=== PATIENT | female | born 1940 | race Caucasian/White ===

== ENCOUNTER 2017-01-25 14:01 | Inpatient (IN) | payer MEDICARE ==
[2017-01-25] MEDS ORDERED: methylPREDNISolone Sod Succ/PF 125 MG/2 ML VIAL ONE (14:22)
[2017-01-25] MEDS ORDERED: Water For Inject, Bacteriostat 30 ML ONE (14:22)
[2017-01-25 14:37] LABS: Hematocrit 30.7 % (36.0-47.0); Mean Platelet Volume 8.9 fL (7.4-10.4); Red Blood Cell (RBC) Count 4.56 mill/uL (4.20-5.40); White Blood Cell (WBC) Count 20.3 thou/uL (4.8-10.8)
[2017-01-25 14:50] LABS: ALT (SGPT) 32 U/L (8-55); AST (SGOT) 33 U/L (5-34); Alkaline Phosphatase 112 U/L (40-150); Anion Gap 18 mmol/L (10-20); BUN (Urea Nitrogen) 14 mg/dL (9.8-20.1); Bilirubin, Total 0.3 mg/dL (0.2-1.2); CK (CPK) 55 U/L (29-168); Calc. Creatinine Clearance 0 mL/min (70-130); Carbon Dioxide 23 mmol/L (23-31); Chloride 94 mmol/L (98-107); Estimated GFR-MDRD Greater than 90; Globulin 3.3 g/dL (2.4-3.5); Protein, Total 7.5 g/dL (6.0-8.3)
[2017-01-25 14:53] LABS: Modified Allen's Test NOT DONE; Oxyhemoglobin 89.4 % (94.0-97.0); Sodium 132 mmol/L (135-148)
[2017-01-25 14:54] LABS: Mode BIPAP 10 28; Vent NO
[2017-01-25 14:54] LABS: Anisocytosis SLIGHT = 6-15 cells (100X) (0-5/hpf); Band 3 % (5-11); Hypochromia SLIGHT = 6-15 cells (100X) (0-5/hpf); Microcytosis MODERATE=15-30 cells (100X) (0-5/hpf); Neutrophil 83 % (42-75); Ovalocytes SLIGHT = 2-5 cells (100X) (0-1/hpf); Polychromasia SLIGHT = 2-3 cells (100X) (0-2/hpf); Reactive Lymphocytes 1 % (0-10); Schistocytes SLIGHT = 2-5 cells (100X) (0-1/hpf); Tear Drops SLIGHT = 2-5 cells (100X) (0-1/hpf); Troponin I Less than 0.010 ng/mL (< 0.028)
[2017-01-25] MEDS ORDERED: cefTRIAXone\\ROCEPHIN 1 GM VIAL ONE (15:07)
[2017-01-25 15:35] LABS: Magnesium 1.8 mg/dL (1.6-2.6); Phosphorus 3.5 mg/dL (2.3-4.7)
[2017-01-25] MEDS ORDERED: cefTRIAXone\\ROCEPHIN 1 GM in Sodium Chloride 0.9% 100 ML IVPB ONE (16:45)
[2017-01-25] MEDS ORDERED: Azithromycin 500 MG in Sodium Chloride 0.9% 250 ML 250 ML IVPB ONE (16:45)
--- NOTE | 2017-01-25 16:45 | HP ---
DATE OF ADMISSION: 01/25/2017 PRIMARY CARE PHYSICIAN: Dr. Sajan Reyes. PRIMARY NATURAL RESOURCE MANAGER: Dr. Benson. PRIMARY BUSINESS OPERATIONS CONSULTANT: Dr. Dominguez. CODE STATUS: FULL CODE. SURROGATE DECISION-MAKER: Patient makes her own decisions with the help of her family. CHIEF COMPLAINT: Shortness of breath. HISTORY OF PRESENT ILLNESS: Patient is a 76-year-old female with COPD, presented to the emergency r o with above complaints. Over the last one week, patient developed gradual worsening shortness of breath along with chest tig htness and wheezing. She had flu-like symptoms over the last one week. Multiple family members had similar symptoms. She also felt feverish; however, did not record her temperature. The shortness of breath was worse on minimal exertion. No leg swelling, orthopnea, syncope, chest pain reported. She tried using nebulizer treatment without much success. She was evaluated by her primary care ph ysician 2 days ago and was advised hospitalization. However, she preferred to go home on oral antib iotics and steroids. Her chest x-ray as outpatient was negative for pneumonia per patient report. Today, her symptoms got worse for which the family brought her to the emergency room. In the emergency room, her initial vital signs showed temperature 96.8, respiration of 26, pulse rat e of 121, blood pressure of 172/92 with O2 saturation of 100% on noninvasive positive pressure venti lation. She was saturating 80% on room air. Her initial EKG showed tachycardia with questionable a trial fibrillation with heart rate in 120s. A chest x-ray showed left lower lobe infiltrate. She r eceived 1 gram of ceftriaxone, azithromycin, Solu-Medrol, and 12.5 mg Cardizem push with nebulizer t reatment. Patient is currently home on prednisone as well as Omnicef. PAST MEDICAL HISTORY: 1. COPD/asthma. 2. Anxiety. 3. Peripheral vascular disease. 4. Hypertension. 5. Osteoporosis. PAST SURGICAL HISTORY: 1. Appendectomy. 2. Hysterectomy. ALLERGIES: Patient denies any drug allergies. HOME MEDICATIONS: To be verified with the family. She does not remember the exact dosages of her m edications. She is currently on aspirin, Breo Ellipta, nebulizer treatment, Xanax, omeprazole, ProA ir, Cardizem ER 240 mg daily, and isosorbide mononitrate twice a day. FAMILY HISTORY: Father at 75 years, diagnosed with heart disease. Mother with congestive heart failure. SOCIAL HISTORY: Patient is a former smoker, quit in 2016. She is and has 3 children. She lives at home with her spouse. She denies any alcohol or drug use. REVIEW OF SYSTEMS: The following complete review of systems was negative, unless otherwise mentione d in the HPI or below: CONSTITUTIONAL: Weight loss or gain, ability to conduct usual activities. SKIN: Rash, itching. EYES: Double vision, pain. ENT/MOUTH: Nose bleeding, neck stiffness, pain, tenderness. CARDIOVASCULAR: Palpitations, dyspnea on exertion, orthopnea. RESPIRATORY: Shortness of breath, wheezing, cough, hemoptysis, fever or night sweats. GASTROINTESTINAL: Poor appetite, abdominal pain, heartburn, nausea, vomiting, constipation, or diar regan. GENITOURINARY: Urgency, frequency, dysuria, nocturia. MUSCULOSKELETAL: Pain, swelling. NEUROLOGIC/PSYCHIATRIC: Anxiety, depression. ALLERGY/IMMUNOLOGIC: Skin rash, bleeding tendency. PHYSICAL EXAMINATION: VITAL SIGNS: As discussed above. GENERAL: A 76-year-old female in moderate respiratory distress on noninvasive positive pressure vi tilation. HEENT: Head atraumatic, normocephalic, sclerae are anicteric. Moist mucous membrane, no oral lesio n. NECK: Supple, no JVD appreciated. There is use of accessory muscles of respiration. LUNGS: Showed expiratory wheezing with scattered rhonchi and questionable rales at left base. HEART: S1, S2 present. Irregular, tachycardic. ABDOMEN: Soft, nontender, bowel sounds present, no rebound or guarding. EXTREMITIES: No edema or calf tenderness. NEUROLOGIC: Grossly nonfocal, moves all four extremities. PSYCHIATRY: Alert, awake, oriented x3. SKIN: Warm and dry. LYMPH NODES: No palpable lymph nodes in the neck. PERIPHERAL VASCULAR: Radial pulses palpable bilaterally. MUSCULOSKELETAL: No joint swelling or tenderness. LABORATORY FINDINGS: 1. CBC showed WBC 20.3 with hemoglobin 8.9, hematocrit 30.7, platelet of 568. Weight 83% neutrophi ls. 2. Chemistries showed sodium 132, potassium 3, chloride 94, bicarbonate 23, BUN 14, creatinine 0.61 . 3. Magnesium, phosphorus in normal range. 4. Iron was 16 with TIBC 435. Ferritin pending at this time. 5. Cardiac enzymes were normal. 6. BNP 138. 7. LFTs in normal range. 8. EKG by my review showed findings as discussed above. 9. Chest x-ray by my review as discussed above. IMPRESSION: 1. Acute hypoxic and hypercapnic respiratory failure. ABGs in the emergency room showed pH of 7.4 with pCO2 of 45.4, pO2 of 66.6. 2. Chronic obstructive pulmonary disease exacerbation. 3. Atrial tachyarrhythmia. Questionable atrial fibrillation versus multifocal atrial tachycardia. 4. Iron deficiency anemia. Patient had iron studies in May of this year that was consistent wi iron deficiency. 5. Sepsis with acute organ dysfunction secondary to community-acquired pneumonia. 6. Hypokalemia. 7. Chronic hyponatremia. 8. Former smoker. 9. Anxiety. 10. Gastroesophageal reflux disease. 11. History of chronic obstructive pulmonary disease/asthma. 12. Seasonal allergies. 13. Hypertension. 14. Peripheral vascular disease. PLAN: The patient will be monitored in the intermediate care unit. We will continue respiratory th erapy with noninvasive positive pressure ventilation. We will consult Critical Care. Empiric antib iotics for pneumonia. We will continue steroids, oxygen, and nebulizer treatment and inhaled steroi ds. For questionable atrial fibrillation, we will continue Cardizem drip. We will consult Cardiolo gy in a.m. We will hold anticoagulation due to iron deficiency anemia. Atrial fibrillation appears to be less likely. We will get serial cardiac enzymes. For anemia, we will her iron infusion. Elmer palma had stool for occult blood as outpatient that was negative per patient report. She will benefit f rom outpatient GI workup. She denies any melena or hematochezia. We will also replace potassium. Plan of care was discussed with the patient. She stated understanding.
--- NOTE | 2017-01-25 17:29 | RAD ---
RADIOGRAPH CHEST 1 VIEW: Date: 01-25-17 Time: 2:26 p.m. HISTORY: 76-year-old female with acute dyspnea. COMPARISON: 07-17-16 FINDINGS: Severe bilateral hyperinflation consistent with COPD. Narrowing of the cardiomediastinal silhouette due to the hyperinflation. Small, ill-defined area of increased density at the left lateral lung bas e, apparently new since the previous study. Uncertain whether this is artifact or a small infiltrate . No consolidation in the rest of the lungs. No pulmonary edema. Lateral costophrenic angles are not effaced. No pneumothorax. IMPRESSION: 1. Emphysema, somewhat severe. 2. Small density at the left lateral lung base. Uncertain whether or not this represents a small acu te infiltrate. 3. Recommend follow up. AUDREY POS: RHETT
[2017-01-25] MEDS ORDERED: NS 0.9% w/ 40 MEQ KCL 1,000 ML IV SCH (17:31)
[2017-01-25] MEDS ORDERED: Ondansetron HCl/PF 4 MG/2 ML Vial IVP PRN ×2 (17:31)
[2017-01-25] MEDS ORDERED: Eucerin (Mineral Oil/Petrolatum,White) 30 gm Jar TOP PRN (17:31)
[2017-01-25] MEDS ORDERED: Senokot 8.6 MG TAB PO PRN (17:31)
[2017-01-25] MEDS ORDERED: Polyethylene Glycol 3350 17 GM Packet PO PRN (17:31)
[2017-01-25] MEDS ORDERED: Ondansetron ODT 4 MG TAB PO PRN (17:31)
[2017-01-25] MEDS ORDERED: Diabetic Tussin 200 MG/10 ML UDCUP PO PRN (17:31)
[2017-01-25] MEDS ORDERED: Cepastat Lozenges 1 LOZ PO PRN (17:31)
[2017-01-25] MEDS ORDERED: Mag-Al 1200 mg/1200 mg/30 ML UDCUP PO PRN (17:31)
[2017-01-25] MEDS ORDERED: Nitroglycerin 0.4 MG TAB (25 Tab Bottle) PO PRN (17:31)
[2017-01-25] MEDS ORDERED: Calcium Carbonate 500 MG ChewTAB PO PRN (17:31)
[2017-01-25] MEDS ORDERED: Ondansetron ODT 4 MG TAB SL PRN (17:31)
[2017-01-25] MEDS ORDERED: Acetaminophen 325 MG TAB PO PRN ×2 (17:31)
[2017-01-25] MEDS ORDERED: Nitroglycerin 2% Ointment 1 INCH/1 GM Packet TOP PRN (17:31)
[2017-01-25] MEDS ORDERED: Diltiazem HCl 125 MG, IV Admixture Fee 1 EACH in Sodium Chloride 0.9% 100 ML IVPB SCH (17:45)
[2017-01-25 18:17] LABS: Troponin I Less than 0.010 ng/mL (< 0.028)
[2017-01-25] MEDS: Mometasone/Formoterol 120 PUFF INHALER INH SCH (19:25)
[2017-01-25] MEDS: Docusate 100 MG CAP PO SCH (20:46)
[2017-01-25] MEDS: guaiFENesin ER 600 MG TAB PO SCH (20:46)
[2017-01-25] MEDS ORDERED: methylPREDNISolone Sod Succ/PF 125 MG/2 ML VIAL IVP SCH (21:00)
[2017-01-26 05:32] LABS: ALT (SGPT) 29 U/L (8-55); AST (SGOT) 20 U/L (5-34); Alkaline Phosphatase 93 U/L (40-150); Anion Gap 19 mmol/L (10-20); BUN (Urea Nitrogen) 9 mg/dL (9.8-20.1); Bilirubin, Total 0.3 mg/dL (0.2-1.2); Calc. Creatinine Clearance 60 mL/min (70-130); Calcium 8.7 mg/dL (7.8-10.44); Carbon Dioxide 20 mmol/L (23-31); Chloride 99 mmol/L (98-107); Estimated GFR-MDRD Greater than 90; Protein, Total 6.8 g/dL (6.0-8.3)
[2017-01-26 05:33] LABS: #Lymphocytes 0.5 thou/uL (1.20-3.40); #Monocytes 0.1 thou/uL (0.11-0.59); #Neutrophils 11.2 thou/uL (1.40-6.50); %Basophils 0.2 % (0.0-1.0); %Eosinophils 0.4 % (0.0-10.0); %Lymphocytes 4.3 % (21.0-51.0); %Monocytes 0.5 % (0.0-10.0); Mean Platelet Volume 9.7 fL (7.4-10.4); Red Blood Cell (RBC) Count 4.07 mill/uL (4.20-5.40); White Blood Cell (WBC) Count 11.8 thou/uL (4.8-10.8)
[2017-01-26] MEDS: Mometasone/Formoterol 120 PUFF INHALER INH SCH (08:05)
[2017-01-26] MEDS ORDERED: Iron Sucrose Complex 300 MG in Sodium Chloride 0.9% 250 ML 250 ML IVPB SCH (09:00)
[2017-01-26] MEDS ORDERED: Saccharomyces boulardii 250 MG CAP PO SCH (09:00)
[2017-01-26] MEDS: guaiFENesin ER 600 MG TAB PO SCH ×2 (09:03→20:45)
[2017-01-26] MEDS: Docusate 100 MG CAP PO SCH ×2 (09:03→20:46)
[2017-01-26] MEDS: Potassium Chloride 10 MEQ TAB PO SCH (09:04)
[2017-01-26] MEDS ORDERED: Albuterol Sulfate 2.5 mg/3 ml Neb NEB PRN (10:46)
[2017-01-26] MEDS ORDERED: Enoxaparin Sodium 30 MG/0.3 ML SYRINGE SC SCH (11:00)
[2017-01-26] MEDS ORDERED: Benzonatate 100 MG CAP PO PRN (12:00)
[2017-01-26] MEDS: Sodium Chloride 0.9% 1,000 ML IV SCH (13:04)
--- NOTE | 2017-01-26 13:13 | PDOC.PN ---
- Subjective Encounter Start Date: 01/26/17 Encounter Start Time: 12:00 Patient seen and examined. SOB +. on BIPAP. No overnight events - Objective MAR Reviewed: Yes Vital Signs & Weight: Vital Signs (12 hours) Temp Pulse Resp BP BP Pulse Ox 01/26/17 13:09 102 H 24 H 91 L 01/26/17 13:06 119 H 24 H 92 L 01/26/17 12:28 100 159/90 H 01/26/17 11:30 97.7 F 80 14 139/70 94 L 01/26/17 08:07 120 H 20 96 01/26/17 08:05 120 H 20 96 01/26/17 08:04 120 H 22 H 96 01/26/17 08:00 98.0 F 120 H 20 96 01/26/17 07:26 98.0 F 114 H 27 H 142/81 H 95 01/26/17 04:00 97.8 F 82 24 H 113/60 99 01/26/17 02:33 86 17 98 Weight Admit Weight 97 lb 8 oz Weight 95 lb 12.8 oz I&O: 01/25/17 01/26/17 01/27/17 06:59 06:59 06:59 Intake Total 1310 Output Total 950 Balance 360 Result Diagrams: 01/26/17 04:51 01/26/17 04:51 EKG Reviewed by me: Yes (Tele SR) Phys Exam - Physical Examination Pt in resp distress when off BIPAP Respiratory: no rhonchi, wheezing present Scat rales at bases, Symmetrical Cardiovascular: RRR, no rub, gallop no heaves Gastrointestinal: soft, non-tender, no distention, positive bowel sounds Musculoskeletal: no edema, pulses present Neurological: non-focal, normal sensation, moves all 4 limbs Psychiatric: normal affect, A&O x 3 Skin: no rash Dx/Plan - Plan IMPRESSION: 1. Acute hypoxic and hypercapnic respiratory failure due to #2. on NIPPV 2. Chronic obstructive pulmonary disease exacerbation. 3. Atrial tachyarrhythmia. on Cardizem drip 4. Iron deficiency anemia. 5. Sepsis with acute organ dysfunction secondary to community-acquired pneumonia. 6. Hypokalemia. replaced 7. Chronic hyponatremia. 8. Former smoker. 9. Anxiety. 10. Gastroesophageal reflux disease. 11. History of chronic obstructive pulmonary disease/asthma. 12. Seasonal allergies. 13. Hypertension. 14. Peripheral vascular disease. PLAN: * Lovenox started for DVT prophylaxis * Cardio/Pulm following * DC IV Cardizem drip * Start PO Cardizem CD 120 BID * Resume Imdur (home med) * Cont resp therapy with NIPPV * Cont other meds as below * Change IVF to NS @ 30 * AM labs Review of Systems - Review of Systems Constitutional: negative: Fever, Chills, Sweats, Weakness, Malaise, Other Respiratory: Shortness of Breath, SOB with Excertion. negative: Cough, Dry, Hemoptysis, Pleuritic Pain, Sputum, Wheezing Cardiovascular: negative: Chest Pain, Palpitations, Orthopnea, Paroxysmal Noc. Dyspnea, Edema, Light Headedness, Other Gastrointestinal: negative: Nausea, Vomiting, Abdominal Pain, Diarrhea, Constipation, Melena, Hematochezia, Other Genitourinary: negative: Dysuria, Frequency, Incontinence, Hematuria, Retention , Other - Medications/Allergies Allergies/Adverse Reactions: Allergies Allergy/AdvReac Type Severity Reaction Status Date / Time No Known Allergies Allergy Verified 01/25/17 17:40 Medications: Current Medications Acetaminophen (Tylenol) 650 mg PO Q4H PRN PRN Reason: Headache/Fever or Pain Al Hydroxide/Mg Hydroxide (Maalox) 30 ml PO Q6H PRN PRN Reason: Heartburn or Indigestion Albuterol Sulfate (Ventolin) 2.5 mg NEB Q2H PRN PRN Reason: SOB &/or Wheezing Albuterol/Ipratropium (Duoneb) 3 ml NEB [id number]-HP [facility] Last Admin: 01/26/17 13:06 Dose: 3 ml Alprazolam (Xanax) 0.25 mg PO BIDPRN PRN PRN Reason: Anxiety Benzonatate (Tessalon) 100 mg PO TID PRN PRN Reason: Cough Calcium Carbonate (Tums) 1,000 mg PO Q4H PRN PRN Reason: Heartburn or Indigestion Diltiazem HCl (Cardizem Cd) 120 mg PO BID [facility] Diltiazem HCl (Cardizem Cd) 120 mg PO NOW [facility] Stop: 01/26/17 14:00 Last Admin: 01/26/17 12:28 Dose: 120 mg Docusate Sodium (Colace) 100 mg PO BID [facility] Last Admin: 01/26/17 09:03 Dose: 100 mg Enoxaparin Sodium (Lovenox) 30 mg SC 0900 [facility] Guaifenesin (Robitussin Sf) 200 mg PO Q4H PRN PRN Reason: Cough Guaifenesin (Mucinex) 1,200 mg PO Q12HR [facility] Hydralazine HCl (Apresoline) 10 mg SLOW IVP Q4H PRN PRN Reason: SBP Greater Than 180 Azithromycin 500 mg/ Sodium (Chloride) 250 mls @ 250 mls/hr IVPB 1700 [facility] Ceftriaxone Sodium 1 gm/Miscellaneous Medication 1 each/ Sodium Chloride 100 mls @ 200 mls/hr IVPB 1800 [facility] Sodium Chloride (Normal Saline 0.9%) 1,000 mls @ 30 mls/hr IV .Q24H [facility] Last Admin: 01/26/17 13:04 Dose: 1,000 mls Isosorbide Mononitrate (Ismo) 10 mg PO DAILY [facility] Mineral Oil/White Petrolatum (Eucerin Cream) 0 gm TOP BIDPRN PRN PRN Reason: Dry Skin Nitroglycerin (Nitrostat) 0.4 mg PO Q5MIN PRN PRN Reason: Chest Pain Nitroglycerin (Nitro-Bid 2% Ointment) 0.5 inch TOP Q8H PRN PRN Reason: SBP Greater Than 180 Ondansetron HCl (Zofran) 4 mg IVP Q6H PRN PRN Reason: Nausea/Vomiting Pantoprazole Sodium (Protonix) 40 mg PO DAILY [facility] Last Admin: 01/26/17 09:04 Dose: 40 mg Polyethylene Glycol (Miralax) 17 gm PO DAILYPRN PRN PRN Reason: Constipation Potassium Chloride (Klor-Con 10) 10 meq PO QAM-WM [facility] Last Admin: 01/26/17 09:04 Dose: 10 meq Prednisone (Prednisone) 40 mg PO BID [facility] Saccharomyces Boulardii (Florastor) 250 mg PO DAILY [facility] Last Admin: 01/26/17 09:03 Dose: 250 mg Saccharomyces Boulardii (Florastor) 250 mg PO DAILY [facility] Senna (Senokot) 2 tab PO HSPRN PRN PRN Reason: Constipation Sodium Chloride (Flush - Normal Saline) 10 ml IVF PRN PRN PRN Reason: Saline Flush Last Admin: 01/26/17 08:52 Dose: 10 ml Throat Lozenges (Cepastat Lozenges) 1 no PO Q2H PRN PRN Reason: Sore Throat
--- NOTE | 2017-01-26 16:24 | CON ---
DATE OF CONSULTATION: 01/26/2017 SERVICE: Pulmonary Medicine. REASON FOR CONSULTATION: COPD exacerbation. HISTORY OF PRESENT ILLNESS: The patient is a 76-year-old white female with past medical history significant for COPD. She follows with Dr. Benson in the outpatient setting. He will assume care in the morning. Briefly, the patient had some sick contacts. There was a respiratory illness that was going around the house. It was started off with a sore throat, congestion. Most people did not go down into her chest, but for her I did. She was having some low-grade fevers and thinks actually that went up to 102. She had a slow progressive increase in her dyspnea over the weekend. On Thursday, she went to her primary care physician, Dr. Reyes, who ended up doing a chest x-ray and initiated therapy for COPD exacerbation. Her breathing problem progressed through the weekend and last night, she presented to the emergency department with increasing dyspnea. She currently denies any fevers, chills, nausea or vomiting. She feels like she has tried to cough out, but cannot liberate the sputum. Every time she gets a nebulized medication, she actually feels slightly worse for a short period of time associated with increasing pulse rate. PAST MEDICAL HISTORY: 1. COPD. 2. Atrial fibrillation, paroxysmal. 3. Peripheral vascular disease. 4. Hypertension. 5. Osteoporosis. 6. Anxiety disorder. PAST SURGICAL HISTORY: 1. Appendectomy. 2. Hysterectomy. ALLERGIES: No known drug allergies. MEDICATIONS: List of her inpatient medications were reviewed and updated. Her lung medicines include Breo, scheduled, and ProAir on a p.r.n. basis. FAMILY HISTORY: Noncontributory. SOCIAL HISTORY: The patient quit smoking in 2016, but prior to that had a greater than [id number] history. She has 3 children. She lives at home with her spouse and denies any alcohol or illicit drug use. She has no exposure to chemicals, dust asbestos or tuberculosis. REVIEW OF SYSTEMS: General, head, ears, eyes, nose, throat, cardiovascular, respiratory, GI, , musculoskeletal, neurologic and skin is negative except as mentioned in the HPI. PHYSICAL EXAMINATION: VITAL SIGNS: Afebrile, pulse 120, blood pressure 142/81, respirations 20, and saturation 96% on 23% FiO2. GENERAL: The patient is awake and alert, in no apparent distress. HEENT: Normocephalic and atraumatic. Sclerae are white, conjunctivae pink. Oral and nasal mucosa is moist without lesions. LUNGS: Very reduced air entry. There is a prolonged expiratory phase, but she is not moving enough air for me to appreciate any wheezing. There are some small rhonchi that changed with cough. She also has bibasilar dependent crackles which are lateral on the right. HEART: Tachycardic. Irregular. ABDOMEN: Soft, nontender, nondistended, bowel sounds positive. MUSCULOSKELETAL: No cyanosis or clubbing. There is no pitting in the bilateral lower extremities. If anything, she demonstrates mild tenting throughout. GENITOURINARY: No Lyon catheter. NEUROLOGIC: Grossly nonfocal. LABORATORY DATA: WBC 11.8, hemoglobin 8.3, and platelets 435,000. Neutrophils are 95%, but the band count was low on presentation. PH 7.40, pCO2 of 45.4, pO2 of 66 on FiO2 of 28% with BiPAP. Liver function studies are unremarkable. Basic metabolic profile showing significant for sodium of 134. Anion gap is mildly elevated. Ferritin 13.7, iron is reduced. Total iron binding capacity is at the upper limits of normal; however. Phosphorus and magnesium fall within the normal limits. Cardiac enzymes are negative x1. BNP is minimally elevated to 138. Blood cultures x2 are negative to date. Urine culture is negative as well. IMAGING: Chest x-ray demonstrates possible left lower lobe infiltrate which would be quite small. Bilaterally, the lungs are hyperexpanded with flattening of the diaphragm. Interstitial markings are prominent, but likely cash posting representative of advanced emphysematous changes. ASSESSMENT: 1. Acute hypoxic and hypercapnic respiratory failure. 2. Chronic obstructive pulmonary disease with acute exacerbation. 3. Community-acquired pneumonia, possible. 4. Atrial fibrillation with rapid ventricular response. PLAN: We will deescalate her steroids to p.o. medication. Nebulized medications we backed off to q.6 h. This is because they make her feel worse, not better. I will continue working on rate control medication. Her maintenance fluids will be continued for the time being. Respiratory virus panel to be collected. P.r.n. albuterol will be provided if necessary. Agree with antibiotics directed at community-acquired organisms. We will continue our BiPAP and give her breaks 3 times daily and increase as tolerated. Diet will be provided if she tolerates her lunch break today. For the time being, we will keep her in bed as increased mobility causes her to have fairly significant increase in respiratory distress. Pulmonary Critical Care will continue to follow. Dr. Benson will assume care in the morning. MEGHANA
[2017-01-26] MEDS ORDERED: Azithromycin 500 MG in Sodium Chloride 0.9% 250 ML 250 ML IVPB SCH (17:00)
[2017-01-26] MEDS: CEFTRIAXONE ROCEPHIN IVPB SCH (17:30)
[2017-01-26] MEDS: ADMIXTURE FEE IVPB SCH (17:30)
[2017-01-26] MEDS: SODIUM CHLORIDE IVPB SCH (17:30)
[2017-01-26] MEDS: predniSONE 20 MG TAB PO SCH (20:46)
[2017-01-27 04:52] LABS: Anion Gap 15 mmol/L (10-20); BUN (Urea Nitrogen) 16 mg/dL (9.8-20.1); BUN/Creatinine Ratio 30.19; Calc. Creatinine Clearance 62 mL/min (70-130); Calcium 8.7 mg/dL (7.8-10.44); Carbon Dioxide 23 mmol/L (23-31); Chloride 101 mmol/L (98-107); Estimated GFR-MDRD Greater than 90; Phosphorus 2.9 mg/dL (2.3-4.7)
[2017-01-27] MEDS: predniSONE 20 MG TAB PO SCH (07:52)
[2017-01-27] MEDS: Potassium Chloride 10 MEQ TAB PO SCH ×2 (07:53→16:38)
[2017-01-27] MEDS: guaiFENesin ER 600 MG TAB PO SCH ×2 (07:54→20:08)
[2017-01-27] MEDS: Docusate 100 MG CAP PO SCH ×2 (07:54→20:09)
[2017-01-27] MEDS: Isosorbide Mononitrate 20 MG TAB PO SCH (07:54)
[2017-01-27] MEDS: ALPRAZolam 0.25 MG TAB PO PRN ×2 (07:55→20:08)
[2017-01-27] MEDS: Enoxaparin Sodium 30 MG/0.3 ML SYRINGE SC SCH (07:55)
[2017-01-27] MEDS: Saccharomyces boulardii 250 MG CAP PO SCH (07:55)
--- NOTE | 2017-01-27 10:14 | PDOC.CTH ---
Cardiology Progress Note - Subjective Patient reports that SOB is much improved and she is feeling much better today. She currently denies any CP, pressure, palpitations or lightheadedness. - Objective Vital Signs Temp Pulse Resp BP Pulse Ox 01/27/17 08:00 97.7 F 108 H 20 170/86 H 92 L 01/27/17 07:53 108 H 01/27/17 07:28 116 H 20 90 L 01/27/17 07:27 117 H 20 90 L 01/27/17 04:00 98.9 F 110 H 19 141/75 H 95 01/27/17 02:10 96 15 93 L 01/27/17 00:12 98 17 92 L 01/27/17 00:00 98.4 F 115 H 24 H 144/87 H 90 L Admit Weight 97 lb 8 oz Weight 95 lb 12.8 oz 01/26/17 01/27/17 01/28/17 06:59 06:59 06:59 Intake Total 1310 1807 Output Total 950 1200 Balance 360 607 - Physical Examination General/Neuro: alert & oriented x3, NAD Neck: no JVD present Lungs: unlabored respirations, other: (rales to bilateral bases) Heart: RRR Abdomen: NT/ND, soft, other: (active BS) Extremities: other: (no edema to BLE) - Telemetry Telemetry Rhythm: sinus rhythm - Labs Result Diagrams: 01/26/17 04:51 01/27/17 04:10 Troponin/CKMB CK-MB (CK-2) 3.1 ng/mL (0-6.6) 01/25/17 14:20 Troponin I Less than 0.010 ng/mL (< 0.028) 01/25/17 17:43 - Assessment/Plan 1. SOB 2. COPD Exacerbation 3. Sepsis secondary to CAP 4. Tachyarrhythmia likely due to the above Ms. Connors is stable. She is feeling much better as SOB improves and has been weaned from bipap. Cardizem drip has been dc'd and she is currently maintaining NSR with oral cardizem. We will change to long acting CCB starting in the am and will monitor response. Expect HR to improve as COPD stabilizes.
[2017-01-27] MEDS: Sodium Chloride 0.9% 1,000 ML IV SCH (11:11)
--- NOTE | 2017-01-27 15:12 | PDOC.PN ---
- Subjective Encounter Start Date: 01/27/17 Encounter Start Time: 10:30 Patient seen and examined. No new complaints. No overnight events. Off BIPAP. SOB improving. - Objective MAR Reviewed: Yes Vital Signs & Weight: Vital Signs (12 hours) Temp Pulse Resp BP Pulse Ox 01/27/17 13:47 104 H 20 94 L 01/27/17 12:00 97.7 F 105 H 16 143/89 H 97 01/27/17 08:00 97.7 F 108 H 20 170/86 H 92 L 01/27/17 07:53 108 H 01/27/17 07:28 116 H 20 90 L 01/27/17 07:27 117 H 20 90 L 01/27/17 04:00 98.9 F 110 H 19 141/75 H 95 Weight Admit Weight 97 lb 8 oz Weight 95 lb 12.8 oz I&O: 01/26/17 01/27/17 01/28/17 06:59 06:59 06:59 Intake Total 1310 1807 Output Total 950 1200 Balance 360 607 Result Diagrams: 01/26/17 04:51 01/27/17 04:10 EKG Reviewed by me: Yes (Tele SR) Phys Exam - Physical Examination Pt in minimal resp distress Respiratory: no rales B/L rhonchi with scat wheezing Cardiovascular: RRR, no rub Gastrointestinal: soft, non-tender, positive bowel sounds Musculoskeletal: no edema Neurological: non-focal, moves all 4 limbs Psychiatric: A&O x 3 Dx/Plan - Plan IMPRESSION: 1. Acute hypoxic and hypercapnic respiratory failure due to #2. off NIPPV 2. Chronic obstructive pulmonary disease exacerbation. improving 3. Atrial tachyarrhythmia. on Cardizem PO 4. Hypokalemia 5. Sepsis with acute organ dysfunction secondary to community-acquired pneumonia. on PO Atbx 6. Iron deficiency anemia. 7. Chronic hyponatremia. 8. Former smoker. 9. Anxiety. 10. Gastroesophageal reflux disease. 11. History of chronic obstructive pulmonary disease/asthma. 12. Seasonal allergies. 13. Hypertension. 14. Peripheral vascular disease. 15. PLAN: * Cardio/Pulm following * Cont resp therapy * Cont other meds as below * DC IVF * On PO Azithromycin * AM labs * Replace Potassium Review of Systems - Review of Systems Constitutional: negative: Fever, Chills, Sweats, Weakness, Malaise, Other Respiratory: Cough, Dry, Shortness of Breath, SOB with Excertion. negative: Hemoptysis, Pleuritic Pain, Sputum, Wheezing Cardiovascular: negative: Chest Pain, Palpitations, Orthopnea, Paroxysmal Noc. Dyspnea, Edema, Light Headedness, Other Gastrointestinal: negative: Nausea, Vomiting, Abdominal Pain, Diarrhea, Constipation, Melena, Hematochezia, Other - Medications/Allergies Allergies/Adverse Reactions: Allergies Allergy/AdvReac Type Severity Reaction Status Date / Time No Known Allergies Allergy Verified 01/25/17 17:40 Medications: Current Medications Acetaminophen (Tylenol) 650 mg PO Q4H PRN PRN Reason: Headache/Fever or Pain Al Hydroxide/Mg Hydroxide (Maalox) 30 ml PO Q6H PRN PRN Reason: Heartburn or Indigestion Albuterol Sulfate (Ventolin) 2.5 mg NEB Q2H PRN PRN Reason: SOB &/or Wheezing Albuterol/Ipratropium (Duoneb) 3 ml NEB [id number] SCH Alprazolam (Xanax) 0.25 mg PO BIDPRN PRN PRN Reason: Anxiety Last Admin: 01/27/17 07:55 Dose: 0.25 mg Azithromycin (Zithromax) 250 mg PO DAILY [facility] Stop: 01/31/17 09:01 Benzonatate (Tessalon) 100 mg PO TID PRN PRN Reason: Cough Calcium Carbonate (Tums) 1,000 mg PO Q4H PRN PRN Reason: Heartburn or Indigestion Diltiazem HCl (Cardizem Cd) 120 mg PO BID [facility] Stop: 01/27/17 23:59 Last Admin: 01/27/17 07:53 Dose: 120 mg Diltiazem HCl (Cardizem Cd) 240 mg PO DAILY [facility] Docusate Sodium (Colace) 100 mg PO BID [facility] Last Admin: 01/27/17 07:54 Dose: Not Given Enoxaparin Sodium (Lovenox) 30 mg SC 0900 [facility] Last Admin: 01/27/17 07:55 Dose: 30 mg Guaifenesin (Robitussin Sf) 200 mg PO Q4H PRN PRN Reason: Cough Guaifenesin (Mucinex) 1,200 mg PO Q12HR [facility] Last Admin: 01/27/17 07:54 Dose: 1,200 mg Hydralazine HCl (Apresoline) 10 mg SLOW IVP Q4H PRN PRN Reason: SBP Greater Than 180 Ceftriaxone Sodium 1 gm/Miscellaneous Medication 1 each/ Sodium Chloride 100 mls @ 200 mls/hr IVPB 1800 [facility] Last Admin: 01/26/17 17:30 Dose: 100 mls Sodium Chloride (Normal Saline 0.9%) 1,000 mls @ 30 mls/hr IV .Q24H [facility] Last Admin: 01/27/17 11:11 Dose: 1,000 mls Isosorbide Mononitrate (Ismo) 10 mg PO DAILY [facility] Last Admin: 01/27/17 07:54 Dose: 10 mg Methylprednisolone Sodium Succinate (Solu-Medrol) 20 mg IVP Q6HR [facility] Mineral Oil/White Petrolatum (Eucerin Cream) 0 gm TOP BIDPRN PRN PRN Reason: Dry Skin Nitroglycerin (Nitrostat) 0.4 mg PO Q5MIN PRN PRN Reason: Chest Pain Nitroglycerin (Nitro-Bid 2% Ointment) 0.5 inch TOP Q8H PRN PRN Reason: SBP Greater Than 180 Ondansetron HCl (Zofran) 4 mg IVP Q6H PRN PRN Reason: Nausea/Vomiting Pantoprazole Sodium (Protonix) 40 mg PO DAILY [facility] Last Admin: 01/27/17 07:54 Dose: 40 mg Polyethylene Glycol (Miralax) 17 gm PO DAILYPRN PRN PRN Reason: Constipation Potassium Chloride (Klor-Con 10) 10 meq PO BID[facility] Saccharomyces Boulardii (Florastor) 250 mg PO DAILY [facility] Last Admin: 01/27/17 07:55 Dose: 250 mg Senna (Senokot) 2 tab PO HSPRN PRN PRN Reason: Constipation Sodium Chloride (Flush - Normal Saline) 10 ml IVF PRN PRN PRN Reason: Saline Flush Last Admin: 01/26/17 08:52 Dose: 10 ml Throat Lozenges (Cepastat Lozenges) 1 no PO Q2H PRN PRN Reason: Sore Throat
[2017-01-27] MEDS ORDERED: Azithromycin 250 MG TAB PO SCH (16:15)
[2017-01-27] MEDS: SODIUM CHLORIDE IVPB SCH (16:42)
[2017-01-27] MEDS: ADMIXTURE FEE IVPB SCH (16:42)
[2017-01-27] MEDS: CEFTRIAXONE ROCEPHIN IVPB SCH (16:42)
[2017-01-27] MEDS: Famotidine 20 MG TAB PO SCH (20:08)
--- NOTE | 2017-01-27 21:38 | PRG ---
DATE OF SERVICE: 01/27/2017 SUBJECTIVE: Ms. Connors is in no distress. She has BiPAP on this morning. We have recommended that we try her off BiPAP. She only has very faint wheezes. She is in no distress. She is not using ac cessory muscles. OBJECTIVE: VITAL SIGNS: She is afebrile, heart rate 104, respiratory rate 20, oximetry is 94 on 4 liters, bloo d pressure 143/89. LUNGS: Clear. HEART: Regular rhythm. ABDOMEN: Soft. IMPRESSION: Chronic obstructive pulmonary disease exacerbation, clinically improved and her hemoglo bin is 8.3 today. Her MCV 66. It is unclear whether or not she has ever had a colonoscopy. This w ill need to be monitored closely. I do not feel like her radiograph is indicative of a community-acquired pneumonia. I suspect this i s simply a COPD exacerbation.
[2017-01-28 04:26] LABS: Anion Gap 12 mmol/L (10-20); BUN (Urea Nitrogen) 17 mg/dL (9.8-20.1); BUN/Creatinine Ratio 30.91; Calc. Creatinine Clearance 60 mL/min (70-130); Calcium 8.9 mg/dL (7.8-10.44); Carbon Dioxide 27 mmol/L (23-31); Chloride 101 mmol/L (98-107); Estimated GFR-MDRD Greater than 90; Magnesium 2.1 mg/dL (1.6-2.6)
[2017-01-28 05:14] LABS: #Lymphocytes 0.5 thou/uL (1.20-3.40); #Monocytes 0.2 thou/uL (0.11-0.59); #Neutrophils 8.7 thou/uL (1.40-6.50); %Eosinophils 0.2 % (0.0-10.0); %Lymphocytes 5.7 % (21.0-51.0); Anisocytosis SLIGHT = 6-15 cells (100X) (0-5/hpf); Bite Cells SLIGHT = 2-5 cells (100X) (0-1/hpf); Hypochromia SLIGHT = 6-15 cells (100X) (0-5/hpf); Mean Platelet Volume 8.8 fL (7.4-10.4); Microcytosis SLIGHT = 6-15 cells (100X) (0-5/hpf); Neutrophil 91 % (42-75); Red Blood Cell (RBC) Count 4.29 mill/uL (4.20-5.40); Tear Drops SLIGHT = 2-5 cells (100X) (0-1/hpf); White Blood Cell (WBC) Count 9.4 thou/uL (4.8-10.8)
[2017-01-28] MEDS: Potassium Chloride 10 MEQ TAB PO SCH ×2 (08:29→17:17)
[2017-01-28] MEDS: guaiFENesin ER 600 MG TAB PO SCH ×2 (08:29→22:10)
[2017-01-28] MEDS: Saccharomyces boulardii 250 MG CAP PO SCH (08:31)
[2017-01-28] MEDS: Azithromycin 250 MG TAB PO SCH (08:31)
[2017-01-28] MEDS: Famotidine 20 MG TAB PO SCH ×2 (08:31→22:10)
[2017-01-28] MEDS: Enoxaparin Sodium 30 MG/0.3 ML SYRINGE SC SCH (08:32)
[2017-01-28] MEDS: Docusate 100 MG CAP PO SCH ×2 (08:33→22:08)
[2017-01-28] MEDS: Isosorbide Mononitrate 20 MG TAB PO SCH (10:11)
[2017-01-28] MEDS: ALPRAZolam 0.25 MG TAB PO PRN ×2 (10:14→22:10)
--- NOTE | 2017-01-28 11:39 | PDOC.CTH ---
Cardiology Progress Note - Subjective Pt off of bipap. On NS currently. HR improved. No CP - Objective Vital Signs Temp Pulse Resp BP Pulse Ox 01/28/17 11:07 97.9 F 112 H 26 H 117/71 87 L 01/28/17 10:05 123 H 24 H 89 L 01/28/17 08:32 135 H 01/28/17 08:00 97.9 F 135 H 10 L 96 01/28/17 07:03 97.9 F 105 H 26 H 156/89 H 94 L 01/28/17 06:01 92 16 95 01/28/17 06:00 101 H 16 94 L 01/28/17 04:00 97.3 F L 97 22 H 126/68 95 01/28/17 02:33 94 17 94 L 01/28/17 00:00 71 22 H 122/63 94 L Admit Weight 97 lb 8 oz Weight 97 lb 3.2 oz 01/27/17 01/28/17 01/29/17 06:59 06:59 06:59 Intake Total 1807 1380 Output Total 1200 1500 Balance 607 -120 - Physical Examination General/Neuro: alert & oriented x3, NAD Neck: carotid US brisk, no JVD present Lungs: unlabored respirations, other: (mild rhonchi) Heart: PMI normal, RRR Abdomen: no HSM, NT/ND Extremities: + edema B - Telemetry Telemetry Rhythm: SR with PACs - Labs Result Diagrams: 01/28/17 03:43 01/28/17 03:43 Troponin/CKMB CK-MB (CK-2) 3.1 ng/mL (0-6.6) 01/25/17 14:20 Troponin I Less than 0.010 ng/mL (< 0.028) 01/25/17 17:43 Labs: O/W CBC wnl, O/W BMP wnl - Assessment/Plan 1. SOB 2. COPD Exacerbation 3. Sepsis secondary to CAP 4. Tachyarrhythmia likely due to the above Improving. change BID CCB to QAM CCB. Continue pulmonary support. Re check CBC in AM
--- NOTE | 2017-01-28 15:54 | PRG ---
DATE OF SERVICE: 01/28/2017 SUBJECTIVE: Ms. Connors for BiPAP for a short period last night, so she is feeling better. OBJECTIVE: VITAL SIGNS: She is afebrile, heart rate is 98, respiratory rate is 20, and oximetry is 90 on 3 lit ers. LUNGS: Remarkable for more audible wheezes today. Respiratory phase in lung. HEART: Regular rhythm. ABDOMEN: Soft. LABORATORY DATA: White count 9.4, hemoglobin 8.6, platelets 526,000. Electrolytes are normal. Cre atinine is 0.55. IMPRESSION: Chronic obstructive pulmonary disease exacerbation with respiratory failure requiring n oninvasive ventilation, clinically improving. PLAN: Continue nebulizer treatments, steroids, cough suppression, Mucolytics, etc. We will try to e ncourage her to sit up more on side of the bed and even in the chair today.
[2017-01-28] MEDS: SODIUM CHLORIDE IVPB SCH (17:17)
[2017-01-28] MEDS: CEFTRIAXONE ROCEPHIN IVPB SCH (17:17)
[2017-01-28] MEDS: ADMIXTURE FEE IVPB SCH (17:17)
--- NOTE | 2017-01-28 17:37 | PDOC.PN ---
- Subjective Encounter Start Date: 01/28/17 Encounter Start Time: 14:00 Patient seen and examined. No new complaints. No overnight events. SOB improving. On intermittent NIPPV. - Objective MAR Reviewed: Yes Vital Signs & Weight: Vital Signs (12 hours) Temp Pulse Resp BP Pulse Ox 01/28/17 15:16 97.9 F 104 H 22 H 124/67 87 L 01/28/17 14:35 98 90 L 01/28/17 12:00 88 L 01/28/17 11:07 97.9 F 112 H 26 H 117/71 87 L 01/28/17 10:05 123 H 24 H 89 L 01/28/17 08:32 135 H 01/28/17 08:00 97.9 F 135 H 10 L 96 01/28/17 07:03 97.9 F 105 H 26 H 156/89 H 94 L 01/28/17 06:01 92 16 95 01/28/17 06:00 101 H 16 94 L Weight Admit Weight 97 lb 8 oz Weight 97 lb 3.2 oz I&O: 01/27/17 01/28/17 01/29/17 06:59 06:59 06:59 Intake Total 1807 1380 Output Total 1200 1500 Balance 607 -120 Result Diagrams: 01/28/17 03:43 01/28/17 03:43 EKG Reviewed by me: Yes (Tele SR) Phys Exam - Physical Examination Pt in mild-mod resp distress Respiratory: no rales, wheezing present (scat) rhonchi + Cardiovascular: RRR, no rub Gastrointestinal: soft, non-tender, positive bowel sounds Musculoskeletal: no edema, pulses present Neurological: non-focal, moves all 4 limbs Dx/Plan - Plan IMPRESSION: 1. Acute hypoxic and hypercapnic respiratory failure due to #2. on intermittent NIPPV. Pulmonary following 2. Chronic obstructive pulmonary disease exacerbation. improving 3. Atrial tachyarrhythmia. on Cardizem PO - rate improved 4. Hypokalemia - corrected 5. Sepsis with acute organ dysfunction secondary to community-acquired pneumonia. on PO Atbx 6. Iron deficiency anemia. 7. Chronic hyponatremia. 8. Former smoker. 9. Anxiety. 10. Gastroesophageal reflux disease. 11. History of chronic obstructive pulmonary disease/asthma. 12. Seasonal allergies. 13. Hypertension. 14. Peripheral vascular disease. PLAN: * Cardio/Pulm following * Cont resp therapy * Cont other meds as below * On PO Azithromycin/IV Ceftriaxone * Cont Potassium replacement. Review of Systems - Review of Systems Constitutional: negative: Fever, Chills, Sweats, Weakness, Malaise, Other Respiratory: Cough, Dry, Shortness of Breath, SOB with Excertion, Wheezing. negative: Hemoptysis, Pleuritic Pain, Sputum Cardiovascular: negative: Chest Pain, Palpitations, Orthopnea, Paroxysmal Noc. Dyspnea, Edema, Light Headedness, Other Gastrointestinal: negative: Nausea, Vomiting, Abdominal Pain, Diarrhea, Constipation, Melena, Hematochezia, Other - Medications/Allergies Allergies/Adverse Reactions: Allergies Allergy/AdvReac Type Severity Reaction Status Date / Time No Known Allergies Allergy Verified 01/25/17 17:40 Medications: Current Medications Acetaminophen (Tylenol) 650 mg PO Q4H PRN PRN Reason: Headache/Fever or Pain Al Hydroxide/Mg Hydroxide (Maalox) 30 ml PO Q6H PRN PRN Reason: Heartburn or Indigestion Albuterol Sulfate (Ventolin) 2.5 mg NEB Q2H PRN PRN Reason: SOB &/or Wheezing Albuterol/Ipratropium (Duoneb) 3 ml NEB [id number] SCH Last Admin: 01/28/17 14:35 Dose: 3 ml Alprazolam (Xanax) 0.25 mg PO BIDPRN PRN PRN Reason: Anxiety Last Admin: 01/28/17 10:14 Dose: 0.25 mg Azithromycin (Zithromax) 250 mg PO DAILY [facility] Stop: 01/31/17 09:01 Last Admin: 01/28/17 08:31 Dose: 250 mg Benzonatate (Tessalon) 100 mg PO TID PRN PRN Reason: Cough Calcium Carbonate (Tums) 1,000 mg PO Q4H PRN PRN Reason: Heartburn or Indigestion Diltiazem HCl (Cardizem Cd) 240 mg PO DAILY [facility] Last Admin: 01/28/17 08:32 Dose: 240 mg Docusate Sodium (Colace) 100 mg PO BID [facility] Last Admin: 01/28/17 08:33 Dose: Not Given Enoxaparin Sodium (Lovenox) 30 mg SC 0900 [facility] Last Admin: 01/28/17 08:32 Dose: 30 mg Famotidine (Pepcid) 20 mg PO BID [facility] Last Admin: 01/28/17 08:31 Dose: 20 mg Guaifenesin (Robitussin Sf) 200 mg PO Q4H PRN PRN Reason: Cough Guaifenesin (Mucinex) 1,200 mg PO Q12HR [facility] Last Admin: 01/28/17 08:29 Dose: 1,200 mg Hydralazine HCl (Apresoline) 10 mg SLOW IVP Q4H PRN PRN Reason: SBP Greater Than 180 Ceftriaxone Sodium 1 gm/Miscellaneous Medication 1 each/ Sodium Chloride 100 mls @ 200 mls/hr IVPB 1800 [facility] Last Admin: 01/28/17 17:17 Dose: 100 mls Isosorbide Mononitrate (Ismo) 10 mg PO DAILY [facility] Last Admin: 01/28/17 10:11 Dose: 10 mg Methylprednisolone Sodium Succinate (Solu-Medrol) 20 mg IVP Q6HR [facility] Last Admin: 01/28/17 17:16 Dose: 20 mg Mineral Oil/White Petrolatum (Eucerin Cream) 0 gm TOP BIDPRN PRN PRN Reason: Dry Skin Nitroglycerin (Nitrostat) 0.4 mg PO Q5MIN PRN PRN Reason: Chest Pain Nitroglycerin (Nitro-Bid 2% Ointment) 0.5 inch TOP Q8H PRN PRN Reason: SBP Greater Than 180 Ondansetron HCl (Zofran) 4 mg IVP Q6H PRN PRN Reason: Nausea/Vomiting Polyethylene Glycol (Miralax) 17 gm PO DAILYPRN PRN PRN Reason: Constipation Potassium Chloride (Klor-Con 10) 10 meq PO BID-[facility] Last Admin: 01/28/17 17:17 Dose: 10 meq Saccharomyces Boulardii (Florastor) 250 mg PO DAILY [facility] Last Admin: 01/28/17 08:31 Dose: 250 mg Senna (Senokot) 2 tab PO HSPRN PRN PRN Reason: Constipation Sodium Chloride (Flush - Normal Saline) 10 ml IVF PRN PRN PRN Reason: Saline Flush Last Admin: 01/28/17 17:17 Dose: 10 ml Throat Lozenges (Cepastat Lozenges) 1 no PO Q2H PRN PRN Reason: Sore Throat
[2017-01-29] MEDS: Famotidine 20 MG TAB PO SCH ×2 (07:46→22:23)
[2017-01-29] MEDS: Saccharomyces boulardii 250 MG CAP PO SCH (07:46)
[2017-01-29] MEDS: Potassium Chloride 10 MEQ TAB PO SCH ×2 (07:47→17:21)
[2017-01-29] MEDS: guaiFENesin ER 600 MG TAB PO SCH ×2 (07:47→22:22)
[2017-01-29] MEDS: Azithromycin 250 MG TAB PO SCH (07:48)
[2017-01-29] MEDS: Docusate 100 MG CAP PO SCH ×2 (07:48→22:25)
[2017-01-29] MEDS: Isosorbide Mononitrate 20 MG TAB PO SCH (07:48)
[2017-01-29] MEDS: Enoxaparin Sodium 30 MG/0.3 ML SYRINGE SC SCH (07:48)
--- NOTE | 2017-01-29 13:33 | PDOC.PN ---
- Subjective Encounter Start Date: 01/29/17 Encounter Start Time: 08:00 Pt seen for acute on chronic respiratory failure. Reports dyspnea is better. No chest pain, fevers or chills. - Objective MAR Reviewed: Yes Vital Signs & Weight: Vital Signs (12 hours) Temp Pulse Resp BP BP Pulse Ox 01/29/17 11:45 114 H 20 01/29/17 11:04 97.5 F L 97 16 138/77 96 01/29/17 08:00 97.7 F 120 H 24 H 86 L 01/29/17 07:46 120 H 173/102 H 01/29/17 07:24 112 H 22 H 93 L 01/29/17 07:12 97.7 F 123 H 18 159/112 H 88 L 01/29/17 04:00 97.8 F 97 20 158/72 H 90 L Weight Admit Weight 97 lb 8 oz Weight 92 lb 4.8 oz I&O: 01/28/17 01/29/17 01/30/17 06:59 06:59 06:59 Intake Total 1380 900 375 Output Total 1500 550 750 Balance -120 350 -375 Result Diagrams: 01/28/17 03:43 01/28/17 03:43 EKG Reviewed by me: Yes (S. tachycardia) Phys Exam - Physical Examination Constitutional: NAD HEENT: moist MMs, oral pharynx no lesions Neck: supple Diminished air entry katheryn S1, S2, tachy, reg Gastrointestinal: soft, positive bowel sounds Musculoskeletal: pulses present Neurological: moves all 4 limbs Psychiatric: normal affect Dx/Plan (1) Acute and chronic respiratory failure Code(s): J96.20 - ACUTE AND CHR RESP FAILURE, UNSP W HYPOXIA OR HYPERCAPNIA Status: Acute Qualifiers: Respiratory failure complication: hypoxia and hypercapnia Qualified Code(s) : J96.21 - Acute and chronic respiratory failure with hypoxia; J96.22 - Acute and chronic respiratory failure with hypercapnia (2) COPD exacerbation Code(s): J44.1 - CHRONIC OBSTRUCTIVE PULMONARY DISEASE W (ACUTE) EXACERBATION Status: Acute (3) CAP (community acquired pneumonia) Code(s): J18.9 - PNEUMONIA, UNSPECIFIED ORGANISM Status: Acute (4) Iron deficiency anemia Code(s): D50.9 - IRON DEFICIENCY ANEMIA, UNSPECIFIED Status: Acute (5) GERD (gastroesophageal reflux disease) Code(s): K21.9 - GASTRO-ESOPHAGEAL REFLUX DISEASE WITHOUT ESOPHAGITIS Status: Acute - Plan continue antibiotics, out of bed/ambulate, DVT proph w/lovenox * . Clinically improving. Continue oxygen, steroids, bronchodilators and antibiotics. Likely transfer to floor in 1-2 days. Review of Systems - Review of Systems Constitutional: negative: Fever, Chills, Sweats, Weakness, Malaise Respiratory: Cough, SOB with Excertion. negative: Dry, Shortness of Breath, Hemoptysis, Pleuritic Pain, Sputum, Wheezing Cardiovascular: negative: Chest Pain, Palpitations, Orthopnea, Paroxysmal Noc. Dyspnea, Edema, Light Headedness Gastrointestinal: negative: Nausea, Vomiting, Abdominal Pain, Diarrhea, Constipation, Melena, Hematochezia - Medications/Allergies Allergies/Adverse Reactions: Allergies Allergy/AdvReac Type Severity Reaction Status Date / Time No Known Allergies Allergy Verified 01/25/17 17:40 Medications: Current Medications Acetaminophen (Tylenol) 650 mg PO Q4H PRN PRN Reason: Headache/Fever or Pain Al Hydroxide/Mg Hydroxide (Maalox) 30 ml PO Q6H PRN PRN Reason: Heartburn or Indigestion Albuterol Sulfate (Ventolin) 2.5 mg NEB Q2H PRN PRN Reason: SOB &/or Wheezing Albuterol/Ipratropium (Duoneb) 3 ml NEB [id number] SCH Last Admin: 01/29/17 11:45 Dose: 3 ml Alprazolam (Xanax) 0.25 mg PO BIDPRN PRN PRN Reason: Anxiety Last Admin: 01/28/17 22:10 Dose: 0.25 mg Azithromycin (Zithromax) 250 mg PO DAILY [facility] Stop: 01/31/17 09:01 Last Admin: 01/29/17 07:48 Dose: 250 mg Benzonatate (Tessalon) 100 mg PO TID PRN PRN Reason: Cough Calcium Carbonate (Tums) 1,000 mg PO Q4H PRN PRN Reason: Heartburn or Indigestion Diltiazem HCl (Cardizem Cd) 240 mg PO DAILY [facility] Last Admin: 01/29/17 07:46 Dose: 240 mg Docusate Sodium (Colace) 100 mg PO BID [facility] Last Admin: 01/29/17 07:48 Dose: 100 mg Enoxaparin Sodium (Lovenox) 30 mg SC 0900 [facility] Last Admin: 01/29/17 07:48 Dose: 30 mg Famotidine (Pepcid) 20 mg PO BID [facility] Last Admin: 01/29/17 07:46 Dose: 20 mg Guaifenesin (Robitussin Sf) 200 mg PO Q4H PRN PRN Reason: Cough Guaifenesin (Mucinex) 1,200 mg PO Q12HR [facility] Last Admin: 01/29/17 07:47 Dose: 1,200 mg Hydralazine HCl (Apresoline) 10 mg SLOW IVP Q4H PRN PRN Reason: SBP Greater Than 180 Ceftriaxone Sodium 1 gm/Miscellaneous Medication 1 each/ Sodium Chloride 100 mls @ 200 mls/hr IVPB 1800 [facility] Last Admin: 01/28/17 17:17 Dose: 100 mls Isosorbide Mononitrate (Ismo) 10 mg PO DAILY [facility] Last Admin: 01/29/17 07:48 Dose: 10 mg Methylprednisolone Sodium Succinate (Solu-Medrol) 20 mg IVP Q6HR [facility] Last Admin: 01/29/17 11:43 Dose: 20 mg Mineral Oil/White Petrolatum (Eucerin Cream) 0 gm TOP BIDPRN PRN PRN Reason: Dry Skin Nitroglycerin (Nitrostat) 0.4 mg PO Q5MIN PRN PRN Reason: Chest Pain Nitroglycerin (Nitro-Bid 2% Ointment) 0.5 inch TOP Q8H PRN PRN Reason: SBP Greater Than 180 Ondansetron HCl (Zofran) 4 mg IVP Q6H PRN PRN Reason: Nausea/Vomiting Polyethylene Glycol (Miralax) 17 gm PO DAILYPRN PRN PRN Reason: Constipation Potassium Chloride (Klor-Con 10) 10 meq PO BID-[facility] Last Admin: 01/29/17 07:47 Dose: 10 meq Saccharomyces Boulardii (Florastor) 250 mg PO DAILY [facility] Last Admin: 01/29/17 07:46 Dose: 250 mg Senna (Senokot) 2 tab PO HSPRN PRN PRN Reason: Constipation Sodium Chloride (Flush - Normal Saline) 10 ml IVF PRN PRN PRN Reason: Saline Flush Last Admin: 01/29/17 11:44 Dose: 10 ml Throat Lozenges (Cepastat Lozenges) 1 no PO Q2H PRN PRN Reason: Sore Throat
[2017-01-29] MEDS: ADMIXTURE FEE IVPB SCH (17:20)
[2017-01-29] MEDS: CEFTRIAXONE ROCEPHIN IVPB SCH (17:20)
[2017-01-29] MEDS: SODIUM CHLORIDE IVPB SCH (17:20)
--- NOTE | 2017-01-29 17:30 | PDOC.CTH ---
Cardiology Progress Note - Subjective Much better clinically today. No current complaints. Seen eating - Objective Vital Signs Temp Pulse Resp BP BP Pulse Ox 01/29/17 15:41 98 F 86 18 110/63 91 L 01/29/17 15:34 101 H 20 95 01/29/17 11:45 114 H 20 01/29/17 11:04 97.5 F L 97 16 138/77 96 01/29/17 08:00 97.7 F 120 H 24 H 86 L 01/29/17 07:46 120 H 173/102 H 01/29/17 07:24 112 H 22 H 93 L 01/29/17 07:12 97.7 F 123 H 18 159/112 H 88 L Admit Weight 97 lb 8 oz Weight 92 lb 4.8 oz 01/28/17 01/29/17 01/30/17 06:59 06:59 06:59 Intake Total 1380 900 375 Output Total 1500 550 750 Balance -120 350 -375 - Physical Examination General/Neuro: alert & oriented x3, NAD Neck: carotid US brisk Lungs: other: (MIld rhonichi) Heart: RRR, other: (tachycardia) - Labs Result Diagrams: 01/28/17 03:43 01/28/17 03:43 Troponin/CKMB CK-MB (CK-2) 3.1 ng/mL (0-6.6) 01/25/17 14:20 Troponin I Less than 0.010 ng/mL (< 0.028) 01/25/17 17:43 - Assessment/Plan 1. SOB 2. COPD Exacerbation 3. Sepsis secondary to CAP 4. Tachyarrhythmia likely due to the above Improving. HR still mildly elevated. Consider increasing CCB if needed or adding digoxin
--- NOTE | 2017-01-29 19:40 | PRG ---
DATE OF SERVICE: 01/29/2017 SUBJECTIVE: Ms. Connors did well overnight. OBJECTIVE: VITAL SIGNS: She is afebrile, heart rate fluctuates between 80s and 110s, respiratory rates in teen s, oximetry is 91 on 3 liters, blood pressure 110/63. She did not require noninvasive support overn ight. LUNGS: Remarkable for improved wheezes and a shorter expiratory time. HEART: Regular rhythm. ABDOMEN: Soft. NEUROLOGIC: She is talking in complete sentences. LABORATORY DATA: No new lab today. IMPRESSION: Chronic obstructive pulmonary disease exacerbation with respiratory failure. PLAN: Transfer to telemetry unit and continue other medications.
[2017-01-29] MEDS: ALPRAZolam 0.25 MG TAB PO PRN (22:23)
[2017-01-30] MEDS: Docusate 100 MG CAP PO SCH ×2 (08:20→21:57)
[2017-01-30] MEDS: Saccharomyces boulardii 250 MG CAP PO SCH (08:20)
[2017-01-30] MEDS: ALPRAZolam 0.25 MG TAB PO PRN ×2 (08:20→22:03)
[2017-01-30] MEDS: guaiFENesin ER 600 MG TAB PO SCH ×2 (08:20→21:57)
[2017-01-30] MEDS: Potassium Chloride 10 MEQ TAB PO SCH ×2 (08:21→16:42)
[2017-01-30] MEDS: Famotidine 20 MG TAB PO SCH ×2 (08:21→21:57)
[2017-01-30] MEDS: Azithromycin 250 MG TAB PO SCH (08:21)
[2017-01-30] MEDS: Enoxaparin Sodium 30 MG/0.3 ML SYRINGE SC SCH (08:21)
[2017-01-30] MEDS: Isosorbide Mononitrate 20 MG TAB PO SCH (08:21)
--- NOTE | 2017-01-30 09:27 | PDOC.CTH ---
<Lexie Plascencia - Last Filed: 01/30/17 09:28> Cardiology Progress Note - Subjective Patient has been transferred to [facility] and reports feeling much better. States she slept well overnight and her SOB continues to improve. She does report however increased awareness of heart beat with minimal exertion such as transferring to the bedside commode. She continues to deny any chest pain, pressure, dizziness or lightheadedness. - Objective Vital Signs Temp Pulse Resp BP Pulse Ox 01/30/17 08:34 117 H 20 01/30/17 08:20 119 H 01/30/17 08:17 97.8 F 119 H 14 137/99 H 01/30/17 04:00 98.3 F 105 H 18 158/85 H 94 L 01/30/17 00:45 88 L Admit Weight 97 lb 8 oz Weight 92 lb 4.8 oz 01/29/17 01/30/17 01/31/17 06:59 06:59 06:59 Intake Total 900 1315 Output Total 550 1200 Balance 350 115 - Physical Examination General/Neuro: alert & oriented x3, NAD Neck: no JVD present Lungs: other: (diminished throughout with wheezing, rhonchi) Heart: RRR, other: (tachy) Abdomen: NT/ND, soft, other: (active BS) - Telemetry Telemetry Rhythm: sinus with PACs - Labs Result Diagrams: 01/28/17 03:43 01/28/17 03:43 Troponin/CKMB CK-MB (CK-2) 3.1 ng/mL (0-6.6) 01/25/17 14:20 Troponin I Less than 0.010 ng/mL (< 0.028) 01/25/17 17:43 - Assessment/Plan 1. SOB 2. COPD Exacerbation 3. Sepsis secondary to CAP 4. Tachyarrhythmia likely due to the above Ms. Connors continues to improve. Her HR remains slightly elevated and is easily increased with minimal exertion. We will give 60mg of Cardizem now then start 300mg po daily in the AM and monitor response. Patient should be stable for discharge home soon with continued medication titration as an outpatient. <Anil Dominguez - Last Filed: 01/30/17 12:54> Cardiology Progress Note - Objective Vital Signs Temp Pulse Resp BP Pulse Ox 01/30/17 12:15 97.8 F 99 16 145/65 H 92 L 01/30/17 11:28 118 H 20 01/30/17 08:34 117 H 20 01/30/17 08:21 97.8 F 118 H 20 93 L 01/30/17 08:20 119 H 01/30/17 08:17 97.8 F 119 H 14 137/99 H 01/30/17 04:00 98.3 F 105 H 18 158/85 H 94 L Admit Weight 97 lb 8 oz Weight 92 lb 4.8 oz 01/29/17 01/30/17 01/31/17 06:59 06:59 06:59 Intake Total 900 1315 Output Total 550 1200 Balance 350 115 - Labs Result Diagrams: 01/28/17 03:43 01/28/17 03:43 Troponin/CKMB CK-MB (CK-2) 3.1 ng/mL (0-6.6) 01/25/17 14:20 Troponin I Less than 0.010 ng/mL (< 0.028) 01/25/17 17:43 - Assessment/Plan Pt seen and examined. lungs-Mild rhonchi Heart -RRR with ESB Agree with increase in CCB for now. Pt may need home O2./ CV status o/w stable
[2017-01-30] MEDS ORDERED: Diltiazem HCl SR 60 mg Capsule PO SCH (10:00)
--- NOTE | 2017-01-30 13:47 | PDOC.PN ---
- Subjective Encounter Start Date: 01/30/17 Encounter Start Time: 09:00 Pt seen for followup re: acute on chronic respiratory failure. feels better. Dyspnea better. No CP, fevers or chills. - Objective MAR Reviewed: Yes Vital Signs & Weight: Vital Signs (12 hours) Temp Pulse Resp BP Pulse Ox 01/30/17 12:15 97.8 F 99 16 145/65 H 92 L 01/30/17 11:28 118 H 20 01/30/17 08:34 117 H 20 01/30/17 08:21 97.8 F 118 H 20 93 L 01/30/17 08:20 119 H 01/30/17 08:17 97.8 F 119 H 14 137/99 H 01/30/17 04:00 98.3 F 105 H 18 158/85 H 94 L Weight Admit Weight 97 lb 8 oz Weight 92 lb 4.8 oz I&O: 01/29/17 01/30/17 01/31/17 06:59 06:59 06:59 Intake Total 900 1315 Output Total 550 1200 Balance 350 115 Result Diagrams: 01/28/17 03:43 01/28/17 03:43 EKG Reviewed by me: Yes (Tele: NSR with PACs) Phys Exam - Physical Examination Constitutional: NAD HEENT: moist MMs, oral pharynx no lesions Neck: supple Respiratory: no wheezing, no rales, no rhonchi, clear to auscultation bilateral Cardiovascular: RRR, no rub Gastrointestinal: soft, positive bowel sounds Musculoskeletal: pulses present Neurological: moves all 4 limbs Psychiatric: normal affect Dx/Plan (1) Acute and chronic respiratory failure Code(s): J96.20 - ACUTE AND CHR RESP FAILURE, UNSP W HYPOXIA OR HYPERCAPNIA Status: Acute Qualifiers: Respiratory failure complication: hypoxia and hypercapnia Qualified Code(s) : J96.21 - Acute and chronic respiratory failure with hypoxia; J96.22 - Acute and chronic respiratory failure with hypercapnia (2) COPD exacerbation Code(s): J44.1 - CHRONIC OBSTRUCTIVE PULMONARY DISEASE W (ACUTE) EXACERBATION Status: Acute (3) CAP (community acquired pneumonia) Code(s): J18.9 - PNEUMONIA, UNSPECIFIED ORGANISM Status: Acute (4) Iron deficiency anemia Code(s): D50.9 - IRON DEFICIENCY ANEMIA, UNSPECIFIED Status: Chronic (5) GERD (gastroesophageal reflux disease) Code(s): K21.9 - GASTRO-ESOPHAGEAL REFLUX DISEASE WITHOUT ESOPHAGITIS Status: Chronic - Plan continue antibiotics, DVT proph w/lovenox * . Continue oxygen, steroids, bronchodilators and antibiotics. Pt improving clinically. Likely home 2-3 days. Review of Systems - Review of Systems Constitutional: negative: Fever, Chills, Sweats, Weakness, Malaise Respiratory: SOB with Excertion. negative: Cough, Dry, Shortness of Breath, Hemoptysis, Pleuritic Pain, Sputum, Wheezing Cardiovascular: negative: Chest Pain, Palpitations, Orthopnea, Paroxysmal Noc. Dyspnea, Edema, Light Headedness - Medications/Allergies Allergies/Adverse Reactions: Allergies Allergy/AdvReac Type Severity Reaction Status Date / Time No Known Allergies Allergy Verified 01/25/17 17:40 Medications: Current Medications Acetaminophen (Tylenol) 650 mg PO Q4H PRN PRN Reason: Headache/Fever or Pain Al Hydroxide/Mg Hydroxide (Maalox) 30 ml PO Q6H PRN PRN Reason: Heartburn or Indigestion Albuterol Sulfate (Ventolin) 2.5 mg NEB Q2H PRN PRN Reason: SOB &/or Wheezing Albuterol/Ipratropium (Duoneb) 3 ml NEB [id number] SCH Last Admin: 01/30/17 11:28 Dose: 3 ml Alprazolam (Xanax) 0.25 mg PO BIDPRN PRN PRN Reason: Anxiety Last Admin: 01/30/17 08:20 Dose: 0.25 mg Azithromycin (Zithromax) 250 mg PO DAILY [facility] Stop: 01/31/17 09:01 Last Admin: 01/30/17 08:21 Dose: 250 mg Benzonatate (Tessalon) 100 mg PO TID PRN PRN Reason: Cough Calcium Carbonate (Tums) 1,000 mg PO Q4H PRN PRN Reason: Heartburn or Indigestion Diltiazem HCl (Cardizem Cd) 300 mg PO DAILY [facility] Docusate Sodium (Colace) 100 mg PO BID [facility] Last Admin: 01/30/17 08:20 Dose: 100 mg Enoxaparin Sodium (Lovenox) 30 mg SC 0900 [facility] Last Admin: 01/30/17 08:21 Dose: 30 mg Famotidine (Pepcid) 20 mg PO BID [facility] Last Admin: 01/30/17 08:21 Dose: 20 mg Guaifenesin (Robitussin Sf) 200 mg PO Q4H PRN PRN Reason: Cough Guaifenesin (Mucinex) 1,200 mg PO Q12HR [facility] Last Admin: 01/30/17 08:20 Dose: 1,200 mg Hydralazine HCl (Apresoline) 10 mg SLOW IVP Q4H PRN PRN Reason: SBP Greater Than 180 Ceftriaxone Sodium 1 gm/Miscellaneous Medication 1 each/ Sodium Chloride 100 mls @ 200 mls/hr IVPB 1800 [facility] Last Admin: 01/29/17 17:20 Dose: 100 mls Isosorbide Mononitrate (Ismo) 10 mg PO DAILY [facility] Last Admin: 01/30/17 08:21 Dose: 10 mg Methylprednisolone Sodium Succinate (Solu-Medrol) 40 mg IVP DAILY [facility] Mineral Oil/White Petrolatum (Eucerin Cream) 0 gm TOP BIDPRN PRN PRN Reason: Dry Skin Nitroglycerin (Nitrostat) 0.4 mg PO Q5MIN PRN PRN Reason: Chest Pain Nitroglycerin (Nitro-Bid 2% Ointment) 0.5 inch TOP Q8H PRN PRN Reason: SBP Greater Than 180 Ondansetron HCl (Zofran) 4 mg IVP Q6H PRN PRN Reason: Nausea/Vomiting Polyethylene Glycol (Miralax) 17 gm PO DAILYPRN PRN PRN Reason: Constipation Potassium Chloride (Klor-Con 10) 10 meq PO BID-[facility] Last Admin: 01/30/17 08:21 Dose: 10 meq Saccharomyces Boulardii (Florastor) 250 mg PO DAILY [facility] Last Admin: 01/30/17 08:20 Dose: 250 mg Senna (Senokot) 2 tab PO HSPRN PRN PRN Reason: Constipation Sodium Chloride (Flush - Normal Saline) 10 ml IVF PRN PRN PRN Reason: Saline Flush Last Admin: 01/29/17 11:44 Dose: 10 ml Throat Lozenges (Cepastat Lozenges) 1 no PO Q2H PRN PRN Reason: Sore Throat
--- NOTE | 2017-01-30 14:02 | PRG ---
DATE OF SERVICE: 01/30/2017 SUBJECTIVE: Ms. Connors is doing well. She has no complaints. OBJECTIVE: VITAL SIGNS: Heart rate 117, respiratory rate is 20, blood pressure 137/99. She is on 4 liters a m inute, oximetry is 94. GENERAL: She is weak. LUNGS: Clearing up nicely. HEART: Regular rhythm. ABDOMEN: Soft. IMPRESSION: 1. Chronic obstructive pulmonary disease exacerbation. 2. Atrial fibrillation transient. 3. History of noninvasive ventilation this admission. 4. Peripheral vascular disease. 5. History of hypertension. 6. Anxiety, sleeping well with alprazolam. PLAN: Continue current care, add in physical therapy, decrease her steroids. Hopefully, she will b e a candidate to go home on Thursday or Thursday.
[2017-01-30] MEDS: CEFTRIAXONE ROCEPHIN IVPB SCH (16:52)
[2017-01-30] MEDS: SODIUM CHLORIDE IVPB SCH (16:52)
[2017-01-30] MEDS: ADMIXTURE FEE IVPB SCH (16:52)
[2017-01-31] MEDS: guaiFENesin ER 600 MG TAB PO SCH ×2 (09:28→21:52)
[2017-01-31] MEDS: Docusate 100 MG CAP PO SCH ×2 (09:28→21:53)
[2017-01-31] MEDS: Diltiazem HCl CD 300 mg Capsule PO SCH (09:28)
[2017-01-31] MEDS: Azithromycin 250 MG TAB PO SCH (09:28)
[2017-01-31] MEDS: Potassium Chloride 10 MEQ TAB PO SCH ×2 (09:28→16:49)
[2017-01-31] MEDS: Enoxaparin Sodium 30 MG/0.3 ML SYRINGE SC SCH (09:29)
[2017-01-31] MEDS: Saccharomyces boulardii 250 MG CAP PO SCH (09:29)
[2017-01-31] MEDS: Famotidine 20 MG TAB PO SCH ×2 (09:29→21:52)
[2017-01-31] MEDS: Isosorbide Mononitrate 20 MG TAB PO SCH (09:29)
--- NOTE | 2017-01-31 12:13 | PDOC.PN ---
- Subjective Encounter Start Date: 01/31/17 Encounter Start Time: 11:30 Patient seen and examined. SOB gradually improving. No overnight events - Objective MAR Reviewed: Yes Vital Signs & Weight: Vital Signs (12 hours) Temp Pulse Resp BP Pulse Ox 01/31/17 11:03 121 H 16 01/31/17 08:00 97.7 F 121 H 16 181/83 H 92 L 01/31/17 07:10 95 01/31/17 07:07 121 H 16 01/31/17 04:00 97.9 F 101 H 16 160/77 H 99 01/31/17 01:00 90 L Weight Admit Weight 97 lb 8 oz Weight 92 lb 4.8 oz I&O: 01/30/17 01/31/17 02/01/17 06:59 06:59 06:59 Intake Total 1315 1096 Output Total 1200 1050 Balance 115 46 Result Diagrams: 01/28/17 03:43 01/28/17 03:43 EKG Reviewed by me: Yes (Tele ST) Phys Exam - Physical Examination Pt in mild resp distress at rest Respiratory: no rales Scat rhonchi Cardiovascular: RRR, no rub Gastrointestinal: soft, non-tender, positive bowel sounds Musculoskeletal: no edema Neurological: non-focal, moves all 4 limbs Psychiatric: A&O x 3 Dx/Plan - Plan IMPRESSION: 1. Acute hypoxic and hypercapnic respiratory failure due to #2. off NIPPV. Pulmonary following 2. Chronic obstructive pulmonary disease exacerbation. improving 3. Atrial tachyarrhythmia. on Cardizem PO - rate improving 4. Hypokalemia - corrected 5. Sepsis with acute organ dysfunction secondary to community-acquired pneumonia. on IV Ceftriaxone. Completed Azithromycin. 6. Iron deficiency anemia. 7. Chronic hyponatremia. 8. Former smoker. 9. Anxiety. 10. Gastroesophageal reflux disease. 11. History of chronic obstructive pulmonary disease/asthma. 12. Seasonal allergies. 13. Hypertension. 14. Peripheral vascular disease. PLAN: * Cardio/Pulm following * AM labs * Cont resp therapy * Cont other meds as below * On IV Ceftriaxone * Cont current meds as below Review of Systems - Review of Systems Constitutional: negative: Fever, Chills, Sweats, Weakness, Malaise, Other Respiratory: Cough, Dry, SOB with Excertion Cardiovascular: negative: Chest Pain, Palpitations, Orthopnea, Paroxysmal Noc. Dyspnea, Edema, Light Headedness, Other Gastrointestinal: negative: Nausea, Vomiting, Abdominal Pain, Diarrhea, Constipation, Melena, Hematochezia, Other - Medications/Allergies Allergies/Adverse Reactions: Allergies Allergy/AdvReac Type Severity Reaction Status Date / Time No Known Allergies Allergy Verified 01/25/17 17:40 Medications: Current Medications Acetaminophen (Tylenol) 650 mg PO Q4H PRN PRN Reason: Headache/Fever or Pain Al Hydroxide/Mg Hydroxide (Maalox) 30 ml PO Q6H PRN PRN Reason: Heartburn or Indigestion Albuterol Sulfate (Ventolin) 2.5 mg NEB Q2H PRN PRN Reason: SOB &/or Wheezing Albuterol/Ipratropium (Duoneb) 3 ml NEB [id number] SCH Last Admin: 01/31/17 11:03 Dose: 3 ml Alprazolam (Xanax) 0.25 mg PO BIDPRN PRN PRN Reason: Anxiety Last Admin: 01/30/17 22:03 Dose: 0.25 mg Benzonatate (Tessalon) 100 mg PO TID PRN PRN Reason: Cough Calcium Carbonate (Tums) 1,000 mg PO Q4H PRN PRN Reason: Heartburn or Indigestion Diltiazem HCl (Cardizem Cd) 300 mg PO DAILY [facility] Last Admin: 01/31/17 09:28 Dose: 300 mg Docusate Sodium (Colace) 100 mg PO BID [facility] Last Admin: 01/31/17 09:28 Dose: 100 mg Enoxaparin Sodium (Lovenox) 30 mg SC 0900 [facility] Last Admin: 01/31/17 09:29 Dose: 30 mg Famotidine (Pepcid) 20 mg PO BID [facility] Last Admin: 01/31/17 09:29 Dose: 20 mg Guaifenesin (Robitussin Sf) 200 mg PO Q4H PRN PRN Reason: Cough Guaifenesin (Mucinex) 1,200 mg PO Q12HR [facility] Last Admin: 01/31/17 09:28 Dose: 1,200 mg Hydralazine HCl (Apresoline) 10 mg SLOW IVP Q4H PRN PRN Reason: SBP Greater Than 180 Ceftriaxone Sodium 1 gm/Miscellaneous Medication 1 each/ Sodium Chloride 100 mls @ 200 mls/hr IVPB 1800 [facility] Last Admin: 01/30/17 16:52 Dose: 100 mls Isosorbide Mononitrate (Ismo) 10 mg PO DAILY [facility] Last Admin: 01/31/17 09:29 Dose: 10 mg Methylprednisolone Sodium Succinate (Solu-Medrol) 40 mg IVP DAILY [facility] Last Admin: 01/31/17 09:29 Dose: 40 mg Mineral Oil/White Petrolatum (Eucerin Cream) 0 gm TOP BIDPRN PRN PRN Reason: Dry Skin Nitroglycerin (Nitrostat) 0.4 mg PO Q5MIN PRN PRN Reason: Chest Pain Nitroglycerin (Nitro-Bid 2% Ointment) 0.5 inch TOP Q8H PRN PRN Reason: SBP Greater Than 180 Ondansetron HCl (Zofran) 4 mg IVP Q6H PRN PRN Reason: Nausea/Vomiting Polyethylene Glycol (Miralax) 17 gm PO DAILYPRN PRN PRN Reason: Constipation Potassium Chloride (Klor-Con 10) 10 meq PO BID-[facility] Last Admin: 01/31/17 09:28 Dose: 10 meq Saccharomyces Boulardii (Florastor) 250 mg PO DAILY [facility] Last Admin: 01/31/17 09:29 Dose: 250 mg Senna (Senokot) 2 tab PO HSPRN PRN PRN Reason: Constipation Sodium Chloride (Flush - Normal Saline) 10 ml IVF PRN PRN PRN Reason: Saline Flush Last Admin: 01/29/17 11:44 Dose: 10 ml Throat Lozenges (Cepastat Lozenges) 1 no PO Q2H PRN PRN Reason: Sore Throat
[2017-01-31] MEDS ORDERED: cefTRIAXone\\ROCEPHIN 1 GM in Sodium Chloride 0.9% 100 ML IVPB SCH (18:00)
--- NOTE | 2017-01-31 19:52 | PRG ---
DATE OF SERVICE: 01/31/2017 SUBJECTIVE: Ms. Connors is sitting up on the bedside commode. She said her breathing is okay, no adriana st pain. PHYSICAL EXAMINATION: VITAL SIGNS: Her blood pressure 136/72; pulse, it is variable, it is mostly sinus tachycardia in th e 120 range. LUNGS: A few wheezes, expiratory. CARDIAC: Tachycardic at rest. ABDOMEN: Soft, nontender. ASSESSMENT: 1. Chronic obstructive pulmonary disease. 2. History of sepsis. PLAN: Continue current medical regimen. She is on diltiazem, does not seem to be slowing heart rat e, and I do not think increasing this will lower much more.
--- NOTE | 2017-02-01 01:00 | PRG ---
DATE OF SERVICE: 01/31/2017 SERVICE: Pulmonary Medicine. INTERVAL HISTORY: The patient is doing fine from a cardiovascular and respiratory standpoint. She denies any shortness of breath, chest discomfort. Whenever she gets up and walks around; however, s he does have significant dyspnea. She feels fairly weak. Otherwise, she is moving in the right dir ection. PHYSICAL EXAMINATION: VITAL SIGNS: Afebrile, pulse 84, blood pressure 136/86, respirations 20, saturation 92% on 4 liters nasal cannula. HEENT: Normocephalic, atraumatic. Sclerae are white, conjunctivae pink. Oral and nasal mucosa is moist without lesions. LUNGS: Decreased air entry with prolonged expiratory phase. There is some expiratory wheezing stil l present. She is moving better here than on presentation. I do not appreciate any basilar crackle s. HEART: Normal rate, regular. ABDOMEN: Soft, nontender, nondistended. Bowel sounds positive. MUSCULOSKELETAL: No cyanosis or clubbing. No pitting in the bilateral lower extremities. NEUROLOGIC: Grossly nonfocal. Respiratory virus culture is unremarkable. Blood cultures x2 are negative. ASSESSMENT: 1. Acute hypoxic and hypercapnic respiratory failure. 2. Chronic obstructive pulmonary disease with acute exacerbation. 3. Community-acquired pneumonia, possible. PLAN: We will continue supportive care including nebulized medications, steroids, and antibiotics. Her course of antibiotics will be completed tomorrow and they can be discontinued. We will focus o n getting her into a chair a couple of times daily. Hopefully, in 24-48 hours, she will be in [facility] ion, where she is stable for transition out of the hospital. Pulmonary will continue to follow chava e she remains here.
[2017-02-01 05:26] LABS: #Basophils 0.1 thou/uL (0.0-0.2); #Lymphocytes 1.5 thou/uL (1.20-3.40); #Monocytes 0.7 thou/uL (0.11-0.59); #Neutrophils 8.5 thou/uL (1.40-6.50); %Basophils 0.5 % (0.0-1.0); %Eosinophils 0.2 % (0.0-10.0); %Lymphocytes 14.3 % (21.0-51.0); %Monocytes 6.1 % (0.0-10.0); Hematocrit 31.1 % (36.0-47.0); Mean Platelet Volume 8.3 fL (7.4-10.4); Red Blood Cell (RBC) Count 4.54 mill/uL (4.20-5.40); White Blood Cell (WBC) Count 10.8 thou/uL (4.8-10.8)
[2017-02-01 05:44] LABS: Anion Gap 12 mmol/L (10-20); BUN (Urea Nitrogen) 18 mg/dL (9.8-20.1); BUN/Creatinine Ratio 32.14; Calc. Creatinine Clearance 53 mL/min (70-130); Calcium 8.9 mg/dL (7.8-10.44); Carbon Dioxide 29 mmol/L (23-31); Chloride 99 mmol/L (98-107); Estimated GFR-MDRD Greater than 90; Phosphorus 3.3 mg/dL (2.3-4.7)
[2017-02-01] MEDS: Potassium Chloride 10 MEQ TAB PO SCH (08:11)
[2017-02-01] MEDS: Diltiazem HCl CD 300 mg Capsule PO SCH (08:12)
[2017-02-01] MEDS: Famotidine 20 MG TAB PO SCH ×2 (08:12→21:08)
[2017-02-01] MEDS: Isosorbide Mononitrate 20 MG TAB PO SCH (08:12)
[2017-02-01] MEDS: Enoxaparin Sodium 30 MG/0.3 ML SYRINGE SC SCH (08:12)
[2017-02-01] MEDS: guaiFENesin ER 600 MG TAB PO SCH ×2 (08:12→21:08)
[2017-02-01] MEDS: Docusate 100 MG CAP PO SCH ×2 (08:12→21:08)
[2017-02-01] MEDS: Saccharomyces boulardii 250 MG CAP PO SCH (08:13)
--- NOTE | 2017-02-01 12:18 | PDOC.PN ---
- Subjective Encounter Start Date: 02/01/17 Encounter Start Time: 11:00 Patient seen and examined. No new complaints. SOB somewhat better. No overnight events - Objective MAR Reviewed: Yes Vital Signs & Weight: Vital Signs (12 hours) Temp Pulse Resp BP Pulse Ox 02/01/17 12:09 117 H 16 02/01/17 11:30 97.6 F 122 H 22 H 133/76 91 L 02/01/17 08:05 97.7 F 115 H 20 180/88 H 96 02/01/17 08:03 97.7 F 115 H 20 96 02/01/17 07:52 90 L 02/01/17 07:49 105 H 16 02/01/17 04:52 97.5 F L 95 20 139/87 95 02/01/17 01:58 91 L Weight Admit Weight 97 lb 8 oz Weight 86 lb 1 oz I&O: 01/31/17 02/01/17 02/02/17 06:59 06:59 06:59 Intake Total 1096 1180 Output Total 1050 1300 Balance 46 -120 Result Diagrams: 02/01/17 04:53 02/01/17 04:53 EKG Reviewed by me: Yes (Tele ST) Phys Exam - Physical Examination Pt in mild resp distress Respiratory: no wheezing, no rales B/L rhonchi Cardiovascular: no significant murmur tachycardic Gastrointestinal: soft, non-tender, positive bowel sounds Musculoskeletal: no edema Neurological: moves all 4 limbs Psychiatric: A&O x 3 Dx/Plan - Plan IMPRESSION: 1. Acute hypoxic and hypercapnic respiratory failure due to #2. off NIPPV. Pulmonary following. On Atbx/Steroids 2. Chronic obstructive pulmonary disease exacerbation. improving 3. Atrial tachyarrhythmia. on Cardizem PO - rate improving. Dose increased 4. Sepsis with acute organ dysfunction secondary to community-acquired pneumonia. on IV Ceftriaxone. Completed Azithromycin. 5. Peripheral vascular disease. 6. Iron deficiency anemia. 7. Chronic hyponatremia. 8. Former smoker. 9. Anxiety. 10. Gastroesophageal reflux disease. 11. History of chronic obstructive pulmonary disease/asthma. 12. Seasonal allergies. 13. Hypertension. 14. PLAN: * On IV Ceftriaxone * Cardio/Pulm following * Cont resp therapy * Cont current meds as below Review of Systems - Review of Systems Constitutional: negative: Fever, Chills, Sweats, Weakness, Malaise, Other Respiratory: Cough, Dry, Shortness of Breath, SOB with Excertion, Sputum, Wheezing. negative: Hemoptysis, Pleuritic Pain Cardiovascular: negative: Chest Pain, Palpitations, Orthopnea, Paroxysmal Noc. Dyspnea, Edema, Light Headedness, Other Gastrointestinal: negative: Nausea, Vomiting, Abdominal Pain, Diarrhea, Constipation, Melena, Hematochezia, Other - Medications/Allergies Allergies/Adverse Reactions: Allergies Allergy/AdvReac Type Severity Reaction Status Date / Time No Known Allergies Allergy Verified 01/25/17 17:40 Medications: Current Medications Acetaminophen (Tylenol) 650 mg PO Q4H PRN PRN Reason: Headache/Fever or Pain Last Admin: 01/31/17 16:49 Dose: 650 mg Al Hydroxide/Mg Hydroxide (Maalox) 30 ml PO Q6H PRN PRN Reason: Heartburn or Indigestion Albuterol Sulfate (Ventolin) 2.5 mg NEB Q2H PRN PRN Reason: SOB &/or Wheezing Albuterol/Ipratropium (Duoneb) 3 ml NEB [id number] SCH Last Admin: 02/01/17 12:09 Dose: 3 ml Alprazolam (Xanax) 0.25 mg PO BIDPRN PRN PRN Reason: Anxiety Last Admin: 01/30/17 22:03 Dose: 0.25 mg Calcium Carbonate (Tums) 1,000 mg PO Q4H PRN PRN Reason: Heartburn or Indigestion Diltiazem HCl (Cardizem Cd) 300 mg PO DAILY [facility] Last Admin: 02/01/17 08:12 Dose: 300 mg Docusate Sodium (Colace) 100 mg PO BID [facility] Last Admin: 02/01/17 08:12 Dose: 100 mg Enoxaparin Sodium (Lovenox) 30 mg SC 0900 [facility] Last Admin: 02/01/17 08:12 Dose: 30 mg Famotidine (Pepcid) 20 mg PO BID [facility] Last Admin: 02/01/17 08:12 Dose: 20 mg Guaifenesin (Mucinex) 1,200 mg PO Q12HR [facility] Last Admin: 02/01/17 08:12 Dose: 1,200 mg Hydralazine HCl (Apresoline) 10 mg SLOW IVP Q4H PRN PRN Reason: SBP Greater Than 180 Ceftriaxone Sodium 1 gm/ (Sodium Chloride) 100 mls @ 200 mls/hr IVPB 1800 [facility] Last Admin: 01/31/17 17:01 Dose: 100 mls Isosorbide Mononitrate (Ismo) 10 mg PO DAILY [facility] Last Admin: 02/01/17 08:12 Dose: 10 mg Methylprednisolone Sodium Succinate (Solu-Medrol) 40 mg IVP DAILY [facility] Last Admin: 02/01/17 08:13 Dose: 40 mg Mineral Oil/White Petrolatum (Eucerin Cream) 0 gm TOP BIDPRN PRN PRN Reason: Dry Skin Nitroglycerin (Nitrostat) 0.4 mg PO Q5MIN PRN PRN Reason: Chest Pain Nitroglycerin (Nitro-Bid 2% Ointment) 0.5 inch TOP Q8H PRN PRN Reason: SBP Greater Than 180 Ondansetron HCl (Zofran) 4 mg IVP Q6H PRN PRN Reason: Nausea/Vomiting Polyethylene Glycol (Miralax) 17 gm PO DAILYPRN PRN PRN Reason: Constipation Saccharomyces Boulardii (Florastor) 250 mg PO DAILY [facility] Last Admin: 02/01/17 08:13 Dose: 250 mg Senna (Senokot) 2 tab PO HSPRN PRN PRN Reason: Constipation Sodium Chloride (Flush - Normal Saline) 10 ml IVF PRN PRN PRN Reason: Saline Flush Last Admin: 01/29/17 11:44 Dose: 10 ml Throat Lozenges (Cepastat Lozenges) 1 no PO Q2H PRN PRN Reason: Sore Throat
--- NOTE | 2017-02-01 16:20 | PRG ---
DATE OF SERVICE: SUBJECTIVE: Ms. Connors is up in the bed, awake and alert. She said her breathing is about the same. OBJECTIVE: VITAL SIGNS: Her heart rate is still fast about 110 beats per minute, sometimes faster with sinus t achycardia. LUNGS: Somewhat distant, no wheezing. CARDIAC: Tachycardia. ABDOMEN: Soft, nontender. EXTREMITIES: No edema. ASSESSMENT: 1. Sinus tachycardia, this seems to be much influenced by the calcium rin. 2. Chronic obstructive pulmonary disease. 3. History of sepsis. PLAN: Continue current medical regimen. No changes at this time.
--- NOTE | 2017-02-01 20:16 | PRG ---
DATE OF SERVICE 02/01/2017 SERVICE: Pulmonary Medicine. INTERVAL HISTORY: The patient is doing fine from a breathing standpoint, but was able to get up and walk around a little bit. We dropped her at 2 liters nasal cannula and she is maintaining her satu rations of 91%. She denies any current fevers, chills, nausea, or vomiting. PHYSICAL EXAMINATION: VITAL SIGNS: Afebrile, pulse 118, blood pressure 133/65, respirations 20, saturation 92% on 2 liter s nasal cannula. HEENT: Normocephalic, atraumatic. Sclerae are white, conjunctivae pink. Oral and nasal mucosa fabiano st without lesions. LUNGS: Slightly improved air entry. There is a prolonged expiratory phase with both rhonchi and wh eezing present. No crackles are appreciated. HEART: Normal rate, regular. ABDOMEN: Soft, nontender, nondistended. Bowel sounds positive. MUSCULOSKELETAL: No cyanosis or clubbing. No pitting in the bilateral lower extremities. NEUROLOGIC: Grossly nonfocal. LABORATORY DATA: WBC 10.8, hemoglobin 9.5, platelets 549,000 and roughly stable. Basic metabolic p rofile, magnesium and phosphorus are all unremarkable. Respiratory virus panel is unremarkable. Bl ood cultures x2 are negative. ASSESSMENT: 1. Acute hypoxic and hypercapnic respiratory failure. 2. Chronic obstructive pulmonary disease with acute exacerbation. 3. Community-acquired pneumonia, possible. PLAN: We will continue supportive care with nebulized medications, and steroids. She has completed her 7-day course of antibiotics and these will be discontinued. She is likely going to be stable f or discharge in 24-48 hours. She will continue increasing mobility as tolerated.
[2017-02-01] MEDS: ALPRAZolam 0.25 MG TAB PO PRN (21:08)
[2017-02-02] MEDS: Diltiazem HCl CD 300 mg Capsule PO SCH (08:14)
[2017-02-02] MEDS: Enoxaparin Sodium 30 MG/0.3 ML SYRINGE SC SCH (08:15)
[2017-02-02] MEDS: Famotidine 20 MG TAB PO SCH ×2 (08:15→20:41)
[2017-02-02] MEDS: Isosorbide Mononitrate 20 MG TAB PO SCH (08:15)
[2017-02-02] MEDS: guaiFENesin ER 600 MG TAB PO SCH ×2 (08:15→20:42)
[2017-02-02] MEDS: Docusate 100 MG CAP PO SCH ×2 (08:15→20:41)
[2017-02-02] MEDS: Saccharomyces boulardii 250 MG CAP PO SCH (08:16)
--- NOTE | 2017-02-02 09:12 | PDOC.CTH ---
Cardiology Progress Note - Subjective Ms. Connors did well overnight. Reports she is getting up to the bedside commode without difficulty and without increases in her heart rate. She states her breathing is also much improved. She denies any CP, pressure or palpitations. - Objective Vital Signs Temp Pulse Resp BP Pulse Ox 02/02/17 07:26 108 H 16 96 02/02/17 07:19 97.8 F 105 H 18 151/82 H 98 02/02/17 06:26 98.2 F 93 18 140/81 96 02/02/17 02:16 109 H 20 152/86 H 97 02/02/17 00:34 96 Admit Weight 97 lb 8 oz Weight 84 lb 3 oz 02/01/17 02/02/17 02/03/17 06:59 06:59 06:59 Intake Total 1180 940 Output Total 1300 950 Balance -120 -10 - Physical Examination General/Neuro: alert & oriented x3, NAD Neck: no JVD present Lungs: unlabored respirations, other: (+rhonchi most pronounced in R lower lobe) Heart: other: (sinus, rapid) Abdomen: NT/ND, soft Extremities: other: (no edema to BLE) - Telemetry Telemetry Rhythm: sinus tach, PACs - Labs Result Diagrams: 02/01/17 04:53 02/01/17 04:53 Troponin/CKMB CK-MB (CK-2) 3.1 ng/mL (0-6.6) 01/25/17 14:20 Troponin I Less than 0.010 ng/mL (< 0.028) 01/25/17 17:43 - Assessment/Plan 1. Sinus Tachycardia 2. SOB 3. COPD Exacerbation 4. Sepsis secondary to CAP Ms. Connors's clinical status is greatly improved. She reports being able to slightly increase her activity level without significant increases in her HR, and her oxygen requirement has been reduced with good results. Her resting HR remains somewhat elevated however with occasional BP elevations. We will increase CCB to max dose to attempt better BP and HR control and monitor her response. Patient would be stable for discharge home soon with continued BP medication titration as an outpatient.
--- NOTE | 2017-02-02 14:35 | PRG ---
DATE OF SERVICE: 02/02/2017 SUBJECTIVE: Ms. Dinora Connors did well over the weekend. She is in no distress. OBJECTIVE: VITAL SIGNS: Hear rate is 108, she is afebrile, respiratory rate 16, oximetry is 95 on 2 liters. LUNGS: Distant with faint wheezes. HEART: Regular rhythm. ABDOMEN: Soft. LABORATORY DATA: White count 10.8, hemoglobin 9.5, platelets 549 yesterday and electrolytes were no rmal yesterday. IMPRESSION: 1. Chronic obstructive pulmonary disease exacerbation with respiratory failure, transiently requiri ng noninvasive ventilation. She was not on oxygen prior to admission, so hopefully she will get aleah k to that point. We will continue current care. 2. Atrial fibrillation, paroxysmal. She has been followed by Cardiology. Her sinus tachycardia is appropriate for her chronic obstructive pulmonary disease.
--- NOTE | 2017-02-02 19:09 | PDOC.PN ---
- Subjective Encounter Start Date: 02/02/17 Encounter Start Time: 14:00 Patient seen and examined. No new complaints. No overnight events. Feels better. Less SOB at rest. - Objective MAR Reviewed: Yes Vital Signs & Weight: Vital Signs (12 hours) Temp Pulse Pulse Pulse Resp BP BP 02/02/17 16:00 98.2 F 105 H 20 02/02/17 14:46 112 H 20 02/02/17 13:22 124 H 101 H 161/76 H 148/70 H 02/02/17 12:21 98 F 111 H 20 02/02/17 11:01 114 H 20 02/02/17 08:00 97.8 F 108 H 16 02/02/17 07:26 108 H 16 02/02/17 07:19 97.8 F 105 H 18 BP Pulse Ox Pulse Ox Pulse Ox 02/02/17 16:00 92 L 02/02/17 14:46 96 02/02/17 13:22 87 L 90 L 02/02/17 12:21 139/79 92 L 02/02/17 11:01 95 02/02/17 08:00 98 02/02/17 07:26 96 02/02/17 07:19 151/82 H 98 Weight Admit Weight 97 lb 8 oz Weight 84 lb 3 oz I&O: 02/01/17 02/02/17 02/03/17 06:59 06:59 06:59 Intake Total 1180 940 960 Output Total 1300 950 500 Balance -120 -10 460 Result Diagrams: 02/01/17 04:53 02/01/17 04:53 EKG Reviewed by me: Yes (Tele SR/ST) Phys Exam - Physical Examination Constitutional: NAD Respiratory: no rales Scat rhonchi/wheezing Cardiovascular: RRR, no rub Gastrointestinal: soft, non-tender, positive bowel sounds Musculoskeletal: no edema Neurological: non-focal, moves all 4 limbs Psychiatric: A&O x 3 Dx/Plan - Plan IMPRESSION: 1. Acute hypoxic and hypercapnic respiratory failure due to #2. off NIPPV. Pulmonary following. On Steroids. Completed Atbx 2. Chronic obstructive pulmonary disease exacerbation. improving 3. Atrial tachyarrhythmia. on Cardizem PO - rate improving. Dose increased to 300 mg daily 4. Sepsis with acute organ dysfunction secondary to community-acquired pneumonia. Completed Atbx. 5. Peripheral vascular disease. 6. Iron deficiency anemia. 7. Chronic hyponatremia. 8. Former smoker. 9. Anxiety. 10. Gastroesophageal reflux disease. 11. History of chronic obstructive pulmonary disease/asthma. 12. Seasonal allergies. 13. Hypertension. PLAN: * Cardio/Pulm following * Cont resp therapy * Cont current meds as below * DVT prophylaxis Review of Systems - Review of Systems Constitutional: negative: Fever, Chills, Sweats, Weakness, Malaise, Other Respiratory: Cough, Dry, SOB with Excertion. negative: Shortness of Breath, Hemoptysis, Pleuritic Pain, Sputum, Wheezing Cardiovascular: negative: Chest Pain, Palpitations, Orthopnea, Paroxysmal Noc. Dyspnea, Edema, Light Headedness, Other Gastrointestinal: negative: Nausea, Vomiting, Abdominal Pain, Diarrhea, Constipation, Melena, Hematochezia, Other - Medications/Allergies Allergies/Adverse Reactions: Allergies Allergy/AdvReac Type Severity Reaction Status Date / Time No Known Allergies Allergy Verified 01/25/17 17:40 Medications: Current Medications Acetaminophen (Tylenol) 650 mg PO Q4H PRN PRN Reason: Headache/Fever or Pain Last Admin: 01/31/17 16:49 Dose: 650 mg Al Hydroxide/Mg Hydroxide (Maalox) 30 ml PO Q6H PRN PRN Reason: Heartburn or Indigestion Albuterol Sulfate (Ventolin) 2.5 mg NEB Q2H PRN PRN Reason: SOB &/or Wheezing Albuterol/Ipratropium (Duoneb) 3 ml NEB [id number] SCH Last Admin: 02/02/17 14:46 Dose: 3 ml Alprazolam (Xanax) 0.25 mg PO BIDPRN PRN PRN Reason: Anxiety Last Admin: 02/01/17 21:08 Dose: 0.25 mg Calcium Carbonate (Tums) 1,000 mg PO Q4H PRN PRN Reason: Heartburn or Indigestion Diltiazem HCl (Cardizem Cd) 300 mg PO DAILY [facility] Last Admin: 02/02/17 08:14 Dose: 300 mg Docusate Sodium (Colace) 100 mg PO BID [facility] Last Admin: 02/02/17 08:15 Dose: 100 mg Enoxaparin Sodium (Lovenox) 30 mg SC 0900 [facility] Last Admin: 02/02/17 08:15 Dose: 30 mg Famotidine (Pepcid) 20 mg PO BID [facility] Last Admin: 02/02/17 08:15 Dose: 20 mg Guaifenesin (Mucinex) 1,200 mg PO Q12HR [facility] Last Admin: 02/02/17 08:15 Dose: 1,200 mg Hydralazine HCl (Apresoline) 10 mg SLOW IVP Q4H PRN PRN Reason: SBP Greater Than 180 Isosorbide Mononitrate (Ismo) 10 mg PO DAILY [facility] Last Admin: 02/02/17 08:15 Dose: 10 mg Methylprednisolone Sodium Succinate (Solu-Medrol) 40 mg IVP DAILY [facility] Last Admin: 02/02/17 08:15 Dose: 40 mg Mineral Oil/White Petrolatum (Eucerin Cream) 0 gm TOP BIDPRN PRN PRN Reason: Dry Skin Nitroglycerin (Nitrostat) 0.4 mg PO Q5MIN PRN PRN Reason: Chest Pain Nitroglycerin (Nitro-Bid 2% Ointment) 0.5 inch TOP Q8H PRN PRN Reason: SBP Greater Than 180 Ondansetron HCl (Zofran) 4 mg IVP Q6H PRN PRN Reason: Nausea/Vomiting Polyethylene Glycol (Miralax) 17 gm PO DAILYPRN PRN PRN Reason: Constipation Saccharomyces Boulardii (Florastor) 250 mg PO DAILY [facility] Last Admin: 02/02/17 08:16 Dose: 250 mg Senna (Senokot) 2 tab PO HSPRN PRN PRN Reason: Constipation Sodium Chloride (Flush - Normal Saline) 10 ml IVF PRN PRN PRN Reason: Saline Flush Last Admin: 01/29/17 11:44 Dose: 10 ml Throat Lozenges (Cepastat Lozenges) 1 no PO Q2H PRN PRN Reason: Sore Throat
[2017-02-02] MEDS: ALPRAZolam 0.25 MG TAB PO PRN (20:41)
[2017-02-03] MEDS: Enoxaparin Sodium 30 MG/0.3 ML SYRINGE SC SCH (09:37)
[2017-02-03] MEDS: Diltiazem HCl CD 300 mg Capsule PO SCH (09:38)
[2017-02-03] MEDS: Saccharomyces boulardii 250 MG CAP PO SCH (09:38)
[2017-02-03] MEDS: Isosorbide Mononitrate 20 MG TAB PO SCH (09:40)
[2017-02-03] MEDS: Famotidine 20 MG TAB PO SCH (09:41)
[2017-02-03] MEDS: Docusate 100 MG CAP PO SCH (09:42)
[2017-02-03] MEDS: guaiFENesin ER 600 MG TAB PO SCH (09:47)
--- NOTE | 2017-02-03 12:01 | PDOC.CTH ---
Cardiology Progress Note - Subjective No new complaints. No overnight events. Denies CP, pressure or palpitations. - Objective Vital Signs Temp Pulse Resp BP BP Pulse Ox 02/03/17 10:48 120 H 18 94 L 02/03/17 09:38 117 H 146/81 H 02/03/17 08:00 98.0 F 117 H 19 146/81 H 86 L 02/03/17 06:56 102 H 18 95 02/03/17 04:46 95 02/03/17 04:00 98.2 F 100 18 141/81 H 96 Admit Weight 97 lb 8 oz Weight 97 lb 4.8 oz 02/02/17 02/03/17 02/04/17 06:59 06:59 06:59 Intake Total 940 1320 240 Output Total 950 1300 Balance -10 20 240 - Physical Examination General/Neuro: alert & oriented x3, NAD Neck: no JVD present Lungs: other: (mild rhonchi, improved) Heart: RRR, other: Abdomen: NT/ND, soft Extremities: other: (no edema to BLE) - Telemetry Telemetry Rhythm: sinus tach - Labs Result Diagrams: 02/01/17 04:53 02/01/17 04:53 Troponin/CKMB CK-MB (CK-2) 3.1 ng/mL (0-6.6) 01/25/17 14:20 Troponin I Less than 0.010 ng/mL (< 0.028) 01/25/17 17:43 - Assessment/Plan 1. Sinus Tachycardia 2. SOB 3. COPD Exacerbation 4. Sepsis secondary to CAP Stable. HR in the low 100s on current therapy. Ok to discharge home from CV standpoint with 1 week outpatient follow up.
[2017-02-03 12:53] VITALS: BMI 16.7
--- NOTE | 2017-02-03 15:51 | PRG ---
DATE OF SERVICE: 02/03/2017 SUBJECTIVE: Ms. Connors says she is feeling better. She is still bronchospastic by exam. OBJECTIVE: VITAL SIGNS: Heart rate 114. She is afebrile. Respiratory rate is 18. Oximetry is 90% on room ai r, 94% on 2 liters. Blood pressure 129/73. LUNGS: Remarkable still for diffuse wheezes. HEART: Regular rhythm. ABDOMEN: Soft. IMPRESSION AND PLAN: 1. Chronic obstructive pulmonary disease exacerbation, improved. Sinus tachycardia associated with her chronic obstructive pulmonary disease. 2. Transient respiratory failure requiring noninvasive ventilation. 3. Transient ? atrial fibrillation. She appears to be stable. She can be discharged home today or tomorrow on prednisone 40 mg a day, nebulizer treatments four times a day and her other home medici luiz as well as an antibiotic for another week. She can follow up with me within a week.
--- NOTE | 2017-02-03 16:43 | DIS ---
DATE OF ADMISSION: 01/25/2017 DATE OF DISCHARGE: 02/03/2017 DISCHARGE DISPOSITION: Home. FOLLOWUP: 1. Follow up with primary care physician, Dr. Reyes, in 1 week. 2. Follow up with electromechanical inspector, Dr. Benson, in 2 weeks. 3. Follow up with carpenter supervisor, Dr. Dominguez, in 2 weeks. ALLERGIES: No known drug allergies. DISCHARGE MEDICATIONS: 1. Xanax as needed. 2. Acyclovir as needed. 3. Tessalon Perles as needed. 4. Cardizem CD 300 mg daily. 5. Breo Ellipta 1 inhalation daily. 6. DuoNebs as needed. 7. Isosorbide mononitrate 10 mg daily. 8. Incruse Ellipta 1 inhalation daily as needed. 9. Prednisone taper. 10. P.r.n., hydralazine as needed for elevated blood pressure. BRIEF HOSPITAL COURSE: Patient is a 76-year-old female with chronic obstructive pulmonary disease w ho presented to the hospital with severe shortness of breath. Please refer to the history and physi christ dated 01/25/2017, for further details. The patient was admitted to the intermediate care unit with a diagnosis of acute hypoxic and hyperca pnic respiratory failure. She was placed on noninvasive positive pressure ventilation. Her pO2 was 66.6 with a pCO2 of 45.4. She was seen by Pulmonology, Dr. Benson. She was placed on nebulizer madelyn atments along with steroids and antibiotics. She completed antibiotics during this hospital stay. She will continue tapering prednisone along with nebulizer treatments. She showed very slow improve ment. Today on the day of discharge, her O2 saturation is 96% on 2 liters nasal cannula. She quali fied for home oxygen, which has been arranged. On admission, patient also had atrial tachyarrhythmia for which the patient was evaluated by Cardiol ogpretty, Dr. Dominguez. She was started on Cardizem drip that has been changed to 300 mg Cardizem CD p. o. Her tachyarrhythmia is probably secondary to underlying chronic obstructive pulmonary disease. She has been cleared by Cardiology and Pulmonology for discharge. FINAL DIAGNOSES: 1. Acute hypoxic and hypercapnic respiratory failure secondary to chronic obstructive pulmonary dis ease exacerbation, requiring noninvasive positive pressure ventilation. 2. Chronic obstructive pulmonary disease exacerbation. 3. Atrial tachyarrhythmia. 4. Sepsis with acute organ dysfunction secondary to community-acquired pneumonia, completed antibio tics. 5. Peripheral vascular disease. 6. Iron deficiency anemia. 7. Chronic hyponatremia. Sodium on admission was 132 and at discharge it is 136. 8. Gastroesophageal reflux disease. 9. Seasonal allergies. 10. Hypertension. 11. Former smoker. 12. Anxiety. Plan of care was discussed with the patient. She stated understanding. Total time coordinating the discharge of this patient was 35 minutes.
[2017-02-03 17:25] VITALS: BP 132/60; TEMP 98.1
--- NOTE | 2017-02-07 17:31 | EKG ---
Test Reason : SOB Blood Pressure : / mmHG Vent. Rate : 120 BPM Atrial Rate : 110 BPM P-R Int : 000 ms QRS Dur : 090 ms QT Int : 324 ms P-R-T Axes : 000 075 -22 degrees QTc Int : 457 ms Atrial fibrillation with rapid ventricular response with premature ventricular or aberrantly conduct ed complexes Left ventricular hypertrophy Cannot rule out Septal infarct , age undetermined Abnormal ECG Confirmed by GALI MELGAR, ROCHELLE Nelson ([id number]), medical transcription editor GALI HESTER ([id number]) on 02/07/2017 5:31:37 PM Referred By: Confirmed By:ROCHELLE TALBERT MD
== END 2017-02-03 17:53 | disposition home health service (06) | DRG 871 ==
LOC: ERS 14:01 → IMCU/EMU 17:34 → 2NO 01-29 18:17
PROVIDERS: ADMIT Internal Medicine; ATTEND Internal Medicine
PROC: 5A09457 Assistance with Respiratory Ventilation, 24-96 Consecutive Hours, Continuous Positive Airway Pressure (ICD-10-PCS; principal; 2017-01-25)
DX: A41.9 Sepsis, unspecified organism (principal); J18.9 Pneumonia, unspecified organism; J96.21 Acute and chronic respiratory failure with hypoxia; J96.22 Acute and chronic respiratory failure with hypercapnia; J44.0 Chronic obstructive pulmonary disease with (acute) lower respiratory infection; J44.1 Chronic obstructive pulmonary disease with (acute) exacerbation; E87.1 Hypo-osmolality and hyponatremia; R65.20 Severe sepsis without septic shock; Z87.891 Personal history of nicotine dependence; I10 Essential (primary) hypertension; Z90.710 Acquired absence of both cervix and uterus; D50.9 Iron deficiency anemia, unspecified; E87.6 Hypokalemia; F41.9 Anxiety disorder, unspecified; K21.9 Gastro-esophageal reflux disease without esophagitis; I73.9 Peripheral vascular disease, unspecified; I48.0 Paroxysmal atrial fibrillation
CPT/HCPCS: 36415; 71010; 80053; 80069; 82550; 82553; 82728; 82805; 83540; 83550; 83735; 83880; 84100; 84484; 85025; 87040; 87633; 90471; 90732; 93005; 94640; 94660; 94760; 96374; 96375; 99292; G0009; G8978-GP-CM; G8979-GP-CK; J0456; J0696; J1650; J1756; J2920; J2930; J7050; J7620

== ENCOUNTER 2017-02-24 10:05 | Outpatient (CLI) | payer MEDICARE ==
--- NOTE | 2017-02-24 13:38 | RAD ---
CHEST TWO VIEWS: Comparison: 01-25-17 History: Dyspnea. FINDINGS: Lungs are hyperinflated. Mild blunting of the left sided costophrenic sulcus. The pneumonitis seen o n the prior examination has improved. Scarring at both lung apices. Cardiac silhouette and mediastinal contours are similar. Mild spondylosis of the thoracic spine. IMPRESSION: 1. Pneumonitis from prior examination is resolved. 2. COPD. POS: [facility]
== END 2017-02-24 10:06 | disposition home or self-care (01) ==
LOC: RAD 10:05
PROVIDERS: ATTEND Internal Medicine Critical Care Medicine
DX: R06.00 Dyspnea, unspecified (principal); J44.9 Chronic obstructive pulmonary disease, unspecified
CPT/HCPCS: 71020

== ENCOUNTER 2017-05-21 17:03 | Inpatient (IN) | payer MEDICARE ==
[2017-05-21] MEDS ORDERED: methylPREDNISolone Sod Succ/PF 125 MG/2 ML VIAL ONE (17:18)
[2017-05-21 17:32] LABS: #Lymphocytes 0.8 thou/uL (1.20-3.40); #Monocytes 0.2 thou/uL (0.11-0.59); #Neutrophils 7.8 thou/uL (1.40-6.50); %Basophils 0.1 % (0.0-1.0); %Lymphocytes 8.8 % (21.0-51.0); %Monocytes 2.1 % (0.0-10.0); %Neutrophils 88.9 % (42.0-75.0); Hemoglobin 11.7 g/dL (12.0-16.0); Mean Corpuscular HGB CONC 31.8 g/dL (32.0-36.0); Mean Corpuscular Hemoglobin 25.7 pg (27.0-31.0); Mean Corpuscular Volume 80.9 fl (81.0-99.0); Mean Platelet Volume 7.6 fL (7.4-10.4); Platelet Count 432 thou/uL (130-400); RBC Distribution Width 16.2 % (11.5-14.5); Red Blood Cell (RBC) Count 4.56 mill/uL (4.20-5.40); White Blood Cell (WBC) Count 8.8 thou/uL (4.8-10.8)
[2017-05-21 17:41] LABS: INR-International Normal Ratio 0.9; Prothrombin Time 12.6 SEC (12.0-14.7)
[2017-05-21 17:44] LABS: D-Dimer Test Less than 0.27 *mcg/mL (0.27-0.43)
[2017-05-21 17:50] LABS: ALT (SGPT) 26 U/L (8-55); AST (SGOT) 20 U/L (5-34); Albumin 4.5 g/dL (3.4-4.8); Alkaline Phosphatase 105 U/L (40-150); Anion Gap 17 mmol/L (10-20); BUN (Urea Nitrogen) 15 mg/dL (9.8-20.1); Bilirubin, Total 0.3 mg/dL (0.2-1.2); CK (CPK) 67 U/L (29-168); Calc. Creatinine Clearance 0 mL/min (70-130); Calcium 9.9 mg/dL (7.8-10.44); Carbon Dioxide 23 mmol/L (23-31); Chloride 98 mmol/L (98-107); Estimated GFR-MDRD 83; Globulin 2.7 g/dL (2.4-3.5); Glucose 119 mg/dL (83-110); Potassium 4.2 mmol/L (3.5-5.1); Protein, Total 7.2 g/dL (6.0-8.3); Sodium 134 mmol/L (136-145)
[2017-05-21 17:55] LABS: CKMB 4.2 ng/mL (0-6.6); Troponin I Less than 0.010 ng/mL (< 0.028)
--- NOTE | 2017-05-21 17:55 | RAD ---
EXAM: CHEST ONE VIEW 05/21/17 COMPARISON: 01/25/17, 02/24/17. HISTORY: Dyspnea. Difficulty breathing. FINDINGS: Portable upright chest: Atherosclerosis of the aorta. Heart is enlarged. The pulmonary vessels are within normal limits. Cost ophrenic angles are clear. Lungs are hyperinflated. Chronic changes in the lung parenchyma are noted. No consolidation or mass. No pneumothorax. No osseous abnormality. IMPRESSION: 1. Atherosclerosis. 2. Hyperinflation with chronic changes. POS: [facility]
[2017-05-21 18:26] LABS: Actual Bicarbonate (HCO3a) 25.6 mEq/L (22-26); Base Excess (BEa) 0.6 mEq/L (0 (+/-) 2.5); CO2 Tension 42.6 mmHg (35.0-45.0); Calcium, Ionized 1.2 mmol/L (1.12-1.30); Hematocrit-ABG 38.3 % (36.0-47.0); Hemoglobin (Hb) 11.2 g/dL (12.0-16.0); O2 Tension (PaO2) 81.1 mmHg (80.0-100.0)
[2017-05-21 18:27] LABS: Analyzer IN Cardio ER; Puncture Site RRA
[2017-05-21 21:14] VITALS: BMI 15.8
[2017-05-21 21:38] LABS: Troponin I Less than 0.010 ng/mL (< 0.028)
[2017-05-21] MEDS ORDERED: Ondansetron ODT 4 MG TAB SL PRN (21:52)
[2017-05-21] MEDS ORDERED: Acetaminophen 325 MG TAB PO PRN ×2 (21:52→22:33)
[2017-05-21] MEDS ORDERED: Ondansetron HCl/PF 4 MG/2 ML Vial IVP PRN (21:52)
[2017-05-21] MEDS ORDERED: Albuterol Sulfate 2.5 mg/3 ml Neb NEB PRN (21:52)
[2017-05-21] MEDS ORDERED: Bisacodyl 5 MG TAB PO PRN (22:33)
[2017-05-21] MEDS ORDERED: Benzonatate 100 MG CAP PO PRN (22:55)
[2017-05-21] MEDS ORDERED: Cyclobenzaprine 10 MG TAB PO PRN (22:55)
[2017-05-21] MEDS ORDERED: Acyclovir 200 mg Capsule PO PRN (22:55)
[2017-05-21] MEDS ORDERED: hydrALAZINE 10 MG TAB PO PRN (22:55)
--- NOTE | 2017-05-21 23:30 | HP ---
PRIMARY CARE PHYSICIAN: Sajan Reyes M.D. CHIEF COMPLAINT: Shortness of breath. HISTORY OF PRESENT ILLNESS: Ms. Connors is a pleasant 76-year-old lady who was seen at [facility] on 05/21/2017. She reports that since the cold weather started approximately a week ago, she has been having shortne ss of breath. She reports shortness of breath with exertion. She denies orthopnea or paroxysmal noc turnal dyspnea. She reports that she has been wheezing. She denies any fevers or chills. She denie s any nausea or vomiting. She reports that prior to the onset of her symptoms, her was sick with "cold symptoms." She came to the emergency room because of ongoing shortness of breath. REVIEW OF SYSTEMS: The following complete review of systems was negative, unless otherwise mentioned in the HPI or below: Constitutional: Weight loss or gain, ability to conduct usual activities. Skin: Rash, itching. Eyes: Double vision, pain. ENT/Mouth: Nose bleeding, neck stiffness, pain, tenderness. Cardiovascular: Palpitations, dyspnea on exertion, orthopnea. Respiratory: Shortness of breath, wheezing, cough, hemoptysis, fever or night sweats. Gastrointestinal: Poor appetite, abdominal pain, heartburn, nausea, vomiting, constipation, or diarrhea. Genitourinary: Urgency, frequency, dysuria, nocturia. Musculoskeletal: Pain, swelling. Neurologic/Psychiatric: Anxiety, depression. Allergy/Immunologic: Skin rash, bleeding tendency. PAST MEDICAL HISTORY: Significant for asthma, hypertension, COPD, anemia, gastroesophageal reflux di sease and congestive heart failure. She was hospitalized at this facility in 01/2017 for chronic obs tructive pulmonary disease exacerbation. Her market sales manager is Dr. Benson. PAST SURGICAL HISTORY: Significant for appendectomy and hysterectomy. ALLERGIES: No known drug allergies. CURRENT HOME MEDICATIONS: Acyclovir 200 mg 4 times a day as needed, Xanax 0.125 mg at bedtime as nee ded, Tessalon 100 mg 3 times a day as needed, Flexeril 10 mg 3 times a day as needed, Cardizem-CD 300 mg daily, Breo Ellipta 1 puff daily, hydralazine 20 mg every 8 hours as needed, DuoNebs p.r.n., isos orbide mononitrate 10 mg daily, prednisone 20 mg daily, Incruse Ellipta 1 puff daily as needed. SOCIAL HISTORY: Patient is an ex-smoker. She denies alcohol use or recreational drug use. FAMILY HISTORY: Mother with congestive heart failure and father at 75 years. He was diagnosed with heart disease. PHYSICAL EXAMINATION: GENERAL: Ms. Connors is awake and alert, not in acute distress. VITAL SIGNS: Blood pressure is 169/75, pulse is 95. She is breathing at rate of 22 and saturating 9 3% on 3 liters of oxygen. Her room air oxygen saturation was 84% in the emergency room. She is afeb rile. EYES: No scleral icterus. No conjunctival pallor. ENT: Moist mucosal membranes. No oropharyngeal erythema or exudates. NECK: Supple, nontender, trachea midline. RESPIRATORY: Accessory muscles of breathing are mildly active. Chest wall movements are symmetric b ilaterally. She has diffuse expiratory wheeze. CARDIOVASCULAR: S1 and S2 are heard, regular. LUNGS: Peripheral pulses palpable. No carotid bruit, no pericardial rub. ABDOMEN: Soft, nontender, bowel sounds heard, no hepatomegaly, no splenomegaly. NEUROLOGIC: Cranial nerves II-XII are intact. Deep tendon reflexes 2+. MUSCULOSKELETAL: Power is 5/5 in all 4 extremities. Normal range of movement at all major extremity joints. SKIN: No rashes or subcutaneous nodules. LYMPHATIC: No cervical lymphadenopathy. PSYCHIATRIC: Normal mood, normal affect, patient is oriented to person, place, and time. DATABASE: Ms. Connors's labs and investigations were reviewed. I reviewed her electrocardiogram, whic h shows sinus tachycardia, no ST changes to suggest an acute coronary syndrome. I also reviewed her chest x-ray, which showed hyperinflated lungs, but no pulmonary infiltrates. LABORATORY DATA: Laboratory investigation showed normal white count, microcytic anemia with hemoglob in 11.7, thrombocythemia with elevated platelet count of [id number]. D-dimer less than 0.27. Arterial b lood gases showing pH 7.40, pCO2 of 42.6, and pO2 of 81, hyponatremia with sodium 134, normal potassi um, normal creatinine, normal liver function tests and normal troponin I. ASSESSMENT AND PLAN: Ms. Connors is a pleasant 76-year-old lady who was seen at [facility] on 05/21/2017. Her problem list includes: 1. Acute on chronic respiratory failure: Ms. Connors is presenting with acute on chronic respiratory failure, most likely secondary to chronic obstructive pulmonary disease exacerbation. 2. Chronic obstructive pulmonary disease exacerbation: She will be admitted to the hospital and madelyn ated with oxygen, steroids, and bronchodilators. She will also receive antibiotics. She may need ar rangement for home oxygen if she continues to need home oxygen. At her last discharge in January, she was sent home with home oxygen, which she used for 2 weeks. 3. Hyponatremia: Mild, we will recheck. 4. Hypertension: Monitor vital signs, titrate antihypertensives as needed. 5. Thrombocythemia: Chronic, her last platelet count was 549,000 in 01/2017. We will recheck a justine telet count. 6. Anxiety: Continue home medications. Many thanks for allowing me to participate in your patient's care. Please feel free to contact me wi th any questions or concerns. LEVEL OF RISK: High. LEVEL OF COMPLEXITY: High.
[2017-05-22] MEDS: ALPRAZolam 0.25 MG TAB PO PRN (00:12)
[2017-05-22 00:19] LABS: Troponin I Less than 0.010 ng/mL (< 0.028)
[2017-05-22 06:04] LABS: #Lymphocytes 0.5 thou/uL (1.20-3.40); %Basophils 0.2 % (0.0-1.0); %Lymphocytes 10.3 % (21.0-51.0); %Monocytes 0.2 % (0.0-10.0); %Neutrophils 89.3 % (42.0-75.0); Hemoglobin 11.1 g/dL (12.0-16.0); Mean Corpuscular HGB CONC 30.8 g/dL (32.0-36.0); Mean Corpuscular Volume 81.1 fl (81.0-99.0); Mean Platelet Volume 7.6 fL (7.4-10.4); Platelet Count 369 thou/uL (130-400); Red Blood Cell (RBC) Count 4.42 mill/uL (4.20-5.40); White Blood Cell (WBC) Count 4.4 thou/uL (4.8-10.8)
[2017-05-22 06:37] LABS: Anion Gap 13 mmol/L (10-20); BUN (Urea Nitrogen) 13 mg/dL (9.8-20.1); Calc. Creatinine Clearance 54 mL/min (70-130); Calcium 9.6 mg/dL (7.8-10.44); Carbon Dioxide 27 mmol/L (23-31); Chloride 99 mmol/L (98-107); Estimated GFR-MDRD Greater than 90; Glucose 130 mg/dL (83-110); Sodium 135 mmol/L (136-145)
[2017-05-22] MEDS: Mometasone/Formoterol 120 PUFF INHALER INH SCH ×2 (08:12→18:30)
[2017-05-22] MEDS: Cefuroxime Axetil 250 MG TAB PO SCH ×2 (09:30→20:27)
[2017-05-22] MEDS: Isosorbide Mononitrate 20 MG TAB PO SCH (09:31)
[2017-05-22] MEDS: Diltiazem HCl CD 300 mg Capsule PO SCH (09:31)
[2017-05-22] MEDS: Enoxaparin Sodium 40 MG/0.4 ML SYRINGE SC SCH (09:31)
--- NOTE | 2017-05-22 12:42 | PDOC.PN ---
- Subjective Encounter Start Date: 05/22/17 Encounter Start Time: 09:00 -: old records requested/rev Pt seen and examined, chart reviewed in its entirety. This is my first visit with this patient. Pt breathing a little better, but still not good. No f/C, cough with clear phlegm, no N/V/D/c, no CP. Still requiring o2, 83% on RA 10 point ROS performed and neg for all systems except as above - Objective Resuscitation Status: Resuscitation Status FULL:Full Resuscitation MAR Reviewed: Yes Vital Signs & Weight: Vital Signs (12 hours) Temp Pulse Resp BP BP Pulse Ox 05/22/17 11:32 97.6 F 102 H 16 133/80 91 L 05/22/17 09:31 92 168/89 H 05/22/17 09:04 20 83 L 05/22/17 08:12 122 H 24 H 93 L 05/22/17 07:50 93 L 05/22/17 07:45 122 H 24 H 93 L 05/22/17 07:40 98.3 F 96 24 H 05/22/17 07:18 97.4 F L 95 16 168/89 H 92 L 05/22/17 05:11 95 18 177/91 H 96 Weight Weight 95 lb 4.8 oz I&O: 05/21/17 05/22/17 05/23/17 06:59 06:59 06:59 Intake Total 300 Output Total 600 300 Balance -600 0 Result Diagrams: 05/22/17 05:47 05/22/17 05:47 Radiology Reviewed by me: Yes EKG Reviewed by me: Yes Phys Exam - Physical Examination Constitutional: NAD HEENT: PERRLA, moist MMs, sclera anicteric, oral pharynx no lesions Neck: no nodes, no JVD, supple, full ROM Respiratory: no wheezing, no rhonchi poor air movement, symmetricla chest excursion, no wheezes or rhonchi Cardiovascular: RRR, no significant murmur, no rub tachy Gastrointestinal: soft, non-tender, no distention, positive bowel sounds Musculoskeletal: no edema, pulses present Neurological: non-focal, normal sensation, moves all 4 limbs Lymphatic: no nodes Psychiatric: normal affect, A&O x 3 Skin: no rash, normal turgor, cap refill <2 seconds Dx/Plan (1) Acute and chronic respiratory failure Code(s): J96.20 - ACUTE AND CHR RESP FAILURE, UNSP W HYPOXIA OR HYPERCAPNIA Status: Acute Qualifiers: Respiratory failure complication: hypoxia and hypercapnia Qualified Code(s) : J96.21 - Acute and chronic respiratory failure with hypoxia; J96.22 - Acute and chronic respiratory failure with hypercapnia Comment: still requiring o2, does not have at home. not quite ready for discharge. CCM, change to inpatient. wena O2 as tolerated. (2) CAP (community acquired pneumonia) Code(s): J18.9 - PNEUMONIA, UNSPECIFIED ORGANISM Status: Acute Qualifiers: Laterality: unspecified laterality Qualified Code(s): J18.9 - Pneumonia, unspecified organism (3) COPD exacerbation Code(s): J44.1 - CHRONIC OBSTRUCTIVE PULMONARY DISEASE W (ACUTE) EXACERBATION Status: Acute (4) GERD (gastroesophageal reflux disease) Code(s): K21.9 - GASTRO-ESOPHAGEAL REFLUX DISEASE WITHOUT ESOPHAGITIS Status: Chronic Qualifiers: Esophagitis presence: without esophagitis Qualified Code(s): K21.9 - Gastro -esophageal reflux disease without esophagitis (5) Iron deficiency anemia Code(s): D50.9 - IRON DEFICIENCY ANEMIA, UNSPECIFIED Status: Chronic Qualifiers: Iron deficiency anemia type: unspecified iron deficiency Qualified Code(s) : D50.9 - Iron deficiency anemia, unspecified - Plan cont current plan of care, continue antibiotics, PT/OT, respiratory therapy * .
[2017-05-22] MEDS ORDERED: Ipratropium Bromide 2.5 ml Neb NEB SCH (19:00)
[2017-05-23 06:36] LABS: #Lymphocytes 0.6 thou/uL (1.20-3.40); #Monocytes 0.1 thou/uL (0.11-0.59); %Basophils 0.3 % (0.0-1.0); %Eosinophils 0.2 % (0.0-10.0); %Lymphocytes 6.5 % (21.0-51.0); %Monocytes 1.1 % (0.0-10.0); %Neutrophils 91.9 % (42.0-75.0); Mean Corpuscular HGB CONC 30.7 g/dL (32.0-36.0); Mean Corpuscular Volume 81.7 fl (81.0-99.0); Platelet Count 374 thou/uL (130-400); RBC Distribution Width 15.9 % (11.5-14.5); Red Blood Cell (RBC) Count 4.39 mill/uL (4.20-5.40); White Blood Cell (WBC) Count 8.7 thou/uL (4.8-10.8)
[2017-05-23 06:49] LABS: Anion Gap 12 mmol/L (10-20); BUN (Urea Nitrogen) 20 mg/dL (9.8-20.1); Calc. Creatinine Clearance 50 mL/min (70-130); Calcium 9.4 mg/dL (7.8-10.44); Carbon Dioxide 27 mmol/L (23-31); Chloride 100 mmol/L (98-107); Estimated GFR-MDRD Greater than 90; Glucose 108 mg/dL (83-110); Magnesium 2.4 mg/dL (1.6-2.6); Potassium 4.2 mmol/L (3.5-5.1); Sodium 135 mmol/L (136-145)
[2017-05-23] MEDS: Cefuroxime Axetil 250 MG TAB PO SCH ×2 (09:26→21:03)
[2017-05-23] MEDS: Isosorbide Mononitrate 20 MG TAB PO SCH (09:26)
[2017-05-23] MEDS: Enoxaparin Sodium 40 MG/0.4 ML SYRINGE SC SCH (09:26)
[2017-05-23] MEDS: Diltiazem HCl CD 300 mg Capsule PO SCH (09:27)
[2017-05-23] MEDS: Mometasone/Formoterol 120 PUFF INHALER INH SCH ×2 (09:32→18:12)
--- NOTE | 2017-05-23 13:52 | PDOC.PN ---
- Subjective Encounter Start Date: 05/23/17 Encounter Start Time: 10:00 Pt with better air movement, still complains of tightness. Exp phase 3-4 times longer than inspriations. No F/c, cough unchanged, no N/V/D/C, no CP, no chills 10 point ROS performed and neg for all systems except as per HPI - Objective MAR Reviewed: Yes Vital Signs & Weight: Vital Signs (12 hours) Temp Pulse Resp BP Pulse Ox 05/23/17 13:00 90 L 05/23/17 12:59 87 L 05/23/17 12:02 97.6 F 102 H 16 149/77 H 91 L 05/23/17 12:01 92 L 05/23/17 09:58 94 L 05/23/17 09:32 103 H 20 97 05/23/17 09:13 97 05/23/17 09:11 103 H 20 97 05/23/17 07:45 97.5 F L 76 18 05/23/17 07:36 97.8 F 104 H 16 172/87 H 96 05/23/17 03:50 97.5 F L 76 18 141/73 H 97 Weight Admit Weight 95 lb 4.8 oz Weight 91 lb I&O: 05/22/17 05/23/17 05/24/17 06:59 06:59 06:59 Intake Total 1020 Output Total 1050 Balance -30 Result Diagrams: 05/23/17 05:08 05/23/17 05:08 Radiology Reviewed by me: Yes EKG Reviewed by me: Yes Phys Exam - Physical Examination Constitutional: NAD HEENT: PERRLA, moist MMs, sclera anicteric, oral pharynx no lesions Neck: no nodes, no JVD, supple, full ROM Respiratory: no wheezing, no rales, no rhonchi, clear to auscultation bilateral prolonged expiration Cardiovascular: RRR, no significant murmur, no rub Gastrointestinal: soft, non-tender, no distention, positive bowel sounds Musculoskeletal: no edema, pulses present Neurological: non-focal, normal sensation, moves all 4 limbs Lymphatic: no nodes Psychiatric: normal affect, A&O x 3 Skin: no rash, normal turgor, cap refill <2 seconds Dx/Plan (1) Acute and chronic respiratory failure Code(s): J96.20 - ACUTE AND CHR RESP FAILURE, UNSP W HYPOXIA OR HYPERCAPNIA Status: Acute Qualifiers: Respiratory failure complication: hypoxia and hypercapnia Qualified Code(s) : J96.21 - Acute and chronic respiratory failure with hypoxia; J96.22 - Acute and chronic respiratory failure with hypercapnia Comment: still requiring o2, does not have at home. not quite ready for discharge. CCM, change to inpatient. wean O2 as tolerated, to 2L NC now, less than yesterday (2) CAP (community acquired pneumonia) Code(s): J18.9 - PNEUMONIA, UNSPECIFIED ORGANISM Status: Acute Qualifiers: Laterality: unspecified laterality Qualified Code(s): J18.9 - Pneumonia, unspecified organism (3) COPD exacerbation Code(s): J44.1 - CHRONIC OBSTRUCTIVE PULMONARY DISEASE W (ACUTE) EXACERBATION Status: Acute Comment: improve,d but still with considerable obstruction. CCM with steroids, nebs (4) GERD (gastroesophageal reflux disease) Code(s): K21.9 - GASTRO-ESOPHAGEAL REFLUX DISEASE WITHOUT ESOPHAGITIS Status: Chronic Qualifiers: Esophagitis presence: without esophagitis Qualified Code(s): K21.9 - Gastro -esophageal reflux disease without esophagitis (5) Iron deficiency anemia Code(s): D50.9 - IRON DEFICIENCY ANEMIA, UNSPECIFIED Status: Chronic Qualifiers: Iron deficiency anemia type: unspecified iron deficiency Qualified Code(s) : D50.9 - Iron deficiency anemia, unspecified - Plan cont current plan of care, continue antibiotics, respiratory therapy * .
--- NOTE | 2017-05-23 15:19 | EKG ---
Test Reason : REPEAT EKG Blood Pressure : / mmHG Vent. Rate : 090 BPM Atrial Rate : 090 BPM P-R Int : 142 ms QRS Dur : 090 ms QT Int : 378 ms P-R-T Axes : 034 058 006 degrees QTc Int : 462 ms Normal sinus rhythm Septal infarct , age undetermined Abnormal ECG Confirmed by MIKAL PUGH M.D. ([id number]), make up editor ALIYAH MENDOSA ([id number]) on 05/23/2017 3:19:20 PM Referred By: Confirmed By:MIKAL PUGH M.D.
--- NOTE | 2017-05-23 15:38 | EKG ---
Test Reason : SOB Blood Pressure : / mmHG Vent. Rate : 100 BPM Atrial Rate : 096 BPM P-R Int : 000 ms QRS Dur : 080 ms QT Int : 358 ms P-R-T Axes : 000 053 042 degrees QTc Int : 461 ms Sinus tachycardia Baseline Artifact Present Septal infarct , age undetermined Abnormal ECG Confirmed by TERRENCE MELGAR, DASHAWN ([id number]), fan mail editor ALIYAH MENDOSA ([id number]) on 05/23/2017 3:37:56 PM Referred By: Confirmed By:DASHAWN OCAMPO MD
[2017-05-24] MEDS: ALPRAZolam 0.25 MG TAB PO PRN (01:37)
[2017-05-24] MEDS: Cefuroxime Axetil 250 MG TAB PO SCH ×2 (09:49→20:16)
[2017-05-24] MEDS: Isosorbide Mononitrate 20 MG TAB PO SCH (09:50)
[2017-05-24] MEDS: Diltiazem HCl CD 300 mg Capsule PO SCH (09:50)
[2017-05-24] MEDS: Enoxaparin Sodium 40 MG/0.4 ML SYRINGE SC SCH (09:52)
[2017-05-24] MEDS: Mometasone/Formoterol 120 PUFF INHALER INH SCH ×2 (10:14→18:42)
--- NOTE | 2017-05-24 12:56 | PDOC.PN ---
- Subjective Encounter Start Date: 05/24/17 Encounter Start Time: 09:30 breathing better, 98% on 2L NC. NO f/C, no n/V/d/c, no CP, some BENNETT, no orthopnea. No acute overnight events. Pt with visibly prolonged exp phase, but better than yesterday 10 point ROS performed and neg for all systems except as above - Objective Resuscitation Status: Full MAR Reviewed: Yes Vital Signs & Weight: Vital Signs (12 hours) Temp Pulse Resp BP Pulse Ox 05/24/17 11:04 97.2 F L 94 16 132/64 94 L 05/24/17 10:14 99 24 H 98 05/24/17 09:50 99 05/24/17 09:19 98 05/24/17 09:15 99 24 H 98 05/24/17 08:00 97.8 F 98 20 98 05/24/17 07:30 97.8 F 83 20 141/77 H 98 05/24/17 04:35 97.3 F L 95 20 137/66 98 05/24/17 02:32 95 Weight Admit Weight 95 lb 4.8 oz Weight 89 lb 14.4 oz I&O: 05/23/17 05/24/17 05/25/17 06:59 06:59 06:59 Intake Total 1020 360 Output Total 1050 350 Balance -30 10 Result Diagrams: 05/23/17 05:08 05/23/17 05:08 Radiology Reviewed by me: Yes EKG Reviewed by me: Yes Phys Exam - Physical Examination Constitutional: NAD HEENT: PERRLA, moist MMs, sclera anicteric, oral pharynx no lesions Neck: no nodes, no JVD, supple, full ROM end exp high pitch wheeze, slightly prolonged exp phase, no rhonchi Cardiovascular: RRR, no significant murmur, no rub Gastrointestinal: soft, non-tender, no distention, positive bowel sounds Musculoskeletal: no edema, pulses present Neurological: non-focal, normal sensation, moves all 4 limbs Lymphatic: no nodes Psychiatric: normal affect, A&O x 3 Skin: no rash, normal turgor, cap refill <2 seconds Dx/Plan (1) Acute and chronic respiratory failure Code(s): J96.20 - ACUTE AND CHR RESP FAILURE, UNSP W HYPOXIA OR HYPERCAPNIA Status: Acute Qualifiers: Respiratory failure complication: hypoxia and hypercapnia Qualified Code(s) : J96.21 - Acute and chronic respiratory failure with hypoxia; J96.22 - Acute and chronic respiratory failure with hypercapnia Comment: still requiring o2, does not have at home. almost ready for discharge. po steroids, continue Nebs and abx. (2) CAP (community acquired pneumonia) Code(s): J18.9 - PNEUMONIA, UNSPECIFIED ORGANISM Status: Acute Qualifiers: Laterality: unspecified laterality Qualified Code(s): J18.9 - Pneumonia, unspecified organism (3) COPD exacerbation Code(s): J44.1 - CHRONIC OBSTRUCTIVE PULMONARY DISEASE W (ACUTE) EXACERBATION Status: Acute Comment: improve,d but still with considerable obstruction. CCM with steroids, nebs (4) GERD (gastroesophageal reflux disease) Code(s): K21.9 - GASTRO-ESOPHAGEAL REFLUX DISEASE WITHOUT ESOPHAGITIS Status: Chronic Qualifiers: Esophagitis presence: without esophagitis Qualified Code(s): K21.9 - Gastro -esophageal reflux disease without esophagitis (5) Iron deficiency anemia Code(s): D50.9 - IRON DEFICIENCY ANEMIA, UNSPECIFIED Status: Chronic Qualifiers: Iron deficiency anemia type: unspecified iron deficiency Qualified Code(s) : D50.9 - Iron deficiency anemia, unspecified - Plan cont current plan of care, continue antibiotics, PT/OT, respiratory therapy, out of bed/ambulate * .
[2017-05-24] MEDS ORDERED: predniSONE 20 MG TAB PO SCH (13:00)
[2017-05-25 05:16] LABS: #Lymphocytes 0.7 thou/uL (1.20-3.40); #Monocytes 0.5 thou/uL (0.11-0.59); #Neutrophils 7.7 thou/uL (1.40-6.50); %Basophils 0.1 % (0.0-1.0); %Eosinophils 0.1 % (0.0-10.0); %Lymphocytes 7.5 % (21.0-51.0); %Monocytes 5.2 % (0.0-10.0); %Neutrophils 87.2 % (42.0-75.0); Mean Corpuscular HGB CONC 31.4 g/dL (32.0-36.0); Mean Corpuscular Hemoglobin 25.5 pg (27.0-31.0); Mean Corpuscular Volume 81.2 fl (81.0-99.0); Mean Platelet Volume 7.9 fL (7.4-10.4); Platelet Count 431 thou/uL (130-400); RBC Distribution Width 15.7 % (11.5-14.5); White Blood Cell (WBC) Count 8.8 thou/uL (4.8-10.8)
[2017-05-25 05:25] LABS: Anion Gap 13 mmol/L (10-20); BUN (Urea Nitrogen) 18 mg/dL (9.8-20.1); Calc. Creatinine Clearance 51 mL/min (70-130); Calcium 9.6 mg/dL (7.8-10.44); Carbon Dioxide 32 mmol/L (23-31); Chloride 95 mmol/L (98-107); Estimated GFR-MDRD Greater than 90; Glucose 91 mg/dL (83-110); Magnesium 2.2 mg/dL (1.6-2.6); Potassium 3.5 mmol/L (3.5-5.1); Sodium 136 mmol/L (136-145)
[2017-05-25] MEDS ORDERED: predniSONE 20 MG TAB PO SCH (08:00)
[2017-05-25] MEDS: Diltiazem HCl CD 300 mg Capsule PO SCH (09:07)
[2017-05-25] MEDS: Isosorbide Mononitrate 20 MG TAB PO SCH (09:07)
[2017-05-25] MEDS: Cefuroxime Axetil 250 MG TAB PO SCH (09:11)
[2017-05-25] MEDS: Enoxaparin Sodium 40 MG/0.4 ML SYRINGE SC SCH (09:14)
[2017-05-25] MEDS: Mometasone/Formoterol 120 PUFF INHALER INH SCH (10:27)
[2017-05-25 11:12] VITALS: BP 155/79; TEMP 97.5
--- NOTE | 2017-05-25 13:51 | DIS ---
DATE OF ADMISSION: 05/21/2017 DATE OF DISCHARGE: 05/25/2017 DISCHARGE DIAGNOSES: 1. Acute exacerbation of chronic obstructive pulmonary disease. 2. Community-acquired pneumonia. 3. Acute hypoxemic respiratory failure. 4. Essential hypertension. 5. Anemia of chronic disease. 6. Gastroesophageal reflux disease. 7. Diastolic congestive heart failure. PRIMARY CARE PHYSICIAN: Sajan Reyes M.D. PRIMARY MARKETING EDITOR: Dr. Fredrick Benson. CONSULTATIONS: None. PROCEDURES: None. HISTORY AND PHYSICAL: Ms. Cnonors is a 76-year-old white female with history of known COPD and the abo ve findings, who presented to the Emergency Department for shortness of breath. She was admitted by Dr. Edgar that night, started on steroids, nebulizer treatments, antibiotics, and oxygen. Her last flare prior to this was back in January, she was here for a few days and [place] with [place] and used for about 2 weeks, but she states she does in that home a few days ago. She was admitted initially on observation. Overnight on 05/21/2017 to 05/22/2017, her breathing was better. She still had significant expirator y prolongation. I took over the case on that day. She was continued on the same medication regimen and began to mobilize. By 05/23/2017, she had decreased but still somewhat prolonged expiration. Elmer palma has wheezing and was clearly not quite ready for discharge. She was continued on same treatment an d converted to oral steroids. By 05/24/2017, she improved today. On 05/25/2017, she was feeling almost back to her baseline. She is to requiring 2 liters of oxygen nasal cannula, without oxygen on room air without exertion. She w as dropping down to 80s. She was staying in the low 90s with exertion on 2 liters. She denies any other current complaints and was stable for discharge with outpatient followup. She h ad an appointment coming up with Dr. Benson. PHYSICAL EXAMINATION: The patient was seen and examined on the day of discharge. Discharge planning and disposition was discussed with the patient and the patient was placed at the [facility]. DISCHARGE MEDICATIONS: 1. DuoNeb q.6 hours. 2. Albuterol 2.5 mg 3 grams nebulized q.2 hours p.r.n. shortness of breath. 3. Prednisone 40 mg daily, to stay on 40 mg until seen by Dr. Benson and was started on taper. 4. Increase one puff inhale daily. 5. Isosorbide mononitrate 10 mg daily. 6. Hydralazine 20 mg p.o. q.8 hours. 7. Breo Ellipta 1 puff inhaled daily. 8. Cardizem-CD 300 mg daily. 9. Flexeril 10 mg p.o. t.i.d. p.r.n. 10. Tessalon Perles as needed. 11. Xanax as previously scheduled. 12. Mucinex 1200 mg p.o. b.i.d. FOLLOWUP APPOINTMENTS: 1. Follow up with her normal primary care physician in a week. 2. Dr. Benson. She has an appointment on next Thursday or . DISCHARGE CONDITION: Stable. DISPOSITION: Being discharged to home via private vehicle with home O2. DISCHARGE ACTIVITY: As per cardiopulmonary limits. DISCHARGE DIET: Heart healthy recommended.
== END 2017-05-25 15:19 | disposition home or self-care (01) | DRG 189 ==
LOC: ERS 17:03 → 2SW 19:30 → OBSVTOIN 05-22 12:45
PROVIDERS: ADMIT Internal Medicine; ATTEND Internal Medicine
DX: J96.21 Acute and chronic respiratory failure with hypoxia (principal); J18.9 Pneumonia, unspecified organism; I11.0 Hypertensive heart disease with heart failure; I50.32 Chronic diastolic (congestive) heart failure; D63.8 Anemia in other chronic diseases classified elsewhere; E87.1 Hypo-osmolality and hyponatremia; J44.0 Chronic obstructive pulmonary disease with (acute) lower respiratory infection; J44.1 Chronic obstructive pulmonary disease with (acute) exacerbation; J96.22 Acute and chronic respiratory failure with hypercapnia; K21.9 Gastro-esophageal reflux disease without esophagitis; D47.3 Essential (hemorrhagic) thrombocythemia; F41.9 Anxiety disorder, unspecified; K59.01 Slow transit constipation; M40.14 Other secondary kyphosis, thoracic region; M54.2 Cervicalgia; D50.9 Iron deficiency anemia, unspecified
CPT/HCPCS: 36415; 71045; 80048; 80053; 82550; 82553; 82805; 83605; 83735; 84484; 85025; 85379; 85610; 93005; 94640; 94664; 96374; J1650; J2920; J2930; J7506; J7620

== ENCOUNTER 2017-07-16 16:38 | Inpatient (IN) | payer MEDICARE ==
[2017-07-16] MEDS ORDERED: methylPREDNISolone Sod Succ/PF 125 MG/2 ML VIAL ONE (17:13)
[2017-07-16 17:22] LABS: #Lymphocytes 0.6 thou/uL (1.20-3.40); #Monocytes 0.2 thou/uL (0.11-0.59); #Neutrophils 5.6 thou/uL (1.40-6.50); %Basophils 0.1 % (0.0-1.0); %Lymphocytes 9.1 % (21.0-51.0); %Monocytes 3.7 % (0.0-10.0); Hemoglobin 10.8 g/dL (12.0-16.0); Mean Corpuscular HGB CONC 30.6 g/dL (32.0-36.0); Mean Corpuscular Hemoglobin 24.5 pg (27.0-31.0); Mean Corpuscular Volume 80.1 fl (81.0-99.0); Mean Platelet Volume 7.7 fL (7.4-10.4); Platelet Count 336 thou/uL (130-400); RBC Distribution Width 16.7 % (11.5-14.5); Red Blood Cell (RBC) Count 4.39 mill/uL (4.20-5.40); White Blood Cell (WBC) Count 6.4 thou/uL (4.8-10.8)
[2017-07-16 17:42] LABS: ALT (SGPT) 30 U/L (8-55); AST (SGOT) 29 U/L (5-34); Albumin 4.1 g/dL (3.4-4.8); Alkaline Phosphatase 86 U/L (40-150); Anion Gap 12 mmol/L (10-20); BUN (Urea Nitrogen) 16 mg/dL (9.8-20.1); Bilirubin, Total 0.4 mg/dL (0.2-1.2); Calc. Creatinine Clearance 0 mL/min (70-130); Calcium 9.1 mg/dL (7.8-10.44); Carbon Dioxide 31 mmol/L (23-31); Chloride 90 mmol/L (98-107); Estimated GFR-MDRD Greater than 90; Globulin 2.5 g/dL (2.4-3.5); Glucose 117 mg/dL (83-110); Potassium 3.1 mmol/L (3.5-5.1); Protein, Total 6.6 g/dL (6.0-8.3); Sodium 130 mmol/L (136-145)
--- NOTE | 2017-07-16 17:42 | RAD ---
CHEST ONE VIEW; 07/16/17 HISTORY: Dyspnea. COMPARISON: 06/09/17. FINDINGS: The cardiac silhouette and pulmonary vasculature are unremarkable. Patient is rotated rightward. Ther e is calcification in the aorta. Lungs are hyperinflated. Chronic linear markings at the left base an d blunting of the left lateral costophrenic angle are stable. These likely represent scarring. No arturo dence of pneumothorax. playground monitor leads overlie the chest. IMPRESSION: 1. COPD. 2. Atherosclerosis. POS: RHETT
[2017-07-16 17:48] LABS: CKMB 2.6 ng/mL (0-6.6); Troponin I Less than 0.010 ng/mL (< 0.028)
[2017-07-16] MEDS ORDERED: Magnesium Sulfate 2 GM/100 ML BAG ONE (18:32)
[2017-07-16 18:33] LABS: Magnesium 1.5 mg/dL (1.6-2.6); Phosphorus 3.5 mg/dL (2.3-4.7)
[2017-07-16] MEDS ORDERED: Ondansetron HCl/PF 4 MG/2 ML Vial IVP PRN ×2 (20:07→21:38)
[2017-07-16] MEDS ORDERED: Ondansetron ODT 4 MG TAB SL PRN (20:07)
[2017-07-16] MEDS ORDERED: Magnesium 2 GM/NS 0.9% 100 ML 2 GM in Premix Bag 1 BAG IVPB SCH (20:15)
[2017-07-16] MEDS ORDERED: Azithromycin 250 MG TAB PO SCH (21:00)
[2017-07-16] MEDS ORDERED: hydrALAZINE 20 MG/ML VIAL SLOW IVP PRN (21:38)
[2017-07-16] MEDS ORDERED: cloNIDine 0.1 MG TAB PO PRN (21:38)
[2017-07-16] MEDS ORDERED: Ondansetron ODT 4 MG TAB PO PRN (21:38)
[2017-07-16] MEDS ORDERED: Benzonatate 100 MG CAP PO PRN (21:38)
[2017-07-16] MEDS ORDERED: Non-Formulary Item 1 EACH (Umeclidinium Bromide [Incruse Ellipta] 1 INH) IH PRN (21:38)
[2017-07-16] MEDS ORDERED: Cyclobenzaprine 10 MG TAB PO PRN (21:38)
[2017-07-16] MEDS ORDERED: hydrALAZINE 10 MG TAB PO PRN (21:38)
[2017-07-16] MEDS ORDERED: traMADol HCl 50 MG TAB PO PRN (21:38)
[2017-07-16] MEDS ORDERED: Acyclovir 200 mg Capsule PO PRN (21:38)
[2017-07-17] MEDS: Ipratropium Bromide 2.5 ml Neb NEB SCH ×5 (00:14→22:45)
--- NOTE | 2017-07-17 02:50 | HP ---
DATE OF ADMISSION: 07/16/2017 PRIMARY CARE PHYSICIAN: Dr. Sajan Reyes. PRIMARY RAMP SERVICE AGENT: Dr. Benson. CHIEF COMPLAINT: Shortness of breath. HISTORY OF PRESENT ILLNESS: This is a 76-year-old female who presents to [facility] Emergency Department complaining of persistent shortness of breath beyond her baseli ne shortness of breath. Patient states she has been using her home nebulized therapy, increasing her frequency up to 4 times a day as well as continuing on a daily prednisone currently at 10 mg. 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 Patient denied any specific fever, chills, or exposure history. Patient states she has been compliant with her medication regimen. She admits to using home oxygen continuou sly at 2 liters per minute by nasal cannula, but has been attempting to wean off the oxygen supplemen tation by ambulating and walking longer distances without oxygen. Patient states she went shopping w ith her daughter and did not take her oxygen with her, however, had increased difficulty after this e pisode. Patient denies any specific chest pain, unilateral weakness, fever, or chills. Patient stat es her influenza pneumonia vaccinations are recurrent. In the emergency room, patient underwent gene ral chest imaging showing no acute infiltrate and changes consistent with chronic obstructive pulmona ry disease. Patient received IV magnesium sulfate, DuoNebs, and Solu-Medrol. Patient was referred t o the [facility] service for admission. PAST MEDICAL HISTORY: 1. Chronic hypoxemic respiratory failure on oxygen supplementation at 2 liters per minute by nasal c annula continuously. 2. Coronary artery disease. 3. Gastroesophageal reflux disease. 4. History of asthma. 5. Question of congestive heart failure. PAST SURGICAL HISTORY: 1. Status post appendectomy. 2. Status post hysterectomy. CURRENT MEDICATIONS: 1. Acyclovir 200 mg 1 tab p.o. q.i.d. p.r.n. 2. Ventolin nebulized solution 3 mL nebulized q.2 hours p.r.n. 3. Xanax 5 mg p.o. at bedtime. 4. Zithromax 250 mg p.o. daily. 5. Tessalon Perles 100 mg p.o. t.i.d. 6. Flexeril 10 mg p.o. t.i.d. p.r.n. 7. Diltiazem CD 300 mg p.o. daily. 8. Hydralazine 10 mg p.o. q.8 hours p.r.n. 9. DuoNebs 3 mL nebulized t.i.d. 10. Isosorbide mononitrate 10 mg p.o. daily. 11. Prednisone 10 mg p.o. daily. 12. Tramadol 50 mg p.o. every 6 hours p.r.n. 13. Triamterene/hydrochlorothiazide 37.5/25 mg 1 tab p.o. daily. 14. Incruse-Ellipta 62.5 mcg inhaled daily. ALLERGIES: No known drug allergies. FAMILY HISTORY: Mother with congestive heart failure. Father at 75 years of age with complicat ions of coronary artery disease. SOCIAL HISTORY: Patient is former tobacco user. No current alcohol or illicit drug use. REVIEW OF SYSTEMS: The following complete review of systems was otherwise negative, except as stated per HPI: Constitutional: Weight loss or gain, ability to conduct usual activities. Skin: Rash, i tching. Eyes: Double vision, pain. ENT/Mouth: Nose bleeding, neck stiffness, pain, tenderness. C ardiovascular: Palpitations, dyspnea on exertion, orthopnea. Respiratory: Shortness of breath, whe ezing, cough, hemoptysis, fever, or night sweats. Gastrointestinal: Poor appetite, abdominal pain, heartburn, nausea, vomiting, constipation, or diarrhea. Genitourinary: Urgency, frequency, dysuria, nocturia. Musculoskeletal: Pain, swelling. Neurologic/Psychiatric: Anxiety, depression. Allergy /Immunologic: Skin rash, bleeding tendency. PHYSICAL EXAMINATION: VITAL SIGNS: On admission, blood pressure 167/115, pulse 123, respiratory rate 32, temperature 98.6 degrees Fahrenheit, O2 saturation 98% on 2 liters per minute nasal cannula. GENERAL APPEARANCE: This is a 76-year-old female, alert and oriented x3, pleasant, speaks in 4-5 word sentences, in mild respiratory distress. HEENT: Pupils are equal, round, and reactive to light and accommodation. Extraocular muscles are in tact. No scleral icterus, no conjunctival injection. Nares patent. OP is clear. NECK: Supple, no cervical adenopathy, no thyromegaly, no carotid bruits, no JVD appreciated. Cervic al spine with full active and passive range of motion. CHEST: Severe kyphosis noted. Decreased breath sounds in bilateral lung barry. Occasional expirat ory wheeze noted. CARDIOVASCULAR: S1, S2 with distant heart sounds. ABDOMEN: Flat, soft, nontender, nondistended. Bowel sounds are positive in all four quadrants. The re is no hepatosplenomegaly, no abdominal bruits, no rebound or guarding appreciated. EXTREMITIES: Warm and dry with fair turgor. Mild edema noted in the ankle region and dorsum of the feet. Pulses palpable distally at the dorsalis pedis, posterior tibial, and popliteal arteries bilat erally. Capillary refill less than 2 seconds. NEUROLOGIC: Cranial nerves II-XII are grossly intact. No focal or lateralizing signs appreciated. Patient not observed ambulatory during this exam. PERTINENT LABORATORY AND X-RAY FINDINGS: Sodium 130, potassium 3.1, chloride 90, CO2 of 31, BUN 16, creatinine 0.60, glucose 117, calcium 9.1, phosphorus 3.5, magnesium 1.5. LFTs within normal limits. BNP 62.5, albumin 4.1. CBC showed a white blood cell count of 6.4, hemoglobin 11, hematocrit 35, M CV 80, platelet count 336 with 87% neutrophils. Portable chest x-ray dated 07/16/2017 showed no acut e cardiopulmonary process or chronic changes consistent with COPD noted. EKG dated 07/16/2017 by my interpretation shows sinus tachycardia with heart rates in the 120s. Attenuated R waves noted in the precordial leads. Normal axis. ASSESSMENT AND PLAN: 1. Acute on chronic hypoxemic respiratory failure. Patient will be placed in observation status. W e will continue DuoNebs q.4 hours scheduled. Add Solu-Medrol 40 mg IV q.6 hours. Continue Zithromax 500 mg p.o. daily. Resume home regimen of Incruse-Ellipta one inhalation daily. Continue oxygen saravia pplementation to maintain O2 saturations greater than or equal to 90%. Consider Pulmonology evaluati on in the a.m. if patient does clinically decompensate. 2. Acute chronic obstructive pulmonary disease exacerbation. See #1 above. Continue oxygen supplem entation titrating to maintain O2 saturation greater than or equal to 90%. Continue Solu-Medrol as o utlined previously. 3. Chronic hyponatremia. Suspect secondary to longstanding hydrochlorothiazide use, stable. 4. Hypokalemia. Continue potassium supplementation and repeat potassium level in the a.m. 5. Chronic microcytic anemia. Stable currently. No current evidence to suggest acute blood loss. Repeat CBC in the a.m. 6. Hypertension. Resume home antihypertensive regimen, monitor clinical response. 7. Prophylaxis. Sequential compression devices while in bed. Pepcid 20 mg p.o. b.i.d. 8. Code status is FULL. Surrogate medical decision maker is patient's daughter, Sari Green.
[2017-07-17 05:21] LABS: Anion Gap 12 mmol/L (10-20); Carbon Dioxide 29 mmol/L (23-31); Chloride 98 mmol/L (98-107); Potassium 3.2 mmol/L (3.5-5.1); Sodium 136 mmol/L (136-145)
[2017-07-17 05:22] LABS: BUN (Urea Nitrogen) 12 mg/dL (9.8-20.1); Calc. Creatinine Clearance 65 mL/min (70-130); Estimated GFR-MDRD Greater than 90; Glucose 131 mg/dL (83-110)
[2017-07-17 05:47] LABS: Band 16 % (5-11); Hemoglobin 10.4 g/dL (12.0-16.0); Lymphocytes 8 % (21-51); MDiff Complete? YES; Mean Corpuscular HGB CONC 32.3 g/dL (32.0-36.0); Mean Corpuscular Hemoglobin 25.5 pg (27.0-31.0); Mean Corpuscular Volume 78.8 fl (81.0-99.0); Mean Platelet Volume 7.5 fL (7.4-10.4); Monocytes 4 % (0-10); Neutrophil 72 % (42-75); Platelet Count 294 thou/uL (130-400); RBC Distribution Width 16.4 % (11.5-14.5); White Blood Cell (WBC) Count 4.1 thou/uL (4.8-10.8)
--- NOTE | 2017-07-17 08:35 | PDOC.PN ---
- Subjective Encounter Start Date: 07/17/17 Encounter Start Time: 08:34 Ms. Connors was seen in follow-up. She says she is still short of breath compared to her baseline. She says it is especially bad with exertion. - Objective Resuscitation Status: Resuscitation Status FULL:Full Resuscitation MAR Reviewed: Yes Vital Signs & Weight: Vital Signs (12 hours) Temp Pulse Resp BP Pulse Ox 07/17/17 08:15 125 H 24 H 90 L 07/17/17 07:05 97.9 F 105 H 20 185/82 H 93 L 07/17/17 05:02 97.6 F 103 H 24 H 93 L 07/17/17 04:10 22 H 92 L 07/17/17 03:23 24 H 91 L 07/17/17 02:15 32 H 84 L 07/17/17 01:27 93 L 07/17/17 00:14 116 H 20 94 L 07/16/17 23:28 98.5 F 109 H 20 147/87 H 95 07/16/17 22:42 94 L 07/16/17 21:38 94 L Weight Admit Weight 93 lb Weight 93 lb I&O: 07/16/17 07/17/17 07/18/17 06:59 06:59 06:59 Intake Total 481 Output Total 1500 Balance -1019 Result Diagrams: 07/17/17 04:43 07/17/17 04:43 Phys Exam - Physical Examination HEENT: PERRLA Respiratory: wheezing present + mild expiratory wheeze, no rhonchi Cardiovascular: RRR, no significant murmur tachycardic Gastrointestinal: soft, non-tender, positive bowel sounds Musculoskeletal: edema present 1+ edema lower extremities Dx/Plan (1) Acute and chronic respiratory failure Code(s): J96.20 - ACUTE AND CHR RESP FAILURE, UNSP W HYPOXIA OR HYPERCAPNIA Status: Acute Qualifiers: Respiratory failure complication: hypoxia and hypercapnia Qualified Code(s) : J96.21 - Acute and chronic respiratory failure with hypoxia; J96.22 - Acute and chronic respiratory failure with hypercapnia Comment: still requiring o2, does not have at home. almost ready for discharge. po steroids, continue Nebs and abx. (2) COPD exacerbation Code(s): J44.1 - CHRONIC OBSTRUCTIVE PULMONARY DISEASE W (ACUTE) EXACERBATION Status: Acute Comment: improve,d but still with considerable obstruction. 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
[2017-07-17] MEDS: Azithromycin 250 MG TAB PO SCH (08:36)
[2017-07-17] MEDS: Famotidine 20 MG TAB PO SCH ×2 (08:36→20:17)
[2017-07-17] MEDS: Triamterene/Hydrochlorothiazide 37.5 mg/25 mg Tablet PO SCH (08:37)
[2017-07-17] MEDS: Isosorbide Mononitrate 20 MG TAB PO SCH (08:38)
[2017-07-17] MEDS: Diltiazem HCl CD 300 mg Capsule PO SCH (08:38)
[2017-07-17 09:48] LABS: Actual Bicarbonate (HCO3a) 31.6 mEq/L (22-26); Base Excess (BEa) 5.4 mEq/L (0 (+/-) 2.5); CO2 Tension 54.7 mmHg (35.0-45.0); Hematocrit-ABG 40.5 % (36.0-47.0); Hemoglobin (Hb) 11.1 g/dL (12.0-16.0); O2 Tension (PaO2) 66.8 mmHg (80.0-100.0); pH, Arterial 7.38 (7.35-7.45)
[2017-07-17 09:49] LABS: Puncture Site RRA
[2017-07-17 09:50] LABS: ALV-art Gradient 64.465 (0-20)
--- NOTE | 2017-07-17 09:55 | RAD ---
ONE VIEW CHEST: Date: 07-17-17 Comparison: 07-16-17 History: Code Green. Acute dyspnea. FINDINGS: Stable sclerotic curvature of the spine. Stable accentuation of the aorta secondary to scoliotic curv ature. Atherosclerosis of the aortic knob is identified. Normal cardiac silhouette. The lungs are hyp erinflated. No consolidation or masses. No pneumothorax or osseous abnormalities. Stable bilateral ap ical pleural thickening. IMPRESSION: 1. Hyperinflation. No acute cardiopulmonary process. 2. Atherosclerosis. POS: RHETT
[2017-07-17] MEDS ORDERED: Potassium Chloride 40 MEQ in Sodium Chloride 0.9% 250 ML 250 ML IVPB SCH (10:00)
[2017-07-17] MEDS ORDERED: Magnesium Sulfate 3 GM in Sodium Chloride 0.9% 100 ML IVPB SCH (11:00)
[2017-07-17] MEDS: Sodium Chloride 0.45% 1,000 ML IV SCH (11:30)
--- NOTE | 2017-07-17 12:32 | CON ---
DATE OF CONSULTATION: 07/17/2017 Dinora Connors was admitted last night. She was evaluated this morning. She was noted to have increasing respiratory distress. She subseque ntly has been transferred to the Critical Care Unit. I have evaluated her. She has now been placed on noninvasive ventilation, says she is feeling better. She said she developed a runny nose and a cough several days back and called her primary care doctor, Dr. Reyes. Antibiotics were prescribed with Kuldip Vilchis. She continued to decline, subsequent ly was admitted last night. PAST MEDICAL HISTORY: Remarkable for: 1. Noninvasive ventilation last year for chronic obstructive pulmonary disease with respiratory fail ure. 2. Chronic respiratory failure with acute decompensation on home oxygen this admission. 3. Advanced obstructive lung disease. 4. History of heavy smoking, abstinent now. 5. History of sinus tachycardia as a baseline with her COPD. 6. History of pneumonia last fall. 7. Peripheral vascular disease. 8. History of iron-deficiency anemia. 9. History of chronic hyponatremia that resolved with fluid restriction. 10. Reflux disease. 11. History of allergies. 12. Hypertension. 13. History of anxiety. FAMILY HISTORY: Negative for lung disease in early age. SOCIAL HISTORY: She is a heavy smoker in the past, is abstinent now. She is not a daily drinker. ALLERGIES: She has no reported drug allergies. FAMILY HISTORY: Negative for lung disease in early age. She actually has a twin, the patient's syeda name is fatty. She does not go by Dinora. REVIEW OF SYSTEMS: Ten-point review of systems otherwise negative. PHYSICAL EXAMINATION: GENERAL: She is in no distress now as she has BiPAP on, but she was in distress earlier. VITAL SIGNS: Blood pressure 185/82, heart rate 120, respiratory rates 24. HEENT: Pupils are equal. Sclerae is anicteric. NECK: Supple, no lymphadenopathy. Carotids are symmetrical. Trachea is in midline. LUNGS: Remarkable for a long expiratory phase. No wheezes are heard. HEART: Regular rhythm. S1 and S2 are normal. ABDOMEN: Soft and nontender. EXTREMITIES: No clubbing, cyanosis, or edema. IMAGING: Chest radiograph shows hyperinflation, no infiltrates. IMPRESSION: Chronic obstructive pulmonary disease exacerbation with bronchitis, likely viral mediate d given her presenting symptoms or rhinorrhea followed by shortness of breath. PLAN: Noninvasive ventilation, probably until tomorrow. She can take it off to have ice chips and s ips of water. She needs IV fluids. She needs IV steroids. Ipratropium and albuterol neb treatments will be given every 4 hours. 3 grams of IV magnesium may be helpful. Empiric antibiotics need to be fairly simple given that this is not pneumonia and probably is just a viral mediated bronchitis. I would be happy to follow with the other physicians caring for her. Critical care time 30 minutes.
[2017-07-17] MEDS: ALPRAZolam 0.25 MG TAB PO PRN (18:42)
[2017-07-18] MEDS: ALPRAZolam 0.25 MG TAB PO PRN ×4 (01:30→21:41)
[2017-07-18] MEDS: Sodium Chloride 0.45% 1,000 ML IV SCH (01:33)
[2017-07-18] MEDS ORDERED: ALPRAZolam 0.25 MG TAB PO SCH (01:45)
[2017-07-18] MEDS: Ipratropium Bromide 2.5 ml Neb NEB SCH ×6 (02:13→22:12)
[2017-07-18 04:58] LABS: Anion Gap 10 mmol/L (10-20); BUN (Urea Nitrogen) 11 mg/dL (9.8-20.1); Calc. Creatinine Clearance 66 mL/min (70-130); Calcium 7.7 mg/dL (7.8-10.44); Carbon Dioxide 33 mmol/L (23-31); Chloride 94 mmol/L (98-107); Estimated GFR-MDRD Greater than 90; Glucose 121 mg/dL (83-110); Potassium 3.1 mmol/L (3.5-5.1); Sodium 134 mmol/L (136-145)
--- NOTE | 2017-07-18 08:12 | PDOC.PN ---
- Subjective Encounter Start Date: 07/18/17 Encounter Start Time: 08:11 Ms. Connors was seen today in follow-up. She is still having some difficulty with her breathing. She has significant work of breathing. - Objective MAR Reviewed: Yes Vital Signs & Weight: Vital Signs (12 hours) Temp Pulse Resp Pulse Ox 07/18/17 06:54 80 17 96 07/18/17 05:00 98.1 F 07/18/17 04:00 17 07/18/17 02:14 87 17 96 07/18/17 02:13 96 07/18/17 00:00 98.2 F 18 07/17/17 22:45 94 19 94 L Weight Admit Weight 93 lb Weight 93 lb Most Recent Monitor Data Heart Rate from ECG 75 NIBP 128/75 NIBP BP-Mean 82 Respiration from ECG 15 SpO2 94 I&O: 07/17/17 07/18/17 07/19/17 06:59 06:59 06:59 Intake Total 2529 Output Total 2450 Balance 79 Result Diagrams: 07/17/17 04:43 07/18/17 03:37 Additional Labs: Accuchecks 07/17/17 09:01 POC Glucose 182 H Phys Exam - Physical Examination HEENT: PERRLA Respiratory: wheezing present + mild expiratory wheeze, no rales, decreased air movement Cardiovascular: RRR, no significant murmur Gastrointestinal: soft, non-tender, positive bowel sounds Musculoskeletal: edema present trace pedal edema Dx/Plan (1) Acute and chronic respiratory failure Code(s): J96.20 - ACUTE AND CHR RESP FAILURE, UNSP W HYPOXIA OR HYPERCAPNIA Status: Acute Qualifiers: Respiratory failure complication: hypoxia and hypercapnia Qualified Code(s) : J96.21 - Acute and chronic respiratory failure with hypoxia; J96.22 - Acute and chronic respiratory failure with hypercapnia Comment: still requiring o2, does not have at home. almost ready for discharge. po steroids, continue Nebs and abx. (2) COPD exacerbation Code(s): J44.1 - CHRONIC OBSTRUCTIVE PULMONARY DISEASE W (ACUTE) EXACERBATION Status: Acute Comment: improve,d but still with considerable obstruction. CCM with steroids, nebs (3) GERD (gastroesophageal reflux disease) Code(s): K21.9 - GASTRO-ESOPHAGEAL REFLUX DISEASE WITHOUT ESOPHAGITIS Status: Chronic Qualifiers: Esophagitis presence: without esophagitis Qualified Code(s): K21.9 - Gastro -esophageal reflux disease without esophagitis (4) Hypertension Code(s): I10 - ESSENTIAL (PRIMARY) HYPERTENSION Status: Acute - Plan * Acute on chronic respiratory failure with hypoxemia- She has been moved to the ICU, and is requiring intermittent BiPAP * Continue Duonebs, and IV steroids * Continue Azithromycin * Pulmonology input appreciated * HTN- blood pressure is elevated, but trending down.
[2017-07-18] MEDS ORDERED: Magnesium Oxide 400 MG TAB PO PRN ×2 (08:15)
[2017-07-18] MEDS ORDERED: Potassium Chloride 20 MEQ TAB PO PRN (08:15)
[2017-07-18] MEDS ORDERED: Potassium Phosphate 9 MMOL in Sodium Chloride 0.9% 100 ML IVPB PRN (08:15)
[2017-07-18] MEDS ORDERED: Potassium Chloride 40 MEQ in Premix Bag 1 BAG IVPB PRN (08:15)
[2017-07-18] MEDS ORDERED: Magnesium 2 GM/NS 0.9% 100 ML 2 GM in Premix Bag 1 BAG IVPB PRN (08:15)
[2017-07-18] MEDS ORDERED: CCU ELECTROLYTE REPLACEMENT PROTOCOL FS PRN (08:15)
[2017-07-18] MEDS ORDERED: CCU Electrolyte Replacement 1 EACH FS SCH (08:15)
[2017-07-18] MEDS ORDERED: Potassium Chloride 40 MEQ in Sodium Chloride 0.9% 250 ML 250 ML IVPB PRN (08:15)
[2017-07-18] MEDS ORDERED: Potassium Phosphate 12 MMOL in Sodium Chloride 0.9% 250 ML 250 ML IV PRN (08:15)
[2017-07-18] MEDS ORDERED: Potassium Phosphate 15 MMOL in Sodium Chloride 0.9% 250 ML 250 ML IV PRN (08:15)
[2017-07-18] MEDS: Azithromycin 250 MG TAB PO SCH (08:38)
[2017-07-18] MEDS: Famotidine 20 MG TAB PO SCH ×2 (08:38→21:41)
[2017-07-18] MEDS: Diltiazem HCl CD 300 mg Capsule PO SCH (09:54)
[2017-07-18] MEDS: Isosorbide Mononitrate 20 MG TAB PO SCH (09:55)
[2017-07-18] MEDS: Triamterene/Hydrochlorothiazide 37.5 mg/25 mg Tablet PO SCH (09:55)
--- NOTE | 2017-07-18 13:26 | EKG ---
Test Reason : Blood Pressure : / mmHG Vent. Rate : 123 BPM Atrial Rate : 123 BPM P-R Int : 122 ms QRS Dur : 098 ms QT Int : 332 ms P-R-T Axes : 030 061 011 degrees QTc Int : 475 ms Sinus tachycardia with Premature supraventricular complexes Voltage criteria for left ventricular hypertrophy Nonspecific ST abnormality Abnormal ECG Confirmed by TERRENCE MELGAR, DASHAWN ([id number]), assignment editor ALIYAH MENDOSA ([id number]) on 07/18/2017 1:25:50 PM Referred By: Confirmed By:DASHAWN OCAMPO MD
[2017-07-18] MEDS ORDERED: Sodium Chloride 0.45% 1,000 ML IV SCH (13:53)
--- NOTE | 2017-07-18 14:01 | PRG ---
DATE OF SERVICE: 07/18/2017 SERVICE: Pulmonary Medicine. INTERVAL HISTORY: The patient is doing okay from a respiratory standpoint. She is on BiPAP, but is not able to tolerate more than 50 minute break this morning. We are going to continue to make effort s through time. She denies any chest pain, nausea or vomiting. While she is wearing BiPAP, she has no conversational dyspnea. PHYSICAL EXAMINATION: VITAL SIGNS: Afebrile, pulse 95, blood pressure 125/75, respirations 21, saturation 94% on 27% FiO2 and a PEEP of 5. GENERAL: The patient is awake and alert, in no apparent distress. LUNGS: Really decent air entry with not much in the way of prolonged expiratory phase. Crackles are present. No rhonchi. HEART: Normal rate and regular. ABDOMEN: Soft, nontender, nondistended. Bowel sounds are positive. MUSCULOSKELETAL: No cyanosis or clubbing. There is 2+ pitting throughout. : No [place]. NEUROLOGIC: Grossly nonfocal. LABORATORY DATA: Sodium 134, potassium 3.1, chloride 94, bicarbonate 33. Basic metabolic profile is otherwise unremarkable. Calcium 7.7. Prior magnesium was 1.5. Blood cultures x2 are unremarkable. ASSESSMENT: 1. Acute on chronic hypoxic and hypercapnic respiratory failure. 2. Chronic obstructive pulmonary disease with acute exacerbation. PLAN: I will continue her BiPAP breaks, nebulized medications, steroids, and antibiotics. She can b e moved to the IMCU based on how comfortable she is right now. We will replace the potassium. I júnior l repeat magnesium tomorrow morning. Her IV fluids will be changed to KVO as she demonstrates a roger le bit of volume overload. Pulmonary or Critical Care will continue to follow her certainly during t his hospital stay.
[2017-07-18] MEDS: Potassium Chloride 20 MEQ TAB PO SCH ×2 (16:13→16:58)
[2017-07-19] MEDS: Ipratropium Bromide 2.5 ml Neb NEB SCH ×6 (02:42→22:01)
[2017-07-19 05:17] LABS: Anion Gap 11 mmol/L (10-20); BUN (Urea Nitrogen) 14 mg/dL (9.8-20.1); Calc. Creatinine Clearance 65 mL/min (70-130); Calcium 8.3 mg/dL (7.8-10.44); Carbon Dioxide 30 mmol/L (23-31); Chloride 92 mmol/L (98-107); Estimated GFR-MDRD Greater than 90; Glucose 103 mg/dL (83-110); Magnesium 1.8 mg/dL (1.6-2.6); Phosphorus 2.2 mg/dL (2.3-4.7); Potassium 3.7 mmol/L (3.5-5.1); Sodium 129 mmol/L (136-145)
--- NOTE | 2017-07-19 07:26 | PDOC.PN ---
- Subjective Encounter Start Date: 07/19/17 Encounter Start Time: 07:25 Ms. Connors was seen today in follow-up. She is currently on BiPAP, and is comfortable. She admits to getting tired however. Still with severe dyspnea, with just minimal activity. - Objective MAR Reviewed: Yes Vital Signs & Weight: Vital Signs (12 hours) Temp Pulse Resp BP Pulse Ox 07/19/17 04:00 18 07/19/17 03:55 96.7 F L 92 20 169/91 H 96 07/19/17 02:43 81 15 100 07/19/17 02:42 81 17 95 07/19/17 02:00 18 07/19/17 00:00 18 97 07/18/17 23:34 97.4 F L 110 H 21 H 165/87 H 97 07/18/17 22:50 97.4 F L 98 18 95 07/18/17 22:30 20 07/18/17 22:13 99 28 H 90 L 07/18/17 22:12 100 28 H 90 L Weight Admit Weight 93 lb Weight 90 lb 14.4 oz Most Recent Monitor Data Heart Rate from ECG 85 NIBP 143/83 NIBP BP-Mean 98 Respiration from ECG 21 SpO2 94 I&O: 07/18/17 07/19/17 07/20/17 06:59 06:59 06:59 Intake Total 2529 1229 Output Total 2450 1600 Balance 79 -371 Result Diagrams: 07/17/17 04:43 07/19/17 04:16 Phys Exam - Physical Examination HEENT: PERRLA Respiratory: wheezing present + rhonchi Cardiovascular: RRR, no significant murmur, no rub Gastrointestinal: soft, non-tender, positive bowel sounds Musculoskeletal: edema present trace pedal edema Dx/Plan (1) Acute and chronic respiratory failure Code(s): J96.20 - ACUTE AND CHR RESP FAILURE, UNSP W HYPOXIA OR HYPERCAPNIA Status: Acute Qualifiers: Respiratory failure complication: hypoxia and hypercapnia Qualified Code(s) : J96.21 - Acute and chronic respiratory failure with hypoxia; J96.22 - Acute and chronic respiratory failure with hypercapnia Comment: still requiring o2, does not have at home. almost ready for discharge. po steroids, continue Nebs and abx. (2) COPD exacerbation Code(s): J44.1 - CHRONIC OBSTRUCTIVE PULMONARY DISEASE W (ACUTE) EXACERBATION Status: Acute Comment: improve,d but still with considerable obstruction. CCM with steroids, nebs (3) GERD (gastroesophageal reflux disease) Code(s): K21.9 - GASTRO-ESOPHAGEAL REFLUX DISEASE WITHOUT ESOPHAGITIS Status: Chronic Qualifiers: Esophagitis presence: without esophagitis Qualified Code(s): K21.9 - Gastro -esophageal reflux disease without esophagitis (4) Hypertension Code(s): I10 - ESSENTIAL (PRIMARY) HYPERTENSION Status: Acute - Plan * Acute on chronic respiratory failure- she is improving slowly- Continue as per Public Health Technologist * Duonebs, Steroids, and Antibiotics * Hypokalemia- -corrected * Hyponatremia- will discontinue Maxizide, and re-evaluate * HTN- blood pressure has been trending down- Will continue Cardizem and Hydralazine as needed.
[2017-07-19] MEDS: Sodium Chloride 0.45% 1,000 ML IV SCH (08:29)
[2017-07-19] MEDS: Isosorbide Mononitrate 20 MG TAB PO SCH (08:31)
[2017-07-19] MEDS: Azithromycin 250 MG TAB PO SCH (08:31)
[2017-07-19] MEDS: Diltiazem HCl CD 300 mg Capsule PO SCH (08:31)
[2017-07-19] MEDS: Famotidine 20 MG TAB PO SCH ×2 (08:31→20:15)
[2017-07-19] MEDS: ALPRAZolam 0.25 MG TAB PO PRN ×2 (11:53→22:42)
--- NOTE | 2017-07-19 14:37 | PRG ---
DATE OF SERVICE: 07/19/2017 SERVICE: Pulmonary Medicine. INTERVAL HISTORY: The patient is doing fine from cardiovascular and respiratory standpoint. She is talking in full sentences on the BiPAP. This morning, she took about a 5 minute break off the BiPAP before she had respiratory difficulty and had to have put back on. She is on a BiPAP break right now . She is lasting about 5 minutes so far and there are already visible signs of her increased work of breathing. Otherwise, there were no significant overnight events. PHYSICAL EXAMINATION: VITAL SIGNS: Afebrile, pulse 107, blood pressure 158/96, respirations 26, saturation 88% on BiPAP. HEENT: Normocephalic, atraumatic. Sclerae are white. Conjunctivae pink. Oral mucosa is moist with out lesions. LUNGS: Decreased air entry. There is a prolonged expiratory phase. Wheezing and crackles are both evident. No rhonchi. HEART: Normal rate and regular. ABDOMEN: Soft, nontender, and nondistended. Bowel sounds are positive. MUSCULOSKELETAL: No cyanosis or clubbing. There is 1+ pitting in the bilateral lower extremities. NEUROLOGIC: Grossly nonfocal. LABORATORY: Sodium 129, chloride 92, potassium 3.7. Basic metabolic profile is otherwise unremarkab le. Phosphorus is 2.2, magnesium 1.8. Blood cultures x2 are unremarkable. ASSESSMENT: 1. Acute on chronic hypoxic and hypercapnic respiratory failure. 2. Chronic obstructive pulmonary disease with acute exacerbation. PLAN: We will continue antibiotics, nebulized medications and steroids. We will continue making eff orts by giving her breaks from the BiPAP. That being said, if she is not tolerating these breaks by tomorrow morning, she may need to be moved to ICU to consider intubation. Magnesium, phosphorus, and potassium will all be replaced today. Pulmonary will continue to follow.
[2017-07-19] MEDS ORDERED: Magnesium 2 GM/NS 0.9% 100 ML 2 GM in Premix Bag 1 BAG IVPB SCH (14:45)
[2017-07-19] MEDS ORDERED: Potassium Phosphate 30 MMOL in Sodium Chloride 0.9% 500 ML IVPB SCH (15:00)
[2017-07-20] MEDS: Ipratropium Bromide 2.5 ml Neb NEB SCH ×6 (02:59→22:09)
[2017-07-20 04:58] LABS: Hemoglobin 11.4 g/dL (12.0-16.0); Lymphocytes 7 % (21-51); MDiff Complete? YES; Mean Corpuscular HGB CONC 31.7 g/dL (32.0-36.0); Mean Corpuscular Hemoglobin 25.4 pg (27.0-31.0); Mean Platelet Volume 7.9 fL (7.4-10.4); Monocytes 4 % (0-10); Neutrophil 88 % (42-75); Platelet Count 363 thou/uL (130-400); RBC Distribution Width 16.8 % (11.5-14.5); Reactive Lymphocytes 1 % (0-10); Red Blood Cell (RBC) Count 4.48 mill/uL (4.20-5.40); White Blood Cell (WBC) Count 7.7 thou/uL (4.8-10.8)
[2017-07-20 05:00] LABS: Anion Gap 12 mmol/L (10-20); BUN (Urea Nitrogen) 17 mg/dL (9.8-20.1); Calc. Creatinine Clearance 64 mL/min (70-130); Calcium 8.4 mg/dL (7.8-10.44); Carbon Dioxide 30 mmol/L (23-31); Chloride 95 mmol/L (98-107); Estimated GFR-MDRD Greater than 90; Glucose 104 mg/dL (83-110); Magnesium 2.2 mg/dL (1.6-2.6); Phosphorus 2.9 mg/dL (2.3-4.7); Potassium 3.9 mmol/L (3.5-5.1); Sodium 133 mmol/L (136-145)
--- NOTE | 2017-07-20 08:34 | PDOC.PN ---
- Subjective Encounter Start Date: 07/20/17 Encounter Start Time: 08:32 Ms. Connors was seen today in follow-up of COPD exacerbation. She is still requiring BiPAP quite often. She is on it right now. She is still somewhat dyspneic. - Objective MAR Reviewed: Yes Vital Signs & Weight: Vital Signs (12 hours) Temp Pulse Resp BP BP Pulse Ox 07/20/17 08:07 107 H 22 H 89 L 07/20/17 07:32 97.9 F 93 23 H 147/90 H 91 L 07/20/17 04:00 97.4 F L 73 18 137/71 91 L 07/20/17 03:00 100 17 90 L 07/20/17 02:59 97 17 90 L 07/20/17 00:00 98.5 F 97 14 128/81 89 L 07/19/17 22:01 80 20 90 L Weight Admit Weight 93 lb Weight 90 lb 14.4 oz Most Recent Monitor Data Heart Rate from ECG 85 NIBP 143/83 NIBP BP-Mean 98 Respiration from ECG 21 SpO2 94 I&O: 07/19/17 07/20/17 07/21/17 06:59 06:59 06:59 Intake Total 1229 1140 Output Total 1600 1720 Balance -371 -580 Result Diagrams: 07/20/17 03:49 07/20/17 03:49 Phys Exam - Physical Examination HEENT: PERRLA Respiratory: no rales, no rhonchi, wheezing present + faint wheeze, decreased air movement Cardiovascular: RRR, no significant murmur Gastrointestinal: soft, non-tender, positive bowel sounds Musculoskeletal: no edema Dx/Plan (1) Acute and chronic respiratory failure Code(s): J96.20 - ACUTE AND CHR RESP FAILURE, UNSP W HYPOXIA OR HYPERCAPNIA Status: Acute Qualifiers: Respiratory failure complication: hypoxia and hypercapnia Qualified Code(s) : J96.21 - Acute and chronic respiratory failure with hypoxia; J96.22 - Acute and chronic respiratory failure with hypercapnia Comment: still requiring o2, does not have at home. almost ready for discharge. po steroids, continue Nebs and abx. (2) COPD exacerbation Code(s): J44.1 - CHRONIC OBSTRUCTIVE PULMONARY DISEASE W (ACUTE) EXACERBATION Status: Acute Comment: improve,d but still with considerable obstruction. CCM with steroids, nebs (3) GERD (gastroesophageal reflux disease) Code(s): K21.9 - GASTRO-ESOPHAGEAL REFLUX DISEASE WITHOUT ESOPHAGITIS Status: Chronic Qualifiers: Esophagitis presence: without esophagitis Qualified Code(s): K21.9 - Gastro -esophageal reflux disease without esophagitis (4) Hypertension Code(s): I10 - ESSENTIAL (PRIMARY) HYPERTENSION Status: Acute (5) Hyponatremia Code(s): E87.1 - HYPO-OSMOLALITY AND HYPONATREMIA Status: Acute - Plan * COPD exacerbation- continue BIPAP as needed, and Duonebs, and Steroids, and antibiotics * Further recommendations per the Pulmonary Team * HTN - blood pressure is stable * Hyponatremia- better- will continue to monitor- she has been taken off Mazide. * She says the bed is making her weak- will give a trial of PT once her respiratory status is more stable
[2017-07-20] MEDS: Diltiazem HCl CD 300 mg Capsule PO SCH (08:38)
[2017-07-20] MEDS: Isosorbide Mononitrate 20 MG TAB PO SCH (08:38)
[2017-07-20] MEDS: Azithromycin 250 MG TAB PO SCH (08:38)
[2017-07-20] MEDS: Famotidine 20 MG TAB PO SCH ×2 (08:38→20:05)
[2017-07-20] MEDS: ALPRAZolam 0.25 MG TAB PO PRN ×2 (08:44→20:06)
--- NOTE | 2017-07-20 11:04 | PQF ---
Date: 07-20-17 ATTN: DR. BETHANY URRUTIA Please exercise your independent, professional judgment in responding to the clarification form. Clinical indicators are provided on the bottom of this form for your review Please check appropriate box(s): [ ] Protein Calorie Malnutrition: [ ] Mild [X ] Moderate [ ] Severe [ X] Cachexia [ ] Other diagnosis [ ] Unable to determine In addition, please specify: Present on Admission (POA): [ X ] Yes [ ] No [ ] Unable to determine CLINICAL INDICATORS - SIGNS / SYMPTOMS / LABS BMI: 15.6 MANAGER GROCERY CONSULT 07-17-17: 1) Recommend heart healthy low sodium diet once PO intake is allowed. 2) Recommend Ensure Enlive BID. 3) Replace Mg and K PRN. H&P: SEVERE KYPHOSIS NOTED. MILD EDEMA NOTED IN THE ANKLE REGION AND DORSUM OF THE FEET. RISK FACTORS: MANAGER GROCERY CONSULT 07-17-17: HISTORY INVOLVES: Chronic respiratory failure, CAD, GERD, asthma, CHF, former tobacco user, 2-3 LE EDEMA, COPD MANAGER GROCERY CONSULT 07-17-17: 1) Recommend heart healthy low sodium diet once PO intake is allowed. 2) Recommend Ensure Enlive BID. 3) Replace Mg and K PRN. TREATMENT: MANAGER GROCERY CONSULT 07-17-17: 1) Recommend heart healthy low sodium diet once PO intake is allowed. 2) Recommend Ensure Enlive BID. 3) Replace Mg and K PRN. 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 strength Moderate Malnutrition (in chronic illness) Energy Intake: <75% of estimated energy requirement for >1 month Weight Loss: 5%/1 month; 7.5%/3 months; 10%/6 months; 20%/1 year Other: mild body fat loss; mild muscle mass loss; mild fluid accumulation Severe Malnutrition (in chronic illness) Energy Intake: <75% of estimated energy requirement for >1 month Weight Loss: >5%/1 month; >7.5%/3 months; >10%/6 months; >20%/1 year Other: severe body fat loss; severe muscle mass loss; severe fluid accumulation ; measurably reduced 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 All Rights Reserved MARTIN [email or web address] Office: [phone] MEGHANA
--- NOTE | 2017-07-20 13:44 | PRG ---
DATE OF SERVICE: 07/20/2017 Ms. Connors says she is feeling better. She is off BiPAP during the day now. We will continue to use BiPAP at night as I have explained to her. PHYSICAL EXAMINATION: VITAL SIGNS: She is afebrile, heart rate 101, respiratory rate 24, oximetry is 92 on 4 liters. LUNGS: Remarkable for distant breath sounds. CARDIOVASCULAR: Regular rhythm. ABDOMEN: Soft. EXTREMITIES: Without asymmetry. LABORATORY DATA: White count 7.7, hemoglobin 11.4, platelets 363,000. Sodium 133, potassium 3.9, ch loride 95, bicarbonate 30, BUN 17, creatinine 0.49. IMPRESSION: 1. Chronic obstructive pulmonary disease exacerbation. 2. Acute on chronic respiratory failure with hypoxemia on oxygen prior to admission. 3. Extreme deconditioning. PLAN: 1. Continue BiPAP p.r.n. and with sleep. 2. Physical therapy. She needs to be out of bed for all of her meals to hopefully facilitate gradua l improvement of her strength or we will get back to where we were last fall when she was discharged from the hospital.
[2017-07-21] MEDS: Ipratropium Bromide 2.5 ml Neb NEB SCH ×6 (02:12→21:57)
[2017-07-21 05:06] LABS: #Lymphocytes 0.5 thou/uL (1.20-3.40); #Monocytes 0.3 thou/uL (0.11-0.59); #Neutrophils 7.9 thou/uL (1.40-6.50); %Eosinophils 0.1 % (0.0-10.0); %Lymphocytes 5.8 % (21.0-51.0); %Monocytes 3.3 % (0.0-10.0); %Neutrophils 90.9 % (42.0-75.0); Hemoglobin 12.3 g/dL (12.0-16.0); Mean Corpuscular HGB CONC 31.9 g/dL (32.0-36.0); Mean Corpuscular Hemoglobin 25.1 pg (27.0-31.0); Mean Corpuscular Volume 78.7 fl (81.0-99.0); Mean Platelet Volume 7.4 fL (7.4-10.4); Platelet Count 378 thou/uL (130-400); RBC Distribution Width 16.4 % (11.5-14.5); Red Blood Cell (RBC) Count 4.91 mill/uL (4.20-5.40); White Blood Cell (WBC) Count 8.7 thou/uL (4.8-10.8)
[2017-07-21 05:29] LABS: Anion Gap 10 mmol/L (10-20); BUN (Urea Nitrogen) 17 mg/dL (9.8-20.1); Calc. Creatinine Clearance 68 mL/min (70-130); Calcium 8.7 mg/dL (7.8-10.44); Carbon Dioxide 34 mmol/L (23-31); Chloride 94 mmol/L (98-107); Estimated GFR-MDRD Greater than 90; Glucose 106 mg/dL (83-110); Magnesium 2.1 mg/dL (1.6-2.6); Phosphorus 2.7 mg/dL (2.3-4.7); Potassium 3.3 mmol/L (3.5-5.1); Sodium 135 mmol/L (136-145)
[2017-07-21] MEDS: Diltiazem HCl CD 300 mg Capsule PO SCH (08:40)
[2017-07-21] MEDS: Azithromycin 250 MG TAB PO SCH (08:40)
[2017-07-21] MEDS: Isosorbide Mononitrate 20 MG TAB PO SCH (08:41)
[2017-07-21] MEDS: ALPRAZolam 0.25 MG TAB PO PRN ×2 (08:42→20:27)
[2017-07-21] MEDS: Famotidine 20 MG TAB PO SCH ×2 (08:42→20:27)
--- NOTE | 2017-07-21 12:22 | PDOC.PN ---
- Subjective Encounter Start Date: 07/21/17 Encounter Start Time: 12:26 Subjective: No new complaints. Says she's been trying to ambulate more -: No acue events overnight. - Objective MAR Reviewed: Yes Vital Signs & Weight: Vital Signs (12 hours) Temp Pulse Resp BP BP Pulse Ox 07/21/17 12:00 98.4 F 117 H 20 138/96 H 97 07/21/17 11:35 98.4 F 117 H 20 138/96 H 97 07/21/17 10:40 121 H 20 07/21/17 08:40 110 H 160/83 H 07/21/17 08:00 98.2 F 110 H 20 92 L 07/21/17 07:36 98.2 F 67 20 183/83 H 92 L 07/21/17 06:41 109 H 21 H 07/21/17 04:10 97.0 F L 99 16 140/87 91 L 07/21/17 02:13 97 16 94 L Weight Admit Weight 93 lb Weight 90 lb 8 oz Most Recent Monitor Data Heart Rate from ECG 85 NIBP 143/83 NIBP BP-Mean 98 Respiration from ECG 21 SpO2 94 I&O: 07/20/17 07/21/17 07/22/17 06:59 06:59 06:59 Intake Total 1140 890 Output Total 1720 1925 Balance -580 -1035 Result Diagrams: 07/21/17 04:44 07/21/17 04:44 Phys Exam - Physical Examination Constitutional: NAD HEENT: PERRLA, moist MMs, sclera anicteric Neck: no JVD, supple, full ROM Respiratory: no wheezing, no rales, no rhonchi, clear to auscultation bilateral Cardiovascular: RRR, no significant murmur, no rub Gastrointestinal: soft, non-tender, no distention, positive bowel sounds Musculoskeletal: no edema, pulses present Neurological: non-focal, moves all 4 limbs Psychiatric: normal affect, A&O x 3 Skin: no rash, normal turgor Dx/Plan (1) Acute and chronic respiratory failure Code(s): J96.20 - ACUTE AND CHR RESP FAILURE, UNSP W HYPOXIA OR HYPERCAPNIA Status: Acute Qualifiers: Respiratory failure complication: hypoxia and hypercapnia Qualified Code(s) : J96.21 - Acute and chronic respiratory failure with hypoxia; J96.22 - Acute and chronic respiratory failure with hypercapnia Comment: still requiring o2, Continue po steroids, Nebs and abx. BiPAP PRN (2) Hypokalemia Code(s): E87.6 - HYPOKALEMIA Status: Acute Comment: Replete. (3) Hypertension Code(s): I10 - ESSENTIAL (PRIMARY) HYPERTENSION Status: Acute Qualifiers: Hypertension type: essential hypertension Qualified Code(s): I10 - Essential (primary) hypertension Comment: Well controlled. Continue diltiazem and Hydralazine. (4) Hyponatremia Code(s): E87.1 - HYPO-OSMOLALITY AND HYPONATREMIA Status: Resolved (5) COPD exacerbation Code(s): J44.1 - CHRONIC OBSTRUCTIVE PULMONARY DISEASE W (ACUTE) EXACERBATION Status: Acute Plan: See problem #1 (6) GERD (gastroesophageal reflux disease) Code(s): K21.9 - GASTRO-ESOPHAGEAL REFLUX DISEASE WITHOUT ESOPHAGITIS Status: Chronic Qualifiers: Esophagitis presence: without esophagitis Qualified Code(s): K21.9 - Gastro -esophageal reflux disease without esophagitis - Plan cont current plan of care, continue antibiotics, PT/OT, social media strategist, respiratory therapy, DVT proph w/lovenox * .
--- NOTE | 2017-07-21 16:14 | PRG ---
DATE OF SERVICE: 07/21/2017 SUBJECTIVE: Ms. Connors says she is feeling a little bit better. She has been off BiPAP all day. She did sleep with it last night and did well with it. OBJECTIVE: VITAL SIGNS: She is afebrile, heart rate is 96, respiratory rate is 18, oximetry is 97 on 4 liters, blood pressure 130/96. Intake and output was negative 1035. LUNGS: Remarkable for distant breath sounds with prolonged expiratory phase. CARDIOVASCULAR: Regular rhythm. ABDOMEN: Soft. EXTREMITIES: Without clubbing, cyanosis, or edema. LABORATORY DATA: White count 8.7, hemoglobin 12.3, platelets 378. Sodium 135, potassium 3.3, chlori de 94, bicarbonate 34, BUN 17, creatinine 0.46. IMPRESSION: 1. Respiratory failure. 2. Acute on chronic respiratory failure with hypoxemia on oxygen at home. 3. Advanced chronic obstructive pulmonary disease. 4. Deconditioning. PLAN: Continue current care. I will decrease steroids may be tomorrow. She will continue sleep wit h BiPAP at night.
[2017-07-22] MEDS: Ipratropium Bromide 2.5 ml Neb NEB SCH ×6 (03:28→22:12)
[2017-07-22 04:18] LABS: #Lymphocytes 0.9 thou/uL (1.20-3.40); #Monocytes 0.4 thou/uL (0.11-0.59); #Neutrophils 10.8 thou/uL (1.40-6.50); %Basophils 0.1 % (0.0-1.0); %Eosinophils 0.1 % (0.0-10.0); %Monocytes 3.3 % (0.0-10.0); %Neutrophils 89.5 % (42.0-75.0); Hemoglobin 12.9 g/dL (12.0-16.0); Mean Corpuscular HGB CONC 32.9 g/dL (32.0-36.0); Mean Corpuscular Hemoglobin 26.1 pg (27.0-31.0); Mean Corpuscular Volume 79.2 fl (81.0-99.0); Mean Platelet Volume 7.6 fL (7.4-10.4); Platelet Count 423 thou/uL (130-400); RBC Distribution Width 16.4 % (11.5-14.5); Red Blood Cell (RBC) Count 4.95 mill/uL (4.20-5.40); White Blood Cell (WBC) Count 12.1 thou/uL (4.8-10.8)
[2017-07-22 04:32] LABS: Anion Gap 10 mmol/L (10-20); BUN (Urea Nitrogen) 20 mg/dL (9.8-20.1); Calc. Creatinine Clearance 63 mL/min (70-130); Calcium 9.1 mg/dL (7.8-10.44); Carbon Dioxide 34 mmol/L (23-31); Chloride 94 mmol/L (98-107); Estimated GFR-MDRD Greater than 90; Glucose 126 mg/dL (83-110); Potassium 4.1 mmol/L (3.5-5.1); Sodium 134 mmol/L (136-145)
[2017-07-22] MEDS: Isosorbide Mononitrate 20 MG TAB PO SCH (08:51)
[2017-07-22] MEDS: Azithromycin 250 MG TAB PO SCH (08:53)
[2017-07-22] MEDS: Potassium Chloride 20 MEQ TAB PO SCH (08:53)
[2017-07-22] MEDS: Famotidine 20 MG TAB PO SCH ×2 (08:53→18:55)
[2017-07-22] MEDS: Diltiazem HCl CD 300 mg Capsule PO SCH (08:53)
[2017-07-22] MEDS: Enoxaparin Sodium 30 MG/0.3 ML SYRINGE SC SCH (08:54)
[2017-07-22] MEDS: ALPRAZolam 0.25 MG TAB PO PRN ×2 (08:54→21:44)
--- NOTE | 2017-07-22 11:35 | PDOC.PN ---
- Subjective Encounter Start Date: 07/22/17 Encounter Start Time: 11:46 Subjective: No acute events overnight. -: No new complaints. Tolerating BiPAP overnight. - Objective MAR Reviewed: Yes Vital Signs & Weight: Vital Signs (12 hours) Temp Pulse Resp BP BP Pulse Ox 07/22/17 11:28 98.4 F 106 H 24 H 145/94 H 94 L 07/22/17 10:14 119 H 18 07/22/17 08:53 102 H 160/98 H 07/22/17 08:00 98.6 F 102 H 24 H 167/99 H 90 L 07/22/17 06:50 116 H 18 07/22/17 04:00 97.0 F L 86 15 142/91 H 92 L 07/22/17 03:29 87 15 94 L 07/22/17 00:07 97.1 F L 100 16 143/93 H 96 07/22/17 00:00 96 Weight Admit Weight 93 lb Weight 85 lb 8 oz Most Recent Monitor Data Heart Rate from ECG 85 NIBP 143/83 NIBP BP-Mean 98 Respiration from ECG 21 SpO2 94 I&O: 07/21/17 07/22/17 07/23/17 06:59 06:59 06:59 Intake Total 890 1330 Output Total 1925 1750 Balance -1035 -420 Result Diagrams: 07/22/17 03:40 07/22/17 03:40 Phys Exam - Physical Examination Constitutional: NAD HEENT: PERRLA, moist MMs, sclera anicteric Neck: no JVD, supple, full ROM Respiratory: no wheezing, no rales, no rhonchi, clear to auscultation bilateral (with distant heart sounds) Cardiovascular: RRR, no significant murmur, no rub Gastrointestinal: soft, non-tender, no distention, positive bowel sounds Musculoskeletal: no edema, pulses present Neurological: non-focal, moves all 4 limbs Psychiatric: normal affect, A&O x 3 Skin: no rash, normal turgor Dx/Plan (1) Acute and chronic respiratory failure Code(s): J96.20 - ACUTE AND CHR RESP FAILURE, UNSP W HYPOXIA OR HYPERCAPNIA Status: Acute Qualifiers: Respiratory failure complication: hypoxia and hypercapnia Qualified Code(s) : J96.21 - Acute and chronic respiratory failure with hypoxia; J96.22 - Acute and chronic respiratory failure with hypercapnia Comment: Stable. Patient is on home Oxygen Continue po steroids, Nebs and abx. BiPAP PRN. Pulm on board. Will follow recs. (2) Hypertension Code(s): I10 - ESSENTIAL (PRIMARY) HYPERTENSION Status: Acute Qualifiers: Hypertension type: essential hypertension Qualified Code(s): I10 - Essential (primary) hypertension Comment: Fair control Continue diltiazem. Hold hydralazine and start amlodipine. (3) COPD exacerbation Code(s): J44.1 - CHRONIC OBSTRUCTIVE PULMONARY DISEASE W (ACUTE) EXACERBATION Status: Acute Plan: See problem #1 (4) GERD (gastroesophageal reflux disease) Code(s): K21.9 - GASTRO-ESOPHAGEAL REFLUX DISEASE WITHOUT ESOPHAGITIS Status: Chronic Qualifiers: Esophagitis presence: without esophagitis Qualified Code(s): K21.9 - Gastro -esophageal reflux disease without esophagitis (5) Hypokalemia Code(s): E87.6 - HYPOKALEMIA Status: Resolved Comment: Replete. (6) Hyponatremia Code(s): E87.1 - HYPO-OSMOLALITY AND HYPONATREMIA Status: Resolved - Plan cont current plan of care, PT/OT, respiratory therapy, incentive spirometry, DVT proph w/lovenox * .
--- NOTE | 2017-07-22 17:21 | PRG ---
DATE OF SERVICE: 07/22/2017 SUBJECTIVE: Dinora Connors says she did not feel quite as good as she did yesterday, although she has b een off BiPAP all day, she sat up in the chair earlier and has been trying to sit up since this after noon. OBJECTIVE: VITAL SIGNS: Blood pressure this morning was 145/94, heart rate is 76. She is afebrile. Respirator y rates in the 20s. LUNGS: Distant and clear. HEART: Regular rhythm. ABDOMEN: Soft and nontender. EXTREMITIES: Without cyanosis. She does have 1+ pedal edema. LABORATORY DATA: White count 12.1, hemoglobin 12.9, platelets 423. Sodium 134, potassium 4.1, chloride 94, bicarbonate 34, BUN 20, creatinine 0.49. IMPRESSION: 1. Acute on chronic respiratory failure with chronic hypoxemia on oxygen at home. 2. Chronic obstructive pulmonary disease exacerbation. 3. Probable coexistent bronchitis. 4. Deconditioning. PLAN: Continue our current care. Muscle weakness is the biggest factor and her bronchospasm is impr priscilla, although she is not back to her baseline.
[2017-07-23] MEDS: Ipratropium Bromide 2.5 ml Neb NEB SCH ×6 (02:05→21:37)
[2017-07-23 04:59] LABS: #Lymphocytes 0.5 thou/uL (1.20-3.40); #Monocytes 0.3 thou/uL (0.11-0.59); #Neutrophils 9.4 thou/uL (1.40-6.50); %Basophils 0.1 % (0.0-1.0); %Eosinophils 0.1 % (0.0-10.0); %Lymphocytes 4.7 % (21.0-51.0); %Monocytes 2.6 % (0.0-10.0); %Neutrophils 92.6 % (42.0-75.0); Hemoglobin 12.2 g/dL (12.0-16.0); Mean Corpuscular HGB CONC 31.4 g/dL (32.0-36.0); Mean Corpuscular Volume 79.6 fl (81.0-99.0); Mean Platelet Volume 7.5 fL (7.4-10.4); Platelet Count 391 thou/uL (130-400); RBC Distribution Width 16.2 % (11.5-14.5); Red Blood Cell (RBC) Count 4.86 mill/uL (4.20-5.40); White Blood Cell (WBC) Count 10.2 thou/uL (4.8-10.8)
[2017-07-23 05:12] LABS: Anion Gap 10 mmol/L (10-20); BUN (Urea Nitrogen) 20 mg/dL (9.8-20.1); Calc. Creatinine Clearance 56 mL/min (70-130); Carbon Dioxide 35 mmol/L (23-31); Chloride 93 mmol/L (98-107); Estimated GFR-MDRD Greater than 90; Glucose 104 mg/dL (83-110); Phosphorus 3.2 mg/dL (2.3-4.7); Potassium 4.4 mmol/L (3.5-5.1); Sodium 134 mmol/L (136-145)
[2017-07-23] MEDS: Enoxaparin Sodium 30 MG/0.3 ML SYRINGE SC SCH (08:06)
[2017-07-23] MEDS: Famotidine 20 MG TAB PO SCH ×2 (08:06→20:47)
[2017-07-23] MEDS: Isosorbide Mononitrate 20 MG TAB PO SCH (08:06)
[2017-07-23] MEDS: Amlodipine 5 MG TAB PO SCH (08:07)
[2017-07-23] MEDS: Diltiazem HCl CD 300 mg Capsule PO SCH (08:07)
[2017-07-23] MEDS: Potassium Chloride 20 MEQ TAB PO SCH (08:07)
--- NOTE | 2017-07-23 10:44 | PRG ---
DATE OF SERVICE: 07/23/2017 SUBJECTIVE: Ms. Connors says she feels about the same as yesterday. OBJECTIVE: VITAL SIGNS: Heart rate 120, blood pressure 140/93, respiratory rates in the low 20s. She is quite tachypneic if she moves at all. Oximetry is 90 on 4 liters this morning. LUNGS: Remarkable for coarse equal breath sounds. She is still wheezing. HEART: Regular rhythm. ABDOMEN: Soft and nontender. EXTREMITIES: Without asymmetry. LABORATORY DATA: White count 10.2, hemoglobin 12.2, platelets 391,000. Sodium 134, potassium 4.4, c hloride 93, bicarbonate 35, BUN 20, creatinine 0.52. IMPRESSION: Chronic obstructive pulmonary disease exacerbation. Probably did not need daily lab. I think her recovery is going to be slow and the predominant problem facing now is muscle weakness, wh ich had been improving leading up to this admission. Continue current care.
[2017-07-23] MEDS ORDERED: Sodium Chloride 0.9% 500 ML IV SCH (11:00)
--- NOTE | 2017-07-23 11:00 | PDOC.PN ---
- Subjective Encounter Start Date: 07/23/17 Encounter Start Time: 11:07 Subjective: No complaints today. Feels "ok" -: No acute events overnight. - Objective MAR Reviewed: Yes Vital Signs & Weight: Vital Signs (12 hours) Temp Pulse Resp BP BP Pulse Ox 07/23/17 10:23 120 H 25 H 90 L 07/23/17 08:37 90 L 07/23/17 08:36 120 H 22 H 90 L 07/23/17 08:07 117 H 140/93 H 07/23/17 07:14 98.1 F 100 18 148/89 H 95 07/23/17 04:00 98.2 F 90 18 138/85 93 L 07/23/17 02:06 95 16 95 Weight Admit Weight 93 lb Weight 85 lb 8 oz Most Recent Monitor Data Heart Rate from ECG 85 NIBP 143/83 NIBP BP-Mean 98 Respiration from ECG 21 SpO2 94 I&O: 07/22/17 07/23/17 07/24/17 06:59 06:59 06:59 Intake Total 1330 680 Output Total 1750 Balance -420 680 Result Diagrams: 07/23/17 04:31 07/23/17 04:31 Phys Exam - Physical Examination Constitutional: NAD HEENT: PERRLA, moist MMs, sclera anicteric Neck: supple, full ROM Respiratory: no rhonchi, wheezing present (minimal) Cardiovascular: no significant murmur, no rub tachycardic Gastrointestinal: soft, non-tender, no distention, positive bowel sounds Musculoskeletal: no edema, pulses present Neurological: non-focal, moves all 4 limbs Psychiatric: normal affect, A&O x 3 Skin: no rash, normal turgor Dx/Plan (1) Acute and chronic respiratory failure Code(s): J96.20 - ACUTE AND CHR RESP FAILURE, UNSP W HYPOXIA OR HYPERCAPNIA Status: Acute Qualifiers: Respiratory failure complication: hypoxia and hypercapnia Qualified Code(s) : J96.21 - Acute and chronic respiratory failure with hypoxia; J96.22 - Acute and chronic respiratory failure with hypercapnia Comment: Stable and clinically unchanged. Still gets tachycardic with minimal movement. Patient is on home Oxygen chronically. Continue steroids, Nebs. BiPAP PRN. Pulm on board. Will follow recs. (2) Hypertension Code(s): I10 - ESSENTIAL (PRIMARY) HYPERTENSION Status: Acute Qualifiers: Hypertension type: essential hypertension Qualified Code(s): I10 - Essential (primary) hypertension Comment: Fair control. Continue diltiazem, amlodipine. Hydralazine held 2/2 tachycardia (3) COPD exacerbation Code(s): J44.1 - CHRONIC OBSTRUCTIVE PULMONARY DISEASE W (ACUTE) EXACERBATION Status: Acute Comment: On nebs, steroids. (4) GERD (gastroesophageal reflux disease) Code(s): K21.9 - GASTRO-ESOPHAGEAL REFLUX DISEASE WITHOUT ESOPHAGITIS Status: Chronic Qualifiers: Esophagitis presence: without esophagitis Qualified Code(s): K21.9 - Gastro -esophageal reflux disease without esophagitis (5) Hyponatremia Code(s): E87.1 - HYPO-OSMOLALITY AND HYPONATREMIA Status: Resolved - Plan cont current plan of care, respiratory therapy, DVT proph w/lovenox * .
[2017-07-23] MEDS ORDERED: Senokot 8.6 MG TAB PO PRN (11:09)
[2017-07-23] MEDS ORDERED: Polyethylene Glycol 3350 17 GM Packet PO PRN (11:10)
[2017-07-23] MEDS: Docusate 100 MG CAP PO SCH (20:47)
[2017-07-23] MEDS: ALPRAZolam 0.25 MG TAB PO PRN (20:47)
[2017-07-24] MEDS: Ipratropium Bromide 2.5 ml Neb NEB SCH ×4 (01:55→15:01)
[2017-07-24] MEDS: Amlodipine 5 MG TAB PO SCH (08:37)
[2017-07-24] MEDS: Potassium Chloride 20 MEQ TAB PO SCH (08:37)
[2017-07-24] MEDS: Famotidine 20 MG TAB PO SCH ×2 (08:37→20:29)
[2017-07-24] MEDS: Docusate 100 MG CAP PO SCH ×2 (08:38→20:29)
[2017-07-24] MEDS: Enoxaparin Sodium 30 MG/0.3 ML SYRINGE SC SCH (08:38)
[2017-07-24] MEDS: Diltiazem HCl CD 300 mg Capsule PO SCH (08:39)
[2017-07-24] MEDS: Isosorbide Mononitrate 20 MG TAB PO SCH (08:40)
--- NOTE | 2017-07-24 10:30 | PDOC.PN ---
- Subjective Encounter Start Date: 07/24/17 Encounter Start Time: 10:30 Subjective: NO new complaints -: No acute events overnight. - Objective MAR Reviewed: Yes Vital Signs & Weight: Vital Signs (12 hours) Temp Pulse Resp BP BP Pulse Ox 07/24/17 08:39 120 H 145/74 H 07/24/17 08:37 122 H 145/74 H 07/24/17 08:19 93 L 07/24/17 08:15 120 H 20 93 L 07/24/17 07:36 97.9 F 112 H 20 146/81 H 97 07/24/17 04:00 98.3 F 106 H 18 124/78 95 07/24/17 02:57 107 H 20 94 L 07/24/17 01:55 107 H 22 H 94 L 07/24/17 00:00 98.6 F 90 16 128/79 90 L Weight Admit Weight 93 lb Weight 86 lb 1 oz Most Recent Monitor Data Heart Rate from ECG 85 NIBP 143/83 NIBP BP-Mean 98 Respiration from ECG 21 SpO2 94 I&O: 07/23/17 07/24/17 07/25/17 06:59 06:59 06:59 Intake Total 680 1280 Output Total 425 Balance 680 855 Result Diagrams: 07/23/17 04:31 07/23/17 04:31 Phys Exam - Physical Examination Constitutional: NAD HEENT: PERRLA, moist MMs, sclera anicteric Neck: no JVD, supple, full ROM Respiratory: no wheezing, no rales, no rhonchi, clear to auscultation bilateral Cardiovascular: no significant murmur, no rub tachycardic with regular rhythm Gastrointestinal: soft, non-tender, no distention, positive bowel sounds Musculoskeletal: no edema, pulses present Neurological: non-focal, moves all 4 limbs Psychiatric: normal affect, A&O x 3 Skin: no rash, normal turgor Dx/Plan (1) Acute and chronic respiratory failure Code(s): J96.20 - ACUTE AND CHR RESP FAILURE, UNSP W HYPOXIA OR HYPERCAPNIA Status: Acute Qualifiers: Respiratory failure complication: hypoxia and hypercapnia Qualified Code(s) : J96.21 - Acute and chronic respiratory failure with hypoxia; J96.22 - Acute and chronic respiratory failure with hypercapnia Comment: Stable and clinically unchanged. Still gets tachycardic with minimal movement. Patient is on home Oxygen chronically. Continue steroids, Nebs. BiPAP PRN. Pulm on board. Will follow recs. (2) Hypertension Code(s): I10 - ESSENTIAL (PRIMARY) HYPERTENSION Status: Acute Qualifiers: Hypertension type: essential hypertension Qualified Code(s): I10 - Essential (primary) hypertension Comment: Still not at goal. Continue diltiazem, amlodipine. Hydralazine held 2/ 2 tachycardia. Will start metoprolol. (3) COPD exacerbation Code(s): J44.1 - CHRONIC OBSTRUCTIVE PULMONARY DISEASE W (ACUTE) EXACERBATION Status: Acute Comment: On nebs, steroids. (4) GERD (gastroesophageal reflux disease) Code(s): K21.9 - GASTRO-ESOPHAGEAL REFLUX DISEASE WITHOUT ESOPHAGITIS Status: Chronic Qualifiers: Esophagitis presence: without esophagitis Qualified Code(s): K21.9 - Gastro -esophageal reflux disease without esophagitis (5) Hyponatremia Code(s): E87.1 - HYPO-OSMOLALITY AND HYPONATREMIA Status: Resolved - Plan cont current plan of care, PT/OT, medical social worker, respiratory therapy, DVT proph w/lovenox COntinue current care -: Start metoprolol. Hopefully will improve tachycardia. * . Review of Systems - Medications/Allergies Allergies/Adverse Reactions: Allergies Allergy/AdvReac Type Severity Reaction Status Date / Time No Known Allergies Allergy Verified 07/16/17 20:23 Medications: Current Medications Acetaminophen (Tylenol) 1,000 mg PO Q6H PRN PRN Reason: Headache/Fever or Mild Pain Albuterol/Ipratropium (Duoneb) 3 ml NEB Q4H PRN PRN Reason: SOB &/or Wheezing Alprazolam (Xanax) 0.125 mg PO TIDPRN PRN PRN Reason: Anxiety Last Admin: 07/23/17 20:47 Dose: 0.125 mg Amlodipine Besylate (Norvasc) 5 mg PO DAILY [facility] Last Admin: 07/24/17 08:37 Dose: 5 mg Clonidine (Catapres) 0.1 mg PO Q4H PRN PRN Reason: Systolic BP > 180 Cyclobenzaprine HCl (Flexeril) 10 mg PO TID PRN PRN Reason: Muscle Spasm Diltiazem HCl (Cardizem Cd) 300 mg PO DAILY [facility] Last Admin: 07/24/17 08:39 Dose: 300 mg Docusate Sodium (Colace) 100 mg PO BID [facility] Last Admin: 07/24/17 08:38 Dose: 100 mg Enoxaparin Sodium (Lovenox) 30 mg SC 0900 [facility] Last Admin: 07/24/17 08:38 Dose: 30 mg Famotidine (Pepcid) 20 mg PO BID [facility] Last Admin: 07/24/17 08:37 Dose: 20 mg Hydralazine HCl (Apresoline) 10 mg PO Q8H PRN PRN Reason: SBP GREATER THAN 160 Potassium Chloride 40 meq/ (Sodium Chloride) 270 mls @ 135 mls/hr IVPB ASDIR PRN PRN Reason: FOR SERUM K+ 2.5 - 3.5 Potassium Chloride 40 meq/ (Device) 100 mls @ 50 mls/hr IVPB ASDIR PRN PRN Reason: FOR SERUM K+ 2.5 - 3.5 Magnesium Sulfate 1 gm/ Sodium (Chloride) 102 mls @ 102 mls/hr IV PRN PRN PRN Reason: MAG LEVEL 1.4 - 2.0 Magnesium Sulfate 2 gm/ Device 100 mls @ 100 mls/hr IVPB ASDIR PRN PRN Reason: MAGNESIUM < 1.4 Potassium Phosphate 9 mmol/ (Sodium Chloride) 103 mls @ 25.75 mls/hr IVPB ASDIR PRN PRN Reason: Phosphate 1.0-1.8 Potassium Phosphate 12 mmol/ (Sodium Chloride) 254 mls @ 63.5 mls/hr IV ASDIR PRN PRN Reason: Serum phosphate 0.5-0.9 Potassium Phosphate 15 mmol/ (Sodium Chloride) 255 mls @ 63.75 mls/hr IV ASDIR PRN PRN Reason: Serum Phos < 0.5 Sodium Chloride (1/2 Normal Saline) 1,000 mls @ 0 mls/hr IV .Q0M [facility] PRN Reason: KVO Ipratropium [place] (Atrovent) 2.5 ml NEB [id number] [facility] Last Admin: 07/24/17 08:15 Dose: 2.5 ml Isosorbide Mononitrate (Ismo) 10 mg PO DAILY [facility] Last Admin: 07/24/17 08:40 Dose: 10 mg Magnesium Oxide (Magnesium Oxide) 400 mg PO BIDPRN PRN PRN Reason: FOR SERUM MAG 1.4 - 2.0 Magnesium Oxide (Magnesium Oxide) 800 mg PO PRN PRN PRN Reason: FOR SERUM MAG < 1.4 Methylprednisolone Sodium Succinate (Solu-Medrol) 40 mg IVP Q12HR [facility] Last Admin: 07/24/17 08:38 Dose: 40 mg Miscellaneous Medication (Phos-Nak) 1 pkt PO TIDPRN PRN PRN Reason: FOR PHOS LEVEL 1.0 - 1.8 Miscellaneous Medication (Phos-Nak) 2 pkt PO TIDPRN PRN PRN Reason: FOR PHOS LEVEL 0.5 - 1.0 Ccu Electrolyte (Replacement Protocol) 0 each FS PRN PRN PRN Reason: FOR ELECTROLYTE REPLACEMENT Ondansetron HCl (Zofran Odt) 4 mg PO Q6H PRN PRN Reason: Nausea/Vomiting Ondansetron HCl (Zofran) 4 mg IVP Q6H PRN PRN Reason: Nausea/Vomiting Polyethylene Glycol (Miralax) 17 gm PO DAILYPRN PRN PRN Reason: Constipation Potassium Chloride (K-Dur) 40 meq PO ASDIR PRN PRN Reason: FOR SERUM K+ 2.5 - 3.5 Last Admin: 07/18/17 08:39 Dose: 40 meq Potassium Chloride (Klor-Con) 40 meq PER TUBE ASDIR PRN PRN Reason: FOR SERUM K+ 2.5-3.5 Last Admin: 07/21/17 09:16 Dose: 40 meq Potassium Chloride (K-Dur) 20 meq PO QAM-WM [facility] Last Admin: 07/24/17 08:37 Dose: 20 meq Senna (Senokot) 1 tab PO HSPRN PRN PRN Reason: Constipation Tramadol HCl (Ultram) 50 mg PO Q6H PRN PRN Reason: Pain
[2017-07-24] MEDS ORDERED: Metoprolol Tartrate 25 MG TAB PO SCH (10:45)
--- NOTE | 2017-07-24 17:06 | PRG ---
DATE OF SERVICE: 07/24/2017 SUBJECTIVE: Ms. Connors walked over 100 feet today. She is a little out of breath when she got back, but she recovered quickly than I would have expected. OBJECTIVE: VITAL SIGNS: She is afebrile, heart rate is 108, respiratory rate 22, oximetry is 95, blood pressure 137/79. LUNGS: Still remarkable for diffuse wheezes. HEART: Regular rhythm. ABDOMEN: Soft. EXTREMITIES: Without clubbing, cyanosis, or edema. LABORATORY: There is no lab today. IMPRESSION: Chronic obstructive pulmonary disease exacerbation, slowly improving. PLAN: Continue current care. We will decrease her doses of her steroids to just q.a.m. IV. We will also continue noninvasive ventilatory support at night. She is doing well off this during the day.
[2017-07-24] MEDS: Metoprolol Tartrate 25 MG TAB PO SCH (20:28)
[2017-07-24] MEDS: ALPRAZolam 0.25 MG TAB PO PRN (20:28)
[2017-07-25 06:13] LABS: Hemoglobin 11.4 g/dL (12.0-16.0); Mean Corpuscular HGB CONC 31.4 g/dL (32.0-36.0); Mean Corpuscular Volume 79.8 fl (81.0-99.0); Mean Platelet Volume 7.5 fL (7.4-10.4); Platelet Count 360 thou/uL (130-400); RBC Distribution Width 16.5 % (11.5-14.5); Red Blood Cell (RBC) Count 4.57 mill/uL (4.20-5.40)
[2017-07-25 06:21] LABS: Anion Gap 11 mmol/L (10-20); BUN (Urea Nitrogen) 17 mg/dL (9.8-20.1); Calc. Creatinine Clearance 55 mL/min (70-130); Calcium 8.9 mg/dL (7.8-10.44); Carbon Dioxide 33 mmol/L (23-31); Chloride 92 mmol/L (98-107); Estimated GFR-MDRD Greater than 90; Glucose 90 mg/dL (83-110); Potassium 4.1 mmol/L (3.5-5.1); Sodium 132 mmol/L (136-145)
[2017-07-25] MEDS: Metoprolol Tartrate 25 MG TAB PO SCH ×2 (09:19→20:14)
[2017-07-25] MEDS: Diltiazem HCl CD 300 mg Capsule PO SCH (09:19)
[2017-07-25] MEDS: Isosorbide Mononitrate 20 MG TAB PO SCH (09:19)
[2017-07-25] MEDS: Amlodipine 5 MG TAB PO SCH (09:20)
[2017-07-25] MEDS: Potassium Chloride 20 MEQ TAB PO SCH (09:20)
[2017-07-25] MEDS: Docusate 100 MG CAP PO SCH ×2 (09:20→20:15)
[2017-07-25] MEDS: Enoxaparin Sodium 30 MG/0.3 ML SYRINGE SC SCH (09:20)
[2017-07-25] MEDS: Famotidine 20 MG TAB PO SCH ×2 (09:20→20:14)
[2017-07-25] MEDS ORDERED: Metoprolol Tartrate 25 MG TAB PO SCH ×2 (10:08→10:30)
--- NOTE | 2017-07-25 10:11 | PDOC.PN ---
- Subjective Encounter Start Date: 07/25/17 Encounter Start Time: 10:11 Subjective: No new complaints. -: Still gets tachycardic, especially after nebs but improving. -: No acute events overnight. - Objective MAR Reviewed: Yes Vital Signs & Weight: Vital Signs (12 hours) Temp Pulse Resp BP Pulse Ox 07/25/17 09:20 115 H 07/25/17 09:19 115 H 07/25/17 08:47 93 L 07/25/17 08:45 115 H 24 H 93 L 07/25/17 08:07 97.8 F 97 18 91 L 07/25/17 07:36 97.8 F 97 18 150/85 H 91 L 07/25/17 04:28 97.4 F L 100 18 130/80 91 L 07/25/17 02:32 103 H 20 91 L 07/25/17 02:31 102 H 20 91 L 07/25/17 00:00 97.0 F L 83 17 131/75 90 L 07/24/17 22:43 101 H 16 91 L Weight Admit Weight 93 lb Weight 88 lb 11.2 oz Most Recent Monitor Data Heart Rate from ECG 85 NIBP 143/83 NIBP BP-Mean 98 Respiration from ECG 21 SpO2 94 I&O: 07/24/17 07/25/17 07/26/17 06:59 06:59 07:59 Intake Total 1280 1880 Output Total 425 1750 Balance 855 130 Result Diagrams: 07/25/17 05:38 07/25/17 05:38 Phys Exam - Physical Examination Constitutional: NAD HEENT: PERRLA, moist MMs, sclera anicteric Neck: no JVD, supple, full ROM Respiratory: no rales, no rhonchi, wheezing present, clear to auscultation bilateral Cardiovascular: RRR, no significant murmur, no rub Gastrointestinal: soft, non-tender, no distention, positive bowel sounds Musculoskeletal: no edema, pulses present Neurological: non-focal, moves all 4 limbs Psychiatric: normal affect, A&O x 3 Skin: no rash, normal turgor Dx/Plan (1) Acute and chronic respiratory failure Code(s): J96.20 - ACUTE AND CHR RESP FAILURE, UNSP W HYPOXIA OR HYPERCAPNIA Status: Acute Qualifiers: Respiratory failure complication: hypoxia and hypercapnia Qualified Code(s) : J96.21 - Acute and chronic respiratory failure with hypoxia; J96.22 - Acute and chronic respiratory failure with hypercapnia Comment: Stable and clinically unchanged. Still gets tachycardic with minimal movement. Patient is on home Oxygen chronically. Continue Nebs. BiPAP PRN. Parenteral steroids being weaned off. Pulm on board. Recs appreciated. (2) Hypertension Code(s): I10 - ESSENTIAL (PRIMARY) HYPERTENSION Status: Acute Qualifiers: Hypertension type: essential hypertension Qualified Code(s): I10 - Essential (primary) hypertension Comment: Achieving better control. Continue diltiazem, amlodipine. Hydralazine held 2/2 tachycardia. Started on metoprolol. (3) COPD exacerbation Code(s): J44.1 - CHRONIC OBSTRUCTIVE PULMONARY DISEASE W (ACUTE) EXACERBATION Status: Acute (4) GERD (gastroesophageal reflux disease) Code(s): K21.9 - GASTRO-ESOPHAGEAL REFLUX DISEASE WITHOUT ESOPHAGITIS Status: Chronic Qualifiers: Esophagitis presence: without esophagitis Qualified Code(s): K21.9 - Gastro -esophageal reflux disease without esophagitis Plan: See problem #1. (5) Hyponatremia Code(s): E87.1 - HYPO-OSMOLALITY AND HYPONATREMIA Status: Resolved - Plan cont current plan of care, PT/OT, respiratory therapy, DVT proph w/lovenox * .
--- NOTE | 2017-07-25 14:57 | PRG ---
DATE OF SERVICE: 07/25/2017 SUBJECTIVE: Ms. Connors did well overnight. She wore BiPAP last night. She has no complaints. OBJECTIVE: VITAL SIGNS: Heart rate 107. She is afebrile, respiratory rate 18, oximetry is 91 on 3 liters. LUNGS: Distant, still remarkable for end expiratory wheezes. HEART: Regular rhythm. ABDOMEN: Soft. IMPRESSION: 1. Chronic obstructive pulmonary disease exacerbation. 2. Acute on chronic respiratory failure with hypoxemia, on home oxygen. 3. Deconditioning and cachexia secondary to her obstructive lung disease. PLAN: Continue steroids, ipratropium and albuterol. Physical therapy can increase her time out of h er bed. We started the CPAP yesterday. She seems to think this is helping loosen the secretions.
[2017-07-25] MEDS: guaiFENesin ER 600 MG TAB PO SCH (20:14)
[2017-07-25] MEDS: ALPRAZolam 0.25 MG TAB PO PRN (20:21)
[2017-07-26] MEDS: Potassium Chloride 20 MEQ TAB PO SCH (08:59)
[2017-07-26] MEDS: Famotidine 20 MG TAB PO SCH ×2 (08:59→20:48)
[2017-07-26] MEDS: Amlodipine 5 MG TAB PO SCH (08:59)
[2017-07-26] MEDS: Diltiazem HCl CD 300 mg Capsule PO SCH (09:00)
[2017-07-26] MEDS: Metoprolol Tartrate 25 MG TAB PO SCH ×3 (09:00→20:48)
[2017-07-26] MEDS: Isosorbide Mononitrate 20 MG TAB PO SCH (09:00)
[2017-07-26] MEDS: guaiFENesin ER 600 MG TAB PO SCH ×2 (09:00→20:47)
[2017-07-26] MEDS: Enoxaparin Sodium 30 MG/0.3 ML SYRINGE SC SCH (09:01)
[2017-07-26] MEDS: Docusate 100 MG CAP PO SCH ×2 (09:01→20:37)
--- NOTE | 2017-07-26 11:59 | PDOC.PN ---
- Subjective Encounter Start Date: 07/26/17 Encounter Start Time: 11:30 no acute night events - Objective Vital Signs & Weight: Vital Signs (12 hours) Temp Pulse Resp BP BP Pulse Ox 07/26/17 11:45 98.6 F 111 H 20 114/68 96 07/26/17 11:09 109 H 22 H 94 L 07/26/17 09:00 101 H 142/81 H 07/26/17 08:59 101 H 145/86 H 07/26/17 08:01 98.3 F 97 18 94 L 07/26/17 07:37 98.3 F 97 18 128/71 97 07/26/17 07:10 96 07/26/17 07:06 103 H 20 96 07/26/17 05:01 98.7 F 93 115/75 92 L 07/26/17 03:21 104 H 17 94 L Weight Admit Weight 93 lb Weight 88 lb 11.2 oz Most Recent Monitor Data Heart Rate from ECG 85 NIBP 143/83 NIBP BP-Mean 98 Respiration from ECG 21 SpO2 94 I&O: 07/25/17 07/26/17 07/27/17 05:59 06:59 06:59 Intake Total 400 Output Total Balance 400 Result Diagrams: 07/25/17 05:38 07/25/17 05:38 Phys Exam - Physical Examination Constitutional: NAD HEENT: PERRLA, moist MMs Neck: no nodes, no JVD, supple wheezing bilaterally with distant BS Cardiovascular: no rub tachy Gastrointestinal: soft, non-tender, no distention Musculoskeletal: pulses present Dx/Plan (1) Hypertension Code(s): I10 - ESSENTIAL (PRIMARY) HYPERTENSION Status: Acute Qualifiers: Hypertension type: essential hypertension Qualified Code(s): I10 - Essential (primary) hypertension Comment: Achieving better control. Continue diltiazem, amlodipine. Hydralazine held 2/2 tachycardia. Started on metoprolol. (2) Acute and chronic respiratory failure Code(s): J96.20 - ACUTE AND CHR RESP FAILURE, UNSP W HYPOXIA OR HYPERCAPNIA Status: Acute Qualifiers: Respiratory failure complication: hypoxia and hypercapnia Qualified Code(s) : J96.21 - Acute and chronic respiratory failure with hypoxia; J96.22 - Acute and chronic respiratory failure with hypercapnia Comment: Stable and clinically unchanged. Still gets tachycardic with minimal movement. Patient is on home Oxygen chronically. Continue Nebs. BiPAP PRN. Parenteral steroids being weaned off. Pulm on board. Recs appreciated. (3) COPD exacerbation Code(s): J44.1 - CHRONIC OBSTRUCTIVE PULMONARY DISEASE W (ACUTE) EXACERBATION Status: Acute (4) Hypokalemia Code(s): E87.6 - HYPOKALEMIA Status: Resolved Comment: Replete. (5) Hyponatremia Code(s): E87.1 - HYPO-OSMOLALITY AND HYPONATREMIA Status: Resolved - Plan cont current plan of care, plan discussed w/ family, PT/OT, respiratory therapy * . continue nebs contine IV steroids pulm following continue current meds for chronic conditions encourage increased ambulation
--- NOTE | 2017-07-26 15:30 | PRG ---
DATE OF SERVICE: 07/26/2017 SUBJECTIVE: Fatty says she is feeling a little bit better. She still has significant dyspnea on exe rtion. OBJECTIVE: VITAL SIGNS: She is afebrile, heart rate is 109, respiratory rate is 22, oximetry is 94 on 3 liters. LUNGS: Still remarkable for diffuse wheezes. HEART: Regular rhythm. ABDOMEN: Soft and nontender. LABORATORY DATA: No new lab today. IMPRESSION: 1. Acute on chronic respiratory failure with hypoxemia. 2. Chronic obstructive pulmonary disease exacerbation. 3. Bronchitis, likely viral mediated. 4. Deconditioning and relative malnutrition secondary to her chronic obstructive pulmonary disease. PLAN: Continue current care. I would continue with nocturnal ventilation. She can transfer to a medical unit in my opinion. The next step will be transitioning towards skille d nursing if she qualifies.
[2017-07-26] MEDS ORDERED: Simethicone Chewable 80 MG TAB PO PRN (16:58)
[2017-07-26] MEDS: ALPRAZolam 0.25 MG TAB PO PRN (20:54)
[2017-07-27] MEDS: Docusate 100 MG CAP PO SCH ×2 (09:06→20:26)
[2017-07-27] MEDS: Acetaminophen 500 MG TAB PO PRN ×2 (09:07→20:26)
[2017-07-27] MEDS: Diltiazem HCl CD 300 mg Capsule PO SCH (09:07)
[2017-07-27] MEDS: Isosorbide Mononitrate 20 MG TAB PO SCH (09:07)
[2017-07-27] MEDS: Famotidine 20 MG TAB PO SCH ×2 (09:08→20:26)
[2017-07-27] MEDS: Amlodipine 5 MG TAB PO SCH (09:09)
[2017-07-27] MEDS: guaiFENesin ER 600 MG TAB PO SCH ×2 (09:09→20:26)
[2017-07-27] MEDS: Potassium Chloride 20 MEQ TAB PO SCH (09:09)
[2017-07-27] MEDS: Enoxaparin Sodium 30 MG/0.3 ML SYRINGE SC SCH (09:10)
--- NOTE | 2017-07-27 11:20 | PDOC.PN ---
- Subjective Encounter Start Date: 07/27/17 Encounter Start Time: 10:00 no acute night events - Objective Vital Signs & Weight: Vital Signs (12 hours) Temp Pulse Resp BP BP BP Pulse Ox 07/27/17 10:55 97.5 F L 98 18 118/68 94 L 07/27/17 10:07 111 H 24 H 95 07/27/17 09:09 113 H 113/72 07/27/17 09:07 113 H 133/72 07/27/17 08:12 97.7 F 113 H 16 133/72 90 L 07/27/17 08:00 97.7 F 111 H 24 H 92 L 07/27/17 06:55 84 20 92 L 07/27/17 06:00 98.0 F 81 16 125/70 90 L 07/27/17 02:21 82 20 07/27/17 01:51 98.0 F 79 18 104/64 90 L 07/26/17 23:29 77 19 07/26/17 23:28 77 19 Weight Admit Weight 93 lb Weight 88 lb 11.2 oz Most Recent Monitor Data Heart Rate from ECG 85 NIBP 143/83 NIBP BP-Mean 98 Respiration from ECG 21 SpO2 94 I&O: 07/26/17 07/27/17 07/28/17 06:59 06:59 06:59 Intake Total 1260 240 Output Total Balance 1260 240 Result Diagrams: 07/25/17 05:38 07/25/17 05:38 Phys Exam - Physical Examination Constitutional: NAD HEENT: PERRLA, moist MMs, sclera anicteric Neck: no nodes, no JVD, supple bilateral wheezing Cardiovascular: RRR, no rub Gastrointestinal: soft, non-tender, positive bowel sounds Musculoskeletal: pulses present Neurological: moves all 4 limbs Dx/Plan (1) Hypertension Code(s): I10 - ESSENTIAL (PRIMARY) HYPERTENSION Status: Acute Qualifiers: Hypertension type: essential hypertension Qualified Code(s): I10 - Essential (primary) hypertension Comment: Achieving better control. Continue diltiazem, amlodipine. Hydralazine held 2/2 tachycardia. Started on metoprolol. (2) Acute and chronic respiratory failure Code(s): J96.20 - ACUTE AND CHR RESP FAILURE, UNSP W HYPOXIA OR HYPERCAPNIA Status: Acute Qualifiers: Respiratory failure complication: hypoxia and hypercapnia Qualified Code(s) : J96.21 - Acute and chronic respiratory failure with hypoxia; J96.22 - Acute and chronic respiratory failure with hypercapnia Comment: Stable and clinically unchanged. Still gets tachycardic with minimal movement. Patient is on home Oxygen chronically. Continue Nebs. BiPAP PRN. Parenteral steroids being weaned off. Pulm on board. Recs appreciated. (3) COPD exacerbation Code(s): J44.1 - CHRONIC OBSTRUCTIVE PULMONARY DISEASE W (ACUTE) EXACERBATION Status: Acute (4) Hypokalemia Code(s): E87.6 - HYPOKALEMIA Status: Resolved Comment: Replete. (5) Hyponatremia Code(s): E87.1 - HYPO-OSMOLALITY AND HYPONATREMIA Status: Resolved - Plan * . continue solumedrol continue with neb treatments IV abx Pulmonology followings PT/OT eval and treat Likely will need SNF pending recs from PT
--- NOTE | 2017-07-27 12:18 | PRG ---
DATE OF SERVICE: 07/27/2017 Ms. Connors feels about the same. She is still wearing noninvasive support at night. PHYSICAL EXAMINATION: VITAL SIGNS: She is afebrile, heart rate is 98, respiratory rate is 18, oximetry is 94. LUNGS: Lungs have distant wheezes. CARDIOVASCULAR: Regular rhythm. ABDOMEN: Soft and nontender. EXTREMITIES: Without asymmetry. IMPRESSION: 1. Deconditioning is the biggest factor facing her now. 2. Chronic obstructive pulmonary disease exacerbation with ongoing mild bronchospasm. 3. Advanced chronic obstructive pulmonary disease. Will take her off of her IV steroids and switch her to prednisone. I doubt the metoprolol is contribu ting to her shortness of breath, but this must be kept in mind. She will need to go to a skilled env ironment. She may benefit from nocturnal ventilatory support at home if she qualifies for this. Her blood gase s in the past have not been suggestive of chronic hypercarbia, but her last blood gas is, so we may h ave a bilingual case manager look into this.
[2017-07-27 14:49] VITALS: BMI 15.2
[2017-07-27] MEDS: Metoprolol Tartrate 25 MG TAB PO SCH (20:26)
[2017-07-27] MEDS: ALPRAZolam 0.25 MG TAB PO PRN (20:28)
[2017-07-28 05:07] LABS: Anion Gap 11 mmol/L (10-20); BUN (Urea Nitrogen) 13 mg/dL (9.8-20.1); Calc. Creatinine Clearance 65 mL/min (70-130); Calcium 9.3 mg/dL (7.8-10.44); Carbon Dioxide 32 mmol/L (23-31); Chloride 90 mmol/L (98-107); Estimated GFR-MDRD Greater than 90; Glucose 79 mg/dL (83-110); Potassium 4.5 mmol/L (3.5-5.1); Sodium 128 mmol/L (136-145)
[2017-07-28 05:15] LABS: Anisocytosis SLIGHT = 6-15 cells (100X) (0-5/hpf); Band 6 % (5-11); Bite Cells SLIGHT = 2-5 cells (100X) (0-1/hpf); Hemoglobin 11.1 g/dL (12.0-16.0); Hypochromia SLIGHT = 6-15 cells (100X) (0-5/hpf); Lymphocytes 6 % (21-51); MDiff Complete? YES; Mean Corpuscular HGB CONC 31.6 g/dL (32.0-36.0); Mean Corpuscular Hemoglobin 25.4 pg (27.0-31.0); Mean Corpuscular Volume 80.2 fl (81.0-99.0); Mean Platelet Volume 7.7 fL (7.4-10.4); Metamyelocyte 1 % (0-0); Monocytes 5 % (0-10); Neutrophil 80 % (42-75); Ovalocytes SLIGHT = 2-5 cells (100X) (0-1/hpf); PLT Morphology Comment Appears Adequate; Platelet Count 319 thou/uL (130-400); RBC Distribution Width 16.7 % (11.5-14.5); Reactive Lymphocytes 2 % (0-10); Red Blood Cell (RBC) Count 4.37 mill/uL (4.20-5.40)
[2017-07-28] MEDS: Acetaminophen 500 MG TAB PO PRN (09:36)
[2017-07-28] MEDS: Isosorbide Mononitrate 20 MG TAB PO SCH (09:37)
[2017-07-28] MEDS: Diltiazem HCl CD 300 mg Capsule PO SCH (09:38)
[2017-07-28] MEDS: Docusate 100 MG CAP PO SCH ×2 (09:39→21:26)
[2017-07-28] MEDS: Famotidine 20 MG TAB PO SCH ×2 (09:39→21:26)
[2017-07-28] MEDS: predniSONE 20 MG TAB PO SCH (09:39)
[2017-07-28] MEDS: Metoprolol Tartrate 25 MG TAB PO SCH ×2 (09:40→21:26)
[2017-07-28] MEDS: Amlodipine 5 MG TAB PO SCH (09:40)
[2017-07-28] MEDS: guaiFENesin ER 600 MG TAB PO SCH ×2 (09:40→21:26)
[2017-07-28] MEDS: Enoxaparin Sodium 30 MG/0.3 ML SYRINGE SC SCH (09:41)
[2017-07-28] MEDS: Potassium Chloride 20 MEQ TAB PO SCH (09:41)
--- NOTE | 2017-07-28 18:52 | PDOC.PN ---
- Subjective Encounter Start Date: 07/28/17 Encounter Start Time: 18:51 Subjective: nsg notes rev, alban ovn, no new c/o but had earlier SOB now on 5LNC -: states she was unable to tolerate biPap overnight but does well with -: CPAP - Objective Vital Signs & Weight: Vital Signs (12 hours) Temp Pulse Resp BP BP Pulse Ox 07/28/17 18:19 84 20 93 L 07/28/17 16:00 98.1 F 84 20 127/70 93 L 07/28/17 12:00 97.3 F L 83 22 H 107/67 95 07/28/17 09:40 101 H 136/74 07/28/17 09:38 101 H 136/74 07/28/17 08:59 97.5 F L 101 H 32 H 146/78 H 90 L 07/28/17 08:55 97.5 F L 101 H 20 167/74 H 99 07/28/17 08:00 97.5 F L 101 H 20 95 Weight Admit Weight 93 lb Weight 88 lb 11.2 oz Most Recent Monitor Data Heart Rate from ECG 85 NIBP 143/83 NIBP BP-Mean 98 Respiration from ECG 21 SpO2 94 I&O: 07/27/17 07/28/17 07/29/17 06:59 06:59 06:59 Intake Total 1260 1260 Balance 1260 1260 Result Diagrams: 07/28/17 04:36 07/28/17 04:36 Phys Exam - Physical Examination Constitutional: NAD HEENT: PERRLA, sclera anicteric slightly dry mm Respiratory: no wheezing, no rales, no rhonchi, clear to auscultation bilateral very diminished throughout, poor air movement Gastrointestinal: soft, non-tender, positive bowel sounds Musculoskeletal: pulses present Psychiatric: normal affect, A&O x 3 Dx/Plan - Plan acute on chronic respiratory failure * hx of COPD * apprec pulm c/s * 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 * difficulty with improvement of respiratory status hypokalemia, resolved hyponatremia * initially resolved, recheck BMP in AM for Na 128 w/o symptoms HTN hemodynamically stable diet: as alyssa activity: as alyssa, PT, pending rehab dvt ppx t/c o/p pall c/s Review of Systems - Medications/Allergies Allergies/Adverse Reactions: Allergies Allergy/AdvReac Type Severity Reaction Status Date / Time No Known Allergies Allergy Verified 07/16/17 20:23 Medications: Current Medications Acetaminophen (Tylenol) 1,000 mg PO Q6H PRN PRN Reason: Headache/Fever or Mild Pain Last Admin: 07/28/17 09:36 Dose: 1,000 mg Albuterol/Ipratropium (Duoneb) 3 ml NEB Q4H PRN PRN Reason: SOB &/or Wheezing Albuterol/Ipratropium (Duoneb) 3 ml EZPAP [id number] [facility] Last Admin: 07/28/17 18:19 Dose: 3 ml Alprazolam (Xanax) 0.125 mg PO TIDPRN PRN PRN Reason: Anxiety Amlodipine Besylate (Norvasc) 5 mg PO DAILY [facility] Last Admin: 07/28/17 09:40 Dose: 5 mg Clonidine (Catapres) 0.1 mg PO Q4H PRN PRN Reason: Systolic BP > 180 Cyclobenzaprine HCl (Flexeril) 10 mg PO TID PRN PRN Reason: Muscle Spasm Diltiazem HCl (Cardizem Cd) 300 mg PO DAILY [facility] Last Admin: 07/28/17 09:38 Dose: 300 mg Docusate Sodium (Colace) 100 mg PO BID [facility] Last Admin: 07/28/17 09:39 Dose: 100 mg Enoxaparin Sodium (Lovenox) 30 mg SC 0900 [facility] Last Admin: 07/28/17 09:41 Dose: 30 mg Famotidine (Pepcid) 20 mg PO BID [facility] Last Admin: 07/28/17 09:39 Dose: 20 mg Guaifenesin (Mucinex) 600 mg PO Q12HR [facility] Last Admin: 07/28/17 09:40 Dose: 600 mg Hydralazine HCl (Apresoline) 10 mg PO Q8H PRN PRN Reason: SBP GREATER THAN 160 Potassium Chloride 40 meq/ (Sodium Chloride) 270 mls @ 135 mls/hr IVPB ASDIR PRN PRN Reason: FOR SERUM K+ 2.5 - 3.5 Potassium Chloride 40 meq/ (Device) 100 mls @ 50 mls/hr IVPB ASDIR PRN PRN Reason: FOR SERUM K+ 2.5 - 3.5 Magnesium Sulfate 1 gm/ Sodium (Chloride) 102 mls @ 102 mls/hr IV PRN PRN PRN Reason: MAG LEVEL 1.4 - 2.0 Magnesium Sulfate 2 gm/ Device 100 mls @ 100 mls/hr IVPB ASDIR PRN PRN Reason: MAGNESIUM < 1.4 Potassium Phosphate 9 mmol/ (Sodium Chloride) 103 mls @ 25.75 mls/hr IVPB ASDIR PRN PRN Reason: Phosphate 1.0-1.8 Potassium Phosphate 12 mmol/ (Sodium Chloride) 254 mls @ 63.5 mls/hr IV ASDIR PRN PRN Reason: Serum phosphate 0.5-0.9 Potassium Phosphate 15 mmol/ (Sodium Chloride) 255 mls @ 63.75 mls/hr IV ASDIR PRN PRN Reason: Serum Phos < 0.5 Sodium Chloride (1/2 Normal Saline) 1,000 mls @ 0 mls/hr IV .Q0M [facility] PRN Reason: KVO Isosorbide Mononitrate (Ismo) 10 mg PO DAILY [facility] Last Admin: 07/28/17 09:37 Dose: 10 mg Magnesium Oxide (Magnesium Oxide) 400 mg PO BIDPRN PRN PRN Reason: FOR SERUM MAG 1.4 - 2.0 Magnesium Oxide (Magnesium Oxide) 800 mg PO PRN PRN PRN Reason: FOR SERUM MAG < 1.4 Metoprolol Tartrate (Lopressor) 25 mg PO BID [facility] Last Admin: 07/28/17 09:40 Dose: 25 mg Miscellaneous Medication (Phos-Nak) 1 pkt PO TIDPRN PRN PRN Reason: FOR PHOS LEVEL 1.0 - 1.8 Miscellaneous Medication (Phos-Nak) 2 pkt PO TIDPRN PRN PRN Reason: FOR PHOS LEVEL 0.5 - 1.0 Ccu Electrolyte (Replacement Protocol) 0 each FS PRN PRN PRN Reason: FOR ELECTROLYTE REPLACEMENT Ondansetron HCl (Zofran Odt) 4 mg PO Q6H PRN PRN Reason: Nausea/Vomiting Ondansetron HCl (Zofran) 4 mg IVP Q6H PRN PRN Reason: Nausea/Vomiting Polyethylene Glycol (Miralax) 17 gm PO DAILYPRN PRN PRN Reason: Constipation Potassium Chloride (K-Dur) 40 meq PO ASDIR PRN PRN Reason: FOR SERUM K+ 2.5 - 3.5 Last Admin: 07/18/17 08:39 Dose: 40 meq Potassium Chloride (Klor-Con) 40 meq PER TUBE ASDIR PRN PRN Reason: FOR SERUM K+ 2.5-3.5 Last Admin: 07/21/17 09:16 Dose: 40 meq Potassium Chloride (K-Dur) 20 meq PO QAM-[facility] Last Admin: 07/28/17 09:41 Dose: 20 meq Prednisone (Prednisone) 40 mg PO QAM-[facility] Last Admin: 07/28/17 09:39 Dose: 40 mg Senna (Senokot) 1 tab PO HSPRN PRN PRN Reason: Constipation Last Admin: 07/24/17 20:27 Dose: 1 tab Simethicone (Mylicon Chewable) 80 mg PO Q6H PRN PRN Reason: GAS PAIN Last Admin: 07/26/17 18:48 Dose: 80 mg Sodium Chloride (Flush - Normal Saline) 10 ml IVF Q12HR [facility] Last Admin: 07/28/17 10:58 Dose: 10 ml Sodium Chloride (Flush - Normal Saline) 10 ml IVF PRN PRN PRN Reason: Saline Flush
--- NOTE | 2017-07-28 20:17 | PRG ---
DATE OF SERVICE: 07/28/2017 SERVICE: Pulmonary Medicine. INTERVAL HISTORY: The patient is doing great from a cardiovascular and respiratory standpoint. She was able to get up and walk around with physical therapy today. Her breathing is actually much impro ambrosio. She denies any chest pain. There were no overnight events. PHYSICAL EXAMINATION: VITAL SIGNS: Afebrile, pulse 84, blood pressure 136/74, respirations 20, saturation 93% on 2 liters nasal cannula. GENERAL: The patient is awake, alert, in no apparent distress. LUNGS: Reduced air entry. There is a prolonged expiratory phase, but the crackles are gone today. There is polyphonic wheezing present. HEART: Normal rate, regular. ABDOMEN: Soft, nontender, nondistended. Bowel sounds are positive. MUSCULOSKELETAL: No cyanosis or clubbing. There is no pitting in the bilateral lower extremities to day. GENITOURINARY: No [place]. NEUROLOGIC: Grossly nonfocal. LABORATORY DATA: WBC 14.0, hemoglobin 11.1, platelets 319,000. Neutrophils 80% with a band count of 6%. Sodium 128, chloride 90, bicarbonate 32 and stable. Basic metabolic profile is otherwise unrem arkable. Blood cultures x2 remain negative. ASSESSMENT: 1. Chronic obstructive pulmonary disease with acute exacerbation. 2. Deconditioning, severe. 3. Acute on chronic hypoxic and hypercapnic respiratory failure. PLAN: I have assessed the patient and I am ordering volume ventilation for nocturnal and as needed d aytime use for symptom management of chronic respiratory failure. Traditional home BiPAP is insuffic ient due to the severity of the patient's disease process. COPD is a major contributing factor of th is respiratory failure. Once this is arranged, I do believe the patient would be stable for transiti on home. She will need to continue working with physical therapy in that setting in order to improve strength. If she can improve strength, and graduates from home PT, we would like to enroll her in p monary rehabilitation which I discussed with Ms. Connors today. I will continue to follow so long as she remains in-house.
[2017-07-28] MEDS: ALPRAZolam 0.25 MG TAB PO PRN (21:30)
[2017-07-28] MEDS ORDERED: Albuterol Sulfate 2.5 mg/3 ml Neb ONE (23:27)
--- NOTE | 2017-07-29 08:15 | PRG ---
DATE OF SERVICE: 07/29/2017 SERVICE: Pulmonary Medicine. INTERVAL HISTORY: The patient is doing absolutely fantastic from a cardiovascular and respiratory st andpoint. She is breathing comfortably. She is increasing functionality. She was up multiple times yesterday. She is going to do the same today and feels like she has more energy. She is currently using her BiPAP. She likes this machine and is looking forward to getting started with it at home. Otherwise, there has been no significant interval change to her condition. PHYSICAL EXAMINATION: VITAL SIGNS: Afebrile, pulse 99, blood pressure 136/74, respirations 24, saturation 92% on BiPAP. GENERAL: The patient is awake and alert, in no apparent distress. LUNGS: Excellent air entry. There is a prolonged expiratory phase. A little bit of rhonchi are pre sent, but they change with cough. No crackles are appreciated. HEART: Normal rate, regular. ABDOMEN: Soft, nontender, nondistended. Bowel sounds are positive. MUSCULOSKELETAL: No cyanosis or clubbing. There is no pitting in the bilateral lower extremities. NEUROLOGIC: Grossly nonfocal. LABORATORY DATA: WBC 14, hemoglobin 11.1, platelets 319,000. Neutrophil count is 80% with 6% bands. Sodium was previously down trending to 128. Blood cultures x2 are unremarkable. ASSESSMENT: 1. Chronic obstructive pulmonary disease with acute exacerbation. 2. Severe deconditioning. 3. Acute on chronic hypoxic and hypercapnic respiratory failure. DISCUSSION AND PLAN: I will repeat some laboratories tomorrow morning to reevaluate the sodium. I h ave assessed her and will be ordering BiPAP, noninvasive ventilation, for nocturnal and as needed day time use for symptom management of chronic respiratory failure. COPD is the major contributing facto r for the patient's chronic hypercapnic respiratory failure. From a purely respiratory perspective, she is stable for discharge from the hospital, though it needs to be safe based on PT's evaluation.
[2017-07-29] MEDS: Diltiazem HCl CD 300 mg Capsule PO SCH (08:56)
[2017-07-29] MEDS: Isosorbide Mononitrate 20 MG TAB PO SCH (08:56)
[2017-07-29] MEDS: Docusate 100 MG CAP PO SCH ×2 (08:57→19:55)
[2017-07-29] MEDS: Amlodipine 5 MG TAB PO SCH (08:57)
[2017-07-29] MEDS: Famotidine 20 MG TAB PO SCH ×2 (08:58→19:55)
[2017-07-29] MEDS: guaiFENesin ER 600 MG TAB PO SCH ×2 (08:58→19:55)
[2017-07-29] MEDS: Metoprolol Tartrate 25 MG TAB PO SCH ×2 (08:58→19:55)
[2017-07-29] MEDS: predniSONE 20 MG TAB PO SCH (08:58)
[2017-07-29] MEDS: Potassium Chloride 20 MEQ TAB PO SCH (08:58)
[2017-07-29] MEDS: Enoxaparin Sodium 30 MG/0.3 ML SYRINGE SC SCH (08:58)
[2017-07-29 09:41] LABS: Anion Gap 13 mmol/L (10-20); BUN (Urea Nitrogen) 12 mg/dL (9.8-20.1); Calc. Creatinine Clearance 62 mL/min (70-130); Calcium 9.4 mg/dL (7.8-10.44); Carbon Dioxide 30 mmol/L (23-31); Chloride 87 mmol/L (98-107); Estimated GFR-MDRD Greater than 90; Glucose 82 mg/dL (83-110); Potassium 4.4 mmol/L (3.5-5.1); Sodium 126 mmol/L (136-145)
[2017-07-29 10:29] LABS: Band 4 % (5-11); Hemoglobin 11.8 g/dL (12.0-16.0); Hypochromia SLIGHT = 6-15 cells (100X) (0-5/hpf); MDiff Complete? YES; Mean Corpuscular HGB CONC 32.2 g/dL (32.0-36.0); Mean Corpuscular Hemoglobin 25.7 pg (27.0-31.0); Mean Corpuscular Volume 79.6 fl (81.0-99.0); Mean Platelet Volume 7.4 fL (7.4-10.4); Microcytosis SLIGHT = 6-15 cells (100X) (0-5/hpf); Monocytes 4 % (0-10); Neutrophil 88 % (42-75); PLT Morphology Comment Appears Adequate; Platelet Count 360 thou/uL (130-400); Polychromasia SLIGHT = 2-3 cells (100X) (0-2/hpf); RBC Distribution Width 17.5 % (11.5-14.5); Reactive Lymphocytes 4 % (0-10); White Blood Cell (WBC) Count 16.6 thou/uL (4.8-10.8)
[2017-07-29] MEDS: Acetaminophen 500 MG TAB PO PRN (18:18)
[2017-07-29] MEDS: ALPRAZolam 0.25 MG TAB PO PRN (19:59)
--- NOTE | 2017-07-29 20:08 | PDOC.PN ---
- Subjective Encounter Start Date: 07/29/17 Encounter Start Time: 20:08 Subjective: nsg notes rev, alban ovn, no new c/o denies any new CP, SOB currently -: on 3LNC - Objective Vital Signs & Weight: Vital Signs (12 hours) Temp Pulse Resp BP BP Pulse Ox Pulse Ox 07/29/17 18:38 94 24 H 95 07/29/17 16:25 97.6 F 103 H 16 119/69 96 07/29/17 14:06 93 L 07/29/17 12:00 97.9 F 106 H 16 120/63 98 07/29/17 11:55 99 07/29/17 09:46 111 H 23 H 93 L 07/29/17 08:57 115 H 136/80 07/29/17 08:56 115 H 136/80 Pulse Ox Pulse Ox 07/29/17 18:38 07/29/17 16:25 07/29/17 14:06 85 L 93 L 07/29/17 12:00 07/29/17 11:55 07/29/17 09:46 07/29/17 08:57 07/29/17 08:56 Weight Admit Weight 93 lb Weight 88 lb 11.2 oz Most Recent Monitor Data Heart Rate from ECG 85 NIBP 143/83 NIBP BP-Mean 98 Respiration from ECG 21 SpO2 94 I&O: 07/28/17 07/29/17 07/30/17 06:59 06:59 06:59 Intake Total 1260 480 Balance 1260 480 Result Diagrams: 07/30/17 04:23 07/30/17 04:23 Phys Exam - Physical Examination Constitutional: NAD HEENT: PERRLA, sclera anicteric slightly dry mm Respiratory: clear to auscultation bilateral very diminished throughout Cardiovascular: RRR, no significant murmur, no rub Gastrointestinal: soft, positive bowel sounds Musculoskeletal: no edema, pulses present Psychiatric: normal affect Dx/Plan - Plan acute on chronic respiratory failure * hx of COPD * apprec pulm c/s * pt feels she is close to her baseline and is still discussing with her family potential discharge planning options hypokalemia, resolved hyponatremia * initially resolved * currently Na 126 with stable mentation * continue to monitor HTN hemodynamically stable diet: as alyssa activity: as alyssa, PT, pending rehab dvt ppx Review of Systems - Review of Systems Constitutional: chills - Medications/Allergies Allergies/Adverse Reactions: Allergies Allergy/AdvReac Type Severity Reaction Status Date / Time No Known Allergies Allergy Verified 07/16/17 20:23 Medications: Current Medications Acetaminophen (Tylenol) 1,000 mg PO Q6H PRN PRN Reason: Headache/Fever or Mild Pain Last Admin: 07/29/17 18:18 Dose: 1,000 mg Albuterol/Ipratropium (Duoneb) 3 ml NEB Q4H PRN PRN Reason: SOB &/or Wheezing Albuterol/Ipratropium (Duoneb) 3 ml EZPAP [id number] [facility] Last Admin: 07/30/17 06:25 Dose: 3 ml Alprazolam (Xanax) 0.125 mg PO TIDPRN PRN PRN Reason: Anxiety Last Admin: 07/29/17 19:59 Dose: 0.125 mg Amlodipine Besylate (Norvasc) 5 mg PO DAILY [facility] Last Admin: 07/29/17 08:57 Dose: 5 mg Clonidine (Catapres) 0.1 mg PO Q4H PRN PRN Reason: Systolic BP > 180 Cyclobenzaprine HCl (Flexeril) 10 mg PO TID PRN PRN Reason: Muscle Spasm Diltiazem HCl (Cardizem Cd) 300 mg PO DAILY [facility] Last Admin: 07/29/17 08:56 Dose: 300 mg Docusate Sodium (Colace) 100 mg PO BID [facility] Last Admin: 07/29/17 19:55 Dose: 100 mg Enoxaparin Sodium (Lovenox) 30 mg SC 0900 [facility] Last Admin: 07/29/17 08:58 Dose: 30 mg Famotidine (Pepcid) 20 mg PO BID [facility] Last Admin: 07/29/17 19:55 Dose: 20 mg Guaifenesin (Mucinex) 600 mg PO Q12HR [facility] Last Admin: 07/29/17 19:55 Dose: 600 mg Hydralazine HCl (Apresoline) 10 mg PO Q8H PRN PRN Reason: SBP GREATER THAN 160 Magnesium Sulfate 1 gm/ Sodium (Chloride) 102 mls @ 102 mls/hr IV PRN PRN PRN Reason: MAG LEVEL 1.4 - 2.0 Magnesium Sulfate 2 gm/ Device 100 mls @ 100 mls/hr IVPB ASDIR PRN PRN Reason: MAGNESIUM < 1.4 Sodium Chloride (1/2 Normal Saline) 1,000 mls @ 0 mls/hr IV .Q0M [facility] PRN Reason: KVO Isosorbide Mononitrate (Ismo) 10 mg PO DAILY [facility] Last Admin: 07/29/17 08:56 Dose: 10 mg Magnesium Oxide (Magnesium Oxide) 400 mg PO BIDPRN PRN PRN Reason: FOR SERUM MAG 1.4 - 2.0 Magnesium Oxide (Magnesium Oxide) 800 mg PO PRN PRN PRN Reason: FOR SERUM MAG < 1.4 Metoprolol Tartrate (Lopressor) 25 mg PO BID [facility] Last Admin: 07/29/17 19:55 Dose: 25 mg Miscellaneous Medication (Phos-Nak) 1 pkt PO TIDPRN PRN PRN Reason: FOR PHOS LEVEL 1.0 - 1.8 Miscellaneous Medication (Phos-Nak) 2 pkt PO TIDPRN PRN PRN Reason: FOR PHOS LEVEL 0.5 - 1.0 Ccu Electrolyte (Replacement Protocol) 0 each FS PRN PRN PRN Reason: FOR ELECTROLYTE REPLACEMENT Ondansetron HCl (Zofran Odt) 4 mg PO Q6H PRN PRN Reason: Nausea/Vomiting Ondansetron HCl (Zofran) 4 mg IVP Q6H PRN PRN Reason: Nausea/Vomiting Polyethylene Glycol (Miralax) 17 gm PO DAILYPRN PRN PRN Reason: Constipation Potassium Chloride (K-Dur) 20 meq PO QAM-[facility] Last Admin: 07/29/17 08:58 Dose: 20 meq Prednisone (Prednisone) 40 mg PO QAM-[facility] Last Admin: 07/29/17 08:58 Dose: 40 mg Senna (Senokot) 1 tab PO HSPRN PRN PRN Reason: Constipation Last Admin: 07/24/17 20:27 Dose: 1 tab Simethicone (Mylicon Chewable) 80 mg PO Q6H PRN PRN Reason: GAS PAIN Last Admin: 07/26/17 18:48 Dose: 80 mg Sodium Chloride (Flush - Normal Saline) 10 ml IVF Q12HR [facility] Last Admin: 07/29/17 19:55 Dose: 10 ml Sodium Chloride (Flush - Normal Saline) 10 ml IVF PRN PRN PRN Reason: Saline Flush
[2017-07-30 05:12] LABS: #Lymphocytes 0.7 thou/uL (1.20-3.40); #Monocytes 0.8 thou/uL (0.11-0.59); #Neutrophils 11.2 thou/uL (1.40-6.50); %Basophils 0.1 % (0.0-1.0); %Eosinophils 0.1 % (0.0-10.0); %Lymphocytes 5.6 % (21.0-51.0); %Monocytes 5.9 % (0.0-10.0); %Neutrophils 88.3 % (42.0-75.0); Hemoglobin 10.5 g/dL (12.0-16.0); Mean Corpuscular Hemoglobin 25.7 pg (27.0-31.0); Mean Corpuscular Volume 80.2 fl (81.0-99.0); Mean Platelet Volume 7.4 fL (7.4-10.4); Platelet Count 288 thou/uL (130-400); RBC Distribution Width 17.2 % (11.5-14.5); White Blood Cell (WBC) Count 12.7 thou/uL (4.8-10.8)
[2017-07-30 05:29] LABS: Anion Gap 14 mmol/L (10-20); BUN (Urea Nitrogen) 11 mg/dL (9.8-20.1); Calc. Creatinine Clearance 66 mL/min (70-130); Calcium 9.3 mg/dL (7.8-10.44); Carbon Dioxide 30 mmol/L (23-31); Chloride 88 mmol/L (98-107); Estimated GFR-MDRD Greater than 90; Glucose 66 mg/dL (83-110); Potassium 3.9 mmol/L (3.5-5.1); Sodium 128 mmol/L (136-145)
[2017-07-30] MEDS: Docusate 100 MG CAP PO SCH ×2 (08:58→20:26)
[2017-07-30] MEDS: Famotidine 20 MG TAB PO SCH ×2 (08:58→20:26)
[2017-07-30] MEDS: Metoprolol Tartrate 25 MG TAB PO SCH ×2 (08:58→20:26)
[2017-07-30] MEDS: predniSONE 20 MG TAB PO SCH (08:59)
[2017-07-30] MEDS: Potassium Chloride 20 MEQ TAB PO SCH (08:59)
[2017-07-30] MEDS: guaiFENesin ER 600 MG TAB PO SCH ×2 (08:59→20:26)
[2017-07-30] MEDS: Amlodipine 5 MG TAB PO SCH (08:59)
[2017-07-30] MEDS: Enoxaparin Sodium 30 MG/0.3 ML SYRINGE SC SCH (09:00)
[2017-07-30] MEDS: ALPRAZolam 0.25 MG TAB PO PRN ×2 (09:18→20:26)
[2017-07-30] MEDS: Diltiazem HCl CD 300 mg Capsule PO SCH (09:38)
[2017-07-30] MEDS: Isosorbide Mononitrate 20 MG TAB PO SCH (09:38)
--- NOTE | 2017-07-30 10:55 | PRG ---
DATE OF SERVICE: 07/30/2017 SERVICE: Pulmonary Medicine INTERVAL HISTORY: The patient is doing fine from a respiratory standpoint. This morning early, she was assessed by respiratory therapy. They noted her saturations were 82. She is breathing at her ba seline, though she did demonstrate some retractions and was little tachypneic. That being said, she said she was comfortable. As such, there took her down to the ICU. Otherwise, there has been no int erval change to her condition. She denies any chest pain, fevers, chills, nausea or vomiting. She i ndicates that she is breathing comfortably. PHYSICAL EXAMINATION: VITAL SIGNS: Afebrile, pulse 103, blood pressure 148/81, respirations 23, and saturation 98% on 4 li ters nasal cannula. HEENT: Normocephalic, atraumatic. Sclerae are white, conjunctivae pink. Oral mucosa is moist and w ithout lesions. LUNGS: Decent air entry. She has got a prolonged expiratory phase. There is some wheezing present. She is truthfully not moving very much air and we can appreciate other adventitious sounds. HEART: Tachycardic. Regular. ABDOMEN: Soft, nontender, nondistended. Bowel sounds positive. MUSCULOSKELETAL: No cyanosis or clubbing. No pitting in the bilateral lower extremities. NEUROLOGIC: Grossly nonfocal. LABORATORY DATA: WBC 12.7, hemoglobin 10.5, platelets 288,000. PH 7.38, pCO2 54, pO2 66. Sodium 12 8. Basic metabolic profile is otherwise unremarkable. ASSESSMENT: 1. Acute on chronic hypoxic and hypercapnic respiratory failure. 2. Chronic obstructive pulmonary disease with acute exacerbation. 3. Severe deconditioning, DISCUSSION AND PLAN: We will continue making efforts to getting her out of bed and into a chair 3 ti mes daily. We will also ambulate her. She will remain in the ICU for the next 24 hours, but if she remains stable, we can get her back to the floor. Pulmonary Critical Care will continue to follow.
[2017-07-30] MEDS: Acetaminophen 500 MG TAB PO PRN (20:54)
--- NOTE | 2017-07-30 23:46 | PDOC.PN ---
- Subjective Encounter Start Date: 07/30/17 Encounter Start Time: 08:00 Subjective: nsg notes rev, pt was moved to CCU due to resp therapy and nsg concern -: over patient's work of breathing - Objective Vital Signs & Weight: Vital Signs (12 hours) Temp Pulse Resp Pulse Ox 07/30/17 22:24 69 18 99 07/30/17 22:23 78 16 99 07/30/17 20:00 98.1 F 108 H 23 H 92 L 07/30/17 18:44 109 H 22 H 90 L 07/30/17 15:48 96.9 F L 07/30/17 15:02 96 31 H 96 07/30/17 12:00 98 F Weight Admit Weight 93 lb Weight 88 lb 11.2 oz Most Recent Monitor Data Heart Rate from ECG 72 NIBP 94/64 NIBP BP-Mean 71 Respiration from ECG 18 SpO2 100 I&O: 07/29/17 07/30/17 07/31/17 06:59 06:59 06:59 Intake Total 480 450 690 Output Total 250 Balance 480 450 440 Result Diagrams: 07/31/17 03:46 07/31/17 03:46 Phys Exam - Physical Examination Constitutional: NAD HEENT: PERRLA Respiratory: no wheezing, no rales, no rhonchi extremely diminished throughout, no change from prior Cardiovascular: RRR, no significant murmur, no rub Gastrointestinal: soft, positive bowel sounds Musculoskeletal: no edema, pulses present Psychiatric: normal affect, A&O x 3 Dx/Plan - Plan acute on chronic respiratory failure * hx of COPD * acute component resolved * apprec pulm c/s * pt feels she is close to her baseline and is still discussing with her family potential discharge planning options - at this point, at the time of d/c, she states she wishes to go home as opposed to any facility hypokalemia, resolved hyponatremia * initially resolved * continue to monitor * asymptomatic HTN hemodynamically stable diet: as alyssa activity: as alyssa, PT, pending rehab dvt ppx Review of Systems - Medications/Allergies Allergies/Adverse Reactions: Allergies Allergy/AdvReac Type Severity Reaction Status Date / Time No Known Allergies Allergy Verified 07/16/17 20:23 Medications: Current Medications Acetaminophen (Tylenol) 1,000 mg PO Q6H PRN PRN Reason: Headache/Fever or Mild Pain Last Admin: 03/15/18 20:54 Dose: 1,000 mg Albuterol/Ipratropium (Duoneb) 3 ml NEB Q4H PRN PRN Reason: SOB &/or Wheezing Albuterol/Ipratropium (Duoneb) 3 ml EZPAP [id number] [facility] Last Admin: 07/31/17 02:36 Dose: 3 ml Alprazolam (Xanax) 0.125 mg PO TIDPRN PRN PRN Reason: Anxiety Last Admin: 07/30/17 20:26 Dose: 0.125 mg Amlodipine Besylate (Norvasc) 5 mg PO DAILY [facility] Last Admin: 07/30/17 08:59 Dose: 5 mg Clonidine (Catapres) 0.1 mg PO Q4H PRN PRN Reason: Systolic BP > 180 Cyclobenzaprine HCl (Flexeril) 10 mg PO TID PRN PRN Reason: Muscle Spasm Diltiazem HCl (Cardizem Cd) 300 mg PO DAILY [facility] Last Admin: 07/30/17 09:38 Dose: 300 mg Docusate Sodium (Colace) 100 mg PO BID [facility] Last Admin: 07/30/17 20:26 Dose: 100 mg Enoxaparin Sodium (Lovenox) 30 mg SC 0900 [facility] Last Admin: 07/30/17 09:00 Dose: 30 mg Famotidine (Pepcid) 20 mg PO BID [facility] Last Admin: 07/30/17 20:26 Dose: 20 mg Guaifenesin (Mucinex) 600 mg PO Q12HR [facility] Last Admin: 07/30/17 20:26 Dose: 600 mg Hydralazine HCl (Apresoline) 10 mg PO Q8H PRN PRN Reason: SBP GREATER THAN 160 Sodium Chloride (1/2 Normal Saline) 1,000 mls @ 0 mls/hr IV .Q0M [facility] PRN Reason: KVO Isosorbide Mononitrate (Ismo) 10 mg PO DAILY [facility] Last Admin: 07/30/17 09:38 Dose: 10 mg Metoprolol Tartrate (Lopressor) 25 mg PO BID [facility] Last Admin: 07/30/17 20:26 Dose: 25 mg Ccu Electrolyte (Replacement Protocol) 0 each FS PRN PRN PRN Reason: FOR ELECTROLYTE REPLACEMENT Ondansetron HCl (Zofran Odt) 4 mg PO Q6H PRN PRN Reason: Nausea/Vomiting Ondansetron HCl (Zofran) 4 mg IVP Q6H PRN PRN Reason: Nausea/Vomiting Polyethylene Glycol (Miralax) 17 gm PO DAILYPRN PRN PRN Reason: Constipation Potassium Chloride (K-Dur) 20 meq PO QAM-[facility] Last Admin: 07/30/17 08:59 Dose: 20 meq Prednisone (Prednisone) 40 mg PO QAM-[facility] Last Admin: 07/30/17 08:59 Dose: 40 mg Senna (Senokot) 1 tab PO HSPRN PRN PRN Reason: Constipation Last Admin: 07/24/17 20:27 Dose: 1 tab Simethicone (Mylicon Chewable) 80 mg PO Q6H PRN PRN Reason: GAS PAIN Last Admin: 07/26/17 18:48 Dose: 80 mg Sodium Chloride (Flush - Normal Saline) 10 ml IVF Q12HR [facility] Last Admin: 07/30/17 20:54 Dose: 10 ml Sodium Chloride (Flush - Normal Saline) 10 ml IVF PRN PRN PRN Reason: Saline Flush
[2017-07-31 03:53] LABS: #Lymphocytes 0.6 thou/uL (1.20-3.40); #Monocytes 0.5 thou/uL (0.11-0.59); #Neutrophils 8.9 thou/uL (1.40-6.50); %Basophils 0.1 % (0.0-1.0); %Eosinophils 0.2 % (0.0-10.0); %Monocytes 4.5 % (0.0-10.0); %Neutrophils 89.2 % (42.0-75.0); Hemoglobin 10.1 g/dL (12.0-16.0); Mean Corpuscular HGB CONC 32.3 g/dL (32.0-36.0); Mean Corpuscular Volume 80.4 fl (81.0-99.0); Mean Platelet Volume 6.8 fL (7.4-10.4); Platelet Count 265 thou/uL (130-400); RBC Distribution Width 17.3 % (11.5-14.5)
[2017-07-31 04:16] LABS: Anion Gap 10 mmol/L (10-20); BUN (Urea Nitrogen) 16 mg/dL (9.8-20.1); Calc. Creatinine Clearance 62 mL/min (70-130); Calcium 9.3 mg/dL (7.8-10.44); Carbon Dioxide 32 mmol/L (23-31); Chloride 91 mmol/L (98-107); Estimated GFR-MDRD Greater than 90; Glucose 73 mg/dL (83-110); Potassium 4.1 mmol/L (3.5-5.1); Sodium 129 mmol/L (136-145)
--- NOTE | 2017-07-31 07:36 | PRG ---
DATE OF SERVICE: 07/31/2017 SERVICE: Pulmonary Medicine INTERVAL HISTORY: The patient is doing fine from a cardiovascular and respiratory standpoint. She d enies any current chest pain, shortness of breath, fevers or chills. Her saturations are 84%, but sh e is perfectly comfortable. She is able to get herself to the bathroom and back. She had very littl e difficulty in doing so. She does have chronic respiratory failure is used to having hypoxemia. PHYSICAL EXAMINATION: VITAL SIGNS: Afebrile, pulse 99, blood pressure 114/64, respirations 21, saturation 85% on 3 liters nasal cannula. GENERAL: The patient is awake and alert, in no apparent distress. LUNGS: Reduced air entry. There is a prolonged expiratory phase. Both wheezing and rhonchi are pre sent. HEART: Normal rate, regular. ABDOMEN: Soft, nontender, nondistended. Bowel sounds are positive. MUSCULOSKELETAL: No cyanosis or clubbing. There is no pitting in the bilateral lower extremities. NEUROLOGIC: Grossly nonfocal. LABORATORY DATA: WBC 10.0, hemoglobin 10.1, platelets 265,000. Sodium 129 and improving, chloride 9 1, bicarbonate 32. Basic metabolic profile is otherwise unremarkable. Blood cultures are negative. ASSESSMENT: 1. Acute on chronic hypoxic and hypercapnic respiratory failure. 2. Chronic obstructive pulmonary disease with acute exacerbation, resolved, close to baseline. 3. Severe deconditioning, DISCUSSION AND PLAN: We can transition her out of the ICU once again. I will change our saturation that will tolerate down to 82%. The patient is quite comfortable on these settings. Nebulize medica tions, and steroids will be continued. We will continue BiPAP at night and whenever the patient is s leeping for her chronic respiratory failure.
[2017-07-31] MEDS: Potassium Chloride 20 MEQ TAB PO SCH (08:30)
[2017-07-31] MEDS: Famotidine 20 MG TAB PO SCH ×2 (08:45→21:03)
[2017-07-31] MEDS: Amlodipine 5 MG TAB PO SCH (08:45)
[2017-07-31] MEDS: Metoprolol Tartrate 25 MG TAB PO SCH ×2 (08:56→21:03)
[2017-07-31] MEDS: Docusate 100 MG CAP PO SCH ×2 (08:56→21:03)
[2017-07-31] MEDS: predniSONE 20 MG TAB PO SCH (08:56)
[2017-07-31] MEDS: guaiFENesin ER 600 MG TAB PO SCH ×2 (08:57→21:03)
[2017-07-31] MEDS: Diltiazem HCl CD 300 mg Capsule PO SCH (08:58)
[2017-07-31] MEDS: Isosorbide Mononitrate 20 MG TAB PO SCH (08:59)
[2017-07-31] MEDS: Enoxaparin Sodium 30 MG/0.3 ML SYRINGE SC SCH (09:00)
--- NOTE | 2017-07-31 16:15 | PDOC.PN ---
- Subjective Encounter Start Date: 07/31/17 Encounter Start Time: 16:13 Patient seen at bedside. Was transferred to the floor from CCU. No SOB reported. States she feels back to her baseline. - Objective Vital Signs & Weight: Vital Signs (12 hours) Temp Pulse Resp BP Pulse Ox 07/31/17 15:16 88 24 H 07/31/17 12:02 94 28 H 07/31/17 11:41 98.3 F 97 20 130/71 85 L 07/31/17 10:00 98.0 F 102 H 18 95 07/31/17 09:46 98.0 F 102 H 18 111/62 85 L 07/31/17 08:58 111 H 07/31/17 08:45 111 H 07/31/17 08:00 97.4 F L 111 H 22 H 91 L 07/31/17 07:36 111 H 22 H 82 L 07/31/17 06:00 82 L Weight Admit Weight 93 lb Weight 88 lb 11.2 oz Most Recent Monitor Data Heart Rate from ECG 116 NIBP 119/69 NIBP BP-Mean 86 Respiration from ECG 20 SpO2 90 I&O: 07/30/17 07/31/17 08/01/17 06:59 06:59 06:59 Intake Total 450 810 Output Total 375 250 Balance 450 435 -250 Result Diagrams: 07/31/17 03:46 07/31/17 03:46 Phys Exam - Physical Examination Constitutional: NAD HEENT: moist MMs Neck: no JVD Respiratory: no wheezing Decreased BS bilaterally, no accessory muscle use Cardiovascular: RRR Gastrointestinal: soft Musculoskeletal: pulses present Neurological: moves all 4 limbs Psychiatric: A&O x 3 Dx/Plan (1) Hypertension Code(s): I10 - ESSENTIAL (PRIMARY) HYPERTENSION Status: Acute Qualifiers: Hypertension type: essential hypertension Qualified Code(s): I10 - Essential (primary) hypertension (2) Acute and chronic respiratory failure Code(s): J96.20 - ACUTE AND CHR RESP FAILURE, UNSP W HYPOXIA OR HYPERCAPNIA Status: Acute Qualifiers: Respiratory failure complication: hypoxia and hypercapnia Qualified Code(s) : J96.21 - Acute and chronic respiratory failure with hypoxia; J96.22 - Acute and chronic respiratory failure with hypercapnia Comment: Stable and clinically unchanged. Still gets tachycardic with minimal movement. Patient is on home Oxygen chronically. Continue Nebs. BiPAP PRN. Parenteral steroids being weaned off. Pulm on board. Recs appreciated. (3) COPD exacerbation Code(s): J44.1 - CHRONIC OBSTRUCTIVE PULMONARY DISEASE W (ACUTE) EXACERBATION Status: Acute (4) GERD (gastroesophageal reflux disease) Code(s): K21.9 - GASTRO-ESOPHAGEAL REFLUX DISEASE WITHOUT ESOPHAGITIS Status: Chronic Qualifiers: Esophagitis presence: without esophagitis Qualified Code(s): K21.9 - Gastro -esophageal reflux disease without esophagitis - Plan cont current plan of care, plan discussed w/ family, respiratory therapy, incentive spirometry, DVT proph w/lovenox * Continue with current management. * Prednisone and Duonebs * BiPAP Qhs * Supplemental 02 * CM for assistance with HH ( will need a PCP to follow as an outpatient)
[2017-07-31] MEDS: ALPRAZolam 0.25 MG TAB PO PRN (21:05)
[2017-08-01] MEDS: ALPRAZolam 0.25 MG TAB PO PRN ×2 (02:48→21:07)
[2017-08-01] MEDS: guaiFENesin ER 600 MG TAB PO SCH ×2 (09:29→21:06)
[2017-08-01] MEDS: predniSONE 20 MG TAB PO SCH (09:29)
[2017-08-01] MEDS: Potassium Chloride 20 MEQ TAB PO SCH (09:29)
[2017-08-01] MEDS: Metoprolol Tartrate 25 MG TAB PO SCH ×2 (09:30→21:06)
[2017-08-01] MEDS: Amlodipine 5 MG TAB PO SCH (09:30)
[2017-08-01] MEDS: Docusate 100 MG CAP PO SCH ×2 (09:31→21:06)
[2017-08-01] MEDS: Enoxaparin Sodium 30 MG/0.3 ML SYRINGE SC SCH (09:31)
[2017-08-01] MEDS: Famotidine 20 MG TAB PO SCH ×2 (09:31→21:06)
[2017-08-01] MEDS: Diltiazem HCl CD 300 mg Capsule PO SCH (11:19)
[2017-08-01] MEDS: Isosorbide Mononitrate 20 MG TAB PO SCH (11:36)
--- NOTE | 2017-08-01 14:09 | PRG ---
DATE OF SERVICE: 08/01/2017 SUBJECTIVE: Dinora Connors is tired. She is short of breath. She is weak. PHYSICAL EXAMINATION: VITAL SIGNS: 89% sats on 4 liters, temperature 97.8, blood pressure 130/80. CHEST: Decreased breath sounds, no wheezing. CARDIAC: Normal S1 and S2. ABDOMEN: Soft, no masses. IMPRESSION: Severe end-stage chronic obstructive pulmonary disease. PLAN: Continue prednisone, neb treatments, added Dulera. We will follow.
--- NOTE | 2017-08-01 15:06 | PDOC.PN ---
- Subjective Encounter Start Date: 08/01/17 Encounter Start Time: 15:05 Subjective: Seen and examined still very short of breath and very dependent on Bipan- -: Wants to wait untill she sees Dr Nuñez before deciding on when she wants -: to go home - Objective Vital Signs & Weight: Vital Signs (12 hours) Temp Pulse Resp BP BP Pulse Ox 08/01/17 11:49 98.7 F 95 28 H 142/78 H 92 L 08/01/17 11:41 98 28 H 08/01/17 11:19 95 08/01/17 09:30 95 08/01/17 08:55 95 20 89 L 08/01/17 08:50 89 L 08/01/17 08:48 95 20 89 L 08/01/17 08:00 97.8 F 95 26 H 92 L 08/01/17 07:18 97.8 F 106 H 26 H 127/67 92 L 08/01/17 03:57 97.7 F 82 16 117/67 93 L Weight Admit Weight 93 lb Weight 88 lb 11.2 oz Most Recent Monitor Data Heart Rate from ECG 116 NIBP 119/69 NIBP BP-Mean 86 Respiration from ECG 20 SpO2 90 I&O: 07/31/17 08/01/17 08/02/17 06:59 06:59 06:59 Intake Total 810 840 Output Total 375 250 Balance 435 590 Result Diagrams: 07/31/17 03:46 07/31/17 03:46 Phys Exam - Physical Examination HEENT: PERRLA, moist MMs, sclera anicteric, TM's clear Neck: no nodes, no JVD, supple, full ROM Dimished breath sounds Cardiovascular: RRR, no significant murmur, no rub Gastrointestinal: soft, non-tender, no distention, positive bowel sounds Musculoskeletal: no edema, pulses present Dx/Plan (1) Acute and chronic respiratory failure Code(s): J96.20 - ACUTE AND CHR RESP FAILURE, UNSP W HYPOXIA OR HYPERCAPNIA Status: Acute Qualifiers: Respiratory failure complication: hypoxia and hypercapnia Qualified Code(s) : J96.21 - Acute and chronic respiratory failure with hypoxia; J96.22 - Acute and chronic respiratory failure with hypercapnia Comment: Stable and clinically unchanged. Still gets tachycardic with minimal movement. Patient is on home Oxygen chronically. Continue Nebs. BiPAP PRN. Parenteral steroids being weaned off. Pulm on board. Recs appreciated. (2) CAP (community acquired pneumonia) Code(s): J18.9 - PNEUMONIA, UNSPECIFIED ORGANISM Status: Acute Qualifiers: Laterality: unspecified laterality Qualified Code(s): J18.9 - Pneumonia, unspecified organism (3) COPD exacerbation Code(s): J44.1 - CHRONIC OBSTRUCTIVE PULMONARY DISEASE W (ACUTE) EXACERBATION Status: Acute (4) GERD (gastroesophageal reflux disease) Code(s): K21.9 - GASTRO-ESOPHAGEAL REFLUX DISEASE WITHOUT ESOPHAGITIS Status: Chronic Qualifiers: Esophagitis presence: without esophagitis Qualified Code(s): K21.9 - Gastro -esophageal reflux disease without esophagitis (5) Iron deficiency anemia Code(s): D50.9 - IRON DEFICIENCY ANEMIA, UNSPECIFIED Status: Chronic Qualifiers: Iron deficiency anemia type: unspecified iron deficiency Qualified Code(s) : D50.9 - Iron deficiency anemia, unspecified (6) End stage COPD Code(s): J44.9 - CHRONIC OBSTRUCTIVE PULMONARY DISEASE, UNSPECIFIED Status: Acute - Plan cont current plan of care, PT/OT, social insurance adviser, respiratory therapy -Continue Bipap-will likely need Bipa at home -: -Follow up with Dr Benson on thursday for dispo planning * .
[2017-08-01] MEDS: Mometasone/Formoterol 120 PUFF INHALER INH SCH (19:09)
--- NOTE | 2017-08-02 08:05 | PDOC.PN ---
- Subjective Encounter Start Date: 08/02/17 Encounter Start Time: 08:03 Subjective: Seen and examined refused breathing treatment yesterday due to tiredness - Objective Vital Signs & Weight: Vital Signs (12 hours) Pulse Resp 08/02/17 03:32 20 08/01/17 22:47 97 21 H 08/01/17 22:45 97 21 H Weight Admit Weight 93 lb Weight 88 lb 11.2 oz Most Recent Monitor Data Heart Rate from ECG 116 NIBP 119/69 NIBP BP-Mean 86 Respiration from ECG 20 SpO2 90 I&O: 08/01/17 08/02/17 08/03/17 06:59 06:59 06:59 Intake Total 840 1000 Output Total 250 Balance 590 1000 Result Diagrams: 07/31/17 03:46 07/31/17 03:46 Phys Exam - Physical Examination Constitutional: NAD HEENT: PERRLA, moist MMs, sclera anicteric, TM's clear, oral pharynx no lesions Neck: no nodes, no JVD, supple, full ROM Respiratory: no rales diminished breath sounds Cardiovascular: RRR, no significant murmur, no rub Gastrointestinal: soft, non-tender, no distention, positive bowel sounds Musculoskeletal: no edema, pulses present Dx/Plan (1) Acute and chronic respiratory failure Code(s): J96.20 - ACUTE AND CHR RESP FAILURE, UNSP W HYPOXIA OR HYPERCAPNIA Status: Acute Qualifiers: Respiratory failure complication: hypoxia and hypercapnia Qualified Code(s) : J96.21 - Acute and chronic respiratory failure with hypoxia; J96.22 - Acute and chronic respiratory failure with hypercapnia Comment: Stable and clinically unchanged. Still gets tachycardic with minimal movement. Patient is on home Oxygen chronically. Continue Nebs. BiPAP PRN. Parenteral steroids being weaned off. Pulm on board. Recs appreciated. (2) CAP (community acquired pneumonia) Code(s): J18.9 - PNEUMONIA, UNSPECIFIED ORGANISM Status: Acute Qualifiers: Laterality: unspecified laterality Qualified Code(s): J18.9 - Pneumonia, unspecified organism (3) COPD exacerbation Code(s): J44.1 - CHRONIC OBSTRUCTIVE PULMONARY DISEASE W (ACUTE) EXACERBATION Status: Acute (4) GERD (gastroesophageal reflux disease) Code(s): K21.9 - GASTRO-ESOPHAGEAL REFLUX DISEASE WITHOUT ESOPHAGITIS Status: Chronic Qualifiers: Esophagitis presence: without esophagitis Qualified Code(s): K21.9 - Gastro -esophageal reflux disease without esophagitis (5) Iron deficiency anemia Code(s): D50.9 - IRON DEFICIENCY ANEMIA, UNSPECIFIED Status: Chronic Qualifiers: Iron deficiency anemia type: unspecified iron deficiency Qualified Code(s) : D50.9 - Iron deficiency anemia, unspecified (6) End stage COPD Code(s): J44.9 - CHRONIC OBSTRUCTIVE PULMONARY DISEASE, UNSPECIFIED Status: Acute - Plan cont current plan of care, plan discussed w/ family, continue antibiotics, PT/OT , aids social worker, respiratory therapy Possible D/c on thursday s/p evaluation by Dr Nuñez * .
[2017-08-02] MEDS: predniSONE 20 MG TAB PO SCH (08:26)
[2017-08-02] MEDS: Isosorbide Mononitrate 20 MG TAB PO SCH (08:26)
[2017-08-02] MEDS: Enoxaparin Sodium 30 MG/0.3 ML SYRINGE SC SCH (08:26)
[2017-08-02] MEDS: Potassium Chloride 20 MEQ TAB PO SCH (08:26)
[2017-08-02] MEDS: Diltiazem HCl CD 300 mg Capsule PO SCH (08:27)
[2017-08-02] MEDS: Amlodipine 5 MG TAB PO SCH (08:27)
[2017-08-02] MEDS: Metoprolol Tartrate 25 MG TAB PO SCH ×2 (08:27→20:38)
[2017-08-02] MEDS: Famotidine 20 MG TAB PO SCH ×2 (08:27→20:37)
[2017-08-02] MEDS: guaiFENesin ER 600 MG TAB PO SCH ×2 (08:27→20:38)
[2017-08-02] MEDS: Mometasone/Formoterol 120 PUFF INHALER INH SCH ×2 (08:34→19:35)
[2017-08-02] MEDS: Docusate 100 MG CAP PO SCH ×2 (08:38→20:37)
--- NOTE | 2017-08-02 14:16 | PRG ---
DATE OF SERVICE: 08/02/2017 SUBJECTIVE: Short of breath. OBJECTIVE: VITAL SIGNS: Blood pressure is 130/80, sats are 89% on 4 liters, respirations 24 and pulse is 90. CHEST: Decreased breath sounds. No wheezing. CARDIAC: Normal S1 and S2. ABDOMEN: Soft. No mass. IMPRESSION: Severe end-stage chronic obstructive pulmonary disease and severe deconditioning. PLAN: Continue neb treatments and steroids. DISPOSITION: Home in the next several days.
[2017-08-02] MEDS: ALPRAZolam 0.25 MG TAB PO PRN (20:40)
[2017-08-03] MEDS: Mometasone/Formoterol 120 PUFF INHALER INH SCH ×2 (07:17→18:17)
[2017-08-03] MEDS: Enoxaparin Sodium 30 MG/0.3 ML SYRINGE SC SCH (09:05)
[2017-08-03] MEDS: Docusate 100 MG CAP PO SCH ×2 (09:05→21:44)
[2017-08-03] MEDS: Potassium Chloride 20 MEQ TAB PO SCH (09:05)
[2017-08-03] MEDS: Famotidine 20 MG TAB PO SCH ×2 (09:06→21:44)
[2017-08-03] MEDS: guaiFENesin ER 600 MG TAB PO SCH ×2 (09:06→21:45)
[2017-08-03] MEDS: predniSONE 20 MG TAB PO SCH (09:06)
[2017-08-03] MEDS: Diltiazem HCl CD 300 mg Capsule PO SCH (09:07)
[2017-08-03] MEDS: Metoprolol Tartrate 25 MG TAB PO SCH ×2 (09:12→21:45)
[2017-08-03] MEDS: Amlodipine 5 MG TAB PO SCH (09:12)
[2017-08-03] MEDS: Isosorbide Mononitrate 20 MG TAB PO SCH (09:12)
[2017-08-03] MEDS: ALPRAZolam 0.25 MG TAB PO PRN ×2 (09:26→21:45)
--- NOTE | 2017-08-03 09:46 | PDOC.PN ---
- Subjective Encounter Start Date: 08/03/17 Encounter Start Time: 09:44 Patient seen and examined, no new issues or complaints, no family at bedside, all questions answered. - Objective MAR Reviewed: Yes Vital Signs & Weight: Vital Signs (12 hours) Temp Pulse Resp BP BP Pulse Ox 08/03/17 09:12 110 H 127/74 08/03/17 09:07 110 H 127/74 08/03/17 07:55 98.1 F 110 H 18 127/74 94 L 08/03/17 07:20 104 H 18 91 L 08/03/17 07:17 104 H 22 H 91 L 08/03/17 06:30 104 H 08/03/17 04:00 84 L 08/03/17 02:57 87 L 08/03/17 02:56 87 L 08/03/17 00:00 91 L 08/02/17 22:40 87 L 08/02/17 22:39 86 L 08/02/17 22:00 94 L Weight Admit Weight 93 lb Weight 88 lb 11.2 oz Most Recent Monitor Data Heart Rate from ECG 116 NIBP 119/69 NIBP BP-Mean 86 Respiration from ECG 20 SpO2 90 I&O: 08/02/17 08/03/17 08/04/17 06:59 06:59 06:59 Intake Total 1000 820 Output Total 200 Balance 1000 620 Result Diagrams: 07/31/17 03:46 07/31/17 03:46 Phys Exam - Physical Examination Constitutional: NAD frail appearing HEENT: PERRLA, moist MMs Neck: no nodes, no JVD Respiratory: no wheezing, no rales, no rhonchi Cardiovascular: RRR, no significant murmur Gastrointestinal: soft, non-tender, no distention Musculoskeletal: no edema, pulses present Neurological: non-focal, normal sensation Dx/Plan (1) End stage COPD Code(s): J44.9 - CHRONIC OBSTRUCTIVE PULMONARY DISEASE, UNSPECIFIED Status: Acute (2) Hypertension Code(s): I10 - ESSENTIAL (PRIMARY) HYPERTENSION Status: Acute Qualifiers: Hypertension type: essential hypertension Qualified Code(s): I10 - Essential (primary) hypertension (3) CAP (community acquired pneumonia) Code(s): J18.9 - PNEUMONIA, UNSPECIFIED ORGANISM Status: Acute Qualifiers: Laterality: unspecified laterality Qualified Code(s): J18.9 - Pneumonia, unspecified organism (4) GERD (gastroesophageal reflux disease) Code(s): K21.9 - GASTRO-ESOPHAGEAL REFLUX DISEASE WITHOUT ESOPHAGITIS Status: Chronic Qualifiers: Esophagitis presence: without esophagitis Qualified Code(s): K21.9 - Gastro -esophageal reflux disease without esophagitis - Plan * Patient does not want to go to SNF or rehab wants to go home * HHC arranged already * waiting for home arrangements of bipap machine * DC plans in 24-48hrs once bipap has been arranged, patient is clinically stable and cleared by pulmonary * labs in AM * case and plan d/w patient at [facility], she understands and agrees with this plan
--- NOTE | 2017-08-03 11:26 | PRG ---
DATE OF SERVICE: 08/03/2017 SERVICE: Pulmonary Medicine. INTERVAL HISTORY: The patient is doing okay from a respiratory standpoint. She has not changed much over the weekend. She continues to have increasing work of breathing, though she indicates that sh e is comfortable at baseline. She denies any current fevers or chills. There is a little bit of cou gh there, but she does not bringing up much sputum. It seems that this has cleared up a little bit. Either way, she is interested in going home just as soon as possible. We made multiple efforts at [facility] to convince her to go to a alf facility where she can get some additional resources , but she is categorically dismissed this suggesting that she has everything that she needs at home. I am concerned that if she goes home, she will come back to the hospital in very short order. That being said, I do believe that she has returned to her baseline. At this point, I think that we have arrived at the end of the hospital stay. As long as she has home health services, and her home venti lator is setup on discharge from the hospital at this point, she will have everything that she needs for the transition home. PHYSICAL EXAMINATION: VITAL SIGNS: Afebrile, pulse 85, blood pressure 127/74, respirations 16, saturation 90% on 4 liters. GENERAL: The patient is awake and alert, mild respiratory distress. LUNGS: Reduced air entry. There is a prolonged expiratory phase and rhonchi present. I do apprecia te crackles or wheezing. HEART: Normal rate and regular. ABDOMEN: Soft, nontender, nondistended. Bowel sounds are positive. MUSCULOSKELETAL: No cyanosis or clubbing. There is no pitting in the bilateral lower extremities. NEUROLOGIC: Grossly nonfocal. ASSESSMENT: 1. Acute on chronic hypoxic and hypercapnic respiratory failure, resolved to baseline. 2. Chronic obstructive pulmonary disease with acute exacerbation, resolved. 3. Severe deconditioning. PLAN: She can transition home based on her preference. I do think that she is at extraordinarily hi gh risk of coming back to the hospital. That being said, as long as home health, and her home ventil ator setup on discharge, I see no reason to keep her in the hospital for a longer period of time. We will continue our palliative care discussions moving forward if she finds herself back in the hospit al. Outside of this, she will work hard with physical therapy to recover her lost strength which is going to be challenging for her given her baseline respiratory failure. If she still happens to be h ere tomorrow, Dr. Benson will resume care.
[2017-08-04] MEDS: Mometasone/Formoterol 120 PUFF INHALER INH SCH ×2 (07:23→18:46)
[2017-08-04] MEDS: Potassium Chloride 20 MEQ TAB PO SCH (08:51)
[2017-08-04] MEDS: predniSONE 20 MG TAB PO SCH (08:51)
[2017-08-04] MEDS: Diltiazem HCl CD 300 mg Capsule PO SCH (08:52)
[2017-08-04] MEDS: Amlodipine 5 MG TAB PO SCH (08:52)
[2017-08-04] MEDS: Enoxaparin Sodium 30 MG/0.3 ML SYRINGE SC SCH (08:53)
[2017-08-04] MEDS: Famotidine 20 MG TAB PO SCH ×2 (08:53→21:25)
[2017-08-04] MEDS: guaiFENesin ER 600 MG TAB PO SCH ×2 (08:53→21:24)
[2017-08-04] MEDS: Docusate 100 MG CAP PO SCH ×2 (08:53→21:25)
[2017-08-04] MEDS: Metoprolol Tartrate 25 MG TAB PO SCH ×2 (08:54→21:25)
[2017-08-04] MEDS: Isosorbide Mononitrate 20 MG TAB PO SCH (08:54)
--- NOTE | 2017-08-04 14:46 | DIS ---
DATE OF ADMISSION: 07/17/2017 DATE OF DISCHARGE: 08/04/2017 The patient is a 76-year-old female. ADMITTING DIAGNOSES: Shortness of breath, chronic obstructive pulmonary disease , hypertension, gastroesophageal reflux disease, and acute on chronic respiratory failure. DISCHARGE DIAGNOSES: End-stage chronic obstructive pulmonary disease, hypertension, stable, gastroesophageal reflux disease stable as well as a history of coronary artery disease to admitting diagnosis as well. HOSPITAL COURSE: This is a 76-year-old female who was admitted to the hospital with a severe persistent shortness of breath. The patient was admitted to the Internal Medicine team, was also followed very closely by Pulmonary team and palliative care team. The patient was found to have significant end-stage COPD requiring BiPAP and dependence on BiPAP. The patient was monitored in the CCU and then transferred to the oncology floor. Patient had arrangements made for home oxygen with home BiPAP through company. Patient was cleared for discharge by three Pulmonary doctors including her outpatient pulmonary doctor, Dr. Diaz. The patient understood that her condition was significantly poor and that her prognosis was extremely poor. The patient was saturating 90% on BiPAP ; however, when going from her bed to the bedside commode, her O2 saturations dropped to the 60s. After a lengthy discussion about palliative care, the patient opted to go home, stated she did not want to go to rehab, stated that she wanted a BiPAP arrangement set up at home and if she returned to the hospital on the second admission in a few weeks, she would consider palliative care, but for now she would like to go home. All risks and benefits of this decision were discussed at length with the patient by myself as well as two of the pulmonary physicians. The patient states she would prefer to go home and consider palliative care if she gets hospitalized one more time. At this point in time, we will discharge the patient once cleared by Pulmonary and once we have confirmation that her home BiPAP machine has been set up, which will be available to her as needed. She will need to follow up with her primary care doctor to continuation of home health care as well as her pulmonary team for continuation of her BiPAP. Case and plan discussed with the patient at length. She understands and agrees with this plan. DISPOSITION: Home. Follow up with PCP and Pulmonary in about 4-5 days. MEDICATIONS: See MAR. CONDITION: Poor. PROGNOSIS: Poor. DIET: Regular. ACTIVITY: As tolerated with assistance. Once again, case and plan discussed with the patient at length. She understands and agrees with this plan. MEGHANA
--- NOTE | 2017-08-04 15:25 | PDOC.PN ---
- Subjective Encounter Start Date: 08/04/17 Encounter Start Time: 15:20 Patient seen and examined, no new issues or complaints. - Objective Vital Signs & Weight: Vital Signs (12 hours) Temp Pulse Resp BP BP Pulse Ox 08/04/17 14:14 94 18 93 L 08/04/17 12:09 97.4 F L 82 20 120/69 94 L 08/04/17 10:43 83 20 93 L 08/04/17 08:52 94 130/72 08/04/17 08:00 97.4 F L 94 20 91 L 08/04/17 07:50 97.4 F L 94 20 130/72 91 L 08/04/17 07:27 103 H 22 H 93 L 08/04/17 07:25 93 L 08/04/17 07:23 103 H 22 H 93 L 08/04/17 06:30 103 H 22 H 93 L Weight Admit Weight 93 lb Weight 88 lb 11.2 oz Most Recent Monitor Data Heart Rate from ECG 116 NIBP 119/69 NIBP BP-Mean 86 Respiration from ECG 20 SpO2 90 I&O: 08/03/17 08/04/17 08/05/17 06:59 06:59 06:59 Intake Total 820 1410 Output Total 200 650 Balance 620 760 Result Diagrams: 07/31/17 03:46 07/31/17 03:46 Phys Exam - Physical Examination Constitutional: NAD fraile appearing HEENT: PERRLA, moist MMs, sclera anicteric Neck: no nodes, no JVD, supple Respiratory: no wheezing, no rales, no rhonchi, clear to auscultation bilateral Cardiovascular: RRR, no significant murmur, no rub Gastrointestinal: soft, non-tender, no distention Musculoskeletal: no edema, pulses present Neurological: non-focal, normal sensation Psychiatric: normal affect, A&O x 3 Skin: no rash, normal turgor Dx/Plan (1) End stage COPD Code(s): J44.9 - CHRONIC OBSTRUCTIVE PULMONARY DISEASE, UNSPECIFIED Status: Acute (2) Hypertension Code(s): I10 - ESSENTIAL (PRIMARY) HYPERTENSION Status: Acute Qualifiers: Hypertension type: essential hypertension Qualified Code(s): I10 - Essential (primary) hypertension (3) CAP (community acquired pneumonia) Code(s): J18.9 - PNEUMONIA, UNSPECIFIED ORGANISM Status: Acute Qualifiers: Laterality: unspecified laterality Qualified Code(s): J18.9 - Pneumonia, unspecified organism (4) GERD (gastroesophageal reflux disease) Code(s): K21.9 - GASTRO-ESOPHAGEAL REFLUX DISEASE WITHOUT ESOPHAGITIS Status: Chronic Qualifiers: Esophagitis presence: without esophagitis Qualified Code(s): K21.9 - Gastro -esophageal reflux disease without esophagitis - Plan * Patient will need HHC with home PT, patient can't see out patient PCP to approve her HHC for PT, she needs an out patient physician to approve her HHC with PT * continue current plan of care * DC plans once out patient physician approves home health care for patient as she requires her out patient physician to sign off on this * no other changes in plan of care. * case and plan d/w patient at length, she understands and agrees with this plan
--- NOTE | 2017-08-04 16:11 | PRG ---
DATE OF SERVICE: 08/04/2017 SUBJECTIVE: Dinora Connors is on bedside commode when I made rounds. I watched her go back to bed. Elmer palma can barely make it back to the bed, walked around the end of the bed to the other side. OBJECTIVE: VITAL SIGNS: She is afebrile, heart rate is 82, respiratory rate is 20, oximetry is 94 on a cannula. GENERAL: She is still sleeping with noninvasive ventilatory support and this has been set up for at home. LUNGS: Clear and distant. HEART: Regular rhythm. ABDOMEN: Soft. ASSESSMENT AND PLAN: The biggest issue at this time facing her is her deconditioning. Apparently, h [facility] has been set up and home physical therapy has been set up. I think the priority n eeds to be home physical therapy. I do not think home health nursing will add much from a management standpoint from my perspective. She is determined to go home and does not want to go to a swing bed . I have relayed my concerns about no physical therapy to the nurse caring for the patient today. Her family doctor is Dr. Reyes who the international marketing intern says will sign home health papers next week when Ms. Franco burger visits her in the office. It is going to be difficult for her to get to the office.
[2017-08-04] MEDS: ALPRAZolam 0.25 MG TAB PO PRN (21:27)
[2017-08-05] MEDS: Mometasone/Formoterol 120 PUFF INHALER INH SCH (07:47)
[2017-08-05] MEDS: Diltiazem HCl CD 300 mg Capsule PO SCH (09:14)
[2017-08-05] MEDS: Isosorbide Mononitrate 20 MG TAB PO SCH (09:14)
[2017-08-05] MEDS: Docusate 100 MG CAP PO SCH (09:14)
[2017-08-05] MEDS: guaiFENesin ER 600 MG TAB PO SCH (09:15)
[2017-08-05] MEDS: Famotidine 20 MG TAB PO SCH (09:15)
[2017-08-05] MEDS: Potassium Chloride 20 MEQ TAB PO SCH (09:15)
[2017-08-05] MEDS: Amlodipine 5 MG TAB PO SCH (09:15)
[2017-08-05] MEDS: Enoxaparin Sodium 30 MG/0.3 ML SYRINGE SC SCH (09:16)
[2017-08-05] MEDS: predniSONE 20 MG TAB PO SCH (09:16)
[2017-08-05] MEDS: Metoprolol Tartrate 25 MG TAB PO SCH (09:16)
--- NOTE | 2017-08-05 14:51 | PDOC.EVN ---
Event Note - Event Note Event Note: see discharge summary
[2017-08-05 15:27] VITALS: BP 109/66; TEMP 98.2
--- NOTE | 2017-08-06 08:15 | PRG ---
DATE OF SERVICE: 08/05/2017 SUBJECTIVE: Ms. Connors together with her family decided that she is not strong enough to go to the use, so she is going to rehab today. No new problems. OBJECTIVE: VITAL SIGNS: She is afebrile, heart rates 89-90, respiratory rates in the 20s, and oximetry is 92 on nasal cannula. LUNGS: Distant and clear. HEART: Regular rhythm. ABDOMEN: Soft. Her p.o. intake still poor. She has not taken in any Ensure. We have had multiple discussions in [facility] office and here about protein intake and maintaining her calories to help maintain her strength. S he did walk a little further today, she says down the tovar. IMPRESSION: 1. Chronic obstructive pulmonary disease exacerbation, improved. 2. Acute on chronic respiratory failure tentatively schedule for not to have noninvasive ventilatory support set up at the house and over rehabilitation. 3. Extreme deconditioning and cachexia. She will need to bump up her calorie intake and she increas e her exercise, I will see her soon once she gets out of rehab in the office. Prednisone will contin ue with 40 mg for a couple more days and she should taper the prednisone to 20 mg a day. We will con tinue the nebulizer medicines every 4 hours while she is awake. Other medicines will continue.
--- NOTE | 2017-08-06 12:19 | ADD-DIS ---
DATE OF ADMISSION: 07/16/2017 DATE OF DISCHARGE: 08/05/2017 Please see the discharge summary performed by Dr. Hay on 08/04/2017.
== END 2017-08-05 19:17 | DRG 189 ==
LOC: ERS 16:38 → 2SW 18:25 → OBSVTOIN 07-17 08:44 → CCU 07-17 09:32 → IMCU/EMU 07-18 23:20 → T4-B 07-26 20:34 → CCU 07-30 08:31 → ONC 07-31 10:03
PROVIDERS: ADMIT Internal Medicine; ATTEND Internal Medicine
PROC: 5A09557 Assistance with Respiratory Ventilation, Greater than 96 Consecutive Hours, Continuous Positive Airway Pressure (ICD-10-PCS; principal; 2017-07-17)
DX: J96.21 Acute and chronic respiratory failure with hypoxia (principal); E87.70 Fluid overload, unspecified; R64 Cachexia; E44.0 Moderate protein-calorie malnutrition; E87.1 Hypo-osmolality and hyponatremia; Z99.81 Dependence on supplemental oxygen; J44.1 Chronic obstructive pulmonary disease with (acute) exacerbation; Z68.1 Body mass index [BMI] 19.9 or less, adult; I25.10 Atherosclerotic heart disease of native coronary artery without angina pectoris; K21.9 Gastro-esophageal reflux disease without esophagitis; J98.01 Acute bronchospasm; E87.6 Hypokalemia; D50.9 Iron deficiency anemia, unspecified; Z51.5 Encounter for palliative care; F41.9 Anxiety disorder, unspecified; Z87.891 Personal history of nicotine dependence; I10 Essential (primary) hypertension
CPT/HCPCS: 36415; 36416; 71045; 80048; 80053; 82553; 82805; 83735; 83880; 84100; 84484; 85007; 85025; 85027; 87040; 93005; 94640; 94660; 94664; 94667; 94668; 96365; 96375; A4216; G8978-GP-CK; G8978-GP-CM; G8979-GP-CI; G8979-GP-CJ; G8996-GN-CI; G8997-GN-CI; J1650; J2920; J2930; J3475; J3480; J7050; J7506; J7611; J7620; J7644

== ENCOUNTER 2017-08-26 09:57 | Outpatient (CLI) | payer MEDICARE ==
--- NOTE | 2017-08-26 11:24 | RAD ---
TWO VIEWS CHEST: History: Dyspnea. Date: 08-26-17 Comparison: 02-24-17 FINDINGS: Two views of the chest demonstrates areas of scarring in the right upper lobe. Hyperaeration and airt rapping is seen. There is ectasia of the aorta. The radiographic appearance of the chest is stable. N o significant interval change is seen. IMPRESSION: 1. Airtrapping and changes of COPD. 2. Right upper lobe area of lung parenchymal scarring. No acute intrathoracic abnormality seen. POS: [facility]
== END 2017-08-26 09:58 | disposition home or self-care (01) ==
LOC: RAD 09:57
PROVIDERS: ATTEND Internal Medicine Critical Care Medicine
DX: R06.00 Dyspnea, unspecified (principal); J44.9 Chronic obstructive pulmonary disease, unspecified; J98.4 Other disorders of lung
CPT/HCPCS: 71046

== ENCOUNTER 2017-11-04 09:57 | Outpatient (CLI) | payer MEDICARE ==
--- NOTE | 2017-11-04 11:31 | RAD ---
PA AND LATEARAL CHEST: 11/04/2017 HISTORY: Dyspnea. COMPARISON: 08/26/2017 FINDINGS: Two views of the chest demonstrate kyphosis of the thoracic spine. Severe osteoporosis is seen. A m ultilevel mid thoracic compression fracture is seen, indeterminate age. No evidence of acute intrath oracic abnormality is seen. No evidence of effusions, pneumonia, or pneumothorax is seen. 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 Findings are stable and unchanged. POS: [facility]
== END 2017-11-04 09:58 | disposition home or self-care (01) ==
LOC: RAD 09:57
PROVIDERS: ATTEND Internal Medicine Critical Care Medicine
DX: R06.00 Dyspnea, unspecified (principal); M40.209 Unspecified kyphosis, site unspecified
CPT/HCPCS: 71046

== ENCOUNTER 2018-11-10 11:24 | Outpatient (CLI) | payer MEDICARE ==
--- NOTE | 2018-11-10 11:51 | SJPRAD ---
C-SPINE AP LATERAL ROUTINE HISTORY: Neck pain COMPARISON: None. FINDINGS: There is limited assessment of the cervical spine on these images. Only the first 4 cervica l vertebral bodies are well demonstrated on the lateral view. The lower cervical vertebral bodies appear to be in normal alignment. There are degenerative facet changes present. No soft tissue swelli ng. The bones are diffusely demineralized. IMPRESSION: Limited examination. Arthritic changes of the spine noted.
--- NOTE | 2018-11-10 11:52 | SJPRAD ---
RIBS >= 2 VIEWS RIGHT HISTORY: Chest pain while breathing. COMPARISON: None. FINDINGS: The bones appear demineralized. No pleural effusion or pneumothorax identified. No definite rib fractures. IMPRESSION: Diffuse bony demineralization. No fractures.
== END 2018-11-10 11:25 | disposition home or self-care (01) ==
LOC: MWLC RAD 11:24
PROVIDERS: ATTEND Family Medicine
DX: M54.2 Cervicalgia (principal); R07.1 Chest pain on breathing; M81.0 Age-related osteoporosis without current pathological fracture; M47.812 Spondylosis without myelopathy or radiculopathy, cervical region

== ENCOUNTER 2019-02-14 14:47 | Inpatient (IN) | payer MEDICARE ==
[2019-02-14 15:05] LABS: #Lymphocytes 0.4 thou/uL (1.20-3.40); #Monocytes 0.2 thou/uL (0.11-0.59); #Neutrophils 11.7 thou/uL (1.40-6.50); %Eosinophils 0.1 % (0.0-10.0); %Monocytes 1.7 % (0.0-10.0); %Neutrophils 95.2 % (42.0-75.0); Hemoglobin 12.6 g/dL (12.0-16.0); Mean Corpuscular HGB CONC 33.2 g/dL (32.0-36.0); Mean Corpuscular Volume 93.5 fL (78.0-98.0); Platelet Count 289 thou/uL (130-400); RBC Distribution Width 12.2 % (11.5-14.5); Red Blood Cell (RBC) Count 4.06 mill/uL (4.20-5.40); White Blood Cell (WBC) Count 12.3 thou/uL (4.8-10.8)
[2019-02-14 15:22] LABS: Bilirubin Negative (Negative); Blood, Urine Trace (Negative); Clarity Clear (Clear); Glucose, Urine (Dipstick) Normal (Negative); Leukocyte 75 Leu/uL (Negative); Nitrite Negative (Negative); Protein, Urine (Dipstick) 30 mg/dL (Neg-Trace); Squamous Epithelial 0-3 HPF (0-3); Urobilinogen 3 mg/dL (Less than 2)
[2019-02-14 15:30] LABS: ALT (SGPT) 33 U/L (8-55); AST (SGOT) 26 U/L (5-34); Albumin 4.3 g/dL (3.4-4.8); Alkaline Phosphatase 128 U/L (40-110); BUN (Urea Nitrogen) 22 mg/dL (9.8-20.1); Bilirubin, Total 0.3 mg/dL (0.2-1.2); CK (CPK) 106 U/L (29-168); Calc. Creatinine Clearance 0 mL/min (70-130); Estimated GFR-MDRD Greater than 90; Globulin 2.6 g/dL (2.4-3.5); Glucose 139 mg/dL (83-110); Magnesium 1.7 mg/dL (1.6-2.6); Protein, Total 6.9 g/dL (6.0-8.3)
--- NOTE | 2019-02-14 15:30 | CT ---
Exam: CT brain PROVIDED CLINICAL HISTORY: Head injury COMPARISON: None FINDINGS: The ventricular system is normal in size and morphology. No evidence for intracranial hemorrhage or mass effect. The extracranial soft tissues and osseous structures demonstrate no evidence for an acute abnormality. Chronic microvascular ischemic changes are seen. Vascular calcifications are noted . IMPRESSION: No evidence for intracranial hemorrhage or mass effect.
[2019-02-14 15:32] LABS: Transitional Epithelial 0-3 HPF (None Seen)
[2019-02-14 15:33] LABS: Bacteria/HPF Rare-Few HPF (None Seen)
[2019-02-14 15:41] LABS: Anion Gap 15 mmol/L (10-20); Carbon Dioxide 37 mmol/L (23-31); Chloride 80 mmol/L (98-107); Potassium 4.2 mmol/L (3.5-5.1); Sodium 128 mmol/L (136-145)
--- NOTE | 2019-02-14 15:42 | CT ---
EXAM: CT Facial Bones WO Con PROVIDED CLINICAL HISTORY: Trauma COMPARISON: None FINDINGS: No evidence for fracture. Globes and other orbital contents demonstrate no traumatic abnormality. The paranasal sinuses are free of significant opacity. IMPRESSION: No evidence for fracture.
--- NOTE | 2019-02-14 15:43 | RAD ---
EXAM: Portable chest PROVIDED CLINICAL HISTORY: Dyspnea COMPARISON: 07/17/2017 FINDINGS: Cardiac and mediastinal silhouette is within normal limits. No focal consolidation, pleural fluid or pneumothorax evident. Extensive emphysematous changes are redemonstrated. Atherosclerotic vascular calcification is again seen. Bibasilar subsegmental atelectatic change. IMPRESSION: No evidence for an acute cardiopulmonary process.
--- NOTE | 2019-02-14 15:45 | CT ---
EXAM: CT cervical spine PROVIDED CLINICAL HISTORY: Trauma. Weakness. Injury after a fall on Thursday. TECHNIQUE: Contiguous axial CT images are obtained through the cervical spine from the skull base to the T1-2 le harsh. Sagittal and coronal reformatted images are provided. COMPARISON: None FINDINGS: There is mild anterolisthesis of C5 on C6 measuring 3 mm. There is fusion of the posterior elements a t this level. No additional level of subluxation is seen. There is also fusion of the posterior elements at the C3-4 level. The vertebral body heights are within normal limits. No fracture is ident ified. Scattered facet degenerative changes are seen. There are also degenerative changes seen at the articulation of the odontoid with the anterior arch of C1. No prevertebral soft tissue swelling apparent. Emphysematous changes are seen in the visualized lung apices with symmetric partially calcified biapi christ pleural and parenchymal scarring. Visualized thyroid gland demonstrates a grossly normal nonenhanced CT appearance. Vascular calcifications are seen in the carotid arteries. IMPRESSION: 1. No acute fracture of the cervical spine. 2. Mild anterolisthesis of C5 on C6, there is fusion of the posterior elements at this level. Degener ative changes are seen in the cervical spine. 3. COPD with calcified pleural and parenchymal scarring at each lung apex.
[2019-02-14] MEDS ORDERED: methylPREDNISolone Sod Succ/PF 125 MG/2 ML VIAL ONE (16:41)
[2019-02-14] MEDS ORDERED: Albuterol Sulfate 2.5 mg/0.5 ml Neb ONE (16:52)
[2019-02-14] MEDS ORDERED: traMADol HCl 50 MG TAB ONE (16:55)
[2019-02-14] MEDS ORDERED: Morphine 4 MG/ML VIAL ONE (16:58)
[2019-02-14] MEDS ORDERED: Ondansetron PF 4 MG/2 ML Vial ONE ×2 (16:58→17:00)
[2019-02-14 17:00] LABS: Actual Bicarbonate (HCO3a) 39.3 mEq/L (22-28); Analyzer IN Cardio ER; Base Excess (BEa) 10.4 mEq/L (-2.0 to +3.0); Calcium, Ionized 1.14 mmol/L (1.12-1.30); Carboxyhemoglobin (COHb) 0.8 gm% (0.0-3.0); Hemoglobin (Hb) 11.9 g/dL (12.0-16.0); Potassium - ABG Lab 3.93 mmol/L (3.70-5.30); pH, Arterial 7.32 (7.35-7.45)
[2019-02-14 17:31] LABS: CO2 Tension 78.6 mmHg (35.0-45.0); Puncture Site RRA
[2019-02-14 21:17] LABS: Troponin I 0.035 ng/mL (< 0.028)
[2019-02-14] MEDS ORDERED: Ondansetron PF 4 MG/2 ML Vial IVP PRN (22:47)
[2019-02-14] MEDS ORDERED: Bacteriostatic Water 30 ML VIAL FS PRN (22:57)
[2019-02-14] MEDS ORDERED: Azithromycin 500 MG VIAL ONE (23:08)
[2019-02-14] MEDS: Azithromycin 500 MG in Sodium Chloride 0.9% 250 ML 250 ML IVPB SCH (23:16)
--- NOTE | 2019-02-14 23:29 | HP ---
PRIMARY CARE PROVIDER: Sajan Reyes MD CHIEF COMPLAINT: Shortness of breath. HISTORY OF PRESENT ILLNESS: Ms. Connors is a pleasant 78-year-old lady, who was seen at [facility] on February 14, 2019. She is currently on BiPAP, unable to provide any significant history. The patient's daughter was by the bedside and gave history. Ms. Connors is followed by pulmonology, Dr. Benson. She lives alone at home. She reportedly had a fall two days ago, which was Thursday. She sustained bruises to both legs and right eye. The patient did not wish to come to the emergency room that day because it was a weakened. The patient's daughter saw her today and brought her to the emergency room. According to the daughter, the patient has been lethargic. She usually uses 3 L of oxygen at home. REVIEW OF SYSTEMS: Could not be completed, the patient is not answering questions. PAST MEDICAL HISTORY: Chronic hypoxemic respiratory failure, coronary artery disease, gastroesophageal reflux disease, asthma. PAST SURGICAL HISTORY: Status post appendectomy, status post hysterectomy. FAMILY HISTORY: Congestive heart failure in mother, coronary artery disease in father. SOCIAL HISTORY: No history of current tobacco use, alcohol use, or recreational drug use. ALLERGIES: NO KNOWN DRUG ALLERGIES. CURRENT MEDICATIONS: 1. Alprazolam 0.25 mg 2 times a day. 2. DuoNebs every 4 hours as needed. 3. Breo Ellipta one puff daily. 4. Isosorbide mononitrate 10 mg 2 times a day. 5. Diltiazem 300 mg daily. 6. Aspirin 81 mg daily. 7. Ventolin HFA p.r.n. 8. Align one tablet daily. 9. Mucinex p.r.n. 10. Acyclovir 200 mg 2 times a day. 11. Prednisone 20 mg daily. 12. Triamterene/hydrochlorothiazide 37.5 mg/twenty 5 mg daily. PHYSICAL EXAMINATION: GENERAL: On examination, Ms. Connors is awake and alert, on BiPAP. VITAL SIGNS: Blood pressure is 108/62, pulse 88, respiratory rate 29, and oxygen saturation 98% on BiPAP. She is afebrile. EYES: No scleral icterus, she has a right periorbital hematoma. ENT: Moist mucosal membranes. No oropharyngeal erythema or exudates. NECK: Supple, nontender, trachea midline. RESPIRATORY: Accessory muscles of breathing are active. Chest wall movements are symmetric bilaterally. She has diminished breath sounds at both bases. CARDIOVASCULAR: S1 and S2 are heard, regular. Peripheral pulses palpable. NEUROLOGIC: Full neurologic examination could not be performed. There is no facial droop. She is moving all 4 extremities. Deep tendon reflexes are 2+. MUSCULOSKELETAL: The patient is able to move all 4 extremities. SKIN: She has a hematoma around the right eye. She also has scrapes over both lower extremities. LYMPHATIC: No cervical lymphadenopathy. PSYCHIATRIC: The patient appears to have normal mood and normal affect, could not assess orientation to person, place, or time. LABORATORY DATA: Ms. Connors's labs and investigations were reviewed. I reviewed her electrocardiogram, which shows normal sinus rhythm, no ST changes to suggest an acute coronary syndrome. I also reviewed her chest x-ray, which does not show any pulmonary infiltrates. Noncontrast CT scan of the brain did not show any intracranial hemorrhage or mass effect. CT scan of the cervical spine did not show any acute fracture of the cervical spine. She has mild anterolisthesis of C5 on C6, there is fusion of the posterior elements at this level. Degenerative changes were seen in the cervical spine. She also had CT scan of the facial bones, which did not show any evidence for fracture. She has leukocytosis with 12,300 white cells, of which 95% are neutrophils. Hemoglobin and platelet count are normal. Arterial blood gases show pH of 7.32, pCO2 78.6, and PO2 78 on FiO2 of 36. She has decreased sodium of 128, normal potassium, elevated blood urea nitrogen of 22, normal creatinine, elevated alkaline phosphatase of 128, otherwise unremarkable LFTs, indeterminate troponin-I of 0.035 and mildly elevated BNP of 329. Urinalysis is positive for leukocyte esterase, negative for nitrite. She has 0 to 3 squamous epithelial cells. ASSESSMENT AND PLAN: Ms. Connors is a pleasant 78-year-old lady, who was seen at [facility] on February 14, 2019. Her problem list includes: 1. Acute on chronic hypoxic and hypercapnic respiratory failure: Ms. Connors is presenting with acute on chronic hypoxic and hypercapnic respiratory failure, most likely secondary to chronic obstructive pulmonary disease exacerbation. She is currently being treated with BiPAP and will be admitted to the [facility]. 2. Chronic obstructive pulmonary disease exacerbation: We will treat her with oxygen, steroids, bronchodilators, and antibiotics in the form of ceftriaxone and azithromycin. 3. Urinary tract infection: Urinalysis is faintly suggestive of urinary tract infection. The patient is being started on antibiotics to treat chronic obstructive pulmonary disease. We will follow urine cultures. 4. Coronary artery disease: Appears to be stable. Troponin I is in the indeterminate range, we will recheck troponin. The patient will be monitored. 5. Gastroesophageal reflux disease: Appears to be stable. 6. Congestive heart failure: Suspected, the patient's BNP is mildly elevated. However, there are no clinical findings to suggest congestive heart failure. We will follow clinically. Many thanks for allowing me to participate in your patient's care. Please feel free to contact me with any questions or concerns. LEVEL OF RISK: High. LEVEL OF COMPLEXITY: High. Job ID: [id number]
[2019-02-15] MEDS ORDERED: cefTRIAXone\\ROCEPHIN 1 GM VIAL ONE (00:16)
[2019-02-15] MEDS: cefTRIAXone\\ROCEPHIN 1 GM in Sodium Chloride 0.9% 100 ML IVPB SCH ×2 (00:25→23:37)
[2019-02-15] MEDS: methylPREDNISolone Sod Succ 40 MG VIAL IVP SCH ×5 (00:33→23:35)
[2019-02-15 00:47] LABS: Troponin I 0.046 ng/mL (< 0.028)
[2019-02-15] MEDS ORDERED: Ketorolac Tromethamine 30 MG/ML VIAL ONE (01:05)
[2019-02-15] MEDS: Ketorolac Tromethamine 30 MG/ML VIAL IVP PRN (01:12)
--- NOTE | 2019-02-15 01:58 | CON ---
DATE OF CONSULTATION: 02/14/2019 HISTORY OF PRESENT ILLNESS: Ms. Connors is a pleasant female, well known to me, seen in the office recently. She presented to the emergency room with shortness of breath. She apparently fell over the weekend. Her family tried to get her to come to the emergency room, but she would not come. She is now noninvasively ventilated. She is a do not resuscitate patient per my discussion with family. PAST MEDICAL HISTORY: Remarkable for: 1. Severe end-stage chronic obstructive pulmonary disease and deconditioning. 2. Steroid dependence. 3. Muscle wasting after a long hospitalization in 2018, She required several days noninvasive ventilation that admission. 4. History of chronic respiratory failure with hypoxemia. 5. History of heavy smoking, abstinent. 6. Resting sinus tachycardia with her COPD. 7. Pulmonary hypertension secondary to chronic obstructive pulmonary disease. 8. History of pneumonia in 2017. 9. Peripheral vascular disease. 10. History of iron deficiency anemia. 11. History of chronic hyponatremia in the past, resolved with fluid restriction. 12. History of reflux disease. 13. History of seasonal allergies. 14. History of hypertension. 15. History of anxiety. FAMILY HISTORY: Negative for lung disease in early age. SOCIAL HISTORY: She has heavy smoker in the past, abstinent now. She does not drink. ALLERGIES: SHE HAS NO DRUG ALLERGIES. FAMILY HISTORY: Negative for lung disease in early age. She is a twin. Her nickname is fatty because she was larger of the 2 twins. She hates being called [place]. REVIEW OF SYSTEMS: A 10 point review of systems completed, otherwise negative, noninvasively ventilated. She is somnolent because of morphine given in the ER. PHYSICAL EXAMINATION: GENERAL: She presented to the emergency room with shortness of breath. VITAL SIGNS: Blood pressures in the 130s. Heart rate was 100. She is in sinus rhythm. HEAD: Remarkable for ecchymoses around the right eye. NECK: No cervical lymphadenopathy. LUNGS: Clear. Her actual tidal volumes are 280 mL. HEART: Regular rhythm. S1 and S2 are normal. ABDOMEN: Soft and nontender. EXTREMITIES: Without clubbing, cyanosis, or edema. LABORATORY DATA: White count 12.2, hemoglobin 12.6, platelets 289. Sodium 128, potassium 4.2, chloride 80, bicarb 37, BUN 22, creatinine 0.6. PH 7.32, CO2 78 , PO2 of 78. IMPRESSION: 1. Acute on chronic respiratory failure with hypoxemia and hypercarbia. 2. End-stage chronic obstructive pulmonary disease. Family does not want her intubated. I would agree with this decision. I will be happy to follow along with the other physicians caring for her. CRITICAL CARE TIME: 30 minutes. Job ID: [id number] MTDD
[2019-02-15 03:26] LABS: #Lymphocytes 0.1 thou/uL (1.20-3.40); #Neutrophils 3.5 thou/uL (1.40-6.50); %Eosinophils 0.1 % (0.0-10.0); %Lymphocytes 2.9 % (21.0-51.0); %Monocytes 0.7 % (0.0-10.0); %Neutrophils 95.4 % (42.0-75.0); Hemoglobin 10.9 g/dL (12.0-16.0); Mean Corpuscular HGB CONC 33.2 g/dL (32.0-36.0); Mean Corpuscular Hemoglobin 31.1 pg (27.0-31.0); Mean Corpuscular Volume 93.6 fL (78.0-98.0); Platelet Count 237 thou/uL (130-400); RBC Distribution Width 12.1 % (11.5-14.5); Red Blood Cell (RBC) Count 3.51 mill/uL (4.20-5.40); White Blood Cell (WBC) Count 3.6 thou/uL (4.8-10.8)
[2019-02-15 03:52] LABS: Anion Gap 14 mmol/L (10-20); BUN (Urea Nitrogen) 23 mg/dL (9.8-20.1); Calc. Creatinine Clearance 0 mL/min (70-130); Calcium 9.2 mg/dL (7.8-10.44); Carbon Dioxide 33 mmol/L (23-31); Chloride 89 mmol/L (98-107); Estimated GFR-MDRD Greater than 90; Glucose 109 mg/dL (83-110); Potassium 4.8 mmol/L (3.5-5.1); Sodium 131 mmol/L (136-145)
[2019-02-15] MEDS ORDERED: methylPREDNISolone Sod Succ 40 MG VIAL ONE ×2 (05:16→12:02)
[2019-02-15] MEDS ORDERED: Cepastat Lozenges 1 LOZ PO PRN (08:04)
[2019-02-15] MEDS ORDERED: Loratadine 10 MG TAB PO PRN (08:04)
[2019-02-15] MEDS ORDERED: Calcium Carbonate 500 MG ChewTAB PO PRN (08:04)
[2019-02-15] MEDS ORDERED: Diabetic Tussin 200 MG/10 ML UDCUP PO PRN (08:04)
[2019-02-15] MEDS ORDERED: Loperamide HCl 2 MG CAP PO PRN (08:04)
[2019-02-15] MEDS ORDERED: hydrALAZINE 20 MG/ML VIAL SLOW IVP PRN (08:04)
[2019-02-15] MEDS ORDERED: Sodium Chloride 0.65% Nasal 44 ML BOT EA NARE PRN (08:04)
[2019-02-15] MEDS ORDERED: Ondansetron ODT 4 MG TAB PO PRN (08:04)
[2019-02-15] MEDS ORDERED: Artificial Tears 18 DROP/0.9 ML EA EYE PRN (08:04)
[2019-02-15] MEDS: guaiFENesin ER 600 MG TAB PO SCH ×2 (09:00→20:35)
[2019-02-15] MEDS: Saccharomyces boulardii 250 MG CAP PO SCH (09:00)
--- NOTE | 2019-02-15 12:22 | PDOC.HOSPP ---
- Subjective Encounter Date: 02/15/19 Encounter Time: 11:00 Subjective: pt is off bipap since this morning, pt is feeling better today, less dyspnea, no fever - Objective Vital Signs & Weight: Vital Signs (12 hours) Pulse Resp Pulse Ox 02/15/19 06:11 102 H 20 97 02/15/19 01:15 104 H 17 96 Result Diagrams: 02/15/19 03:14 02/15/19 03:14 Radiology Reviewed by me: Yes EKG Reviewed by me: Yes (nsr) Hospitalist ROS - Review of Systems Constitutional: reports: weakness, malaise. denies: fever, chills, sweats, other Respiratory: reports: cough, shortness of breath, SOB with excertion. denies: dry, hemoptysis, pleuritic pain, sputum, wheezing, other Cardiovascular: denies: chest pain, palpitations, orthopnea, paroxysmal noc. dyspnea, edema, light headedness, other Gastrointestinal: denies: nausea, vomiting, abdominal pain, diarrhea, constipation, melena, hematochezia, other Genitourinary: denies: dysuria, frequency, incontinence, hematuria, retention, other Musculoskeletal: denies: neck pain, shoulder pain, arm pain, back pain, hand pain, leg pain, foot pain, other Skin: denies: rash, lesions, rick, bruising, other - Medication Medications: Active Medications Generic Name Dose Route Start Last Admin Trade Name Freq PRN Reason Stop Dose Admin Albuterol/Ipratropium 3 ml 02/15/19 01:00 02/15/19 06:14 Duoneb NEB Not Given [id number] NASREEN Albuterol/Ipratropium 3 ml 02/14/19 22:49 02/15/19 06:11 Duoneb NEB 3 ml Q4H PRN Administration SOB &/or Wheezing Guaifenesin 600 mg 02/15/19 09:00 02/15/19 09:00 Mucinex PO 600 mg Q12HR NASREEN Administration Azithromycin 500 mg/ Sodium 250 mls @ 250 mls/hr 02/14/19 23:00 02/14/19 23: 16 Chloride IVPB 250 mls 2300 NASREEN Administration Ceftriaxone Sodium 1 gm/ 100 mls @ 200 mls/hr 02/14/19 23:59 02/15/19 00:25 Sodium Chloride IVPB 100 mls 2359 NASREEN Administration Ketorolac Tromethamine 15 mg 02/14/19 23:01 02/15/19 01:12 Toradol IVP 02/19/19 23:02 15 mg Q6H PRN Administration Pain Methylprednisolone Sodium Succinate 40 mg 02/14/19 23:59 02/15/19 12:01 Solu-Medrol IVP 40 mg Q6HR NASREEN Administration Saccharomyces Boulardii 250 mg 02/15/19 09:00 02/15/19 09:00 Florastor PO 250 mg DAILY NASREEN Administration Sodium Chloride 10 ml 02/15/19 09:00 02/15/19 09:00 Flush - Normal Saline IVF 10 ml Q12HR NASREEN Administration - Exam General Appearance: NAD, ill appearing Eye: PERRL, anicteric sclera ENT: normocephalic atraumatic, no oropharyngeal lesions Neck: supple, symmetric, no JVD Heart: RRR, no murmur, no gallops, no rubs Respiratory: no wheezes, no ronchi Respiratory - other findings: reduced air entry both side Gastrointestinal: soft, non-tender, non-distended, normal bowel sounds Extremities: no cyanosis, no clubbing, no edema Skin: normal turgor, no lesions Neurological: cranial nerve grossly intact, no focal deficits Musculoskeletal: normal tone, normal strength Psychiatric: normal affect, normal behavior Hosp A/P (1) COPD exacerbation Code(s): J44.1 - CHRONIC OBSTRUCTIVE PULMONARY DISEASE W (ACUTE) EXACERBATION Status: Acute (2) Acute and chronic respiratory failure Code(s): J96.20 - ACUTE AND CHR RESP FAILURE, UNSP W HYPOXIA OR HYPERCAPNIA Status: Acute Qualifiers: Respiratory failure complication: hypoxia and hypercapnia Qualified Code(s) : J96.21 - Acute and chronic respiratory failure with hypoxia; J96.22 - Acute and chronic respiratory failure with hypercapnia (3) Demand ischemia of myocardium Code(s): I24.8 - OTHER FORMS OF ACUTE ISCHEMIC HEART DISEASE Status: Acute (4) Hyponatremia Code(s): E87.1 - HYPO-OSMOLALITY AND HYPONATREMIA Status: Acute (5) End stage COPD Code(s): J44.9 - CHRONIC OBSTRUCTIVE PULMONARY DISEASE, UNSPECIFIED Status: Chronic (6) Hypertension Code(s): I10 - ESSENTIAL (PRIMARY) HYPERTENSION Status: Chronic Qualifiers: Hypertension type: essential hypertension Qualified Code(s): I10 - Essential (primary) hypertension (7) GERD (gastroesophageal reflux disease) Code(s): K21.9 - GASTRO-ESOPHAGEAL REFLUX DISEASE WITHOUT ESOPHAGITIS Status: Chronic Qualifiers: Esophagitis presence: without esophagitis Qualified Code(s): K21.9 - Gastro -esophageal reflux disease without esophagitis (8) Anemia, normocytic normochromic Code(s): D64.9 - ANEMIA, UNSPECIFIED Status: Chronic - Plan old records reviewed/req, plan discussed w/ family, continue antibiotics, PT/OT , 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
--- NOTE | 2019-02-15 15:29 | PRG ---
DATE OF SERVICE: 02/15/2019 SUBJECTIVE: Ms. Connors is much better today. She is off BiPAP. OBJECTIVE: VITAL SIGNS: Heart rate is 114, which is near baseline, 102 earlier. She is afebrile, respiratory rate is 18. She is on 3 L cannula. LUNGS: Distant clear. HEART: Regular rhythm. ABDOMEN: Soft. EXTREMITIES: Without asymmetry. LABORATORY DATA: White count 3.6, hemoglobin 10.9, platelets 237. Sodium 131, potassium 4.8, chloride 89, bicarb 33, BUN 23, creatinine 0.62. IMPRESSION: Acute on chronic respiratory failure with hypoxemia and hypercarbia, clinically improved. Hopefully, we can get her up and ambulatory starting tomorrow and may be we can consider discharge on Thursday and decrease her dose of her steroids today. Job ID: [id number]
[2019-02-15] MEDS: Mometasone/Formoterol 120 PUFF INHALER INH SCH (18:03)
[2019-02-15] MEDS: Azithromycin 500 MG in Sodium Chloride 0.9% 250 ML 250 ML IVPB SCH (23:37)
[2019-02-16] MEDS: methylPREDNISolone Sod Succ 40 MG VIAL IVP SCH ×4 (05:29→23:28)
[2019-02-16 05:30] LABS: #Lymphocytes 0.2 thou/uL (1.20-3.40); #Monocytes 0.2 thou/uL (0.11-0.59); #Neutrophils 5.9 thou/uL (1.40-6.50); %Eosinophils 0.1 % (0.0-10.0); %Lymphocytes 2.9 % (21.0-51.0); %Monocytes 3.8 % (0.0-10.0); %Neutrophils 93.2 % (42.0-75.0); Hemoglobin 11.7 g/dL (12.0-16.0); Mean Corpuscular HGB CONC 32.7 g/dL (32.0-36.0); Mean Corpuscular Hemoglobin 30.8 pg (27.0-31.0); Mean Corpuscular Volume 94.2 fL (78.0-98.0); Mean Platelet Volume 6.9 fL (7.4-10.4); Platelet Count 270 thou/uL (130-400); RBC Distribution Width 12.2 % (11.5-14.5); Red Blood Cell (RBC) Count 3.81 mill/uL (4.20-5.40); White Blood Cell (WBC) Count 6.3 thou/uL (4.8-10.8)
[2019-02-16 05:51] LABS: BUN (Urea Nitrogen) 25 mg/dL (9.8-20.1); Calc. Creatinine Clearance 54 mL/min (70-130); Calcium 9.3 mg/dL (7.8-10.44); Estimated GFR-MDRD Greater than 90; Glucose 120 mg/dL (83-110)
[2019-02-16 05:59] LABS: Anion Gap 14 mmol/L (10-20); Carbon Dioxide 36 mmol/L (23-31); Chloride 89 mmol/L (98-107); Potassium 4.2 mmol/L (3.5-5.1); Sodium 135 mmol/L (136-145)
[2019-02-16] MEDS: Mometasone/Formoterol 120 PUFF INHALER INH SCH ×2 (07:21→19:49)
[2019-02-16] MEDS: Saccharomyces boulardii 250 MG CAP PO SCH (10:07)
[2019-02-16] MEDS: guaiFENesin ER 600 MG TAB PO SCH ×2 (10:07→20:52)
--- NOTE | 2019-02-16 19:41 | PDOC.HOSPP ---
- Subjective Encounter Date: 02/16/19 Encounter Time: 15:15 Subjective: Spoke to patient about speech therapy findings - patient high aspiration risk. She is not interested in modifications or additional supplemental nutrition from tubes, etc. When asked about what concerns her, she mentions that money is tight at home. Discussed home services and hospice services, she seemed receptive to learning about various options. Grandson present during our interview. - Objective Vital Signs & Weight: Vital Signs (12 hours) Temp Pulse Resp Pulse Ox 02/16/19 19:20 98.8 F 02/16/19 15:23 99.4 F 02/16/19 12:54 95 02/16/19 12:52 113 H 20 95 02/16/19 11:23 97.4 F L 02/16/19 08:02 92 L 02/16/19 07:46 98.3 F Weight Admit Weight 85 lb 11.2 oz Weight 85 lb 11.2 oz Most Recent Monitor Data Heart Rate from ECG 106 NIBP 152/95 NIBP BP-Mean 114 Respiration from ECG 21 SpO2 96 I&O: 02/15/19 02/16/19 02/17/19 06:59 06:59 06:59 Intake Total 480 530 Output Total 750 700 Balance -270 -170 Result Diagrams: 02/16/19 05:01 02/16/19 05:01 Hospitalist ROS - Medication Medications: Active Medications Generic Name Dose Route Start Last Admin Trade Name Freq PRN Reason Stop Dose Admin Albuterol/Ipratropium 3 ml 02/15/19 01:00 02/16/19 12:52 Duoneb NEB 3 ml [id number] NASREEN Administration Albuterol/Ipratropium 3 ml 02/14/19 22:49 02/15/19 06:11 Duoneb NEB 3 ml Q4H PRN Administration SOB &/or Wheezing Diltiazem HCl 60 mg 02/16/19 17:00 02/16/19 17:07 Cardizem PO 60 mg QID NASREEN Administration Guaifenesin 600 mg 02/15/19 09:00 02/16/19 10:07 Mucinex PO 600 mg Q12HR NASREEN Administration Azithromycin 500 mg/ Sodium 250 mls @ 250 mls/hr 02/14/19 23:00 02/15/19 23: 37 Chloride IVPB 250 mls 2300 NASREEN Administration Ceftriaxone Sodium 1 gm/ 100 mls @ 200 mls/hr 02/14/19 23:59 02/15/19 23:37 Sodium Chloride IVPB 100 mls 2359 NASREEN Administration Ketorolac Tromethamine 15 mg 02/14/19 23:01 02/15/19 01:12 Toradol IVP 02/19/19 23:02 15 mg Q6H PRN Administration Pain Methylprednisolone Sodium Succinate 20 mg 02/15/19 18:00 02/16/19 17:07 Solu-Medrol IVP 20 mg Q6HR NASREEN Administration Mometasone Furoate/Formoterol Fumar 2 puff 02/15/19 18:30 02/16/19 07:21 Dulera 200 Mcg/5 Mcg Inhaler INH 2 puff BID-RT NASREEN Administration Saccharomyces Boulardii 250 mg 02/15/19 09:00 02/16/19 10:07 Florastor PO 250 mg DAILY NASREEN Administration Sodium Chloride 10 ml 02/15/19 09:00 02/16/19 10:08 Flush - Normal Saline IVF 10 ml Q12HR NASREEN Administration - Exam General - other findings: OOB with conversation; exhausted; high flow nasal cannula Eye: anicteric sclera ENT: normocephalic atraumatic, dry oral mucosa Neck: supple Heart: RRR Respiratory - other findings: Distant, poor general air flow, some abdominal breathing Gastrointestinal: soft, non-tender Extremities: no edema Skin: no rashes Neurological: no focal deficits Musculoskeletal: diffuse muscle atrophy Psychiatric: A&O x 3 Hosp A/P (1) Demand ischemia of myocardium Code(s): I24.8 - OTHER FORMS OF ACUTE ISCHEMIC HEART DISEASE Status: Acute (2) Anemia, normocytic normochromic Code(s): D64.9 - ANEMIA, UNSPECIFIED Status: Chronic (3) Acute and chronic respiratory failure Code(s): J96.20 - ACUTE AND CHR RESP FAILURE, UNSP W HYPOXIA OR HYPERCAPNIA Status: Acute Qualifiers: Respiratory failure complication: hypoxia and hypercapnia Qualified Code(s) : J96.21 - Acute and chronic respiratory failure with hypoxia; J96.22 - Acute and chronic respiratory failure with hypercapnia (4) COPD exacerbation Code(s): J44.1 - CHRONIC OBSTRUCTIVE PULMONARY DISEASE W (ACUTE) EXACERBATION Status: Acute (5) Hyponatremia Code(s): E87.1 - HYPO-OSMOLALITY AND HYPONATREMIA Status: Acute (6) End stage COPD Code(s): J44.9 - CHRONIC OBSTRUCTIVE PULMONARY DISEASE, UNSPECIFIED Status: Chronic (7) GERD (gastroesophageal reflux disease) Code(s): K21.9 - GASTRO-ESOPHAGEAL REFLUX DISEASE WITHOUT ESOPHAGITIS Status: Chronic Qualifiers: Esophagitis presence: without esophagitis Qualified Code(s): K21.9 - Gastro -esophageal reflux disease without esophagitis (8) Hypertension Code(s): I10 - ESSENTIAL (PRIMARY) HYPERTENSION Status: Chronic Qualifiers: Hypertension type: essential hypertension Qualified Code(s): I10 - Essential (primary) hypertension - Plan 1. Pulm - hopefully can wean steroids 02/17; continue antibiotic coverage/nebs. High flow oxygen during the day with Bipap qhs. Activity has been quite limited. 2. Dysphagia - directly related to work of breathing; diet with risk 3. Case managment - unsure of current services at home? Consider home health with ability to admit to hospice if/when patient open to that option. She expressed financial stressors and hoped to relieve burden to family members. 4. Anemia - stable 5. Compensatory metabolic alkalosis noted
--- NOTE | 2019-02-16 19:44 | PRG ---
DATE OF SERVICE: 02/16/2019 SUBJECTIVE: Dinora Connors did not sleep with BiPAP last night. She is little more short of breath this morning. OBJECTIVE: GENERAL: She is alert and oriented. VITAL SIGNS: Heart rate is 106, blood pressure 153/95, respiratory rate in 20s. I have recommended that she nap with BiPAP and sleep with noninvasive ventilatory support. LUNGS: Distant clear. HEART: Regular rhythm. ABDOMEN: Soft. EXTREMITIES: Without edema. LABORATORY DATA: White count 6.3, hemoglobin 11.7, platelets 270. Sodium 135, potassium 4.2, chloride 89, bicarb 36, BUN 25, creatinine 0.53. IMPRESSION: [id number] respiratory failure with hypoxemia and hypercarbia secondary to end-stage chronic obstructive pulmonary disease. PLAN: Continue supportive care. Short intubation. Job ID: [id number]
[2019-02-16] MEDS: Morphine 2 MG/ML SYRINGE SLOW IVP PRN (21:48)
[2019-02-16] MEDS: Azithromycin 500 MG in Sodium Chloride 0.9% 250 ML 250 ML IVPB SCH (23:28)
[2019-02-16] MEDS: cefTRIAXone\\ROCEPHIN 1 GM in Sodium Chloride 0.9% 100 ML IVPB SCH (23:28)
[2019-02-17] MEDS: Ketorolac Tromethamine 30 MG/ML VIAL IVP PRN ×2 (02:18→09:05)
[2019-02-17] MEDS: Morphine 2 MG/ML SYRINGE SLOW IVP PRN ×2 (03:52→07:25)
[2019-02-17] MEDS: methylPREDNISolone Sod Succ 40 MG VIAL IVP SCH ×3 (06:07→19:14)
[2019-02-17 06:50] LABS: #Lymphocytes 0.3 thou/uL (1.20-3.40); #Monocytes 0.2 thou/uL (0.11-0.59); #Neutrophils 6.9 thou/uL (1.40-6.50); %Basophils 0.3 % (0.0-1.0); %Lymphocytes 4.3 % (21.0-51.0); %Monocytes 3.2 % (0.0-10.0); %Neutrophils 92.2 % (42.0-75.0); Hemoglobin 11.6 g/dL (12.0-16.0); Mean Corpuscular HGB CONC 32.8 g/dL (32.0-36.0); Mean Corpuscular Volume 94.5 fL (78.0-98.0); Mean Platelet Volume 6.4 fL (7.4-10.4); Platelet Count 260 thou/uL (130-400); RBC Distribution Width 12.1 % (11.5-14.5); Red Blood Cell (RBC) Count 3.75 mill/uL (4.20-5.40); White Blood Cell (WBC) Count 7.5 thou/uL (4.8-10.8)
[2019-02-17 07:10] LABS: BUN (Urea Nitrogen) 25 mg/dL (9.8-20.1); Calc. Creatinine Clearance 55 mL/min (70-130); Calcium 9.4 mg/dL (7.8-10.44); Estimated GFR-MDRD Greater than 90; Glucose 123 mg/dL (83-110)
[2019-02-17 07:19] LABS: Anion Gap 12 mmol/L (10-20); Carbon Dioxide 40 mmol/L (23-31); Chloride 90 mmol/L (98-107); Potassium 3.9 mmol/L (3.5-5.1); Sodium 138 mmol/L (136-145)
[2019-02-17] MEDS: Mometasone/Formoterol 120 PUFF INHALER INH SCH ×2 (07:31→19:26)
[2019-02-17] MEDS ORDERED: Morphine 2 MG/ML SYRINGE SLOW IVP PRN (09:01)
[2019-02-17] MEDS: guaiFENesin ER 600 MG TAB PO SCH ×2 (09:02→20:48)
[2019-02-17] MEDS: Saccharomyces boulardii 250 MG CAP PO SCH (09:02)
--- NOTE | 2019-02-17 10:08 | PRG ---
DATE OF SERVICE: 02/17/2019 SUBJECTIVE: Fatty, looks weaker this morning. OBJECTIVE: VITAL SIGNS: She is afebrile. Heart rate is 113 oximetry is 95% on a high-flow cannula. She wore BiPAP last night. LUNGS: Remarkable for coarse, equal breath sounds. HEART: Regular rhythm. ABDOMEN: Soft. ASSESSMENT AND PLAN: I recommend increasing frequency of her neb treatments. She is complaining of back pain in the bed all night, so I will increase the dose and frequency of her morphine. There is no change in her CBC. Her chem-7 is remarkable for bicarb of 40, which I am sure is secondary to CO2 retention. She is not receiving diuretics. We would give her an alkalosis. I have stopped her azithromycin. She probably would benefit from continuous IV fluids to hopefully help her mobilize secretions. She would probably benefit from having a [place] as well. I met with the daughter and answered all her questions. They are very comfortable with do not resuscitate decision. It is unclear at this point whether or not she will survive this admission. She will definitely need a skilled facility if she reaches a point where she is going to survive. Job ID: [id number]
[2019-02-17] MEDS: Sodium Chloride 0.45% 1,000 ML IV SCH (10:12)
--- NOTE | 2019-02-17 14:46 | PQF ---
CLINICAL DOCUMENTATION IMPROVEMENT CLARIFICATION FORM: ICD-10 Updated PLEASE DO AN ADDENDUM TO THE PROGRESS NOTE WITH ANY DOCUMENTATION UPDATES OR ADDITIONS AND CARRY THROUGH TO DC SUMMARY. THANK YOU. Date: 02/17/2019 ATTN: Dr. Doss Please exercise your independent, professional judgment in responding to the clarification form. Clinical indicators are provided on the bottom of this form for your review Please check appropriate box(s): [ x] Protein Calorie Malnutrition: [ ] Mild [x ] Moderate [ ] Severe [ ] Other Malnutrition (please specify) [ ] Cachexia [ ] Other diagnosis [ ] Unable to determine In addition, please specify: Present on Admission (POA): [ x ] Yes [ ] No [ ] Unable to determine CLINICAL INDICATORS - SIGNS / SYMPTOMS / LABS Promotions Representative Assessment 02/16: % Weight change: -7.8% in the last 19 months BMI 15.6 Findings: Noted: thin appearance with minimal fat stores PN 02/16: PE: Musculoskeletal: diffuse muscle atrophy RISKS: 02/14: H&P: Acute on chronic hypoxic and hypercapnic resp. failure. COPD exac. 02/14 ([place]): PMH: Muscle wasting after a long hospitalization in 2018 PN 02/16: Dysphagia - directly related to work of breathing; diet with risk. 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 Moderate Malnutrition (in chronic illness) Energy Intake: <75% of estimated energy requirement for >1 month Weight Loss: 5%/1 month; 7.5%/3 months; 10%/6 months; 20%/1 year Other: mild body fat loss; mild muscle mass loss; mild fluid accumulation Severe Malnutrition (in chronic illness) Energy Intake: <75% of estimated energy requirement for >1 month Weight Loss: >5%/1 month; >7.5%/3 months; >10%/6 months; >20%/1 year Other: severe body fat loss; severe muscle mass loss; severe fluid accumulation; 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 All Rights Reserved Echo Lopez RN, BSN [email or web address] Office: [phone] [facility]
--- NOTE | 2019-02-17 15:05 | PDOC.HOSPP ---
- Subjective Encounter Date: 02/17/19 Encounter Time: 13:55 Subjective: Patient seen and examined; daughter and two grandchildren present. Back pain a prominent issue overnight, waffle mattress placed, chair requested as patient breaths more comfortably is seated position. Fan in room. Patient recalls speaking with me yesterday; she tires easily during our interview. Ate lunch and an ensure today - Objective Vital Signs & Weight: Vital Signs (12 hours) Temp Pulse Resp Pulse Ox 02/17/19 13:17 108 H 17 100 02/17/19 11:16 98.3 F 02/17/19 10:53 108 H 20 100 02/17/19 07:41 95 02/17/19 07:25 98.8 F 02/17/19 07:10 113 H 02/17/19 07:09 117 H 21 H 94 L 02/17/19 03:55 97.2 F L Weight Admit Weight 85 lb 11.2 oz Weight 85 lb 11.2 oz Most Recent Monitor Data Heart Rate from ECG 109 NIBP 162/94 NIBP BP-Mean 116 Respiration from ECG 16 SpO2 100 I&O: 02/16/19 02/17/19 02/18/19 06:59 06:59 06:59 Intake Total 480 980 Output Total 750 750 Balance -270 230 Result Diagrams: 02/17/19 06:34 02/17/19 06:34 Hospitalist ROS - Medication Medications: Active Medications Generic Name Dose Route Start Last Admin Trade Name Freq PRN Reason Stop Dose Admin Albuterol/Ipratropium 3 ml 02/14/19 22:49 02/15/19 06:11 Duoneb NEB 3 ml Q4H PRN Administration SOB &/or Wheezing Albuterol/Ipratropium 3 ml 02/17/19 10:00 02/17/19 13:17 Duoneb NEB 3 ml [id number] NASREEN Administration Diltiazem HCl 60 mg 02/16/19 17:00 02/17/19 13:40 Cardizem PO 60 mg QID NASREEN Administration Guaifenesin 600 mg 02/15/19 09:00 02/17/19 09:02 Mucinex PO 600 mg Q12HR NASREEN Administration Ceftriaxone Sodium 1 gm/ 100 mls @ 200 mls/hr 02/14/19 23:59 02/16/19 23:28 Sodium Chloride IVPB 100 mls 2359 NASREEN Administration Sodium Chloride 1,000 mls @ 75 mls/hr 02/17/19 10:00 02/17/19 10:12 1/2 Normal Saline IV 1,000 mls .[id number] NASREEN Administration Ketorolac Tromethamine 15 mg 02/14/19 23:01 02/17/19 09:05 Toradol IVP 02/19/19 23:02 15 mg Q6H PRN Administration Pain Methylprednisolone Sodium Succinate 20 mg 02/15/19 18:00 02/17/19 12:38 Solu-Medrol IVP 20 mg Q6HR NASREEN Administration Mometasone Furoate/Formoterol Fumar 2 puff 02/15/19 18:30 02/17/19 07:31 Dulera 200 Mcg/5 Mcg Inhaler INH Not Given BID-RT NASREEN Saccharomyces Boulardii 250 mg 02/15/19 09:00 02/17/19 09:02 Florastor PO 250 mg DAILY NASREEN Administration Sodium Chloride 10 ml 02/15/19 09:00 02/17/19 09:03 Flush - Normal Saline IVF 10 ml Q12HR NASREEN Administration - Exam General - other findings: Chronically ill appearing, but affect bright Eye: anicteric sclera ENT: dry oral mucosa Neck: supple, no JVD Heart - other findings: tachycardic Respiratory - other findings: distant bs;uses abdominal muscles to breath Gastrointestinal: soft, non-tender, non-distended Extremities: no edema Skin: no rashes Skin - other findings: ecchymosis on skin from prior lab draws Neurological: no focal deficits Musculoskeletal - other findings: deconditioned/kyphotic Psychiatric: A&O x 3 Psychiatric - other findings: not anxious Hosp A/P (1) Demand ischemia of myocardium Code(s): I24.8 - OTHER FORMS OF ACUTE ISCHEMIC HEART DISEASE Status: Acute (2) Anemia, normocytic normochromic Code(s): D64.9 - ANEMIA, UNSPECIFIED Status: Chronic (3) Acute and chronic respiratory failure Code(s): J96.20 - ACUTE AND CHR RESP FAILURE, UNSP W HYPOXIA OR HYPERCAPNIA Status: Acute Qualifiers: Respiratory failure complication: hypoxia and hypercapnia Qualified Code(s) : J96.21 - Acute and chronic respiratory failure with hypoxia; J96.22 - Acute and chronic respiratory failure with hypercapnia (4) COPD exacerbation Code(s): J44.1 - CHRONIC OBSTRUCTIVE PULMONARY DISEASE W (ACUTE) EXACERBATION Status: Acute (5) Hyponatremia Code(s): E87.1 - HYPO-OSMOLALITY AND HYPONATREMIA Status: Acute (6) End stage COPD Code(s): J44.9 - CHRONIC OBSTRUCTIVE PULMONARY DISEASE, UNSPECIFIED Status: Chronic (7) GERD (gastroesophageal reflux disease) Code(s): K21.9 - GASTRO-ESOPHAGEAL REFLUX DISEASE WITHOUT ESOPHAGITIS Status: Chronic Qualifiers: Esophagitis presence: without esophagitis Qualified Code(s): K21.9 - Gastro -esophageal reflux disease without esophagitis (8) Hypertension Code(s): I10 - ESSENTIAL (PRIMARY) HYPERTENSION Status: Chronic Qualifiers: Hypertension type: essential hypertension Qualified Code(s): I10 - Essential (primary) hypertension - Plan 1. Pulm - hopefully can wean steroids 02/18; presently on Solumedrol. Antibiotic coverage adjusted per pulm, azithromycin d/c; remains on Rocephin. High flow oxygen during the day with Bipap available qhs. Activity has been quite limited. 2. Dysphagia - directly related to work of breathing; diet with risk 3. Case managment - I explained transition options (SNF/HH/Home hospice) to family. Presently they are interested in her receiving PT, which would be available to w/SNF and HH. Discussed comprehensive care, identified what is important to patient ( "my family, my house.") as they approach decision making. Excellent family support. Agree prognosis is guarded, and at this point, her needs would not be manageable at SNF but result instead with a readmission. 4. Anemia - stable 5. Compensatory metabolic alkalosis noted 6. Back pain - requested different chair, Dr. Benson titrated morphine, nurse has placed a softer mattress. Questions answered.
[2019-02-18] MEDS: methylPREDNISolone Sod Succ 40 MG VIAL IVP SCH ×5 (00:08→23:46)
[2019-02-18] MEDS: cefTRIAXone\\ROCEPHIN 1 GM in Sodium Chloride 0.9% 100 ML IVPB SCH ×2 (00:08→23:45)
[2019-02-18] MEDS: Sodium Chloride 0.45% 1,000 ML IV SCH ×2 (00:09→14:15)
[2019-02-18] MEDS: Mometasone/Formoterol 120 PUFF INHALER INH SCH ×2 (07:22→18:50)
[2019-02-18] MEDS: Saccharomyces boulardii 250 MG CAP PO SCH (09:04)
[2019-02-18] MEDS: guaiFENesin ER 600 MG TAB PO SCH ×2 (09:04→21:08)
--- NOTE | 2019-02-18 11:48 | PRG ---
DATE OF SERVICE: 02/18/2019 SUBJECTIVE: The patient is seen and examined at the bedside and the patient's son is present in the room during my visit. Apparently, she did not have any bowel movement since Thursday. She ate breakfast. Her last night was significantly better than the previous one. Apparently, Dr. Benson increased the dose on her pain medications and frequency of breathing treatments and she was able to rest much better last night. OBJECTIVE: VITAL SIGNS: Blood pressure is 161/91, pulse is 108, respiratory rate is 22, and pulse oximetry is 97% on high-flow nasal cannula 30 L/minute. HEENT: Her sclerae are nonicteric. Pupils pinkish. Oral mucosa is not examined since she wears the mask and getting breathing treatment during my visit. LUNGS: Emphysematous. Breath sounds diminished all over. No wheezing. HEART: S1 and S2. Tachycardic. No S3. No S4. ABDOMEN: Soft, nontender, and nondistended. EXTREMITIES: No clubbing, cyanosis, or edema. LABORATORY DATA: None today. Microbiology, urine culture is growing gram-negative rods, but only less than 10,000 colonies, which is not significant. IMPRESSION: 1. End-stage respiratory failure with hypoxemia and hypercapnia. 2. Normocytic normochromic anemia. 3. Chronic obstructive pulmonary disease exacerbation. 4. Gastroesophageal reflux disease. 5. Hypertension. PLAN: Plan is to continue her IV fluids. Use p.r.n. Dulcolax for constipation. Continue DuoNeb. Continue steroids. Continue high-flow nasal cannula. Continue Rocephin. Job ID: [id number]
[2019-02-18] MEDS ORDERED: Fleet Enema 133 ML BOT FS SCH (15:00)
[2019-02-18] MEDS: Acetaminophen 325 MG TAB PO PRN (16:24)
--- NOTE | 2019-02-18 20:06 | PRG ---
DATE OF SERVICE: 02/18/2019 SUBJECTIVE: Ms. Connors remains stable. She is very weak. She is on and off BiPAP. OBJECTIVE: VITAL SIGNS: She is afebrile. Heart rate is 100, respiratory rates in the 20s, oximetry is in the low 90s. LUNGS: Remarkable for coarse equal breath sounds. HEART: Regular rhythm. ABDOMEN: Soft. She is complaining of being constipated, so I have asked the nursing staff to give her an enema. IMPRESSION: Chronic obstructive pulmonary disease exacerbation with [id number] respiratory failure. I am not sure she is going to survive this hospitalization. To family, I answered all their questions. Job ID: [id number]
[2019-02-18] MEDS: Ketorolac Tromethamine 30 MG/ML VIAL IVP PRN (23:41)
[2019-02-19] MEDS: Sodium Chloride 0.45% 1,000 ML IV SCH ×2 (03:18→14:31)
[2019-02-19] MEDS: methylPREDNISolone Sod Succ 40 MG VIAL IVP SCH ×3 (06:11→19:02)
[2019-02-19] MEDS: Mometasone/Formoterol 120 PUFF INHALER INH SCH ×2 (07:13→19:00)
[2019-02-19] MEDS: Saccharomyces boulardii 250 MG CAP PO SCH (10:59)
[2019-02-19] MEDS: guaiFENesin ER 600 MG TAB PO SCH ×2 (10:59→21:52)
--- NOTE | 2019-02-19 13:42 | EKG ---
Test Reason : Blood Pressure : / mmHG Vent. Rate : 080 BPM Atrial Rate : 080 BPM P-R Int : 148 ms QRS Dur : 084 ms QT Int : 404 ms P-R-T Axes : 069 039 049 degrees QTc Int : 465 ms Normal sinus rhythm Septal infarct , age undetermined Abnormal ECG Confirmed by JASSI LITTLEJOHN ([id number]), senior technical editor GALI HESTER ([id number]) on 02/19/2019 1:41:18 PM Referred By: Confirmed By:JASSI LITTLEJOHN
--- NOTE | 2019-02-19 14:33 | PRG ---
DATE OF SERVICE: 02/19/2019 SUBJECTIVE: The patient is seen and examined at the bedside. She had a Dulcolax yesterday and finally she did not have any bowel movement, so she was given enema, which produced small bowel movement. Her appetite is good. She eats good. She is on high-flow nasal cannula at this point. OBJECTIVE: VITAL SIGNS: Blood pressure is 134/65, pulse is 113, respiratory rate is 23, and O2 saturation is 97. HEENT: Her pupils are responding to light properly. Sclerae are nonicteric. LUNGS: Emphysematous. HEART: S1, S2. Tachycardic. No S3. No S4. ABDOMEN: Soft, nontender. EXTREMITIES: No clubbing, cyanosis. There is 1+ peripheral edema similar bilaterally on lower extremities. LABORATORY DATA: None today. IMPRESSION: 1. End-stage respiratory failure with hypoxemia and hypercapnia, on high-flow nasal cannula. 2. Normocytic normochromic anemia. 3. Chronic obstructive pulmonary disease exacerbation. Gastroesophageal reflux disease. 4. Hypertension. 5. Constipation. PLAN: The situation is very difficult. We do not even know whether this lady will survive this episode of her respiratory failure. We will continue her regimen with IV steroids and inhaled steroids and supportive care and we will start her on Senokot, but this is for routine daily use. Job ID: [id number]
--- NOTE | 2019-02-19 20:27 | PRG ---
DATE OF SERVICE: 02/19/2019 SUBJECTIVE: Ms. Connors is clinically unchanged. She is still very weak. OBJECTIVE: VITAL SIGNS: She is afebrile. Heart rate is in the 120s to 130s, respiratory rate is in the 20s, oximetry is 97, blood pressure 174/83. LUNGS: Remarkable for coarse equal breath sounds. HEART: Regular rhythm. ABDOMEN: Soft. IMPRESSION: Advanced chronic obstructive pulmonary disease with chronic hypoxemic respiratory failure with hypercarbia. Continue supportive care. Job ID: [id number] [facility]
[2019-02-19] MEDS: Acetaminophen 325 MG TAB PO PRN (21:54)
[2019-02-20] MEDS: methylPREDNISolone Sod Succ 40 MG VIAL IVP SCH ×4 (00:28→18:51)
[2019-02-20] MEDS: cefTRIAXone\\ROCEPHIN 1 GM in Sodium Chloride 0.9% 100 ML IVPB SCH (00:28)
[2019-02-20] MEDS: Sodium Chloride 0.45% 1,000 ML IV SCH ×2 (06:34→15:10)
[2019-02-20] MEDS: Mometasone/Formoterol 120 PUFF INHALER INH SCH ×2 (06:54→18:39)
[2019-02-20 08:20] LABS: #Basophils 0.1 thou/uL (0.0-0.2); #Lymphocytes 0.1 thou/uL (1.20-3.40); #Monocytes 0.2 thou/uL (0.11-0.59); #Neutrophils 6.7 thou/uL (1.40-6.50); %Basophils 1.1 % (0.0-1.0); %Eosinophils 0.1 % (0.0-10.0); %Lymphocytes 1.6 % (21.0-51.0); %Monocytes 2.9 % (0.0-10.0); %Neutrophils 94.4 % (42.0-75.0); Hemoglobin 13.5 g/dL (12.0-16.0); Mean Corpuscular HGB CONC 33.6 g/dL (32.0-36.0); Mean Corpuscular Hemoglobin 30.7 pg (27.0-31.0); Mean Corpuscular Volume 91.4 fL (78.0-98.0); Mean Platelet Volume 6.5 fL (7.4-10.4); Platelet Count 274 thou/uL (130-400); RBC Distribution Width 11.9 % (11.5-14.5); Red Blood Cell (RBC) Count 4.39 mill/uL (4.20-5.40); White Blood Cell (WBC) Count 7.1 thou/uL (4.8-10.8)
[2019-02-20] MEDS: Acetaminophen 325 MG TAB PO PRN (08:24)
[2019-02-20] MEDS: guaiFENesin ER 600 MG TAB PO SCH ×2 (08:24→21:45)
[2019-02-20] MEDS: Saccharomyces boulardii 250 MG CAP PO SCH (08:24)
[2019-02-20 08:39] LABS: Anion Gap 13 mmol/L (10-20); BUN (Urea Nitrogen) 22 mg/dL (9.8-20.1); Calc. Creatinine Clearance 56 mL/min (70-130); Calcium 8.9 mg/dL (7.8-10.44); Carbon Dioxide 35 mmol/L (23-31); Chloride 88 mmol/L (98-107); Estimated GFR-MDRD Greater than 90; Glucose 117 mg/dL (83-110); Potassium 3.7 mmol/L (3.5-5.1); Sodium 132 mmol/L (136-145)
[2019-02-20] MEDS ORDERED: Fleet Enema 133 ML BOT FS SCH (09:45)
--- NOTE | 2019-02-20 13:11 | PRG ---
DATE OF SERVICE: 02/20/2019 SUBJECTIVE: The patient is seen and examined at the bedside. There is not much change in her status since yesterday. She is getting ready for enema because she did not have much bowel movement when she feels that she needs to go. Her appetite is quite poor. She is about 25% from each tray. She is on high-flow nasal cannula. The daughter is present in the room during my visit. Both of them are aware of the severity of the patient's problem. OBJECTIVE: VITAL SIGNS: Blood pressure is 145/72, pulse is 112, respiratory rate is about 25, and O2 saturation is 97%. She is on 35 L of oxygen by high-flow nasal cannula. Her temperature is 98.8. HEENT: Her sclerae are nonicteric. LUNGS: Very emphysematous bilaterally. HEART: S1 and S2. Tachycardic. ABDOMEN: Soft, nontender, nondistended. EXTREMITIES: No clubbing, cyanosis, or edema. NEUROLOGICAL: She follows my commands. She moves all 4 extremities. LABORATORY DATA: Normal CBC. Sodium of 132, potassium 3.7, chloride 88, CO2 of 35, BUN of 22, creatinine 0.51, and glucose is 117 with calcium of 8.9. IMPRESSION: 1. End-stage respiratory failure with hypoxemia and hypercapnia on high-flow nasal cannula 35 L/minute. 2. Normocytic normochromic anemia. 3. Chronic obstructive pulmonary disease exacerbation. 4. Gastroesophageal reflux disease. 5. Hypertension. 6. Constipation. 7. Hyponatremia, hypochloremia. PLAN: Plan is to continue her IV and inhaled steroids. Continue her antibiotic. Continue her DuoNeb. Continue recommendations per Dr. Benson. Job ID: [id number]
[2019-02-20] MEDS: Senokot S 8.6-50 MG TAB PO PRN (15:09)
--- NOTE | 2019-02-20 18:46 | PRG ---
DATE OF SERVICE: 02/20/2019 SUBJECTIVE: Ms. Dinora Connors had a reasonably good night. OBJECTIVE: VITAL SIGNS: Blood pressure 130/68, heart rate is 102, respiratory rates in the 20s. LUNGS: Distant, clear. HEART: Regular rhythm. ABDOMEN: Soft. LABORATORY DATA: White count 7.1, hemoglobin 13.5, platelets 274. Sodium 132, potassium 3.7, chloride 88, bicarb 35, BUN 22, creatinine 0.51. IMPRESSION: Chronic obstructive pulmonary disease exacerbation, approaching her baseline. Evaluation for transfer to a skilled facility should be considered early this week. I met with family and answered all their questions. Job ID: [id number]
[2019-02-20] MEDS: Bisacodyl 5 MG TAB PO PRN (21:45)
[2019-02-20] MEDS: Cefuroxime Axetil 250 MG TAB PO SCH (21:46)
[2019-02-21] MEDS: Sodium Chloride 0.45% 1,000 ML IV SCH (01:14)
[2019-02-21] MEDS: Mometasone/Formoterol 120 PUFF INHALER INH SCH ×2 (07:38→18:16)
[2019-02-21 08:32] LABS: #Lymphocytes 0.5 thou/uL (1.20-3.40); #Monocytes 0.7 thou/uL (0.11-0.59); #Neutrophils 8.3 thou/uL (1.40-6.50); %Basophils 0.2 % (0.0-1.0); %Lymphocytes 5.4 % (21.0-51.0); %Monocytes 7.1 % (0.0-10.0); %Neutrophils 87.2 % (42.0-75.0); Hemoglobin 13.2 g/dL (12.0-16.0); Mean Corpuscular HGB CONC 32.5 g/dL (32.0-36.0); Mean Corpuscular Volume 92.5 fL (78.0-98.0); Mean Platelet Volume 6.7 fL (7.4-10.4); Platelet Count 254 thou/uL (130-400); White Blood Cell (WBC) Count 9.5 thou/uL (4.8-10.8)
[2019-02-21] MEDS: Cefuroxime Axetil 250 MG TAB PO SCH ×2 (08:45→20:32)
[2019-02-21] MEDS: Saccharomyces boulardii 250 MG CAP PO SCH (08:45)
[2019-02-21] MEDS: predniSONE 20 MG TAB PO SCH (08:45)
[2019-02-21] MEDS: guaiFENesin ER 600 MG TAB PO SCH ×2 (08:45→20:32)
[2019-02-21] MEDS: Acetaminophen 325 MG TAB PO PRN ×2 (08:53→20:54)
[2019-02-21 09:24] LABS: Anion Gap 13 mmol/L (10-20); BUN (Urea Nitrogen) 20 mg/dL (9.8-20.1); Calc. Creatinine Clearance 61 mL/min (70-130); Calcium 8.6 mg/dL (7.8-10.44); Carbon Dioxide 31 mmol/L (23-31); Chloride 92 mmol/L (98-107); Estimated GFR-MDRD Greater than 90; Glucose 70 mg/dL (83-110); Sodium 132 mmol/L (136-145)
--- NOTE | 2019-02-21 09:56 | PRG ---
DATE OF SERVICE: 02/21/2019 SUBJECTIVE: The patient remains in the intermediate care unit on high-flow oxygen. She seems to be fairly comfortable at this time. OBJECTIVE: VITAL SIGNS: Her temperature is 98.4, pulse 106, blood pressure 140/85. A 24-hour intake 1888, output 350. HEENT: Unremarkable. NECK: No adenopathy or JVD. LUNGS: Poor air movement. CARDIAC: S1, S2. Regular. ABDOMEN: Soft. EXTREMITIES: No edema. LABORATORY DATA: White blood cell count 9.5, hematocrit 40.7, and platelet count 254. Sodium 132, potassium 3.7, chloride 88, CO2 of 35, BUN 22, creatinine 0.5, glucose 171. ASSESSMENT: Chronic obstructive pulmonary disease with exacerbation. PLAN: 1. Try to wean high-flow oxygen as tolerated. 2. Continue antibiotics, nebulization treatments, and steroids. 3. She is severely deconditioned, so she will probably need some type of rehab or jail placement when this is all over. Job ID: [id number]
--- NOTE | 2019-02-21 13:30 | PRG ---
DATE OF SERVICE: 02/21/2019 SUBJECTIVE: The patient is seen and examined at the bedside. She seems to be doing better today. She is switched to nasal cannula from high-flow to 3 L/minute, and she still did not have any bowel movements, although she had two enemas. OBJECTIVE: VITAL SIGNS: Blood pressure is 180/103. Her pulse is 96, respirations 21, O2 saturation is 98% on 2 L by nasal cannula. HEENT: Sclerae are nonicteric. Conjunctivae pinkish. Oral mucosa is somewhat dry. NECK: Supple. LUNGS: Severely emphysematous. HEART: S1, S2 normal. No S3. No S4. ABDOMEN: Soft, nontender. EXTREMITIES: No clubbing, cyanosis, or edema. NEUROLOGICAL EXAMINATION: She follows my commands. She moves her all 4 extremities. She keeps her eyes closed during my whole visit. LABORATORY DATA: Showed normal CBC. Sodium of 132, potassium 4.0, chloride 92, CO2 31, BUN 20, creatinine 0.48. Microbiology, no new findings. IMPRESSION: 1. Acute on chronic respiratory failure with hypoxemia and hypercapnia. The patient is switched to oral antibiotics and oral steroids. 2. Severe deconditioning. 3. Normocytic normochromic anemia. 4. Chronic obstructive pulmonary disease exacerbation. 5. Hypertension. We will make some adjustments to her regimen since she is hypertensive today, more than before. 6. Constipation. The patient is going to be checked for impaction, although we know that she does not eat much, about 25% of all her meals she is able to get in. She tries to drink some supplements. 7. Hyponatremia, hypochloremia, chronic, stable. PLAN: Plan is to continue same management with new change to oral antibiotics and oral prednisone. Continue inhaled steroids. Check the patient for an impaction in the rectum and I will start her on some Megace, maybe this is going to help her appetite. We will continue her supplementation. Job ID: [id number]
[2019-02-22] MEDS: Sodium Chloride 0.45% 1,000 ML IV SCH ×2 (04:06→14:50)
[2019-02-22] MEDS: Mometasone/Formoterol 120 PUFF INHALER INH SCH ×2 (07:35→18:30)
[2019-02-22] MEDS: guaiFENesin ER 600 MG TAB PO SCH ×2 (08:09→20:40)
[2019-02-22] MEDS: Saccharomyces boulardii 250 MG CAP PO SCH (08:09)
[2019-02-22] MEDS: predniSONE 20 MG TAB PO SCH (08:10)
[2019-02-22] MEDS: Cefuroxime Axetil 250 MG TAB PO SCH ×2 (08:10→20:40)
[2019-02-22] MEDS: Megestrol Acetate 800 MG/20 ML UDCUP PO SCH (08:27)
[2019-02-22] MEDS ORDERED: Clopidogrel Bisulfate 75 MG TAB ONE (08:59)
--- NOTE | 2019-02-22 10:15 | PRG ---
DATE OF SERVICE: 02/22/2019 SUBJECTIVE: She continues to require BiPAP at night. She is on nasal cannula during the day. She is still struggling with her breathing. OBJECTIVE: VITAL SIGNS: Her temperature is 97.6, pulse 104, blood pressure 179/98, O2 saturations 93% on 4 L nasal cannula. HEENT: Unremarkable. NECK: No adenopathy or JVD. LUNGS: Poor air movement without rhonchi or wheezing. CARDIAC: S1 and S2. Regular. ABDOMEN: Soft and nontender. EXTREMITIES: Severe muscle wasting. LABORATORY DATA: No labs were done today. ASSESSMENT: 1. Severe chronic obstructive pulmonary disease with exacerbation. 2. Chronic hypoxic respiratory failure. PLAN: 1. Continue BiPAP as needed. 2. Continue antibiotics, steroids. 3. Would continue Palliative Care input as this patient's prospect for recovery is quite poor. Job ID: [id number]
--- NOTE | 2019-02-22 12:00 | PRG ---
DATE OF SERVICE: 02/22/2019 SUBJECTIVE: The patient is seen and examined at the bedside. Her daughter is present in the room during my visit. The patient feels better. Her appetite is still a problem, although she says that it is not about her appetite, it is more about her getting full quickly. She would like to have smaller portions and maybe more often. She had a bowel movement. OBJECTIVE: VITAL SIGNS: Blood pressure is 142/88, pulse is 95. She is on 4 L by nasal cannula. She is afebrile. HEENT: Her pupils are responding to light properly. Sclerae are nonicteric. Conjunctivae are palish. Oral mucosa is somewhat dry. She has nasal cannula in her nostrils. Supply oxygen. LUNGS: Very emphysematous. No rales, wheezing, or crackles. HEART: S1 and S2. Mildly tachycardic, on and off during my evaluation. Heart sounds distant. ABDOMEN: Soft and nontender to palpation and nondistended. EXTREMITIES: No clubbing, cyanosis, or edema. GENERAL: She is chronically changed by her chronic pulmonary disease. She looks tired and emaciated. LABORATORY DATA: None today. IMPRESSION: 1. Acute on chronic respiratory failure with hypoxemia and hypercapnia. 2. Severe deconditioning. 3. Normocytic normochromic anemia. 4. Chronic obstructive pulmonary disease exacerbation. 5. Hypertension. 6. Constipation. 7. Poor oral intake. 8. Hyponatremia, hypochloremia, chronic, stable. PLAN: Continue on antibiotics and prednisone. Continue inhaled steroids. We are going to stop her Megace since her appetite is fair, but she gets full very quickly. She cannot eat more. We will ask her to drink some Ensure between regular meals to increase her calorie intake. Job ID: [id number]
[2019-02-22] MEDS: Acetaminophen 325 MG TAB PO PRN (20:40)
[2019-02-23] MEDS: Mometasone/Formoterol 120 PUFF INHALER INH SCH ×2 (07:39→18:35)
[2019-02-23] MEDS: Saccharomyces boulardii 250 MG CAP PO SCH (08:32)
[2019-02-23] MEDS: predniSONE 20 MG TAB PO SCH (08:32)
[2019-02-23] MEDS: Cefuroxime Axetil 250 MG TAB PO SCH ×2 (08:32→20:06)
[2019-02-23] MEDS: Megestrol Acetate 800 MG/20 ML UDCUP PO SCH (08:32)
[2019-02-23] MEDS: guaiFENesin ER 600 MG TAB PO SCH ×2 (08:32→20:06)
--- NOTE | 2019-02-23 09:41 | PRG ---
DATE OF SERVICE: 02/23/2019 SUBJECTIVE: She is about the same. She is continuing to use BiPAP at night. She is on 4 L nasal cannula at the time I am examining her today. OBJECTIVE: VITAL SIGNS: Temperature is 98.6, pulse 94, and blood pressure 143/81. HEENT: Unremarkable. NECK: No adenopathy or JVD. LUNGS: Diminished breath sounds throughout. CARDIAC: S1 and S2, regular. ABDOMEN: Soft. EXTREMITIES: No edema. ASSESSMENT: Severe chronic obstructive pulmonary disease. PLAN: She says she is not yet at her baseline. Of note, she is on trilogy ventilator at home. We are essentially replicating that with the BiPAP. I would say she can go home as soon as she feels up to it, but I do not see any need to change her current medications. Job ID: [id number]
--- NOTE | 2019-02-23 11:57 | PRG ---
DATE OF SERVICE: 02/23/2019 SUBJECTIVE: The patient is seen and examined at the bedside. She is basically feeling the same. She is still short of breath. She still gets full with eating quickly. She is on nasal cannula. OBJECTIVE: VITAL SIGNS: Blood pressure is 102/50, pulse is 87, temperature is 97.8, respirations 20, and O2 saturation is 94% on 4 L by nasal cannula. HEENT: Her pupils are responding to light properly. Sclerae are nonicteric. Conjunctivae are pinkish. Oral mucosa is moist. NECK: Supple. LUNGS: Very emphysematous. No wheezing. HEART: S1 and S2 normal. No S3. No S4. ABDOMEN: Soft, nontender, nondistended. EXTREMITIES: No clubbing, cyanosis, or edema. NEUROLOGIC: She follows my commands. She moves her all 4 extremities. LABORATORY DATA: None today. IMPRESSION: 1. Acute on chronic respiratory failure with hypoxemia and hypercapnia. 2. Severe deconditioning. 3. Normocytic normochromic anemia. 4. Chronic obstructive pulmonary disease exacerbation. 5. Hypertension. 6. Constipation. 7. Poor oral intake. 8. Hyponatremia, hypochloremia, chronic, stable. PLAN: Plan is to continue the same regimen with antibiotic and inhaled and p.o. steroids. Continue PT and try to increase her oral intake by using supplements. Job ID: [id number]
[2019-02-23] MEDS: Sodium Chloride 0.45% 1,000 ML IV SCH ×2 (14:27)
[2019-02-23] MEDS: Acetaminophen 325 MG TAB PO PRN (20:06)
[2019-02-24] MEDS: Sodium Chloride 0.45% 1,000 ML IV SCH (02:41)
[2019-02-24] MEDS: Acetaminophen 325 MG TAB PO PRN ×2 (02:49→09:01)
[2019-02-24] MEDS: Mometasone/Formoterol 120 PUFF INHALER INH SCH ×2 (07:54→19:43)
[2019-02-24] MEDS: Saccharomyces boulardii 250 MG CAP PO SCH (08:06)
[2019-02-24] MEDS: Cefuroxime Axetil 250 MG TAB PO SCH ×2 (08:06→20:46)
[2019-02-24] MEDS: guaiFENesin ER 600 MG TAB PO SCH ×2 (08:06→20:46)
[2019-02-24] MEDS: predniSONE 20 MG TAB PO SCH (08:06)
[2019-02-24] MEDS: Ascorbic Acid 500 mg Chewable Tablet PO SCH (08:06)
[2019-02-24] MEDS: Megestrol Acetate 800 MG/20 ML UDCUP PO SCH (08:09)
--- NOTE | 2019-02-24 10:27 | PRG ---
DATE OF SERVICE: 02/24/2019 SUBJECTIVE: The patient is a little better than she has been. She is not doing much with physical therapy and she is continuing to need the BiPAP at night. OBJECTIVE: VITAL SIGNS: Her temperature is 97.6, pulse 96, blood pressure 177/105, O2 saturation 97% on nasal cannula. HEENT: Unremarkable. NECK: No adenopathy or JVD. LUNGS: Diminished, but clear breath sounds. CARDIAC: S1 and S2. Regular. ABDOMEN: Soft. EXTREMITIES: No edema. LABORATORY DATA: No labs were done today. ASSESSMENT: 1. Chronic obstructive pulmonary disease with exacerbation. 2. Chronic hypoxic and hypercapnic respiratory failure. PLAN: Continue nocturnal BiPAP. I have encouraged physical therapy. She could probably move to the floor as long as she is still able to get her BiPAP at night. Job ID: [id number]
--- NOTE | 2019-02-24 13:41 | PDOC.HOSPP ---
- Subjective Encounter Date: 02/24/19 Encounter Time: 11:30 Subjective: pt is very weak, has very poor oral intake, has no BM, pt gets anxious after duoneb and asking for xanax - Objective Vital Signs & Weight: Vital Signs (12 hours) Temp Pulse Pulse Pulse Resp BP BP 02/24/19 11:48 97.8 F 02/24/19 10:49 74 22 H 02/24/19 09:26 74 93 110/57 L 139/71 02/24/19 07:54 02/24/19 07:51 95 21 H 02/24/19 07:31 97.6 F 02/24/19 03:50 97.0 F L 02/24/19 02:32 81 02/24/19 02:20 95 19 Pulse Ox Pulse Ox Pulse Ox Pulse Ox 02/24/19 11:48 02/24/19 10:49 02/24/19 09:26 84 L 93 L 89 L 02/24/19 07:54 99 02/24/19 07:51 99 02/24/19 07:31 02/24/19 03:50 02/24/19 02:32 02/24/19 02:20 96 Weight Admit Weight 85 lb 11.2 oz Weight 85 lb Most Recent Monitor Data Heart Rate from ECG 104 NIBP 177/105 NIBP BP-Mean 129 Respiration from ECG 22 SpO2 91 I&O: 02/23/19 02/24/19 02/25/19 06:59 06:59 06:59 Intake Total 2060 1100 Output Total 900 1150 Balance 1160 -50 Result Diagrams: 02/21/19 08:20 02/21/19 08:20 EKG Reviewed by me: Yes (nsr) Hospitalist ROS - Review of Systems Constitutional: reports: weakness, malaise. denies: fever, chills, sweats, other Eyes: denies: pain, vision change, conjunctivae inflammation, eyelid inflammation, redness, other ENT: denies: ear pain, ear discharge, nose pain, nose discharge, nose congestion , mouth pain, mouth swelling, throat pain, throat swelling, other Respiratory: reports: cough, shortness of breath, SOB with excertion. denies: dry, hemoptysis, pleuritic pain, sputum, wheezing, other Cardiovascular: denies: chest pain, palpitations, orthopnea, paroxysmal noc. dyspnea, edema, light headedness, other Gastrointestinal: reports: constipation. denies: nausea, vomiting, abdominal pain, diarrhea, melena, hematochezia, other Genitourinary: denies: dysuria, frequency, incontinence, hematuria, retention, other Musculoskeletal: denies: neck pain, shoulder pain, arm pain, back pain, hand pain, leg pain, foot pain, other Skin: denies: rash, lesions, rick, bruising, other - Medication Medications: Active Medications Generic Name Dose Route Start Last Admin Trade Name Freq PRN Reason Stop Dose Admin Acetaminophen 650 mg 02/14/19 22:47 02/24/19 09:01 Tylenol PO 650 mg Q4H PRN Administration Headache/Fever/Mild Pain (1-3) Albuterol/Ipratropium 3 ml 02/14/19 22:49 02/15/19 06:11 Duoneb NEB 3 ml Q4H PRN Administration SOB &/or Wheezing Albuterol/Ipratropium 3 ml 02/20/19 18:30 02/24/19 10:49 Duoneb NEB 3 ml [id number] NASREEN Administration Ascorbic Acid 1,000 mg 02/24/19 09:00 02/24/19 08:06 Vitamin C PO 1,000 mg DAILY NASREEN Administration Bisacodyl 10 mg 02/14/19 22:47 02/20/19 21:45 Dulcolax PO 10 mg DAILYPRN PRN Administration Constipation Cefuroxime Axetil 250 mg 02/20/19 21:00 02/24/19 08:06 Ceftin PO 250 mg Q12HR NASREEN Administration Diltiazem HCl 60 mg 02/16/19 17:00 02/24/19 08:06 Cardizem PO 60 mg QID NASREEN Administration Guaifenesin 600 mg 02/15/19 09:00 02/24/19 08:06 Mucinex PO 600 mg Q12HR NASREEN Administration Megestrol Acetate 800 mg 02/22/19 09:00 02/24/19 08:09 Megace PO 800 mg DAILY NASREEN Administration Mometasone Furoate/Formoterol Fumar 2 puff 02/15/19 18:30 02/24/19 07:54 Dulera 200 Mcg/5 Mcg Inhaler INH 2 puff BID-RT NASREEN Administration Prednisone 40 mg 02/21/19 08:00 02/24/19 08:06 Prednisone PO 40 mg QAM-WM NASREEN Administration Saccharomyces Boulardii 250 mg 02/15/19 09:00 02/24/19 08:06 Florastor PO 250 mg DAILY NASREEN Administration Senna/Docusate Sodium 2 tab 02/15/19 08:04 02/20/19 15:09 Senokot S PO 2 tab BID PRN Administration Constipation Sodium Chloride 10 ml 02/15/19 09:00 02/24/19 08:07 Flush - Normal Saline IVF 10 ml Q12HR NASREEN Administration Sodium Chloride 10 ml 02/15/19 08:09 02/18/19 23:46 Flush - Normal Saline IVF 10 ml PRN PRN Administration Saline Flush - Exam General Appearance: NAD, awake alert, ill appearing Eye: PERRL, anicteric sclera ENT: normocephalic atraumatic, no oropharyngeal lesions Neck: supple, symmetric, no JVD, no thyromegaly Heart: RRR, no murmur, no gallops, no rubs Respiratory: CTAB, no wheezes, no rales, no ronchi Respiratory - other findings: reduced air entry both side Gastrointestinal: soft, non-tender, non-distended, normal bowel sounds, no palpable masses, no hepatomegaly, no guarding, no rigidity Extremities: no clubbing Extremities - other findings: peripheral cyanosis + Skin: normal turgor, no lesions Neurological: no focal deficits Musculoskeletal: generalized weakness, diffuse muscle atrophy Psychiatric: normal affect, normal behavior Hosp A/P (1) COPD exacerbation Code(s): J44.1 - CHRONIC OBSTRUCTIVE PULMONARY DISEASE W (ACUTE) EXACERBATION Status: Acute (2) Acute and chronic respiratory failure Code(s): J96.20 - ACUTE AND CHR RESP FAILURE, UNSP W HYPOXIA OR HYPERCAPNIA Status: Acute Qualifiers: Respiratory failure complication: hypoxia and hypercapnia Qualified Code(s) : J96.21 - Acute and chronic respiratory failure with hypoxia; J96.22 - Acute and chronic respiratory failure with hypercapnia (3) Demand ischemia of myocardium Code(s): I24.8 - OTHER FORMS OF ACUTE ISCHEMIC HEART DISEASE Status: Acute (4) Hyponatremia Code(s): E87.1 - HYPO-OSMOLALITY AND HYPONATREMIA Status: Acute (5) End stage COPD Code(s): J44.9 - CHRONIC OBSTRUCTIVE PULMONARY DISEASE, UNSPECIFIED Status: Chronic (6) Hypertension Code(s): I10 - ESSENTIAL (PRIMARY) HYPERTENSION Status: Chronic Qualifiers: Hypertension type: essential hypertension Qualified Code(s): I10 - Essential (primary) hypertension (7) GERD (gastroesophageal reflux disease) Code(s): K21.9 - GASTRO-ESOPHAGEAL REFLUX DISEASE WITHOUT ESOPHAGITIS Status: Chronic Qualifiers: Esophagitis presence: without esophagitis Qualified Code(s): K21.9 - Gastro -esophageal reflux disease without esophagitis (8) Anemia, normocytic normochromic Code(s): D64.9 - ANEMIA, UNSPECIFIED Status: Chronic (9) Protein-calorie malnutrition, severe Code(s): E43 - UNSPECIFIED SEVERE PROTEIN-CALORIE MALNUTRITION Status: Chronic - Plan old records reviewed/req, plan discussed w/ family, continue antibiotics, 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 02/24/19- continue current management plan, prognosis is guarded, will need snu vs rehab, currently on copd treatment, add miralax for constipation, nutritional supplement, encourage po intake, discussed with family, xanax will defer to pulmonary
[2019-02-24] MEDS: ALPRAZolam 0.5 MG TAB PO PRN (20:47)
--- NOTE | 2019-02-25 08:33 | PRG ---
DATE OF SERVICE: 02/25/2019 SUBJECTIVE: Ms. Connros is about the same. She is continuing to use noninvasive ventilation at night, but this is her usual habit at home. OBJECTIVE: VITAL SIGNS: Temperature 97.4, pulse 80, blood pressure 125/73, O2 saturation 100%. HEENT: Unremarkable. LUNGS: Poor. Air movement and some accessory neck muscle use. CARDIAC: S1 and S2 regular. ABDOMEN: Soft. EXTREMITIES: Severe muscle wasting. LABORATORY DATA: No labs were done today. ASSESSMENT: 1. Severe end-stage chronic obstructive pulmonary disease. 2. Protein-calorie malnutrition. 3. Severely debilitated state. 4. Chronic hypoxic and hypercapnic respiratory failure. PLAN: She is continuing steroids, nebulization therapy, and ventilator. Her main issue right now is her debilitation. I am not sure that is going to improve much. Unfortunately, her need for IMCU is strictly based on immediate access to nursing. Therefore, I do not think she would do well on the floor at this time. We will continue to follow. Job ID: [id number]
[2019-02-25] MEDS: Mometasone/Formoterol 120 PUFF INHALER INH SCH ×2 (08:38→18:38)
[2019-02-25] MEDS: Saccharomyces boulardii 250 MG CAP PO SCH (09:58)
[2019-02-25] MEDS: predniSONE 20 MG TAB PO SCH (09:58)
[2019-02-25] MEDS: Ascorbic Acid 500 mg Chewable Tablet PO SCH (09:58)
[2019-02-25] MEDS: Cefuroxime Axetil 250 MG TAB PO SCH ×2 (09:59→20:49)
[2019-02-25] MEDS: guaiFENesin ER 600 MG TAB PO SCH ×2 (09:59→20:50)
[2019-02-25] MEDS: Polyethylene Glycol 3350 17 GM Packet PO SCH (09:59)
[2019-02-25] MEDS: Megestrol Acetate 800 MG/20 ML UDCUP PO SCH (09:59)
--- NOTE | 2019-02-25 11:59 | PDOC.HOSPP ---
- Subjective Encounter Date: 02/25/19 Encounter Time: 10:30 Subjective: Patient seen and examined. No new complaints. No overnight events, very weak, has cough - Objective Vital Signs & Weight: Vital Signs (12 hours) Temp Pulse Resp Pulse Ox 02/25/19 11:13 97.6 F 96 21 H 99 02/25/19 08:39 95 02/25/19 08:37 97 25 H 92 L 02/25/19 08:00 95 02/25/19 07:34 97.6 F 02/25/19 03:36 97.4 F L 02/25/19 03:07 96 Weight Admit Weight 85 lb 11.2 oz Weight 85 lb Most Recent Monitor Data Heart Rate from ECG 79 NIBP 107/76 NIBP BP-Mean 86 Respiration from ECG 24 SpO2 100 I&O: 02/24/19 02/25/19 02/26/19 06:59 06:59 06:59 Intake Total 1100 1150 Output Total 1150 1050 Balance -50 100 Result Diagrams: 02/21/19 08:20 02/21/19 08:20 EKG Reviewed by me: Yes Hospitalist ROS - Review of Systems Constitutional: reports: weakness, malaise. denies: fever, chills, sweats, other Respiratory: reports: cough, shortness of breath, SOB with excertion, sputum. denies: dry, hemoptysis, pleuritic pain, wheezing, other Cardiovascular: denies: chest pain, palpitations, orthopnea, paroxysmal noc. dyspnea, edema, light headedness, other Gastrointestinal: denies: nausea, vomiting, abdominal pain, diarrhea, constipation, melena, hematochezia, other Genitourinary: denies: dysuria, frequency, incontinence, hematuria, retention, other Musculoskeletal: denies: neck pain, shoulder pain, arm pain, back pain, hand pain, leg pain, foot pain, other Skin: denies: rash, lesions, rick, bruising, other - Medication Medications: Active Medications Generic Name Dose Route Start Last Admin Trade Name Freq PRN Reason Stop Dose Admin Acetaminophen 650 mg 02/14/19 22:47 02/24/19 09:01 Tylenol PO 650 mg Q4H PRN Administration Headache/Fever/Mild Pain (1-3) Albuterol/Ipratropium 3 ml 02/14/19 22:49 02/15/19 06:11 Duoneb NEB 3 ml Q4H PRN Administration SOB &/or Wheezing Albuterol/Ipratropium 3 ml 02/20/19 18:30 02/25/19 11:13 Duoneb NEB 3 ml [id number] NASREEN Administration Alprazolam 0.5 mg 02/23/19 13:35 02/24/19 20:47 Xanax PO 0.5 mg QIDPRN PRN Administration Anxiety Ascorbic Acid 1,000 mg 02/24/19 09:00 02/25/19 09:58 Vitamin C PO 1,000 mg DAILY NASREEN Administration Bisacodyl 10 mg 02/14/19 22:47 02/20/19 21:45 Dulcolax PO 10 mg DAILYPRN PRN Administration Constipation Cefuroxime Axetil 250 mg 02/20/19 21:00 02/25/19 09:59 Ceftin PO 250 mg Q12HR NASREEN Administration Diltiazem HCl 60 mg 02/16/19 17:00 02/25/19 09:58 Cardizem PO 60 mg QID NASREEN Administration Guaifenesin 600 mg 02/15/19 09:00 02/25/19 09:59 Mucinex PO 600 mg Q12HR NASREEN Administration Megestrol Acetate 800 mg 02/22/19 09:00 02/25/19 09:59 Megace PO 800 mg DAILY NASREEN Administration Mometasone Furoate/Formoterol Fumar 2 puff 02/15/19 18:30 02/25/19 08:38 Dulera 200 Mcg/5 Mcg Inhaler INH 2 puff BID-RT NASREEN Administration Polyethylene Glycol 17 gm 02/25/19 09:00 02/25/19 09:59 Miralax PO 17 gm DAILY NASREEN Administration Prednisone 40 mg 02/21/19 08:00 02/25/19 09:58 Prednisone PO 40 mg QAM-WM NASREEN Administration Saccharomyces Boulardii 250 mg 02/15/19 09:00 02/25/19 09:58 Florastor PO 250 mg DAILY NASREEN Administration Senna/Docusate Sodium 2 tab 02/15/19 08:04 02/20/19 15:09 Senokot S PO 2 tab BID PRN Administration Constipation Sodium Chloride 10 ml 02/15/19 09:00 02/25/19 09:59 Flush - Normal Saline IVF 10 ml Q12HR NASREEN Administration Sodium Chloride 10 ml 02/15/19 08:09 02/18/19 23:46 Flush - Normal Saline IVF 10 ml PRN PRN Administration Saline Flush - Exam General Appearance: NAD, awake alert, ill appearing Eye: PERRL, anicteric sclera ENT: normocephalic atraumatic, no oropharyngeal lesions Neck: supple, symmetric, no JVD, no thyromegaly Heart: RRR, no murmur, no gallops, no rubs Respiratory: no wheezes, no rales, no ronchi Respiratory - other findings: air entry reduced bilateral Gastrointestinal: soft, non-tender, non-distended, normal bowel sounds Extremities: no cyanosis, no clubbing, no edema Skin: normal turgor, no lesions Neurological: cranial nerve grossly intact, no focal deficits Musculoskeletal: normal tone, normal strength Psychiatric: normal affect, normal behavior Hosp A/P (1) COPD exacerbation Code(s): J44.1 - CHRONIC OBSTRUCTIVE PULMONARY DISEASE W (ACUTE) EXACERBATION Status: Acute (2) Acute and chronic respiratory failure Code(s): J96.20 - ACUTE AND CHR RESP FAILURE, UNSP W HYPOXIA OR HYPERCAPNIA Status: Acute Qualifiers: Respiratory failure complication: hypoxia and hypercapnia Qualified Code(s) : J96.21 - Acute and chronic respiratory failure with hypoxia; J96.22 - Acute and chronic respiratory failure with hypercapnia (3) Demand ischemia of myocardium Code(s): I24.8 - OTHER FORMS OF ACUTE ISCHEMIC HEART DISEASE Status: Acute (4) Hyponatremia Code(s): E87.1 - HYPO-OSMOLALITY AND HYPONATREMIA Status: Acute (5) End stage COPD Code(s): J44.9 - CHRONIC OBSTRUCTIVE PULMONARY DISEASE, UNSPECIFIED Status: Chronic (6) Hypertension Code(s): I10 - ESSENTIAL (PRIMARY) HYPERTENSION Status: Chronic Qualifiers: Hypertension type: essential hypertension Qualified Code(s): I10 - Essential (primary) hypertension (7) GERD (gastroesophageal reflux disease) Code(s): K21.9 - GASTRO-ESOPHAGEAL REFLUX DISEASE WITHOUT ESOPHAGITIS Status: Chronic Qualifiers: Esophagitis presence: without esophagitis Qualified Code(s): K21.9 - Gastro -esophageal reflux disease without esophagitis (8) Anemia, normocytic normochromic Code(s): D64.9 - ANEMIA, UNSPECIFIED Status: Chronic (9) Protein-calorie malnutrition, severe Code(s): E43 - UNSPECIFIED SEVERE PROTEIN-CALORIE MALNUTRITION Status: Chronic - Plan old records reviewed/req, continue antibiotics, 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 02/24/19- continue current management plan, prognosis is guarded, will need snu vs rehab, currently on copd treatment, add miralax for constipation, nutritional supplement, encourage po intake, discussed with family, xanax will defer to pulmonary 02/25/19- continue to monitor in IMCU due to her level of care, medication reviewed as above, symptomatic treatment, currently on optimum medical therapy for COPD, pulmonary following, will need placement
[2019-02-25] MEDS: ALPRAZolam 0.5 MG TAB PO PRN (20:49)
[2019-02-25] MEDS: Senokot S 8.6-50 MG TAB PO PRN (20:50)
[2019-02-25] MEDS: Acetaminophen 325 MG TAB PO PRN (21:36)
[2019-02-26] MEDS: Mometasone/Formoterol 120 PUFF INHALER INH SCH ×2 (07:17→18:44)
[2019-02-26] MEDS: guaiFENesin ER 600 MG TAB PO SCH ×2 (09:22→21:04)
[2019-02-26] MEDS: Ascorbic Acid 500 mg Chewable Tablet PO SCH (09:22)
[2019-02-26] MEDS: Polyethylene Glycol 3350 17 GM Packet PO SCH (09:22)
[2019-02-26] MEDS: Saccharomyces boulardii 250 MG CAP PO SCH (09:22)
[2019-02-26] MEDS: Megestrol Acetate 800 MG/20 ML UDCUP PO SCH (09:22)
[2019-02-26] MEDS: predniSONE 20 MG TAB PO SCH (09:23)
[2019-02-26] MEDS: Cefuroxime Axetil 250 MG TAB PO SCH ×2 (09:23→21:04)
--- NOTE | 2019-02-26 14:21 | PDOC.HOSPP ---
- Subjective Subjective: Seen and examined. On low-flow nasal cannula this a.m. Gets short of breath when she is off the BiPAP. Eating breakfast and had her morning medicines she states that she is feeling bloated. No other complaints at this time. - Objective Vital Signs & Weight: Vital Signs (12 hours) Temp Pulse Resp Pulse Ox 02/26/19 14:12 103 H 23 H 99 02/26/19 10:34 98.2 F 117 H 28 H 92 L 02/26/19 08:00 94 L 02/26/19 07:18 99 02/26/19 07:15 93 22 H 99 02/26/19 07:11 98.2 F 02/26/19 04:00 98.2 F 02/26/19 02:26 94 25 H 100 Weight Admit Weight 85 lb 11.2 oz Weight 85 lb Most Recent Monitor Data Heart Rate from ECG 117 NIBP 144/87 NIBP BP-Mean 106 Respiration from ECG 36 SpO2 96 I&O: 02/25/19 02/26/19 02/27/19 06:59 06:59 06:59 Intake Total 1150 1200 Output Total 1050 850 Balance 100 350 Result Diagrams: 02/21/19 08:20 02/21/19 08:20 Hospitalist ROS - Review of Systems All other systems reviewed; all pertinent +/- noted in HPI/Subj - Medication Medications: Active Medications Generic Name Dose Route Start Last Admin Trade Name Freq PRN Reason Stop Dose Admin Acetaminophen 650 mg 02/14/19 22:47 02/25/19 21:36 Tylenol PO 650 mg Q4H PRN Administration Headache/Fever/Mild Pain (1-3) Albuterol/Ipratropium 3 ml 02/14/19 22:49 02/15/19 06:11 Duoneb NEB 3 ml Q4H PRN Administration SOB &/or Wheezing Albuterol/Ipratropium 3 ml 02/20/19 18:30 02/26/19 14:12 Duoneb NEB 3 ml [id number] NASREEN Administration Alprazolam 0.5 mg 02/23/19 13:35 02/25/19 20:49 Xanax PO 0.5 mg QIDPRN PRN Administration Anxiety Ascorbic Acid 1,000 mg 02/24/19 09:00 02/26/19 09:22 Vitamin C PO 1,000 mg DAILY NASREEN Administration Bisacodyl 10 mg 02/14/19 22:47 02/20/19 21:45 Dulcolax PO 10 mg DAILYPRN PRN Administration Constipation Cefuroxime Axetil 250 mg 02/20/19 21:00 02/26/19 09:23 Ceftin PO 250 mg Q12HR NASREEN Administration Diltiazem HCl 60 mg 02/16/19 17:00 02/26/19 09:22 Cardizem PO 60 mg QID NASREEN Administration Guaifenesin 600 mg 02/15/19 09:00 02/26/19 09:22 Mucinex PO 600 mg Q12HR NASREEN Administration Megestrol Acetate 800 mg 02/22/19 09:00 02/26/19 09:22 Megace PO 800 mg DAILY NASREEN Administration Mometasone Furoate/Formoterol Fumar 2 puff 02/15/19 18:30 02/26/19 07:17 Dulera 200 Mcg/5 Mcg Inhaler INH 2 puff BID-RT NASREEN Administration Polyethylene Glycol 17 gm 02/25/19 09:00 02/26/19 09:22 Miralax PO 17 gm DAILY NASREEN Administration Saccharomyces Boulardii 250 mg 02/15/19 09:00 02/26/19 09:22 Florastor PO 250 mg DAILY NASREEN Administration Senna/Docusate Sodium 2 tab 02/15/19 08:04 02/25/19 20:50 Senokot S PO 2 tab BID PRN Administration Constipation Sodium Chloride 10 ml 02/15/19 09:00 02/26/19 09:23 Flush - Normal Saline IVF 10 ml Q12HR NASREEN Administration Sodium Chloride 10 ml 02/15/19 08:09 02/18/19 23:46 Flush - Normal Saline IVF 10 ml PRN PRN Administration Saline Flush - Exam General Appearance: awake alert Eye: PERRL ENT: normocephalic atraumatic, moist mucosa Neck: supple, no lymphadenopathy Heart: no murmur, no gallops, no rubs Respiratory: no rales, no ronchi, normal chest expansion, wheezes Gastrointestinal: soft, non-tender, non-distended, no guarding, no rigidity Extremities: no edema Skin: no lesions, no rashes Hosp A/P (1) Demand ischemia of myocardium Code(s): I24.8 - OTHER FORMS OF ACUTE ISCHEMIC HEART DISEASE Status: Acute (2) Anemia, normocytic normochromic Code(s): D64.9 - ANEMIA, UNSPECIFIED Status: Chronic (3) Protein-calorie malnutrition, severe Code(s): E43 - UNSPECIFIED SEVERE PROTEIN-CALORIE MALNUTRITION Status: Chronic (4) Acute and chronic respiratory failure Code(s): J96.20 - ACUTE AND CHR RESP FAILURE, UNSP W HYPOXIA OR HYPERCAPNIA Status: Acute Qualifiers: Respiratory failure complication: hypoxia and hypercapnia Qualified Code(s) : J96.21 - Acute and chronic respiratory failure with hypoxia; J96.22 - Acute and chronic respiratory failure with hypercapnia (5) CAP (community acquired pneumonia) Code(s): J18.9 - PNEUMONIA, UNSPECIFIED ORGANISM Status: Acute Qualifiers: Laterality: unspecified laterality Qualified Code(s): J18.9 - Pneumonia, unspecified organism (6) COPD exacerbation Code(s): J44.1 - CHRONIC OBSTRUCTIVE PULMONARY DISEASE W (ACUTE) EXACERBATION Status: Acute (7) Hyponatremia Code(s): E87.1 - HYPO-OSMOLALITY AND HYPONATREMIA Status: Acute (8) End stage COPD Code(s): J44.9 - CHRONIC OBSTRUCTIVE PULMONARY DISEASE, UNSPECIFIED Status: Chronic (9) GERD (gastroesophageal reflux disease) Code(s): K21.9 - GASTRO-ESOPHAGEAL REFLUX DISEASE WITHOUT ESOPHAGITIS Status: Chronic Qualifiers: Esophagitis presence: without esophagitis Qualified Code(s): K21.9 - Gastro -esophageal reflux disease without esophagitis (10) Hypertension Code(s): I10 - ESSENTIAL (PRIMARY) HYPERTENSION Status: Chronic Qualifiers: Hypertension type: essential hypertension Qualified Code(s): I10 - Essential (primary) hypertension (11) Hypokalemia Code(s): E87.6 - HYPOKALEMIA Status: Resolved - Plan Plan: Intermediate medical care floor pulmonology consultation, recommendations appreciated COPD, end-stage with acute exacerbation antibiotics pulm specific steroids stopped per pulmonology Small volume neubulizer breathing treatments BiPAP therapy as needed for shortness of breath continue other home medications as able patient is a do not resuscitate, we will honor her wishes Symptomatic therapy for nausea and vomiting replace electrolytes as needed
--- NOTE | 2019-02-26 14:27 | PRG ---
DATE OF SERVICE: 02/26/2019 SERVICE: Pulmonary Medicine. INTERVAL HISTORY: The patient is doing fine from respiratory standpoint. She is on and off BiPAP. She is awake and alert. She has minimal conversational dyspnea, but is currently under baseline. Today, she is able to sit up on the side of the bed with some assistance. Her appetite has picked up since she started using the Megace yesterday. PHYSICAL EXAMINATION: VITAL SIGNS: Afebrile, pulse 117, blood pressure 144/87, respirations 28, saturation 92% on 3.5 L nasal cannula. GENERAL: The patient is awake and alert, in no apparent distress. LUNGS: Decreased air entry. No prolonged expiratory phase. She does not move enough air for me to hear adventitious sounds. HEART: Normal rate, regular. ABDOMEN: Soft, nontender, nondistended, bowel sounds are positive. MUSCULOSKELETAL: No cyanosis or clubbing. No pitting in the bilateral lower extremities. NEUROLOGIC: Grossly nonfocal. ASSESSMENT: 1. Chronic hypoxic and hypercapnic respiratory failure. 2. Chronic obstructive pulmonary disease, end-stage. 3. Cachexia of chronic obstructive pulmonary disease. 4. Protein-calorie malnutrition, severe. 5. Debility, advanced. DISCUSSION AND PLAN: We will continue steroids, nebulized therapy. She has completed a course of antibiotics. We will continue working on conditioning. At this point, she is going to stay in the ICU as she has high requirements for noninvasive ventilator and very poor ability to put a mask on and take it off. Pulmonary will continue to follow. Job ID: [id number]
[2019-02-26] MEDS: ALPRAZolam 0.5 MG TAB PO PRN (21:04)
[2019-02-27] MEDS ORDERED: predniSONE 20 MG TAB PO SCH (08:00)
[2019-02-27] MEDS: Mometasone/Formoterol 120 PUFF INHALER INH SCH ×2 (08:07→18:35)
[2019-02-27] MEDS: Ascorbic Acid 500 mg Chewable Tablet PO SCH (10:08)
[2019-02-27] MEDS: Megestrol Acetate 800 MG/20 ML UDCUP PO SCH (10:08)
[2019-02-27] MEDS: Saccharomyces boulardii 250 MG CAP PO SCH (10:13)
[2019-02-27] MEDS: guaiFENesin ER 600 MG TAB PO SCH (10:19)
[2019-02-27] MEDS: Polyethylene Glycol 3350 17 GM Packet PO SCH (10:19)
[2019-02-27] MEDS: Cefuroxime Axetil 250 MG TAB PO SCH ×2 (10:19→20:28)
--- NOTE | 2019-02-27 14:29 | PDOC.HOSPP ---
- Subjective Subjective: Seen and examined. Patient became hypoxic at rest on low-flow nasal cannula and required BiPAP therapy today. Patient now states that she is breathing better on BiPAP. 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 - Objective Vital Signs & Weight: Vital Signs (12 hours) Temp Pulse Resp Pulse Ox 02/27/19 10:26 88 02/27/19 10:23 98 26 H 92 L 02/27/19 07:48 97 02/27/19 07:13 83 02/27/19 07:12 94 19 99 02/27/19 07:09 97.6 F 02/27/19 03:10 98.4 F 02/27/19 02:32 85 02/27/19 02:31 79 24 H 98 Weight Admit Weight 85 lb 11.2 oz Weight 85 lb Most Recent Monitor Data Heart Rate from ECG 90 NIBP 127/76 NIBP BP-Mean 93 Respiration from ECG 24 SpO2 92 I&O: 02/26/19 02/27/19 02/28/19 06:59 06:59 06:59 Intake Total 1200 900 Output Total 850 975 Balance 350 -75 Result Diagrams: 02/21/19 08:20 02/21/19 08:20 Hospitalist ROS - Review of Systems All other systems reviewed; all pertinent +/- noted in HPI/Subj - Medication Medications: Active Medications Generic Name Dose Route Start Last Admin Trade Name Freq PRN Reason Stop Dose Admin Acetaminophen 650 mg 02/14/19 22:47 02/25/19 21:36 Tylenol PO 650 mg Q4H PRN Administration Headache/Fever/Mild Pain (1-3) Albuterol/Ipratropium 3 ml 02/14/19 22:49 02/15/19 06:11 Duoneb NEB 3 ml Q4H PRN Administration SOB &/or Wheezing Albuterol/Ipratropium 3 ml 02/20/19 18:30 02/27/19 10:23 Duoneb NEB 3 ml [id number] NASREEN Administration Alprazolam 0.5 mg 02/23/19 13:35 02/26/19 21:04 Xanax PO 0.5 mg QIDPRN PRN Administration Anxiety Ascorbic Acid 1,000 mg 02/24/19 09:00 02/27/19 10:08 Vitamin C PO 1,000 mg DAILY NASREEN Administration Bisacodyl 10 mg 02/14/19 22:47 02/20/19 21:45 Dulcolax PO 10 mg DAILYPRN PRN Administration Constipation Cefuroxime Axetil 250 mg 02/20/19 21:00 02/27/19 10:19 Ceftin PO 250 mg Q12HR NASREEN Administration Diltiazem HCl 60 mg 02/16/19 17:00 02/27/19 13:42 Cardizem PO Not Given QID NASREEN Guaifenesin 600 mg 02/15/19 09:00 02/27/19 10:19 Mucinex PO 600 mg Q12HR NASREEN Administration Megestrol Acetate 800 mg 02/22/19 09:00 02/27/19 10:08 Megace PO 800 mg DAILY NASREEN Administration Mometasone Furoate/Formoterol Fumar 2 puff 02/15/19 18:30 02/27/19 08:07 Dulera 200 Mcg/5 Mcg Inhaler INH 2 puff BID-RT NASREEN Administration Polyethylene Glycol 17 gm 02/25/19 09:00 02/27/19 10:19 Miralax PO 17 gm DAILY NASREEN Administration Saccharomyces Boulardii 250 mg 02/15/19 09:00 02/27/19 10:13 Florastor PO 250 mg DAILY NASREEN Administration Senna/Docusate Sodium 2 tab 02/15/19 08:04 02/25/19 20:50 Senokot S PO 2 tab BID PRN Administration Constipation Sodium Chloride 10 ml 02/15/19 09:00 02/27/19 13:42 Flush - Normal Saline IVF Not Given Q12HR NASREEN Sodium Chloride 10 ml 02/15/19 08:09 02/18/19 23:46 Flush - Normal Saline IVF 10 ml PRN PRN Administration Saline Flush - Exam General Appearance: ill appearing Eye: PERRL ENT: normocephalic atraumatic, dry oral mucosa Neck: supple, symmetric, no lymphadenopathy Heart: RRR, no murmur, no gallops Respiratory: no rales, normal chest expansion, rhonchi, tachypneic, wheezes Gastrointestinal: soft, non-tender, non-distended, no guarding, no rigidity Extremities: no clubbing, no edema Skin: no lesions, no rashes Neurological: cranial nerve grossly intact Musculoskeletal: generalized weakness, diffuse muscle atrophy Psychiatric: oriented to person, oriented to place, flat affect Hosp A/P (1) Demand ischemia of myocardium Code(s): I24.8 - OTHER FORMS OF ACUTE ISCHEMIC HEART DISEASE Status: Acute (2) Anemia, normocytic normochromic Code(s): D64.9 - ANEMIA, UNSPECIFIED Status: Chronic (3) Protein-calorie malnutrition, severe Code(s): E43 - UNSPECIFIED SEVERE PROTEIN-CALORIE MALNUTRITION Status: Chronic (4) Acute and chronic respiratory failure Code(s): J96.20 - ACUTE AND CHR RESP FAILURE, UNSP W HYPOXIA OR HYPERCAPNIA Status: Acute Qualifiers: Respiratory failure complication: hypoxia and hypercapnia Qualified Code(s) : J96.21 - Acute and chronic respiratory failure with hypoxia; J96.22 - Acute and chronic respiratory failure with hypercapnia (5) CAP (community acquired pneumonia) Code(s): J18.9 - PNEUMONIA, UNSPECIFIED ORGANISM Status: Acute Qualifiers: Laterality: unspecified laterality Qualified Code(s): J18.9 - Pneumonia, unspecified organism (6) COPD exacerbation Code(s): J44.1 - CHRONIC OBSTRUCTIVE PULMONARY DISEASE W (ACUTE) EXACERBATION Status: Acute (7) Hyponatremia Code(s): E87.1 - HYPO-OSMOLALITY AND HYPONATREMIA Status: Acute (8) End stage COPD Code(s): J44.9 - CHRONIC OBSTRUCTIVE PULMONARY DISEASE, UNSPECIFIED Status: Chronic (9) GERD (gastroesophageal reflux disease) Code(s): K21.9 - GASTRO-ESOPHAGEAL REFLUX DISEASE WITHOUT ESOPHAGITIS Status: Chronic Qualifiers: Esophagitis presence: without esophagitis Qualified Code(s): K21.9 - Gastro -esophageal reflux disease without esophagitis (10) Hypertension Code(s): I10 - ESSENTIAL (PRIMARY) HYPERTENSION Status: Chronic Qualifiers: Hypertension type: essential hypertension Qualified Code(s): I10 - Essential (primary) hypertension (11) Hypokalemia Code(s): E87.6 - HYPOKALEMIA Status: Resolved - Plan Plan: Intermediate medical care floor pulmonology consultation, recommendations appreciated Difficult to wean from BIPAP Restart IV steroids to decrease airway inflammation, hopefully will tolerate off BIPAP longer COPD, end-stage with acute exacerbation antibiotics pulm specific Small volume neubulizer breathing treatments BIPAP therapy as needed for shortness of breath continue other home medications as able patient is a do not resuscitate, we will honor her wishes Symptomatic therapy for nausea and vomiting as needed replace electrolytes as needed
[2019-02-27] MEDS ORDERED: methylPREDNISolone Sod Succ 40 MG VIAL IVP SCH ×2 (14:30)
--- NOTE | 2019-02-27 14:41 | PRG ---
DATE OF SERVICE: 02/27/2019 SERVICE: Pulmonary Medicine INTERVAL HISTORY: The patient is doing very poorly from respiratory standpoint. This morning, she had a severe hypoxemia event. Her saturations were down to the 60s. She was placed on noninvasive ventilation. With this, she slowly recovered. Currently, she is resting comfortably. She wakes up with gentle stimulation, will follow some simple commands, but demonstrates fairly pronounced weakness. Otherwise, there has been no interval change to her condition. She did not have any fevers or chills otherwise. Hemodynamics remained fairly stable. PHYSICAL EXAMINATION: VITAL SIGNS: Afebrile, pulse 90, blood pressure 127/76, respirations 24, saturation 92%, currently on 30% FiO2 with AVAPS. GENERAL: The patient is somnolent. HEENT: Normocephalic and atraumatic. Sclerae are white. Conjunctivae are pink. Oral mucosa is moist without lesions. LUNGS: Decreased air entry with a prolonged expiratory phase. I do not hear enough air movement to appreciate any adventitious sounds. HEART: Normal rate and regular. ABDOMEN: Soft, nontender, and nondistended. Bowel sounds are positive. MUSCULOSKELETAL: No cyanosis or clubbing. No pitting in the bilateral lower extremities. NEUROLOGIC: Grossly nonfocal. ASSESSMENT: 1. Acute on chronic hypoxic and hypercapnic respiratory failure. 2. Chronic obstructive pulmonary disease, end-stage with acute exacerbation. 3. Deconditioning, severe. DISCUSSION AND PLAN: I have asked for the patient's family to bring up her home ventilator. It has a humidification system to it which will prevent plugging. We will start giving breaks 3 times daily and increase as tolerated. Mobilization efforts will be continued. Dr. Benson will return tomorrow. Ultimately, my fear is the patient has had a very significant decline over the last 6 months. She is unlikely to make a full meaningful recovery from this event given her degree of debility at this point. She has bounced back before, so I will allow Dr. Benson to have additional discussions about end of life care with the family. Job ID: [id number] MTDD
[2019-02-27 15:04] LABS: #Basophils 0.1 thou/uL (0.0-0.2); #Lymphocytes 0.6 thou/uL (1.20-3.40); #Monocytes 0.4 thou/uL (0.11-0.59); #Neutrophils 14.2 thou/uL (1.40-6.50); %Basophils 0.4 % (0.0-1.0); %Eosinophils 0.1 % (0.0-10.0); %Monocytes 2.5 % (0.0-10.0); Mean Corpuscular HGB CONC 33.1 g/dL (32.0-36.0); Mean Corpuscular Hemoglobin 30.9 pg (27.0-31.0); Mean Corpuscular Volume 93.4 fL (78.0-98.0); Mean Platelet Volume 7.3 fL (7.4-10.4); Platelet Count 219 thou/uL (130-400); White Blood Cell (WBC) Count 15.3 thou/uL (4.8-10.8)
[2019-02-27 15:25] LABS: ALT (SGPT) 23 U/L (8-55); AST (SGOT) 15 U/L (5-34); Albumin 3.8 g/dL (3.4-4.8); Alkaline Phosphatase 112 U/L (40-110); BUN (Urea Nitrogen) 22 mg/dL (9.8-20.1); Bilirubin, Total 0.3 mg/dL (0.2-1.2); Calc. Creatinine Clearance 61 mL/min (70-130); Calcium 9.5 mg/dL (7.8-10.44); Estimated GFR-MDRD Greater than 90; Glucose 100 mg/dL (83-110); Magnesium 1.7 mg/dL (1.6-2.6); Phosphorus 3.4 mg/dL (2.3-4.7); Protein, Total 5.8 g/dL (6.0-8.3)
[2019-02-27 15:35] LABS: Anion Gap 13 mmol/L (10-20); Carbon Dioxide 38 mmol/L (23-31); Chloride 91 mmol/L (98-107); Potassium 4.2 mmol/L (3.5-5.1); Sodium 138 mmol/L (136-145)
[2019-02-27] MEDS: methylPREDNISolone Sod Succ 40 MG VIAL IVP SCH (15:42)
[2019-02-27] MEDS: ALPRAZolam 0.5 MG TAB PO PRN (20:28)
[2019-02-27] MEDS: Bisacodyl 5 MG TAB PO PRN (20:28)
[2019-02-28] MEDS: methylPREDNISolone Sod Succ 40 MG VIAL IVP SCH ×2 (02:47→16:11)
[2019-02-28] MEDS: Mometasone/Formoterol 120 PUFF INHALER INH SCH ×2 (08:42→19:19)
[2019-02-28] MEDS: Saccharomyces boulardii 250 MG CAP PO SCH (09:04)
[2019-02-28] MEDS: Cefuroxime Axetil 250 MG TAB PO SCH ×2 (09:04→20:44)
[2019-02-28] MEDS: Ascorbic Acid 500 mg Chewable Tablet PO SCH (09:04)
[2019-02-28] MEDS: Polyethylene Glycol 3350 17 GM Packet PO SCH (09:04)
[2019-02-28] MEDS: Megestrol Acetate 800 MG/20 ML UDCUP PO SCH (09:04)
--- NOTE | 2019-02-28 13:22 | PDOC.HOSPP ---
- Subjective Subjective: Seen and examined. Patient's respiratory to status is improved after escalating to IV Solu-Medrol. Tolerating off the BiPAP longer, using her home machine with improved results, it is more comfortable for her. - Objective Vital Signs & Weight: Vital Signs (12 hours) Temp Pulse Resp Pulse Ox 02/28/19 11:50 112 H 26 H 95 02/28/19 11:14 99.1 F 02/28/19 08:42 99 02/28/19 08:39 110 H 25 H 99 02/28/19 07:46 96 02/28/19 07:15 98.9 F 02/28/19 03:25 98.3 F 02/28/19 02:34 97 19 98 Weight Admit Weight 85 lb 11.2 oz Weight 85 lb Most Recent Monitor Data Heart Rate from ECG 109 NIBP 134/75 NIBP BP-Mean 94 Respiration from ECG 29 SpO2 99 I&O: 02/27/19 02/28/19 03/01/19 06:59 06:59 06:59 Intake Total 900 550 Output Total 975 525 Balance -75 25 Result Diagrams: 02/27/19 14:56 02/27/19 14:56 Hospitalist ROS - Review of Systems All other systems reviewed; all pertinent +/- noted in HPI/Subj - Medication Medications: Active Medications Generic Name Dose Route Start Last Admin Trade Name Freq PRN Reason Stop Dose Admin Acetaminophen 650 mg 02/14/19 22:47 02/25/19 21:36 Tylenol PO 650 mg Q4H PRN Administration Headache/Fever/Mild Pain (1-3) Albuterol/Ipratropium 3 ml 02/14/19 22:49 02/15/19 06:11 Duoneb NEB 3 ml Q4H PRN Administration SOB &/or Wheezing Albuterol/Ipratropium 3 ml 02/20/19 18:30 02/28/19 11:50 Duoneb NEB 3 ml [id number] NASREEN Administration Alprazolam 0.5 mg 02/23/19 13:35 02/27/19 20:28 Xanax PO 0.5 mg QIDPRN PRN Administration Anxiety Ascorbic Acid 1,000 mg 02/24/19 09:00 02/28/19 09:04 Vitamin C PO 1,000 mg DAILY NASREEN Administration Bisacodyl 10 mg 02/14/19 22:47 02/27/19 20:28 Dulcolax PO 10 mg DAILYPRN PRN Administration Constipation Cefuroxime Axetil 250 mg 02/20/19 21:00 02/28/19 09:04 Ceftin PO 250 mg Q12HR NASREEN Administration Diltiazem HCl 60 mg 02/16/19 17:00 02/28/19 09:04 Cardizem PO 60 mg QID NASREEN Administration Megestrol Acetate 800 mg 02/22/19 09:00 02/28/19 09:04 Megace PO 800 mg DAILY NASREEN Administration Methylprednisolone Sodium Succinate 20 mg 02/27/19 15:00 02/28/19 02:47 Solu-Medrol IVP 20 mg 0300,1500 NASREEN Administration Mometasone Furoate/Formoterol Fumar 2 puff 02/15/19 18:30 02/28/19 08:42 Dulera 200 Mcg/5 Mcg Inhaler INH 2 puff BID-RT NASREEN Administration Polyethylene Glycol 17 gm 02/25/19 09:00 02/28/19 09:04 Miralax PO 17 gm DAILY NASREEN Administration Saccharomyces Boulardii 250 mg 02/15/19 09:00 02/28/19 09:04 Florastor PO 250 mg DAILY NASREEN Administration Senna/Docusate Sodium 2 tab 02/15/19 08:04 02/25/19 20:50 Senokot S PO 2 tab BID PRN Administration Constipation Sodium Chloride 10 ml 02/15/19 09:00 02/28/19 09:04 Flush - Normal Saline IVF 10 ml Q12HR NASREEN Administration Sodium Chloride 10 ml 02/15/19 08:09 02/18/19 23:46 Flush - Normal Saline IVF 10 ml PRN PRN Administration Saline Flush - Exam General Appearance: NAD, awake alert Eye: PERRL ENT: moist mucosa Neck: supple, symmetric, no lymphadenopathy Heart: RRR, no murmur, no gallops Respiratory: CTAB, no wheezes, no rales, no ronchi, normal chest expansion Gastrointestinal: soft, non-tender, non-distended, no guarding, no rigidity Extremities: no edema Skin: no lesions, no rashes Neurological: cranial nerve grossly intact Musculoskeletal: generalized weakness, diffuse muscle atrophy Psychiatric: normal affect, A&O x 3 Hosp A/P (1) Demand ischemia of myocardium Code(s): I24.8 - OTHER FORMS OF ACUTE ISCHEMIC HEART DISEASE Status: Acute (2) Anemia, normocytic normochromic Code(s): D64.9 - ANEMIA, UNSPECIFIED Status: Chronic (3) Protein-calorie malnutrition, severe Code(s): E43 - UNSPECIFIED SEVERE PROTEIN-CALORIE MALNUTRITION Status: Chronic (4) Acute and chronic respiratory failure Code(s): J96.20 - ACUTE AND CHR RESP FAILURE, UNSP W HYPOXIA OR HYPERCAPNIA Status: Acute Qualifiers: Respiratory failure complication: hypoxia and hypercapnia Qualified Code(s) : J96.21 - Acute and chronic respiratory failure with hypoxia; J96.22 - Acute and chronic respiratory failure with hypercapnia (5) CAP (community acquired pneumonia) Code(s): J18.9 - PNEUMONIA, UNSPECIFIED ORGANISM Status: Acute Qualifiers: Laterality: unspecified laterality Qualified Code(s): J18.9 - Pneumonia, unspecified organism (6) COPD exacerbation Code(s): J44.1 - CHRONIC OBSTRUCTIVE PULMONARY DISEASE W (ACUTE) EXACERBATION Status: Acute (7) Hyponatremia Code(s): E87.1 - HYPO-OSMOLALITY AND HYPONATREMIA Status: Acute (8) End stage COPD Code(s): J44.9 - CHRONIC OBSTRUCTIVE PULMONARY DISEASE, UNSPECIFIED Status: Chronic (9) GERD (gastroesophageal reflux disease) Code(s): K21.9 - GASTRO-ESOPHAGEAL REFLUX DISEASE WITHOUT ESOPHAGITIS Status: Chronic Qualifiers: Esophagitis presence: without esophagitis Qualified Code(s): K21.9 - Gastro -esophageal reflux disease without esophagitis (10) Hypertension Code(s): I10 - ESSENTIAL (PRIMARY) HYPERTENSION Status: Chronic Qualifiers: Hypertension type: essential hypertension Qualified Code(s): I10 - Essential (primary) hypertension (11) Hypokalemia Code(s): E87.6 - HYPOKALEMIA Status: Resolved - Plan Plan: Intermediate medical care floor pulmonology consultation, recommendations appreciated Difficult to wean from BIPAP Restart IV steroids to decrease airway inflammation, hopefully will tolerate off BIPAP longer COPD, end-stage with acute exacerbation antibiotics pulm specific Small volume neubulizer breathing treatments BIPAP therapy as needed for shortness of breath continue other home medications as able patient is a do not resuscitate, we will honor her wishes Symptomatic therapy for nausea and vomiting as needed replace electrolytes as needed
--- NOTE | 2019-02-28 15:32 | PRG ---
DATE OF SERVICE: 02/28/2019 SUBJECTIVE: Dinora Connors had a bad day yesterday, was on BiPAP most of the day. She has done better today. OBJECTIVE: VITAL SIGNS: She is afebrile. Heart rate is 112, respiratory rate is in the 20s, oximetry is 95% on 4 L cannula, blood pressure is 134/75. LUNGS: Distant and clear. HEART: Regular rhythm. ABDOMEN: Soft. IMPRESSION AND PLAN: Advanced chronic obstructive pulmonary disease with an exacerbation. Deconditioning is the biggest issue that she is facing. We will continue supportive care. Job ID: [id number]
[2019-02-28] MEDS: ALPRAZolam 0.5 MG TAB PO PRN (20:44)
[2019-02-28] MEDS: Senokot S 8.6-50 MG TAB PO PRN (20:45)
[2019-03-01] MEDS: methylPREDNISolone Sod Succ 40 MG VIAL IVP SCH ×2 (02:02→15:45)
[2019-03-01] MEDS: Acetaminophen 325 MG TAB PO PRN ×3 (02:02→20:09)
[2019-03-01] MEDS: Mometasone/Formoterol 120 PUFF INHALER INH SCH ×2 (08:07→18:25)
[2019-03-01] MEDS: Cefuroxime Axetil 250 MG TAB PO SCH ×2 (09:05→20:08)
[2019-03-01] MEDS: Ascorbic Acid 500 mg Chewable Tablet PO SCH (09:06)
[2019-03-01] MEDS: Megestrol Acetate 800 MG/20 ML UDCUP PO SCH (09:06)
[2019-03-01] MEDS: Saccharomyces boulardii 250 MG CAP PO SCH (09:06)
[2019-03-01] MEDS: Polyethylene Glycol 3350 17 GM Packet PO SCH (09:06)
[2019-03-01] MEDS ORDERED: Acetaminophen/Codeine 12.5 ML UDCUP PO PRN (09:51)
[2019-03-01] MEDS ORDERED: Glycerin Adult Supp. (12 ct jar) PR PRN (09:52)
[2019-03-01] MEDS ORDERED: Fleet Enema 133 ML BOT PR PRN (09:53)
--- NOTE | 2019-03-01 13:13 | PDOC.HOSPP ---
- Subjective Subjective: Seen and examined. Patient is improving, breathing is more comfortable today. Tolerating off the BiPAP longer and able to eat her meals on nasal cannula. Daughter at bedside, all questions answered in detail. They are interested in home hospice/palliative care options. Patient is constipated and options were discussed on a stepwise approach to get her bowels moving. - Objective Vital Signs & Weight: Vital Signs (12 hours) Temp Pulse Pulse Resp BP Pulse Ox Pulse Ox 03/01/19 11:11 114 H 27 H 94 L 03/01/19 10:58 99.0 F 03/01/19 10:49 94 138/73 94 L 03/01/19 08:09 94 L 03/01/19 08:06 111 H 23 H 94 L 03/01/19 07:48 93 L 03/01/19 07:46 98.6 F 03/01/19 03:37 98.2 F 03/01/19 03:09 94 L Pulse Ox Pulse Ox 03/01/19 11:11 03/01/19 10:58 03/01/19 10:49 92 L 97 03/01/19 08:09 03/01/19 08:06 03/01/19 07:48 03/01/19 07:46 03/01/19 03:37 03/01/19 03:09 Weight Admit Weight 85 lb 11.2 oz Weight 85 lb Most Recent Monitor Data Heart Rate from ECG 116 NIBP 129/69 NIBP BP-Mean 89 Respiration from ECG 26 SpO2 94 I&O: 02/28/19 03/01/19 03/02/19 06:59 06:59 06:59 Intake Total 550 1200 360 Output Total 525 700 Balance 25 500 360 Result Diagrams: 02/27/19 14:56 02/27/19 14:56 Hospitalist ROS - Review of Systems All other systems reviewed; all pertinent +/- noted in HPI/Subj - Medication Medications: Active Medications Generic Name Dose Route Start Last Admin Trade Name Freq PRN Reason Stop Dose Admin Acetaminophen 650 mg 02/14/19 22:47 03/01/19 12:06 Tylenol PO 650 mg Q4H PRN Administration Headache/Fever/Mild Pain (1-3) Albuterol/Ipratropium 3 ml 02/14/19 22:49 02/15/19 06:11 Duoneb NEB 3 ml Q4H PRN Administration SOB &/or Wheezing Albuterol/Ipratropium 3 ml 02/20/19 18:30 03/01/19 11:11 Duoneb NEB 3 ml [id number] NASREEN Administration Alprazolam 0.5 mg 02/23/19 13:35 02/28/19 20:44 Xanax PO 0.5 mg QIDPRN PRN Administration Anxiety Ascorbic Acid 1,000 mg 02/24/19 09:00 03/01/19 09:06 Vitamin C PO 1,000 mg DAILY NASREEN Administration Bisacodyl 10 mg 02/14/19 22:47 02/27/19 20:28 Dulcolax PO 10 mg DAILYPRN PRN Administration Constipation Cefuroxime Axetil 250 mg 02/20/19 21:00 03/01/19 09:05 Ceftin PO 250 mg Q12HR NASREEN Administration Diltiazem HCl 60 mg 02/16/19 17:00 03/01/19 12:06 Cardizem PO 60 mg QID NASREEN Administration Methylprednisolone Sodium Succinate 20 mg 02/27/19 15:00 03/01/19 02:02 Solu-Medrol IVP 20 mg 0300,1500 NASREEN Administration Mometasone Furoate/Formoterol Fumar 2 puff 02/15/19 18:30 03/01/19 08:07 Dulera 200 Mcg/5 Mcg Inhaler INH 2 puff BID-RT NASREEN Administration Polyethylene Glycol 17 gm 02/25/19 09:00 03/01/19 09:06 Miralax PO 17 gm DAILY NASREEN Administration Saccharomyces Boulardii 250 mg 02/15/19 09:00 03/01/19 09:06 Florastor PO 250 mg DAILY NASREEN Administration Senna/Docusate Sodium 2 tab 02/15/19 08:04 02/28/19 20:45 Senokot S PO 2 tab BID PRN Administration Constipation Sodium Chloride 10 ml 02/15/19 09:00 03/01/19 09:06 Flush - Normal Saline IVF 10 ml Q12HR NASREEN Administration Sodium Chloride 10 ml 02/15/19 08:09 02/18/19 23:46 Flush - Normal Saline IVF 10 ml PRN PRN Administration Saline Flush - Exam General Appearance: NAD, awake alert Eye: anicteric sclera ENT: normocephalic atraumatic, moist mucosa Neck: supple, symmetric, no lymphadenopathy Heart: no murmur, no gallops, no rubs Respiratory: no wheezes, no rales, no ronchi, wheezes Gastrointestinal: soft, non-tender, no palpable masses, no guarding, no rigidity Extremities: no edema Skin: no lesions, no rashes Neurological: cranial nerve grossly intact, no focal deficits Musculoskeletal: generalized weakness Psychiatric: normal affect, A&O x 3 Hosp A/P (1) Demand ischemia of myocardium Code(s): I24.8 - OTHER FORMS OF ACUTE ISCHEMIC HEART DISEASE Status: Acute (2) Anemia, normocytic normochromic Code(s): D64.9 - ANEMIA, UNSPECIFIED Status: Chronic (3) Protein-calorie malnutrition, severe Code(s): E43 - UNSPECIFIED SEVERE PROTEIN-CALORIE MALNUTRITION Status: Chronic (4) Acute and chronic respiratory failure Code(s): J96.20 - ACUTE AND CHR RESP FAILURE, UNSP W HYPOXIA OR HYPERCAPNIA Status: Acute Qualifiers: Respiratory failure complication: hypoxia and hypercapnia Qualified Code(s) : J96.21 - Acute and chronic respiratory failure with hypoxia; J96.22 - Acute and chronic respiratory failure with hypercapnia (5) CAP (community acquired pneumonia) Code(s): J18.9 - PNEUMONIA, UNSPECIFIED ORGANISM Status: Acute Qualifiers: Laterality: unspecified laterality Qualified Code(s): J18.9 - Pneumonia, unspecified organism (6) COPD exacerbation Code(s): J44.1 - CHRONIC OBSTRUCTIVE PULMONARY DISEASE W (ACUTE) EXACERBATION Status: Acute (7) Hyponatremia Code(s): E87.1 - HYPO-OSMOLALITY AND HYPONATREMIA Status: Acute (8) End stage COPD Code(s): J44.9 - CHRONIC OBSTRUCTIVE PULMONARY DISEASE, UNSPECIFIED Status: Chronic (9) GERD (gastroesophageal reflux disease) Code(s): K21.9 - GASTRO-ESOPHAGEAL REFLUX DISEASE WITHOUT ESOPHAGITIS Status: Chronic Qualifiers: Esophagitis presence: without esophagitis Qualified Code(s): K21.9 - Gastro -esophageal reflux disease without esophagitis (10) Hypertension Code(s): I10 - ESSENTIAL (PRIMARY) HYPERTENSION Status: Chronic Qualifiers: Hypertension type: essential hypertension Qualified Code(s): I10 - Essential (primary) hypertension (11) Hypokalemia Code(s): E87.6 - HYPOKALEMIA Status: Resolved - Plan Plan: Intermediate medical care floor Palliative care consultation, recommendations appreciated - interested in home hospice options pulmonology consultation, recommendations appreciated Difficult to wean from BIPAP Continue IV steroids to decrease airway inflammation, now tolerating more time off BIPAP COPD, end-stage with acute exacerbation antibiotics pulm specific, finish on 03/02 Small volume neubulizer breathing treatments continue other home medications as able patient is a do not resuscitate, we will honor her wishes Symptomatic therapy for nausea and vomiting as needed replace electrolytes as needed
[2019-03-01] MEDS: Benzonatate 100 MG CAP PO SCH ×2 (15:46→20:08)
--- NOTE | 2019-03-01 19:50 | PRG ---
DATE OF SERVICE: 03/01/2019 SUBJECTIVE: Dinora Connors feels about the same. She sat on the side of the bed for a short period of time. I encouraged her to sit in a chair this afternoon. OBJECTIVE: VITAL SIGNS: Heart rate is 105, respiratory rate is 24, oximetry is 93%, and blood pressure is 100/70. LUNGS: Remarkable for distant breath sounds. HEART: Regular rhythm. ABDOMEN: Soft. EXTREMITIES: Without asymmetry. LABORATORY DATA: White count was 15.3 two days ago. Electrolytes two days ago were essentially unremarkable other than elevated bicarb as expected. IMPRESSION: Acute on chronic hypoxemic and hypercapnic respiratory failure with home noninvasive ventilation. PLAN: residential is the next step for her as I have explained to her and her daughter. Her daughter says they are willing to talk to Palliative Care now, although I do not think that Ms. Connors is willing to talk about hospice at this point. Job ID: [id number]
[2019-03-01] MEDS: Senokot S 8.6-50 MG TAB PO PRN (20:09)
[2019-03-01] MEDS: guaiFENesin ER 600 MG TAB PO SCH (20:09)
[2019-03-01] MEDS: ALPRAZolam 0.5 MG TAB PO PRN (20:10)
[2019-03-02] MEDS: methylPREDNISolone Sod Succ 40 MG VIAL IVP SCH ×2 (02:22→15:53)
[2019-03-02] MEDS: Mometasone/Formoterol 120 PUFF INHALER INH SCH ×2 (07:26→19:09)
[2019-03-02] MEDS: Cefuroxime Axetil 250 MG TAB PO SCH ×2 (09:31→20:03)
[2019-03-02] MEDS: Saccharomyces boulardii 250 MG CAP PO SCH (09:31)
[2019-03-02] MEDS: Ascorbic Acid 500 mg Chewable Tablet PO SCH (09:31)
[2019-03-02] MEDS: Polyethylene Glycol 3350 17 GM Packet PO SCH (09:31)
[2019-03-02] MEDS: Benzonatate 100 MG CAP PO SCH ×3 (09:32→20:03)
[2019-03-02] MEDS: guaiFENesin ER 600 MG TAB PO SCH ×2 (09:32→20:05)
[2019-03-02] MEDS ORDERED: Acetaminophen/Codeine 120-12MG/5 ML UDCUP PO PRN (10:45)
--- NOTE | 2019-03-02 11:45 | PDOC.PALCO ---
Palliative Care Consult - Consult Details Requesting Physician: Dr Lewis Reason for Consult: goals of care, family support Family Members Present: Daughter Sari - Pertinent HPI 78 year old female presenting to the emergency room with increase in shortness of breath 02/14/19 and falls 02/12/19 as per patient but at the time of falls did not wish to seek an evaluation at the emergency room. Increase in weakness and increase in lethargy as per daughter. Admitted to [facility] for acute on chronic hypoxic hypercapnic respiratory failure, COPD, UTI, CHF. Patient has been in the hospital for the past 16 days with no significant improvement. - Social History Smoking Status: Unknown if ever smoked Smoking: no tobacco exposure Alcohol Use: none Drug Use History: none Living Situation: independent - Medications MAR Reviewed: Yes - Allergies Allergies/Adverse Reactions: Allergies Allergy/AdvReac Type Severity Reaction Status Date / Time No Known Allergies Allergy Verified 02/15/19 14:28 - Subjective Bipap in place, patient resting. Daughter Court at bedside. Labored respiraitons , did not perform ROS as patient resting and daughter requested we allow her to sleep. - Objective Vital Signs: Vital Signs - Most Recent Temp Pulse Resp BP Pulse Ox 97.6 F 109 H 26 H 138/73 92 L 03/02/19 11:21 03/02/19 10:40 03/02/19 10:40 03/01/19 10:49 03/02/19 10:40 Palliative Performance Scale: 30 - Physical Exam Constitutional: moderate distress Deviation from normal: emaciated, frail, HEENT: moist MMs, sclera anicteric, EOMI Deviation from normal: Labored respirations Musculoskeletal: no edema Neurological: moves all 4 limbs - Problem List (1) Palliative care encounter Code(s): Z51.5 - ENCOUNTER FOR PALLIATIVE CARE Current Visit: Yes Status: Acute (2) Physical debility Code(s): R53.81 - OTHER MALAISE Current Visit: Yes Status: Acute (3) Protein-calorie malnutrition, severe Code(s): E43 - UNSPECIFIED SEVERE PROTEIN-CALORIE MALNUTRITION Current Visit: Yes Status: Chronic (4) Acute and chronic respiratory failure Code(s): J96.20 - ACUTE AND CHR RESP FAILURE, UNSP W HYPOXIA OR HYPERCAPNIA Current Visit: No Status: Acute Qualifiers: Respiratory failure complication: hypoxia and hypercapnia Qualified Code(s) : J96.21 - Acute and chronic respiratory failure with hypoxia; J96.22 - Acute and chronic respiratory failure with hypercapnia (5) COPD exacerbation Code(s): J44.1 - CHRONIC OBSTRUCTIVE PULMONARY DISEASE W (ACUTE) EXACERBATION Current Visit: No Status: Acute (6) End stage COPD Code(s): J44.9 - CHRONIC OBSTRUCTIVE PULMONARY DISEASE, UNSPECIFIED Current Visit: No Status: Chronic - Plan/Recommendations Plan: Conversation with patient daughter Court. Patient with pronounced respirations. Daughter initially asked about rehab when the conversation in relation to goals of care was initiated. Discussed patient was not a canidate for rehab secondary to pronounced respiratory decline. When asked what her mother wants Court stated she "wanted to go home". Patient was in the hospital two years prior to this admission and went to rehab then returned home. Discussed that the disease trajectory has leaned toward decline and that a family meeting with she and her sister with her mother to discuss goals of care inline with end stage COPD. Irena Cochran RN to reach out to family to attempt to establish a meeting time with family and communicate to physicians caring for patient as well, including but not limited to Dr Benson and Dr Lewis [40] minutes spent on this encounter with >50% of the time in counseling and coordination of care. Thank you for this very appropriate consult.
--- NOTE | 2019-03-02 13:55 | PDOC.HOSPP ---
- Subjective Subjective: Seen and examined. Short of breath and requiring BiPAP therapy again this a.m. Cough during the night however she did not try cough medication with codeine, recommended trying this is a cough aid. Has not had much luck in bowel movement , recommended using suppository versus enema today. Overall clinically about the same. - Objective Vital Signs & Weight: Vital Signs (12 hours) Temp Pulse Resp Pulse Ox 03/02/19 12:00 89 L 03/02/19 11:21 97.6 F 03/02/19 10:40 109 H 26 H 92 L 03/02/19 07:52 92 L 03/02/19 07:28 107 H 27 H 03/02/19 07:20 98.2 F 03/02/19 04:00 98.4 F 03/02/19 03:48 93 L 03/02/19 02:20 99 22 H 95 Weight Admit Weight 85 lb 11.2 oz Weight 89 lb 2 oz Most Recent Monitor Data Heart Rate from ECG 101 NIBP 134/78 NIBP BP-Mean 96 Respiration from ECG 27 SpO2 89 I&O: 03/01/19 03/02/19 03/03/19 06:59 06:59 06:59 Intake Total 1200 960 240 Output Total 700 400 Balance 500 560 240 Result Diagrams: 02/27/19 14:56 02/27/19 14:56 Hospitalist ROS - Review of Systems All other systems reviewed; all pertinent +/- noted in HPI/Subj - Medication Medications: Active Medications Generic Name Dose Route Start Last Admin Trade Name Freq PRN Reason Stop Dose Admin Acetaminophen 650 mg 02/14/19 22:47 03/01/19 20:09 Tylenol PO 650 mg Q4H PRN Administration Headache/Fever/Mild Pain (1-3) Albuterol/Ipratropium 3 ml 02/14/19 22:49 02/15/19 06:11 Duoneb NEB 3 ml Q4H PRN Administration SOB &/or Wheezing Albuterol/Ipratropium 3 ml 02/20/19 18:30 03/02/19 10:40 Duoneb NEB 3 ml [id number] NASREEN Administration Alprazolam 0.5 mg 02/23/19 13:35 03/01/19 20:10 Xanax PO 0.5 mg QIDPRN PRN Administration Anxiety Ascorbic Acid 1,000 mg 02/24/19 09:00 03/02/19 09:31 Vitamin C PO 1,000 mg DAILY NASREEN Administration Benzonatate 200 mg 03/01/19 15:00 03/02/19 09:32 Tessalon PO 200 mg TID NASREEN Administration Bisacodyl 10 mg 02/14/19 22:47 02/27/19 20:28 Dulcolax PO 10 mg DAILYPRN PRN Administration Constipation Cefuroxime Axetil 250 mg 02/20/19 21:00 03/02/19 09:31 Ceftin PO 250 mg Q12HR NASREEN Administration Diltiazem HCl 60 mg 02/16/19 17:00 03/02/19 12:19 Cardizem PO 60 mg QID NASREEN Administration Guaifenesin 600 mg 03/01/19 21:00 03/02/19 09:32 Mucinex PO 600 mg Q12HR NASREEN Administration Methylprednisolone Sodium Succinate 20 mg 02/27/19 15:00 03/02/19 02:22 Solu-Medrol IVP 20 mg 0300,1500 NASREEN Administration Mometasone Furoate/Formoterol Fumar 2 puff 02/15/19 18:30 03/02/19 07:26 Dulera 200 Mcg/5 Mcg Inhaler INH 2 puff BID-RT NASREEN Administration Polyethylene Glycol 17 gm 02/25/19 09:00 03/02/19 09:31 Miralax PO 17 gm DAILY NASREEN Administration Saccharomyces Boulardii 250 mg 02/15/19 09:00 03/02/19 09:31 Florastor PO 250 mg DAILY NASREEN Administration Senna/Docusate Sodium 2 tab 02/15/19 08:04 03/01/19 20:09 Senokot S PO 2 tab BID PRN Administration Constipation Sodium Chloride 10 ml 02/15/19 09:00 03/02/19 09:32 Flush - Normal Saline IVF 10 ml Q12HR NASREEN Administration Sodium Chloride 10 ml 02/15/19 08:09 02/18/19 23:46 Flush - Normal Saline IVF 10 ml PRN PRN Administration Saline Flush - Exam General Appearance: ill appearing Eye: PERRL ENT: no oropharyngeal lesions, dry oral mucosa Neck: supple, no lymphadenopathy Heart: no murmur, no gallops, no rubs Respiratory: no rales, no tachypnea, rhonchi, wheezes Respiratory - other findings: Poor air movement, short shallow breaths Gastrointestinal: soft, non-tender, no palpable masses, no guarding, no rigidity Extremities: no edema Skin: no lesions, no rashes Neurological: cranial nerve grossly intact, no focal deficits Musculoskeletal: generalized weakness Psychiatric: normal affect, A&O x 3 Hosp A/P (1) Demand ischemia of myocardium Code(s): I24.8 - OTHER FORMS OF ACUTE ISCHEMIC HEART DISEASE Status: Acute (2) Anemia, normocytic normochromic Code(s): D64.9 - ANEMIA, UNSPECIFIED Status: Chronic (3) Protein-calorie malnutrition, severe Code(s): E43 - UNSPECIFIED SEVERE PROTEIN-CALORIE MALNUTRITION Status: Chronic (4) Acute and chronic respiratory failure Code(s): J96.20 - ACUTE AND CHR RESP FAILURE, UNSP W HYPOXIA OR HYPERCAPNIA Status: Acute Qualifiers: Respiratory failure complication: hypoxia and hypercapnia Qualified Code(s) : J96.21 - Acute and chronic respiratory failure with hypoxia; J96.22 - Acute and chronic respiratory failure with hypercapnia (5) CAP (community acquired pneumonia) Code(s): J18.9 - PNEUMONIA, UNSPECIFIED ORGANISM Status: Acute Qualifiers: Laterality: unspecified laterality Qualified Code(s): J18.9 - Pneumonia, unspecified organism (6) COPD exacerbation Code(s): J44.1 - CHRONIC OBSTRUCTIVE PULMONARY DISEASE W (ACUTE) EXACERBATION Status: Acute (7) Hyponatremia Code(s): E87.1 - HYPO-OSMOLALITY AND HYPONATREMIA Status: Acute (8) End stage COPD Code(s): J44.9 - CHRONIC OBSTRUCTIVE PULMONARY DISEASE, UNSPECIFIED Status: Chronic (9) GERD (gastroesophageal reflux disease) Code(s): K21.9 - GASTRO-ESOPHAGEAL REFLUX DISEASE WITHOUT ESOPHAGITIS Status: Chronic Qualifiers: Esophagitis presence: without esophagitis Qualified Code(s): K21.9 - Gastro -esophageal reflux disease without esophagitis (10) Hypertension Code(s): I10 - ESSENTIAL (PRIMARY) HYPERTENSION Status: Chronic Qualifiers: Hypertension type: essential hypertension Qualified Code(s): I10 - Essential (primary) hypertension (11) Hypokalemia Code(s): E87.6 - HYPOKALEMIA Status: Resolved - Plan Plan: Intermediate medical care floor Palliative care consultation, recommendations appreciated - interested in home hospice options pulmonology consultation, recommendations appreciated Difficult to wean from BIPAP Continue IV steroids to decrease airway inflammation, now tolerating more time off BIPAP COPD, end-stage with acute exacerbation antibiotics pulm specific, finish on 03/02 Small volume neubulizer breathing treatments continue other home medications as able patient is a do not resuscitate, we will honor her wishes Symptomatic therapy for nausea and vomiting as needed replace electrolytes as needed
[2019-03-02] MEDS: ALPRAZolam 0.5 MG TAB PO PRN (20:12)
[2019-03-02] MEDS: Acetaminophen 325 MG TAB PO PRN (20:12)
[2019-03-03] MEDS: methylPREDNISolone Sod Succ 40 MG VIAL IVP SCH ×2 (02:47→18:00)
[2019-03-03] MEDS: Ascorbic Acid 500 mg Chewable Tablet PO SCH (09:42)
[2019-03-03] MEDS: guaiFENesin ER 600 MG TAB PO SCH ×2 (09:42→21:37)
[2019-03-03] MEDS: Benzonatate 100 MG CAP PO SCH ×3 (09:42→21:37)
[2019-03-03] MEDS: Saccharomyces boulardii 250 MG CAP PO SCH (09:42)
[2019-03-03] MEDS: Polyethylene Glycol 3350 17 GM Packet PO SCH (09:42)
--- NOTE | 2019-03-03 09:42 | PRG ---
DATE OF SERVICE: 03/02/2019 SUBJECTIVE: she had the previous day. She has been on BiPAP more. OBJECTIVE: LUNGS: Clear. HEART: Regular rhythm. ABDOMEN: Soft. IMPRESSION: Respiratory failure secondary to deconditioning and muscle weakness on top of end-stage chronic obstructive pulmonary disease. She is a candidate to go to a skilled unit for comfort care. Her daughter did mention that she was interested in Palliative Care seeing them again. Job ID: [id number]
[2019-03-03] MEDS: Mometasone/Formoterol 120 PUFF INHALER INH SCH ×2 (10:41→19:07)
--- NOTE | 2019-03-03 14:51 | PDOC.HOSPP ---
- Subjective Encounter Date: 03/03/19 Encounter Time: 14:49 Subjective: No new complaints - Objective Vital Signs & Weight: Vital Signs (12 hours) Temp Pulse Pulse Pulse Pulse Resp BP 03/03/19 12:00 98.9 F 03/03/19 10:41 108 H 20 03/03/19 08:38 116 H 116 H 120 H 149/90 H 03/03/19 08:00 99.0 F 03/03/19 06:46 103 H 21 H 03/03/19 04:19 98.3 F BP Pulse Ox Pulse Ox Pulse Ox Pulse Ox 03/03/19 12:00 03/03/19 10:41 03/03/19 08:38 124/71 90 L 85 L 92 L 03/03/19 08:00 95 03/03/19 06:46 03/03/19 04:19 Weight Admit Weight 85 lb 11.2 oz Weight 89 lb 9 oz Most Recent Monitor Data Heart Rate from ECG 123 NIBP 151/87 NIBP BP-Mean 108 Respiration from ECG 28 SpO2 88 I&O: 03/02/19 03/03/19 03/04/19 06:59 06:59 06:59 Intake Total 960 580.5 Output Total 400 175 Balance 560 405.5 Result Diagrams: 02/27/19 14:56 02/27/19 14:56 Hospitalist ROS - Medication Medications: Active Medications Generic Name Dose Route Start Last Admin Trade Name Freq PRN Reason Stop Dose Admin Acetaminophen 650 mg 02/14/19 22:47 03/02/19 20:12 Tylenol PO 650 mg Q4H PRN Administration Headache/Fever/Mild Pain (1-3) Albuterol/Ipratropium 3 ml 02/14/19 22:49 02/15/19 06:11 Duoneb NEB 3 ml Q4H PRN Administration SOB &/or Wheezing Albuterol/Ipratropium 3 ml 02/20/19 18:30 03/03/19 10:41 Duoneb NEB 3 ml [id number] NASREEN Administration Alprazolam 0.5 mg 02/23/19 13:35 03/02/19 20:12 Xanax PO 0.5 mg QIDPRN PRN Administration Anxiety Ascorbic Acid 1,000 mg 02/24/19 09:00 03/03/19 09:42 Vitamin C PO 1,000 mg DAILY NASREEN Administration Benzonatate 200 mg 03/01/19 15:00 03/03/19 09:42 Tessalon PO 200 mg TID NASREEN Administration Bisacodyl 10 mg 02/14/19 22:47 02/27/19 20:28 Dulcolax PO 10 mg DAILYPRN PRN Administration Constipation Diltiazem HCl 60 mg 02/16/19 17:00 03/03/19 13:08 Cardizem PO 60 mg QID NASREEN Administration Glycerin 1 each 03/01/19 09:52 03/02/19 20:06 Adult Glycerin DE 1 supp BID PRN Administration Constipation Guaifenesin 600 mg 03/01/19 21:00 03/03/19 09:42 Mucinex PO 600 mg Q12HR NASREEN Administration Methylprednisolone Sodium Succinate 20 mg 02/27/19 15:00 03/03/19 02:47 Solu-Medrol IVP 20 mg 0300,1500 NASREEN Administration Mometasone Furoate/Formoterol Fumar 2 puff 02/15/19 18:30 03/03/19 10:41 Dulera 200 Mcg/5 Mcg Inhaler INH 2 puff BID-RT NASREEN Administration Polyethylene Glycol 17 gm 02/25/19 09:00 03/03/19 09:42 Miralax PO 17 gm DAILY NASREEN Administration Saccharomyces Boulardii 250 mg 02/15/19 09:00 03/03/19 09:42 Florastor PO 250 mg DAILY NASREEN Administration Senna/Docusate Sodium 2 tab 02/15/19 08:04 03/01/19 20:09 Senokot S PO 2 tab BID PRN Administration Constipation Sodium Chloride 10 ml 02/15/19 09:00 03/03/19 09:42 Flush - Normal Saline IVF 10 ml Q12HR NASREEN Administration Sodium Chloride 10 ml 02/15/19 08:09 02/18/19 23:46 Flush - Normal Saline IVF 10 ml PRN PRN Administration Saline Flush - Exam General Appearance: NAD, awake alert, ill appearing Eye: PERRL, anicteric sclera, scleral icterus ENT: normocephalic atraumatic, no oropharyngeal lesions, moist mucosa, dry oral mucosa Neck: supple, symmetric, no JVD, no thyromegaly, no lymphadenopathy, no carotid bruit, JVD Heart: RRR, no murmur, no gallops, no rubs, normal peripheral pulses, irregular , diminshed peripheral pulses, murmur present, II/IV, III/IV Respiratory: CTAB, no wheezes, no rales, no ronchi, normal chest expansion, no tachypnea, normal percussion, rales, rhonchi, tachypneic, wheezes Gastrointestinal: soft, non-tender, non-distended, normal bowel sounds, no palpable masses, no hepatomegaly, no splenomegaly, no bruit, no guarding, no rigidity, tender to palpation, distended, diminished bowl sounds, voluntary guarding Extremities: no cyanosis, no clubbing, no edema Skin: normal turgor, no lesions, no rashes Neurological: cranial nerve grossly intact, normal sensation to touch, no weakness, no focal deficits, no new deficit Musculoskeletal: normal tone, normal strength, no muscle wasting, generalized weakness, diffuse muscle atrophy Psychiatric: normal affect, normal behavior, A&O x 3, oriented to person, oriented to place, oriented to time, not oriented, flat affect, somnolent, lethargic Hosp A/P (1) Demand ischemia of myocardium Code(s): I24.8 - OTHER FORMS OF ACUTE ISCHEMIC HEART DISEASE Status: Acute (2) Anemia, normocytic normochromic Code(s): D64.9 - ANEMIA, UNSPECIFIED Status: Chronic (3) COPD exacerbation Code(s): J44.1 - CHRONIC OBSTRUCTIVE PULMONARY DISEASE W (ACUTE) EXACERBATION Status: Acute - Plan PT/OT, administrator social welfare, respiratory therapy, out of bed/ambulate, DVT proph w/ [facility] LTAC VS RIF
--- NOTE | 2019-03-03 15:13 | PRG ---
DATE OF SERVICE: 03/03/2019 Ms. Connors did well overnight. She is still requiring a lot of BiPAP. It may be better for her to go to a long-term acute care facility. She is impacted, so she has been disimpacted from the nurses when I rounded on her. Lungs, heart, and abdomen are otherwise unchanged. Frequent enemas may be helpful. She is not taking in enough liquids, so IV fluids might be helpful as well. Her prognosis is quite poor. I met with family and answered their questions. Job ID: [id number]
--- NOTE | 2019-03-03 15:21 | PDOC.HOSPP ---
- Subjective Encounter Date: 03/03/19 Encounter Time: 15:18 Subjective: feels better, still very weak - Objective Vital Signs & Weight: Vital Signs (12 hours) Temp Pulse Pulse Pulse Pulse Resp BP 03/03/19 15:05 117 H 24 H 03/03/19 12:00 98.9 F 03/03/19 10:41 108 H 20 03/03/19 08:38 116 H 116 H 120 H 149/90 H 03/03/19 08:00 99.0 F 03/03/19 06:46 103 H 21 H 03/03/19 04:19 98.3 F BP Pulse Ox Pulse Ox Pulse Ox Pulse Ox 03/03/19 15:05 03/03/19 12:00 03/03/19 10:41 03/03/19 08:38 124/71 90 L 85 L 92 L 03/03/19 08:00 95 03/03/19 06:46 03/03/19 04:19 Weight Admit Weight 85 lb 11.2 oz Weight 89 lb 9 oz Most Recent Monitor Data Heart Rate from ECG 123 NIBP 151/87 NIBP BP-Mean 108 Respiration from ECG 28 SpO2 88 I&O: 03/02/19 03/03/19 03/04/19 06:59 06:59 06:59 Intake Total 960 580.5 Output Total 400 175 Balance 560 405.5 Result Diagrams: 02/27/19 14:56 02/27/19 14:56 Hospitalist ROS - Medication Medications: Active Medications Generic Name Dose Route Start Last Admin Trade Name Freq PRN Reason Stop Dose Admin Acetaminophen 650 mg 02/14/19 22:47 03/02/19 20:12 Tylenol PO 650 mg Q4H PRN Administration Headache/Fever/Mild Pain (1-3) Albuterol/Ipratropium 3 ml 02/14/19 22:49 02/15/19 06:11 Duoneb NEB 3 ml Q4H PRN Administration SOB &/or Wheezing Albuterol/Ipratropium 3 ml 02/20/19 18:30 03/03/19 15:05 Duoneb NEB 3 ml [id number] NASREEN Administration Alprazolam 0.5 mg 02/23/19 13:35 03/02/19 20:12 Xanax PO 0.5 mg QIDPRN PRN Administration Anxiety Ascorbic Acid 1,000 mg 10/10/19 09:00 03/03/19 09:42 Vitamin C PO 1,000 mg DAILY NASREEN Administration Benzonatate 200 mg 03/01/19 15:00 03/03/19 09:42 Tessalon PO 200 mg TID NASREEN Administration Bisacodyl 10 mg 02/14/19 22:47 02/27/19 20:28 Dulcolax PO 10 mg DAILYPRN PRN Administration Constipation Diltiazem HCl 60 mg 02/16/19 17:00 03/03/19 13:08 Cardizem PO 60 mg QID NASREEN Administration Glycerin 1 each 03/01/19 09:52 03/02/19 20:06 Adult Glycerin PA 1 supp BID PRN Administration Constipation Guaifenesin 600 mg 03/01/19 21:00 03/03/19 09:42 Mucinex PO 600 mg Q12HR NASREEN Administration Methylprednisolone Sodium Succinate 20 mg 02/27/19 15:00 03/03/19 02:47 Solu-Medrol IVP 20 mg 0300,1500 NASREEN Administration Mometasone Furoate/Formoterol Fumar 2 puff 02/15/19 18:30 03/03/19 10:41 Dulera 200 Mcg/5 Mcg Inhaler INH 2 puff BID-RT NASREEN Administration Polyethylene Glycol 17 gm 02/25/19 09:00 03/03/19 09:42 Miralax PO 17 gm DAILY NASREEN Administration Saccharomyces Boulardii 250 mg 02/15/19 09:00 03/03/19 09:42 Florastor PO 250 mg DAILY NASREEN Administration Senna/Docusate Sodium 2 tab 02/15/19 08:04 03/01/19 20:09 Senokot S PO 2 tab BID PRN Administration Constipation Sodium Chloride 10 ml 02/15/19 09:00 03/03/19 09:42 Flush - Normal Saline IVF 10 ml Q12HR NASREEN Administration Sodium Chloride 10 ml 02/15/19 08:09 02/18/19 23:46 Flush - Normal Saline IVF 10 ml PRN PRN Administration Saline Flush - Exam General Appearance: NAD, awake alert, ill appearing Eye: PERRL, anicteric sclera, scleral icterus ENT: normocephalic atraumatic, no oropharyngeal lesions, moist mucosa, dry oral mucosa Neck: supple, symmetric, no JVD, no thyromegaly, no lymphadenopathy, no carotid bruit, JVD Heart: RRR, no murmur, no gallops, no rubs, normal peripheral pulses, irregular , diminshed peripheral pulses, murmur present, II/IV, III/IV Respiratory: CTAB, no wheezes, no rales, no ronchi, normal chest expansion, no tachypnea, normal percussion, rales, rhonchi, tachypneic, wheezes Gastrointestinal: soft, non-tender, non-distended, normal bowel sounds, no palpable masses, no hepatomegaly, no splenomegaly, no bruit, no guarding, no rigidity, tender to palpation, distended, diminished bowl sounds, voluntary guarding Extremities: no cyanosis, no clubbing, no edema, 1+ LE edema, 2+ LE edema, clubbing Skin: normal turgor, no lesions, no rashes, tenting Neurological: cranial nerve grossly intact, normal sensation to touch, no weakness, no focal deficits, no new deficit, facial droop, hemiplegia, speech deficit, vision deficit Musculoskeletal: normal tone, normal strength, no muscle wasting, generalized weakness, diffuse muscle atrophy Psychiatric: normal affect, normal behavior, A&O x 3, oriented to person, oriented to place, oriented to time, not oriented, flat affect, somnolent, lethargic Hosp A/P (1) Demand ischemia of myocardium Code(s): I24.8 - OTHER FORMS OF ACUTE ISCHEMIC HEART DISEASE Status: Acute (2) Anemia, normocytic normochromic Code(s): D64.9 - ANEMIA, UNSPECIFIED Status: Chronic (3) COPD exacerbation Code(s): J44.1 - CHRONIC OBSTRUCTIVE PULMONARY DISEASE W (ACUTE) EXACERBATION Status: Acute (4) Acute and chronic respiratory failure Code(s): J96.20 - ACUTE AND CHR RESP FAILURE, UNSP W HYPOXIA OR HYPERCAPNIA Status: Acute Qualifiers: Respiratory failure complication: hypoxia and hypercapnia Qualified Code(s) : J96.21 - Acute and chronic respiratory failure with hypoxia; J96.22 - Acute and chronic respiratory failure with hypercapnia - 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
[2019-03-03 15:51] VITALS: BMI 16.3
[2019-03-04] MEDS: methylPREDNISolone Sod Succ 40 MG VIAL IVP SCH ×2 (02:46→14:52)
[2019-03-04 06:26] LABS: BUN (Urea Nitrogen) 24 mg/dL (9.8-20.1); Calc. Creatinine Clearance 62 mL/min (70-130); Calcium 9.4 mg/dL (7.8-10.44); Estimated GFR-MDRD Greater than 90; Glucose 94 mg/dL (83-110)
[2019-03-04 06:38] LABS: Chloride 93 mmol/L (98-107); Potassium 4.6 mmol/L (3.5-5.1); Sodium 140 mmol/L (136-145)
[2019-03-04 06:41] LABS: Anion Gap 17 mmol/L (10-20); Carbon Dioxide 35 mmol/L (23-31)
[2019-03-04 06:52] LABS: Mean Corpuscular HGB CONC 32.3 g/dL (32.0-36.0); Mean Corpuscular Hemoglobin 30.7 pg (27.0-31.0); Mean Corpuscular Volume 95.2 fL (78.0-98.0); Mean Platelet Volume 7.8 fL (7.4-10.4); Platelet Count 167 thou/uL (130-400); RBC Distribution Width 12.4 % (11.5-14.5); Red Blood Cell (RBC) Count 3.92 mill/uL (4.20-5.40); White Blood Cell (WBC) Count 11.6 thou/uL (4.8-10.8)
[2019-03-04 07:01] LABS: Band 1 % (5-11); Lymphocytes 1 % (21-51); MDiff Complete? YES; Neutrophil 98 % (42-75); Platelet Morphology Comment Appears Adequate
[2019-03-04] MEDS: Mometasone/Formoterol 120 PUFF INHALER INH SCH ×2 (08:14→18:47)
[2019-03-04] MEDS: Polyethylene Glycol 3350 17 GM Packet PO SCH (09:34)
[2019-03-04] MEDS: Ascorbic Acid 500 mg Chewable Tablet PO SCH (09:34)
[2019-03-04] MEDS: Saccharomyces boulardii 250 MG CAP PO SCH (09:34)
[2019-03-04] MEDS: Benzonatate 100 MG CAP PO SCH ×3 (09:34→20:52)
[2019-03-04] MEDS: guaiFENesin ER 600 MG TAB PO SCH ×2 (09:34→20:52)
--- NOTE | 2019-03-04 09:44 | PRG ---
DATE OF SERVICE: 03/04/2019 SUBJECTIVE: Dinora Connors says she feels a little better today. She is trying to eat eggs and grits for breakfast. OBJECTIVE: VITAL SIGNS: Heart rate is 116, respiratory rates in the high 20s, oximetry is 96% on 4 L, and blood pressure 138/81. LUNGS: Essentially unchanged. HEART: Essentially unchanged. ABDOMEN: Essentially unchanged. LABORATORY DATA: White count 11.6, hemoglobin 12.0, and platelets 167. Electrolytes are unremarkable. BUN 24 and creatinine 0.48. IMPRESSION AND PLAN: 1. Chronic respiratory failure with acute decompensation. 2. Extreme deconditioning. 3. Advanced/end-stage chronic obstructive pulmonary disease. 4. Chronic hypoxemia with hypercarbia. I think a alf unit would take her now given her requirements for intermittent noninvasive ventilatory support. Continue supportive care. She probably needs another enema today. She was disimpacted twice yesterday. She tends to read better when she does not have abdominal distension obviously. Job ID: [id number]
--- NOTE | 2019-03-04 11:33 | PDOC.HOSPP ---
- Subjective Encounter Date: 03/04/19 Encounter Time: 11:32 Subjective: No new complaints, the patient and family requested DNR - Objective Vital Signs & Weight: Vital Signs (12 hours) Temp Pulse Resp Pulse Ox 03/04/19 11:15 99.4 F 03/04/19 11:08 120 H 30 H 95 03/04/19 08:11 116 H 30 H 96 03/04/19 07:46 99.6 F 03/04/19 03:58 99.4 F 03/04/19 02:31 93 24 H 95 03/03/19 23:41 98.5 F Weight Admit Weight 85 lb 11.2 oz Weight 89 lb 9 oz Most Recent Monitor Data Heart Rate from ECG 94 NIBP 138/81 NIBP BP-Mean 100 Respiration from ECG 21 SpO2 97 I&O: 03/03/19 03/04/19 03/05/19 06:59 06:59 06:59 Intake Total 580.5 1208.5 Output Total 175 350 Balance 405.5 858.5 Result Diagrams: 03/04/19 05:24 03/04/19 05:24 Hospitalist ROS - Medication Medications: Active Medications Generic Name Dose Route Start Last Admin Trade Name Freq PRN Reason Stop Dose Admin Acetaminophen 650 mg 02/14/19 22:47 03/02/19 20:12 Tylenol PO 650 mg Q4H PRN Administration Headache/Fever/Mild Pain (1-3) Albuterol/Ipratropium 3 ml 02/14/19 22:49 02/15/19 06:11 Duoneb NEB 3 ml Q4H PRN Administration SOB &/or Wheezing Albuterol/Ipratropium 3 ml 02/20/19 18:30 03/04/19 11:08 Duoneb NEB 3 ml [id number] NASREEN Administration Alprazolam 0.5 mg 02/23/19 13:35 03/02/19 20:12 Xanax PO 0.5 mg QIDPRN PRN Administration Anxiety Ascorbic Acid 1,000 mg 02/24/19 09:00 03/04/19 09:34 Vitamin C PO 1,000 mg DAILY NASREEN Administration Benzonatate 200 mg 03/01/19 15:00 03/04/19 09:34 Tessalon PO 200 mg TID NASREEN Administration Bisacodyl 10 mg 02/14/19 22:47 10/13/19 20:28 Dulcolax PO 10 mg DAILYPRN PRN Administration Constipation Diltiazem HCl 60 mg 02/16/19 17:00 03/04/19 09:34 Cardizem PO 60 mg QID NASREEN Administration Glycerin 1 each 03/01/19 09:52 03/02/19 20:06 Adult Glycerin [place] 1 supp BID PRN Administration Constipation Guaifenesin 600 mg 03/01/19 21:00 03/04/19 09:34 Mucinex PO 600 mg Q12HR NASREEN Administration Methylprednisolone Sodium Succinate 20 mg 02/27/19 15:00 03/04/19 02:46 Solu-Medrol IVP 20 mg 0300,1500 NASREEN Administration Mometasone Furoate/Formoterol Fumar 2 puff 02/15/19 18:30 03/04/19 08:14 Dulera 200 Mcg/5 Mcg Inhaler INH 2 puff BID-RT NASREEN Administration Polyethylene Glycol 17 gm 02/25/19 09:00 03/04/19 09:34 Miralax PO 17 gm DAILY NASREEN Administration Saccharomyces Boulardii 250 mg 02/15/19 09:00 03/04/19 09:34 Florastor PO 250 mg DAILY NASREEN Administration Senna/Docusate Sodium 2 tab 02/15/19 08:04 03/01/19 20:09 Senokot S PO 2 tab BID PRN Administration Constipation Sodium Chloride 10 ml 02/15/19 09:00 03/04/19 09:35 Flush - Normal Saline IVF 10 ml Q12HR NASREEN Administration Sodium Chloride 10 ml 02/15/19 08:09 02/18/19 23:46 Flush - Normal Saline IVF 10 ml PRN PRN Administration Saline Flush - Exam General Appearance: NAD, awake alert, ill appearing Eye: PERRL, anicteric sclera, scleral icterus ENT: normocephalic atraumatic, no oropharyngeal lesions, moist mucosa, dry oral mucosa Neck: supple, symmetric, no JVD, no thyromegaly, no lymphadenopathy, no carotid bruit, JVD Heart: RRR, no murmur, no gallops, no rubs, normal peripheral pulses, irregular , diminshed peripheral pulses, murmur present, II/IV, III/IV Respiratory: CTAB, no wheezes, no rales, no ronchi, normal chest expansion, no tachypnea, normal percussion, rales, rhonchi, tachypneic, wheezes Gastrointestinal: soft, non-tender, non-distended, normal bowel sounds, no palpable masses, no hepatomegaly, no splenomegaly, no bruit, no guarding, no rigidity, tender to palpation, distended, diminished bowl sounds, voluntary guarding Hosp A/P (1) Demand ischemia of myocardium Code(s): I24.8 - OTHER FORMS OF ACUTE ISCHEMIC HEART DISEASE Status: Acute (2) Anemia, normocytic normochromic Code(s): D64.9 - ANEMIA, UNSPECIFIED Status: Chronic (3) COPD exacerbation Code(s): J44.1 - CHRONIC OBSTRUCTIVE PULMONARY DISEASE W (ACUTE) EXACERBATION Status: Acute (4) Acute and chronic respiratory failure Code(s): J96.20 - ACUTE AND CHR RESP FAILURE, UNSP W HYPOXIA OR HYPERCAPNIA Status: Acute Qualifiers: Respiratory failure complication: hypoxia and hypercapnia Qualified Code(s) : J96.21 - Acute and chronic respiratory failure with hypoxia; J96.22 - Acute and chronic respiratory failure with hypercapnia - Plan LTAC VS RIF, DNR signed.
[2019-03-04] MEDS: Sodium Chloride 0.45% 1,000 ML IV SCH (20:52)
[2019-03-05] MEDS: methylPREDNISolone Sod Succ 40 MG VIAL IVP SCH ×2 (03:39→15:58)
[2019-03-05 06:35] LABS: #Lymphocytes 0.2 thou/uL (1.20-3.40); #Monocytes 0.4 thou/uL (0.11-0.59); #Neutrophils 16.4 thou/uL (1.40-6.50); %Basophils 0.1 % (0.0-1.0); %Eosinophils 0.1 % (0.0-10.0); %Lymphocytes 1.4 % (21.0-51.0); %Monocytes 2.5 % (0.0-10.0); Hemoglobin 12.1 g/dL (12.0-16.0); Mean Corpuscular HGB CONC 32.9 g/dL (32.0-36.0); Mean Corpuscular Hemoglobin 30.9 pg (27.0-31.0); Mean Corpuscular Volume 93.8 fL (78.0-98.0); Mean Platelet Volume 6.9 fL (7.4-10.4); Platelet Count 169 thou/uL (130-400); RBC Distribution Width 12.3 % (11.5-14.5); Red Blood Cell (RBC) Count 3.91 mill/uL (4.20-5.40); White Blood Cell (WBC) Count 17.1 thou/uL (4.8-10.8)
[2019-03-05 06:58] LABS: Anion Gap 11 mmol/L (10-20); BUN (Urea Nitrogen) 18 mg/dL (9.8-20.1); Calc. Creatinine Clearance 71 mL/min (70-130); Calcium 8.9 mg/dL (7.8-10.44); Carbon Dioxide 36 mmol/L (23-31); Chloride 93 mmol/L (98-107); Estimated GFR-MDRD Greater than 90; Glucose 96 mg/dL (83-110); Potassium 4.3 mmol/L (3.5-5.1); Sodium 136 mmol/L (136-145)
[2019-03-05] MEDS: Mometasone/Formoterol 120 PUFF INHALER INH SCH ×2 (07:51→18:24)
[2019-03-05] MEDS: Ascorbic Acid 500 mg Chewable Tablet PO SCH (09:36)
[2019-03-05] MEDS: Polyethylene Glycol 3350 17 GM Packet PO SCH (09:38)
[2019-03-05] MEDS: Benzonatate 100 MG CAP PO SCH ×3 (09:38→21:07)
[2019-03-05] MEDS: Saccharomyces boulardii 250 MG CAP PO SCH (09:38)
[2019-03-05] MEDS: guaiFENesin ER 600 MG TAB PO SCH ×2 (09:38→21:07)
--- NOTE | 2019-03-05 12:03 | PRG ---
DATE OF SERVICE: 03/05/2019 SUBJECTIVE: A 78-year-old female, still having a lot of difficulty breathing this morning. OBJECTIVE: VITAL SIGNS: Respirations 30, pulse 108, temperature 98, blood pressure 178/102. CHEST: Decreased breath sounds. No wheezing. CARDIAC: Normal S1, S2. No gallops. ABDOMEN: Soft. LABORATORY DATA: White count 17,000. ASSESSMENT: Chronic obstructive pulmonary disease, respiratory failure, deconditioning, DNR. PLAN: Continue neb treatment, supportive care, steroids. We will follow. Job ID: [id number]
--- NOTE | 2019-03-05 13:57 | PDOC.HOSPP ---
- Subjective Encounter Date: 03/05/19 Encounter Time: 12:00 Subjective: No complaint expressed . On BIPAP - Objective Vital Signs & Weight: Vital Signs (12 hours) Temp Pulse Resp Pulse Ox 03/05/19 10:40 98.9 F 03/05/19 10:32 108 H 30 H 94 L 03/05/19 07:50 109 H 20 97 03/05/19 07:10 99.0 F 03/05/19 03:38 97.6 F 03/05/19 02:25 98 24 H 94 L Weight Admit Weight 85 lb 11.2 oz Weight 89 lb 9 oz Most Recent Monitor Data Heart Rate from ECG 99 NIBP 142/69 NIBP BP-Mean 93 Respiration from ECG 27 SpO2 92 I&O: 03/04/19 03/05/19 03/06/19 06:59 06:59 06:59 Intake Total 1208.5 2240 Output Total 350 300 Balance 858.5 1940 Result Diagrams: 03/05/19 06:20 03/05/19 06:20 Hospitalist ROS - Medication Medications: Active Medications Generic Name Dose Route Start Last Admin Trade Name Freq PRN Reason Stop Dose Admin Acetaminophen 650 mg 02/14/19 22:47 03/02/19 20:12 Tylenol PO 650 mg Q4H PRN Administration Headache/Fever/Mild Pain (1-3) Albuterol/Ipratropium 3 ml 02/14/19 22:49 02/15/19 06:11 Duoneb NEB 3 ml Q4H PRN Administration SOB &/or Wheezing Albuterol/Ipratropium 3 ml 02/20/19 18:30 03/05/19 10:32 Duoneb NEB 3 ml [id number] NASREEN Administration Ascorbic Acid 1,000 mg 02/24/19 09:00 03/05/19 09:36 Vitamin C PO 1,000 mg DAILY NASREEN Administration Benzonatate 200 mg 03/01/19 15:00 03/05/19 09:38 Tessalon PO 200 mg TID NASREEN Administration Bisacodyl 10 mg 02/14/19 22:47 02/27/19 20:28 Dulcolax PO 10 mg DAILYPRN PRN Administration Constipation Diltiazem HCl 60 mg 02/16/19 17:00 03/05/19 09:38 Cardizem PO 60 mg QID NASREEN Administration Glycerin 1 each 03/01/19 09:52 03/02/19 20:06 Adult Glycerin [place] 1 supp BID PRN Administration Constipation Guaifenesin 600 mg 03/01/19 21:00 03/05/19 09:38 Mucinex PO 600 mg Q12HR NASREEN Administration Sodium Chloride 1,000 mls @ 50 mls/hr 03/04/19 21:00 03/04/19 20:52 1/2 Normal Saline IV 1,000 mls .Q20H NASREEN Administration Methylprednisolone Sodium Succinate 20 mg 02/27/19 15:00 03/05/19 03:39 Solu-Medrol IVP 20 mg 0300,1500 NARSEEN Administration Mometasone Furoate/Formoterol Fumar 2 puff 02/15/19 18:30 03/05/19 07:51 Dulera 200 Mcg/5 Mcg Inhaler INH Not Given BID-RT NASREEN Polyethylene Glycol 17 gm 02/25/19 09:00 03/05/19 09:38 Miralax PO 17 gm DAILY NASREEN Administration Saccharomyces Boulardii 250 mg 02/15/19 09:00 03/05/19 09:38 Florastor PO 250 mg DAILY NASREEN Administration Senna/Docusate Sodium 2 tab 02/15/19 08:04 03/01/19 20:09 Senokot S PO 2 tab BID PRN Administration Constipation Sodium Chloride 10 ml 02/15/19 09:00 03/05/19 09:38 Flush - Normal Saline IVF 10 ml Q12HR NASREEN Administration Sodium Chloride 10 ml 02/15/19 08:09 02/18/19 23:46 Flush - Normal Saline IVF 10 ml PRN PRN Administration Saline Flush - Exam General Appearance: NAD, ill appearing Eye: anicteric sclera Neck: JVD Heart: RRR Respiratory: no ronchi Gastrointestinal: soft Extremities: no edema Neurological: no focal deficits Hosp A/P (1) Acute and chronic respiratory failure Code(s): J96.20 - ACUTE AND CHR RESP FAILURE, UNSP W HYPOXIA OR HYPERCAPNIA Status: Acute Qualifiers: Respiratory failure complication: hypoxia and hypercapnia Qualified Code(s) : J96.21 - Acute and chronic respiratory failure with hypoxia; J96.22 - Acute and chronic respiratory failure with hypercapnia (2) COPD exacerbation Code(s): J44.1 - CHRONIC OBSTRUCTIVE PULMONARY DISEASE W (ACUTE) EXACERBATION Status: Acute (3) End stage COPD Code(s): J44.9 - CHRONIC OBSTRUCTIVE PULMONARY DISEASE, UNSPECIFIED Status: Chronic (4) Demand ischemia of myocardium Code(s): I24.8 - OTHER FORMS OF ACUTE ISCHEMIC HEART DISEASE Status: Acute - Plan Patient is DNR... To go to LTAC.
[2019-03-05] MEDS: Sodium Chloride 0.45% 1,000 ML IV SCH (16:59)
[2019-03-06] MEDS: methylPREDNISolone Sod Succ 40 MG VIAL IVP SCH ×2 (03:41→13:40)
[2019-03-06] MEDS: Sodium Chloride 0.45% 1,000 ML IV SCH (03:48)
[2019-03-06] MEDS: Mometasone/Formoterol 120 PUFF INHALER INH SCH ×2 (07:33→18:40)
[2019-03-06] MEDS: Ascorbic Acid 500 mg Chewable Tablet PO SCH (09:50)
[2019-03-06] MEDS: Saccharomyces boulardii 250 MG CAP PO SCH (09:51)
[2019-03-06] MEDS: guaiFENesin ER 600 MG TAB PO SCH ×2 (09:51→20:52)
[2019-03-06] MEDS: Polyethylene Glycol 3350 17 GM Packet PO SCH (09:51)
[2019-03-06] MEDS: Benzonatate 100 MG CAP PO SCH ×3 (09:53→20:52)
[2019-03-06] MEDS: Acetaminophen 325 MG TAB PO PRN ×2 (10:03→20:55)
--- NOTE | 2019-03-06 11:16 | PRG ---
DATE OF SERVICE: 03/06/2019 SUBJECTIVE: Dinora Connors is still having difficulty breathing this morning, though. OBJECTIVE: VITAL SIGNS: Saturations are 98% on 4 L, respiratory rate 25, temperature 98, pulse 114, and blood pressure 157/85. CHEST: Decreased breath sounds. No wheezing. CARDIAC: Normal S1 and S2. No gallops. ABDOMEN: Soft. ASSESSMENT: 1. chronic obstructive pulmonary disease exacerbation. 2. Major anxiety. PLAN: Continue present treatment, neb treatments, and steroids. We will follow. Job ID: [id number]
--- NOTE | 2019-03-06 11:52 | PDOC.HOSPP ---
- Subjective Encounter Date: 03/06/19 Encounter Time: 11:05 Subjective: No complaint.. - Objective Vital Signs & Weight: Vital Signs (12 hours) Temp Pulse Resp BP Pulse Ox 03/06/19 11:11 99.4 F 03/06/19 10:32 114 H 25 H 98 03/06/19 07:48 98.8 F 03/06/19 07:31 96 21 H 100 03/06/19 07:17 91 L 03/06/19 03:48 98.1 F 03/06/19 02:09 79 20 98 03/06/19 00:57 98.3 F 03/06/19 00:00 67 20 131/69 95 Weight Admit Weight 85 lb 11.2 oz Weight 89 lb 9 oz Most Recent Monitor Data Heart Rate from ECG 111 NIBP 180/94 NIBP BP-Mean 122 Respiration from ECG 29 SpO2 94 I&O: 03/05/19 03/06/19 03/07/19 06:59 06:59 06:59 Intake Total 2240 1450 Output Total 300 1100 Balance 1940 350 Result Diagrams: 03/05/19 06:20 03/05/19 06:20 Hospitalist ROS - Medication Medications: Active Medications Generic Name Dose Route Start Last Admin Trade Name Freq PRN Reason Stop Dose Admin Acetaminophen 650 mg 02/14/19 22:47 03/06/19 10:03 Tylenol PO 650 mg Q4H PRN Administration Headache/Fever/Mild Pain (1-3) Albuterol/Ipratropium 3 ml 02/14/19 22:49 02/15/19 06:11 Duoneb NEB 3 ml Q4H PRN Administration SOB &/or Wheezing Albuterol/Ipratropium 3 ml 02/20/19 18:30 03/06/19 10:32 Duoneb NEB 3 ml [id number] NASREEN Administration Ascorbic Acid 1,000 mg 02/24/19 09:00 03/06/19 09:50 Vitamin C PO 1,000 mg DAILY NASREEN Administration Benzonatate 200 mg 03/01/19 15:00 03/06/19 09:53 Tessalon PO 200 mg TID NASREEN Administration Bisacodyl 10 mg 02/14/19 22:47 02/27/19 20:28 Dulcolax PO 10 mg DAILYPRN PRN Administration Constipation Diltiazem HCl 60 mg 02/16/19 17:00 03/06/19 09:51 Cardizem PO 60 mg QID NASREEN Administration Glycerin 1 each 03/01/19 09:52 03/02/19 20:06 Adult Glycerin AL 1 supp BID PRN Administration Constipation Guaifenesin 600 mg 03/01/19 21:00 03/06/19 09:51 Mucinex PO 600 mg Q12HR NASREEN Administration Sodium Chloride 1,000 mls @ 50 mls/hr 03/04/19 21:00 03/06/19 03:48 1/2 Normal Saline IV 1,000 mls .Q20H NASREEN Administration Methylprednisolone Sodium Succinate 20 mg 02/27/19 15:00 03/06/19 03:41 Solu-Medrol IVP 20 mg 0300,1500 NASREEN Administration Mometasone Furoate/Formoterol Fumar 2 puff 02/15/19 18:30 03/06/19 07:33 Dulera 200 Mcg/5 Mcg Inhaler INH 2 puff BID-RT NASREEN Administration Polyethylene Glycol 17 gm 02/25/19 09:00 03/06/19 09:51 Miralax PO 17 gm DAILY NASREEN Administration Saccharomyces Boulardii 250 mg 02/15/19 09:00 03/06/19 09:51 Florastor PO 250 mg DAILY NASREEN Administration Senna/Docusate Sodium 2 tab 02/15/19 08:04 03/01/19 20:09 Senokot S PO 2 tab BID PRN Administration Constipation Sodium Chloride 10 ml 02/15/19 09:00 03/06/19 09:51 Flush - Normal Saline IVF 10 ml Q12HR NASREEN Administration Sodium Chloride 10 ml 02/15/19 08:09 02/18/19 23:46 Flush - Normal Saline IVF 10 ml PRN PRN Administration Saline Flush - Exam Neck: no JVD Heart: RRR Respiratory: no ronchi Gastrointestinal: soft Extremities: no edema Neurological: no weakness Hosp A/P (1) Acute and chronic respiratory failure Code(s): J96.20 - ACUTE AND CHR RESP FAILURE, UNSP W HYPOXIA OR HYPERCAPNIA Status: Acute Qualifiers: Respiratory failure complication: hypoxia and hypercapnia Qualified Code(s) : J96.21 - Acute and chronic respiratory failure with hypoxia; J96.22 - Acute and chronic respiratory failure with hypercapnia (2) COPD exacerbation Code(s): J44.1 - CHRONIC OBSTRUCTIVE PULMONARY DISEASE W (ACUTE) EXACERBATION Status: Acute (3) End stage COPD Code(s): J44.9 - CHRONIC OBSTRUCTIVE PULMONARY DISEASE, UNSPECIFIED Status: Chronic (4) Demand ischemia of myocardium Code(s): I24.8 - OTHER FORMS OF ACUTE ISCHEMIC HEART DISEASE Status: Acute - Plan Patient is DNR... To go to LTAC.
[2019-03-07] MEDS: methylPREDNISolone Sod Succ 40 MG VIAL IVP SCH ×2 (03:08→16:48)
[2019-03-07] MEDS: Sodium Chloride 0.45% 1,000 ML IV SCH ×2 (03:14→16:56)
[2019-03-07] MEDS: Mometasone/Formoterol 120 PUFF INHALER INH SCH ×2 (08:16→18:17)
[2019-03-07] MEDS: Saccharomyces boulardii 250 MG CAP PO SCH (09:10)
[2019-03-07] MEDS: Polyethylene Glycol 3350 17 GM Packet PO SCH (09:10)
[2019-03-07] MEDS: Ascorbic Acid 500 mg Chewable Tablet PO SCH (09:10)
[2019-03-07] MEDS: Benzonatate 100 MG CAP PO SCH ×3 (09:11→20:52)
[2019-03-07] MEDS: guaiFENesin ER 600 MG TAB PO SCH ×2 (09:11→20:53)
--- NOTE | 2019-03-07 10:42 | PDOC.HOSPP ---
- Subjective Encounter Date: 03/07/19 Encounter Time: 10:39 Subjective: dyspnea with any exertion, BIPAP nitely. sore throat - Objective Vital Signs & Weight: Vital Signs (12 hours) Temp Pulse Resp Pulse Ox 03/07/19 07:44 108 H 22 H 99 03/07/19 07:15 97.8 F 03/07/19 03:54 98.2 F 03/07/19 02:40 107 H 19 94 L 03/07/19 00:00 96 03/06/19 23:28 97.6 F Weight Admit Weight 85 lb 11.2 oz Weight 89 lb 9 oz Most Recent Monitor Data Heart Rate from ECG 102 NIBP 161/94 NIBP BP-Mean 116 Respiration from ECG 23 SpO2 98 I&O: 03/06/19 03/07/19 03/08/19 06:59 06:59 06:59 Intake Total 1450 1500 Output Total 1100 900 Balance 350 600 Result Diagrams: 03/05/19 06:20 03/05/19 06:20 Hospitalist ROS - Medication Medications: Active Medications Generic Name Dose Route Start Last Admin Trade Name Freq PRN Reason Stop Dose Admin Acetaminophen 650 mg 02/14/19 22:47 03/06/19 20:55 Tylenol PO 650 mg Q4H PRN Administration Headache/Fever/Mild Pain (1-3) Albuterol/Ipratropium 3 ml 02/14/19 22:49 02/15/19 06:11 Duoneb NEB 3 ml Q4H PRN Administration SOB &/or Wheezing Albuterol/Ipratropium 3 ml 02/20/19 18:30 03/07/19 07:44 Duoneb NEB 3 ml [id number] NASREEN Administration Ascorbic Acid 1,000 mg 02/24/19 09:00 03/07/19 09:10 Vitamin C PO 1,000 mg DAILY NASREEN Administration Benzonatate 200 mg 03/01/19 15:00 03/07/19 09:11 Tessalon PO 200 mg TID NASREEN Administration Bisacodyl 10 mg 02/14/19 22:47 02/27/19 20:28 Dulcolax PO 10 mg DAILYPRN PRN Administration Constipation Diltiazem HCl 60 mg 02/16/19 17:00 03/07/19 09:10 Cardizem PO 60 mg QID NASREEN Administration Glycerin 1 each 03/01/19 09:52 03/02/19 20:[address] 1 supp BID PRN Administration Constipation Guaifenesin 600 mg 03/01/19 21:00 03/07/19 09:11 Mucinex PO 600 mg Q12HR NASREEN Administration Sodium Chloride 1,000 mls @ 50 mls/hr 03/04/19 21:00 03/07/19 03:14 1/2 Normal Saline IV 1,000 mls .Q20H NASREEN Administration Methylprednisolone Sodium Succinate 20 mg 02/27/19 15:00 03/07/19 03:08 Solu-Medrol IVP 20 mg 0300,1500 NASREEN Administration Mometasone Furoate/Formoterol Fumar 2 puff 02/15/19 18:30 03/07/19 08:16 Dulera 200 Mcg/5 Mcg Inhaler INH 2 puff BID-RT NASREEN Administration Polyethylene Glycol 17 gm 02/25/19 09:00 03/07/19 09:10 Miralax PO 17 gm DAILY NASREEN Administration Saccharomyces Boulardii 250 mg 02/15/19 09:00 03/07/19 09:10 Florastor PO 250 mg DAILY NASREEN Administration Senna/Docusate Sodium 2 tab 02/15/19 08:04 03/01/19 20:09 Senokot S PO 2 tab BID PRN Administration Constipation Sodium Chloride 10 ml 02/15/19 09:00 03/07/19 09:12 Flush - Normal Saline IVF 10 ml Q12HR NASREEN Administration Sodium Chloride 10 ml 02/15/19 08:09 02/18/19 23:46 Flush - Normal Saline IVF 10 ml PRN PRN Administration Saline Flush - Exam General Appearance: awake alert ENT - other findings: red pharynx Neck: no JVD Heart: RRR, no murmur Respiratory - other findings: decreased BS, RHONCHI Gastrointestinal: soft, normal bowel sounds Extremities: no edema Hosp A/P (1) Acute and chronic respiratory failure Code(s): J96.20 - ACUTE AND CHR RESP FAILURE, UNSP W HYPOXIA OR HYPERCAPNIA Status: Acute Qualifiers: Respiratory failure complication: hypoxia and hypercapnia Qualified Code(s) : J96.21 - Acute and chronic respiratory failure with hypoxia; J96.22 - Acute and chronic respiratory failure with hypercapnia (2) COPD exacerbation Code(s): J44.1 - CHRONIC OBSTRUCTIVE PULMONARY DISEASE W (ACUTE) EXACERBATION Status: Acute (3) Hyponatremia Code(s): E87.1 - HYPO-OSMOLALITY AND HYPONATREMIA Status: Acute (4) Hypertension Code(s): I10 - ESSENTIAL (PRIMARY) HYPERTENSION Status: Chronic Qualifiers: Hypertension type: essential hypertension Qualified Code(s): I10 - Essential (primary) hypertension (5) Esophageal moniliasis Code(s): B37.81 - CANDIDAL ESOPHAGITIS Status: Acute - Plan rpt cxr, cont current tx add nystatin SSW
--- NOTE | 2019-03-07 11:47 | RAD ---
EXAM: Single view of the chest HISTORY: COPD COMPARISON: 02/14/2019 FINDINGS: Single view of the chest shows an enlarged cardiomediastinal silhouette. Atherosclerotic c alcific lesions are seen in the aorta. There are small bilateral pleural effusions with adjacent atelectasis, right greater than left. The bones are unremarkable. IMPRESSION: Small bilateral pleural effusions with adjacent atelectasis.
[2019-03-07] MEDS: Nystatin 500,000 UNITS/5 ML UDCUP SSW SCH ×3 (12:50→20:53)
[2019-03-07 16:08] VITALS: BP 149/79
--- NOTE | 2019-03-07 20:35 | PRG ---
DATE OF SERVICE: 03/07/2019 SUBJECTIVE: Dinora Connors has not made any progress over the weekend. She can do physical therapy for 2 minutes of just ankle and leg movements. OBJECTIVE: VITAL SIGNS: She is afebrile, heart rate is 110, respiratory rate is in the 20s, blood pressure 160/86. LUNGS: Unchanged. HEART: Unchanged. ABDOMEN: Unchanged. IMPRESSION: End-stage obstructive lung disease. She is probably best served moving into a hospice environment, although I really do not see her passing away anytime at least for the next few weeks unless something happens dramatically for the negative. I just do not think she can get physical therapy enough to recover from this and become functional. Job ID: [id number]
[2019-03-07] MEDS: Acetaminophen 325 MG TAB PO PRN (21:24)
[2019-03-08] MEDS: methylPREDNISolone Sod Succ 40 MG VIAL IVP SCH ×2 (04:48→16:40)
[2019-03-08] MEDS: Sodium Chloride 0.45% 1,000 ML IV SCH ×2 (04:48→20:24)
--- NOTE | 2019-03-08 07:35 | PDOC.HOSPP ---
- Subjective Encounter Date: 03/08/19 Encounter Time: 07:31 Subjective: weak,tachypneic - Objective Vital Signs & Weight: Vital Signs (12 hours) Temp Pulse Resp Pulse Ox 03/08/19 03:41 98.5 F 03/08/19 02:26 83 18 100 03/07/19 23:44 98.2 F 03/07/19 22:19 87 24 H 96 03/07/19 20:00 95 03/07/19 19:43 98.0 F Weight Admit Weight 85 lb 11.2 oz Weight 89 lb 9 oz Most Recent Monitor Data Heart Rate from ECG 104 NIBP 147/77 NIBP BP-Mean 100 Respiration from ECG 22 SpO2 96 I&O: 03/07/19 03/08/19 03/09/19 06:59 06:59 06:59 Intake Total 1500 2190 Output Total 900 Balance 600 2190 Result Diagrams: 03/05/19 06:20 03/05/19 06:20 Hospitalist ROS - Medication Medications: Active Medications Generic Name Dose Route Start Last Admin Trade Name Freq PRN Reason Stop Dose Admin Acetaminophen 650 mg 02/14/19 22:47 03/07/19 21:24 Tylenol PO 650 mg Q4H PRN Administration Headache/Fever/Mild Pain (1-3) Albuterol/Ipratropium 3 ml 02/14/19 22:49 02/15/19 06:11 Duoneb NEB 3 ml Q4H PRN Administration SOB &/or Wheezing Albuterol/Ipratropium 3 ml 02/20/19 18:30 03/08/19 02:26 Duoneb NEB 3 ml [id number] NASREEN Administration Ascorbic Acid 1,000 mg 02/24/19 09:00 03/07/19 09:10 Vitamin C PO 1,000 mg DAILY NASREEN Administration Benzonatate 200 mg 03/01/19 15:00 03/07/19 20:52 Tessalon PO 200 mg TID NASREEN Administration Bisacodyl 10 mg 02/14/19 22:47 02/27/19 20:28 Dulcolax PO 10 mg DAILYPRN PRN Administration Constipation Diltiazem HCl 60 mg 02/16/19 17:00 03/07/19 20:53 Cardizem PO 60 mg QID NASREEN Administration Glycerin 1 each 03/01/19 09:52 03/02/19 20:06 Adult Glycerin [place] 1 supp BID PRN Administration Constipation Guaifenesin 600 mg 03/01/19 21:00 03/07/19 20:53 Mucinex PO 600 mg Q12HR NASREEN Administration Sodium Chloride 1,000 mls @ 50 mls/hr 03/04/19 21:00 03/08/19 04:48 1/2 Normal Saline IV 1,000 mls .Q20H NASREEN Administration Methylprednisolone Sodium Succinate 20 mg 02/27/19 15:00 03/08/19 04:48 Solu-Medrol IVP 20 mg 0300,1500 NASREEN Administration Mometasone Furoate/Formoterol Fumar 2 puff 02/15/19 18:30 03/07/19 18:17 Dulera 200 Mcg/5 Mcg Inhaler INH 2 puff BID-RT NASREEN Administration Nystatin 500,000 units 03/07/19 13:00 03/07/19 20:53 Mycostatin SSW 500,000 units QID NASREEN Administration Polyethylene Glycol 17 gm 02/25/19 09:00 03/07/19 09:10 Miralax PO 17 gm DAILY NASREEN Administration Saccharomyces Boulardii 250 mg 02/15/19 09:00 03/07/19 09:10 Florastor PO 250 mg DAILY NASREEN Administration Senna/Docusate Sodium 2 tab 02/15/19 08:04 03/01/19 20:09 Senokot S PO 2 tab BID PRN Administration Constipation Sodium Chloride 10 ml 02/15/19 09:00 03/07/19 20:53 Flush - Normal Saline IVF 10 ml Q12HR NASREEN Administration Sodium Chloride 10 ml 02/15/19 08:09 02/18/19 23:46 Flush - Normal Saline IVF 10 ml PRN PRN Administration Saline Flush - Exam Neck: no JVD Heart: RRR Respiratory - other findings: decreased BS, rhonchi Gastrointestinal: soft, non-tender, normal bowel sounds Extremities: no edema Hosp A/P (1) Acute and chronic respiratory failure Code(s): J96.20 - ACUTE AND CHR RESP FAILURE, UNSP W HYPOXIA OR HYPERCAPNIA Status: Acute Qualifiers: Respiratory failure complication: hypoxia and hypercapnia Qualified Code(s) : J96.21 - Acute and chronic respiratory failure with hypoxia; J96.22 - Acute and chronic respiratory failure with hypercapnia (2) COPD exacerbation Code(s): J44.1 - CHRONIC OBSTRUCTIVE PULMONARY DISEASE W (ACUTE) EXACERBATION Status: Acute (3) Hyponatremia Code(s): E87.1 - HYPO-OSMOLALITY AND HYPONATREMIA Status: Acute (4) Hypertension Code(s): I10 - ESSENTIAL (PRIMARY) HYPERTENSION Status: Chronic Qualifiers: Hypertension type: essential hypertension Qualified Code(s): I10 - Essential (primary) hypertension (5) Esophageal moniliasis Code(s): B37.81 - CANDIDAL ESOPHAGITIS Status: Acute - Plan CXR bilat pleural effusion no improvement to slow decline cont aggressive tx with nebs, steroids, bipap, etc discuss ongoing plans with direct marketing coordinator
[2019-03-08] MEDS: Saccharomyces boulardii 250 MG CAP PO SCH (08:31)
[2019-03-08] MEDS: Ascorbic Acid 500 mg Chewable Tablet PO SCH (08:31)
[2019-03-08] MEDS: Benzonatate 100 MG CAP PO SCH ×3 (08:31→20:25)
[2019-03-08] MEDS: guaiFENesin ER 600 MG TAB PO SCH ×2 (08:31→20:25)
[2019-03-08] MEDS: Polyethylene Glycol 3350 17 GM Packet PO SCH (08:32)
[2019-03-08] MEDS: Nystatin 500,000 UNITS/5 ML UDCUP SSW SCH ×4 (08:32→20:25)
[2019-03-08] MEDS: Mometasone/Formoterol 120 PUFF INHALER INH SCH ×2 (10:51→18:50)
--- NOTE | 2019-03-08 17:05 | PRG ---
DATE OF SERVICE: 03/08/2019 SUBJECTIVE: Dinora Connors is still too weak to cooperate with physical therapy. OBJECTIVE: VITAL SIGNS: She is afebrile. Heart rate is 106, blood pressure 144/82, and respiratory rate varies in the 20s to low 30s. LUNGS: Unchanged. HEART: Unchanged. ABDOMEN: Unchanged. Since we started IV fluids, she has had no more issues with impaction. IMPRESSION: End-stage obstructive lung disease. I have told Dinora and the daughter that we need to be moving toward inpatient hospice. Her unfortunately "fatty" is very young in her mind, but does not have body that will tolerate much more. Hospice in my opinion is finally the only option. Job ID: [id number]
[2019-03-08] MEDS: Acetaminophen 325 MG TAB PO PRN (20:28)
[2019-03-09] MEDS ORDERED: ALPRAZolam 0.5 MG TAB PO PRN (03:15)
[2019-03-09] MEDS: methylPREDNISolone Sod Succ 40 MG VIAL IVP SCH (03:21)
--- NOTE | 2019-03-09 10:49 | PDOC.HOSPP ---
- Subjective Encounter Date: 03/09/19 Encounter Time: 10:47 Subjective: on BIPAP, profoundly weak - Objective Vital Signs & Weight: Vital Signs (12 hours) Temp Pulse Resp Pulse Ox 03/09/19 07:58 92 L 03/09/19 07:32 90 30 H 98 03/09/19 07:24 97.1 F L 03/09/19 03:33 98.1 F 03/09/19 01:53 90 L 03/09/19 01:45 98 28 H 91 L 03/09/19 00:00 97.9 F Weight Admit Weight 85 lb 11.2 oz Weight 89 lb 9 oz Most Recent Monitor Data Heart Rate from ECG 86 NIBP 143/70 NIBP BP-Mean 94 Respiration from ECG 25 SpO2 97 I&O: 03/08/19 03/09/19 03/10/19 06:59 06:59 06:59 Intake Total 2189 1999 Balance 2189 1999 Result Diagrams: 03/05/19 06:20 03/05/19 06:20 Hospitalist ROS - Medication Medications: Active Medications Generic Name Dose Route Start Last Admin Trade Name Freq PRN Reason Stop Dose Admin Acetaminophen 650 mg 02/14/19 22:47 03/08/19 20:28 Tylenol PO 650 mg Q4H PRN Administration Headache/Fever/Mild Pain (1-3) Albuterol/Ipratropium 3 ml 02/14/19 22:49 02/15/19 06:11 Duoneb NEB 3 ml Q4H PRN Administration SOB &/or Wheezing Albuterol/Ipratropium 3 ml 02/20/19 18:30 03/09/19 07:32 Duoneb NEB 3 ml [id number] NASREEN Administration Ascorbic Acid 1,000 mg 02/24/19 09:00 03/08/19 08:31 Vitamin C PO 1,000 mg DAILY NASEREN Administration Benzonatate 200 mg 03/01/19 15:00 03/08/19 20:25 Tessalon PO 200 mg TID NASREEN Administration Bisacodyl 10 mg 02/14/19 22:47 02/27/19 20:28 Dulcolax PO 10 mg DAILYPRN PRN Administration Constipation Diltiazem HCl 60 mg 02/16/19 17:00 03/08/19 20:25 Cardizem PO 60 mg QID NASREEN Administration Glycerin 1 each 03/01/19 09:52 03/02/19 20:06 Adult Glycerin CO 1 supp BID PRN Administration Constipation Guaifenesin 600 mg 03/01/19 21:00 03/08/19 20:25 Mucinex PO 600 mg Q12HR NASREEN Administration Sodium Chloride 1,000 mls @ 50 mls/hr 03/04/19 21:00 03/08/19 20:24 1/2 Normal Saline IV 1,000 mls .Q20H NASREEN Administration Methylprednisolone Sodium Succinate 20 mg 02/27/19 15:00 03/09/19 03:21 Solu-Medrol IVP 20 mg 0300,1500 NASREEN Administration Mometasone Furoate/Formoterol Fumar 2 puff 02/15/19 18:30 03/08/19 18:50 Dulera 200 Mcg/5 Mcg Inhaler INH 2 puff BID-RT NASREEN Administration Nystatin 500,000 units 03/07/19 13:00 03/08/19 20:25 Mycostatin SSW 500,000 units QID NASREEN Administration Polyethylene Glycol 17 gm 02/25/19 09:00 03/08/19 08:32 Miralax PO Not Given DAILY NASREEN Saccharomyces Boulardii 250 mg 02/15/19 09:00 03/08/19 08:31 Florastor PO 250 mg DAILY NASREEN Administration Senna/Docusate Sodium 2 tab 02/15/19 08:04 03/01/19 20:09 Senokot S PO 2 tab BID PRN Administration Constipation Sodium Chloride 10 ml 02/15/19 09:00 03/08/19 20:26 Flush - Normal Saline IVF Not Given Q12HR NASREEN Sodium Chloride 10 ml 02/15/19 08:09 02/18/19 23:46 Flush - Normal Saline IVF 10 ml PRN PRN Administration Saline Flush Sterile Water 1 ml 02/14/19 22:57 03/09/19 03:21 Bacteriostatic Water FS 1 ml PRN PRN Administration RECONSTITUTION - Exam Neck: no JVD Heart: RRR, no murmur Respiratory - other findings: shallow BS with rhochi, wheezes Gastrointestinal: soft, normal bowel sounds Extremities: no edema Hosp A/P (1) Acute and chronic respiratory failure Code(s): J96.20 - ACUTE AND CHR RESP FAILURE, UNSP W HYPOXIA OR HYPERCAPNIA Status: Acute Qualifiers: Respiratory failure complication: hypoxia and hypercapnia Qualified Code(s) : J96.21 - Acute and chronic respiratory failure with hypoxia; J96.22 - Acute and chronic respiratory failure with hypercapnia (2) COPD exacerbation Code(s): J44.1 - CHRONIC OBSTRUCTIVE PULMONARY DISEASE W (ACUTE) EXACERBATION Status: Acute (3) Hyponatremia Code(s): E87.1 - HYPO-OSMOLALITY AND HYPONATREMIA Status: Acute (4) Hypertension Code(s): I10 - ESSENTIAL (PRIMARY) HYPERTENSION Status: Chronic Qualifiers: Hypertension type: essential hypertension Qualified Code(s): I10 - Essential (primary) hypertension (5) Esophageal moniliasis Code(s): B37.81 - CANDIDAL ESOPHAGITIS Status: Acute - Plan CXR bilat pleural effusion no improvement to slow decline cont aggressive tx with nebs, steroids, bipap, etc agree hospice is apprpriate
[2019-03-09] MEDS: Benzonatate 100 MG CAP PO SCH (10:52)
[2019-03-09] MEDS: Ascorbic Acid 500 mg Chewable Tablet PO SCH (10:52)
[2019-03-09] MEDS: Polyethylene Glycol 3350 17 GM Packet PO SCH (10:53)
[2019-03-09] MEDS: guaiFENesin ER 600 MG TAB PO SCH (10:53)
[2019-03-09] MEDS: Nystatin 500,000 UNITS/5 ML UDCUP SSW SCH ×2 (10:53→15:46)
[2019-03-09] MEDS: Saccharomyces boulardii 250 MG CAP PO SCH (10:53)
[2019-03-09] MEDS: Mometasone/Formoterol 120 PUFF INHALER INH SCH (11:04)
[2019-03-09] MEDS ORDERED: Sodium Chloride 0.45% 1,000 ML IV SCH (13:18)
[2019-03-09] MEDS ORDERED: Morphine 2 MG/ML SYRINGE SLOW IVP PRN (13:19)
--- NOTE | 2019-03-09 15:11 | PRG ---
DATE OF SERVICE: 03/09/2019 Dinora Connors has her daughter sitting at the bedside with her. She did not tolerate 10 minutes off BiPAP today. I think she has reached a point, where she has resolved that Hospice and passing is going to be where we go with all of this. Her family certainly is at that point. She was complaining of pain and discomfort earlier and asked for some cough syrup with codeine. I recommend that we start giving her around the clock morphine for comfort with some p.r.n. doses in between, if needed. It would not be unreasonable to remove her BiPAP given that she is in a preterminal state. The daughter will make a decision about that later today. I do not feel she should be transferred to inpatient hospice. She may actually pass away this afternoon. I had a long meeting with the daughter at the bedside. Job ID: [id number]
[2019-03-09] MEDS: Morphine 4 MG/ML VIAL SLOW IVP SCH ×5 (15:45→22:30)
[2019-03-10] MEDS: Morphine 4 MG/ML VIAL SLOW IVP SCH ×8 (01:09→16:31)
[2019-03-10 03:19] VITALS: TEMP 98.5
[2019-03-10] MEDS: Saccharomyces boulardii 250 MG CAP PO SCH (09:35)
--- NOTE | 2019-03-10 09:56 | PRG ---
DATE OF SERVICE: 03/10/2019 Dinora Connors is still on BiPAP. She took it off for couple minutes to moisten her mouth this morning with her daughter sleeping at her bedside. Overall, she does not have signs on exam of impending muscle failure, so I think it is safe to transfer her over to Hospice. I would continue current medications. Job ID: [id number]
--- NOTE | 2019-03-10 16:40 | DIS ---
DATE OF ADMISSION: 02/14/2019 DATE OF DISCHARGE: 03/10/2019 PRIMARY CARE PROVIDER: Dr. Reyes. DISPOSITION: Discharged to inpatient hospice. FINAL DIAGNOSES: End-stage chronic obstructive pulmonary disease, acute on chronic respiratory failure, hyponatremia, hypertension, esophageal moniliasis, demand ischemia, normocytic normochromic anemia, gastroesophageal reflux disease. DISCHARGE MEDICATIONS: 1. Zofran oral dissolving tablet 4 mg q.6 hours p.r.n. 2. DuoNeb 3 mL q.4 hours. 3. BiPAP. ALLERGIES: NO KNOWN DRUG ALLERGIES. PENDING AT THE TIME OF DISCHARGE: Nothing. CODE STATUS: DNAR. DIET: As tolerated. HOSPITAL COURSE: The [facility] with severe COPD[facility] with shortness of breath, pH was 7.32, CO2 was 78.6. Sodium was 128. She grew urine culture, but it was less than 10,000 considered contaminant. Blood cultures were normal. The patient was supported with BiPAP, nebs, steroids, antibiotics. She was seen in consultation by Dr. Fredrick Benson and followed by his associates. She was seen by Palliative Care on 03/02/2019. The patient continued to decline, failed to improve at all. The family has decided on inpatient hospice. She is being transferred to inpatient hospice care. Further orders will be per hospice. Job ID: [id number] [facility]
--- NOTE | 2019-03-12 02:47 | PQF ---
JUAN MIGUEL GREEN, BRENDA Adamson MD [id number] [facility]- [id number] CLINICAL DOCUMENTATION CLARIFICATION FORM: POST DISCHARGE Addendum to original discharge summary date: ____ Late entry note date: __ DATE: 03/12/19 ATTN: Dr. Bansal , Cassandra Please exercise your independent, professional judgment in responding to the clarification form. Clinical indicators are provided on the bottom of this form for your review Can you please further specify if Pneumonia is ruled in or ruled out Pneumonia [ ] Ruled in diagnosis [ ] Continue to treat [ ] Resolved [ ] Ruled out diagnosis [x ] Cannot rule out diagnosis [ ] Other diagnosis please specify [ ] Unable to determine In addition, please specify: Present on Admission (POA): [ ] Yes [ ] No [ ] Unable to determine For continuity of documentation, please document condition throughout progress notes and discharge summary. Thank You. CLINICAL INDICATORS - SIGNS / SYMPTOMS / LABS H and P pg.1 02/14- Chief complaint: Shortness of breath H and P pg.2- Chest X ray does not show any pulmonary infiltrates Hospitalist PN 02/26 Dr. Lewis pg.6- CAP (Community acquired pneumonia) RISK FACTORS Chronic hypoxemic respiratory failure- H and P pg.1 CAD- H and P pg.1 Severe end stage Consult Dr Benson pg.1- Severe end stage COPD and deconditioning Protein calorie malnutrition, severe-PN 02/26 Dr. Joe DE JESUS BiPAP- H and P Pulmonary Consult- Dr. Benson- 02/14 Chest X-ray 03/16 IV Fluids- JUL 25 IV Antibiotics- JUL 25 (This form is maintained as a part of the permanent medical record) 2014 [employer]. All Rights Reserved [email or web address] [not provided] [email or web address]
== END 2019-03-10 16:45 | disposition hospice, inpatient (51) | DRG 189 ==
LOC: ERS 14:47 → ERHOLD 17:05 → IMCU/EMU 02-15 14:20
PROVIDERS: ADMIT Family Medicine; ATTEND Family Medicine
PROC: 5A09557 Assistance with Respiratory Ventilation, Greater than 96 Consecutive Hours, Continuous Positive Airway Pressure (ICD-10-PCS; principal; 2019-02-14)
DX: J96.21 Acute and chronic respiratory failure with hypoxia (principal); E43 Unspecified severe protein-calorie malnutrition; J18.9 Pneumonia, unspecified organism; J44.1 Chronic obstructive pulmonary disease with (acute) exacerbation; I24.8 Other forms of acute ischemic heart disease; E87.1 Hypo-osmolality and hyponatremia; B37.81 Candidal esophagitis; Z68.1 Body mass index [BMI] 19.9 or less, adult; R64 Cachexia; J44.0 Chronic obstructive pulmonary disease with (acute) lower respiratory infection; E87.3 Alkalosis; Z66 Do not resuscitate; Z51.5 Encounter for palliative care; I25.10 Atherosclerotic heart disease of native coronary artery without angina pectoris; I27.23 Pulmonary hypertension due to lung diseases and hypoxia; K21.9 Gastro-esophageal reflux disease without esophagitis; F41.9 Anxiety disorder, unspecified; J96.22 Acute and chronic respiratory failure with hypercapnia; I73.9 Peripheral vascular disease, unspecified; D50.9 Iron deficiency anemia, unspecified; J30.2 Other seasonal allergic rhinitis; E87.8 Other disorders of electrolyte and fluid balance, not elsewhere classified; I10 Essential (primary) hypertension; R13.19 Other dysphagia; K59.00 Constipation, unspecified; E87.6 Hypokalemia; Z99.81 Dependence on supplemental oxygen; Z98.51 Tubal ligation status; Z90.49 Acquired absence of other specified parts of digestive tract; Z90.710 Acquired absence of both cervix and uterus; Z87.891 Personal history of nicotine dependence; Z79.51 Long term (current) use of inhaled steroids; Z79.82 Long term (current) use of aspirin; Z79.52 Long term (current) use of systemic steroids; Z79.899 Other long term (current) drug therapy
CPT/HCPCS: 36415; 70450; 70486; 71045; 72125; 80048; 80053; 81003; 81015; 82550; 82805; 83605; 83735; 83880; 84100; 84484; 85025; 87040; 87086; 93005; 94640; 94660; 96361; 96374; 96375; J0456; J0696; J1885; J2270; J2405; J2920; J2930; J3490; J7050; J7512; J7611; J7620